=== PATIENT | male | born 1985 | race Caucasian/White ===

== ENCOUNTER 2017-06-27 12:16 | Inpatient (IN) | payer OTHER ==
--- NOTE | 2017-06-27 13:42 | ED ---
General Adult HPI - General Chief complaint: Extremity Problem,Nontraumatic Stated complaint: Fluid retention Time Seen by Provider: 06/27/17 13:28 Source: patient, RN notes reviewed Mode of arrival: wheelchair Limitations: no limitations - History of Present Illness Initial comments: Patient 32-year-old male who presents emergency room today with a chief complaint of bilateral leg edema and abdomen swelling over the last month. Patient does admit that over the last 2 months he has run approximately 50 pounds in weight. He does admit that he recently started medications for diabetes, hypertension, cholesterol. States started these just 2 weeks ago. He states he's on pills for his diabetes. Patient admits that he's had a cough. States worse when he lays down. States that the swelling started in his ankles and now is gone up throughout the whole calf area bilaterally. Does admit that is experienced some pain and left knee no. States he has tried the family doctor about this in the past. Patient denies any recent fever, chills, shortness of breath, chest pain, back pain, abdominal pain, nausea or vomiting, numbness or tingling, dysuria or hematuria, constipation or diarrhea, headaches or visual changes, or any other complaints. - Related Data Home Medications Medication Instructions Recorded Confirmed Atorvastatin [Lipitor] 20 mg PO HS 06/27/17 06/27/17 Lisinopril [Prinivil] 20 mg PO DAILY 06/27/17 06/27/17 amLODIPine BESYLATE [Norvasc] 5 mg PO DAILY 06/27/17 06/27/17 glipiZIDE [Glucotrol] 5 mg PO AC-BID 06/27/17 06/27/17 metFORMIN HCL [Glucophage] 500 mg PO BID 06/27/17 06/27/17 Allergies Allergy/AdvReac Type Severity Reaction Status Date / Time No Known Allergies Allergy Verified 06/27/17 14:27 Review of Systems ROS Statement: Those systems with pertinent positive or pertinent negative responses have been documented in the HPI. ROS Other: All systems not noted in ROS Statement are negative. Past Medical History Past Medical History: Diabetes Mellitus, Hyperlipidemia, Hypertension History of Any Multi-Drug Resistant Organisms: None Reported Past Surgical History: Ear Surgery, Tonsillectomy Past Psychological History: No Psychological Hx Reported, Depression Smoking Status: Never smoker Past Alcohol Use History: None Reported Past Drug Use History: None Reported General Exam - General Exam Comments Initial Comments: General: The patient is awake and alert, in no distress, and does not appear acutely ill. Eye: Pupils are equal, round and reactive to light, extra-ocular movements are intact. No nystagmus. There is normal conjunctiva bilaterally. No signs of icterus. Ears, nose, mouth and throat: There are moist mucous membranes and no oral lesions. Neck: The neck is supple, there is no tenderness or JVD. Cardiovascular: There is a regular rate and rhythm. No murmur, rub or gallop is appreciated. Respiratory: Lungs are clear to auscultation, respirations are non-labored, breath sounds are equal. No wheezes, stridor, rales, or rhonchi. Gastrointestinal: Soft, non-distended, non-tender abdomen without masses or organomegaly noted. There is no rebound or guarding present. No CVA tenderness. Bowel sounds are unremarkable. Musculoskeletal: Normal ROM, no tenderness. Strength 5/5. Sensation intact. Pulses equal bilaterally 2+. 1-2+ pitting edema. Neurological: A&O x 3. CN II-XII intact, There are no obvious motor or sensory deficits. Coordination appears grossly intact. Speech is normal. Skin: Skin is warm and dry and no rashes or lesions are noted. Psychiatric: Cooperative, appropriate mood & affect, normal judgment. Limitations: no limitations Course Vital Signs 06/27/17 12:19 Temperature 97.8 F Pulse Rate 107 H Respiratory 18 Rate Blood Pressure 156/99 O2 Sat by Pulse 99 Oximetry Medical Decision Making - Medical Decision Making Patient's labs reviewed. Does show elevated BNP greater than 6000. Patient's chest x-ray shows bilateral pleural effusion. Patient started on Lasix here in emergency room and will be admitted. - Lab Data Result diagrams: 06/27/17 14:12 06/27/17 14:12 Lab Results 06/27/17 06/27/17 06/27/17 Range/Units 14:12 14:12 14:12 WBC 6.4 (3.8-10.6) k/uL RBC 5.46 (4.30-5.90) m/uL Hgb 14.5 (13.0-17.5) gm/dL Hct 45.6 (39.0-53.0) % MCV 83.6 (80.0-100.0) fL MCH 26.7 (25.0-35.0) pg MCHC 31.9 (31.0-37.0) g/dL RDW 13.5 (11.5-15.5) % Plt Count 314 (150-450) k/uL Neutrophils % 69 % Lymphocytes % 21 % Monocytes % 6 % Eosinophils % 2 % Basophils % 1 % Neutrophils # 4.4 (1.3-7.7) k/uL Lymphocytes # 1.4 (1.0-4.8) k/uL Monocytes # 0.4 (0-1.0) k/uL Eosinophils # 0.1 (0-0.7) k/uL Basophils # 0.1 (0-0.2) k/uL Hypochromasia Slight Sodium 140 (137-145) mmol/L Potassium 4.3 (3.5-5.1) mmol/L Chloride 110 H (98-107) mmol/L Carbon Dioxide 23 (22-30) mmol/L Anion Gap 7 mmol/L BUN 13 (9-20) mg/dL Creatinine 1.25 (0.66-1.25) mg/dL Est GFR (MDRD) Af Amer >60 (>60 ml/min/1.73 sqM) Est GFR (MDRD) Non-Af >60 (>60 ml/min/1.73 sqM) Glucose 86 (74-99) mg/dL Calcium 8.8 (8.4-10.2) mg/dL Total Bilirubin 1.3 (0.2-1.3) mg/dL AST 19 (17-59) U/L ALT 20 L (21-72) U/L Alkaline Phosphatase 60 (38-126) U/L NT-Pro-B Natriuret Pep 6400 pg/mL Total Protein 5.6 L (6.3-8.2) g/dL Albumin 2.8 L (3.5-5.0) g/dL Disposition Clinical Impression: Bilateral pleural effusion, Anasarca, Bilateral leg edema Disposition: ADMITTED IP TO THIS [facility] Condition: Stable Referrals: Melvina Layne MD [Primary Care Provider] - 1-2 days Time of Disposition: 15:38
[2017-06-27 14:35] LABS: Basophils # (A) 0.1 k/uL (0-0.2); Basophils % (A) 1 %; CH 26.2; CHCM 31.4; Eosinophils # (A) 0.1 k/uL (0-0.7); Eosinophils % (A) 2 %; HCT 45.6 % (39.0-53.0); HDW 2.86; HGB 14.5 gm/dL (13.0-17.5); Hypochromasia Slight; Luc # (Auto) 0.09; Luc % (Auto) 1; Lymphocytes # (A) 1.4 k/uL (1.0-4.8); Lymphocytes % (A) 21 %; MCH 26.7 pg (25.0-35.0); MCHC 31.9 g/dL (31.0-37.0); MCV 83.6 fL (80.0-100.0); Mean Platelet Volume 6.8; Monocytes # (A) 0.4 k/uL (0-1.0); Monocytes % (A) 6 %; Neutrophils # (A) 4.4 k/uL (1.3-7.7); Neutrophils % (A) 69 %; RBC 5.46 m/uL (4.30-5.90); RDW 13.5 % (11.5-15.5); WBC 6.4 k/uL (3.8-10.6); WBC (Perox) 6.48
--- NOTE | 2017-06-27 14:35 | XR ---
EXAMINATION TYPE: XR chest 2V DATE OF EXAM: 06/27/2017 COMPARISON: NONE HISTORY: Cough, bilateral leg edema TECHNIQUE: Frontal and lateral views of the chest are obtained. FINDINGS: There are overlying cardiac leads. Bibasilar effusions are present with associated atelect asis. Heart is enlarged. No evident pneumothorax. IMPRESSION: Bibasilar effusions and associated atelectasis, correlate to exclude pneumonia. Borderli ne increased cardiac size, consider myocarditis. Follow-up recommended.
[2017-06-27 14:49] LABS: ALT 20 U/L (21-72); AST 19 U/L (17-59); Alkaline Phosphatase 60 U/L (38-126); Anion Gap 7 mmol/L; Blood Urea Nitrogen 13 mg/dL (9-20); Calcium 8.8 mg/dL (8.4-10.2); Carbon Dioxide 23 mmol/L (22-30); Chloride 110 mmol/L (98-107); Glucose 86 mg/dL (74-99); Non-African American GFR(MDRD) >60 (>60 ml/min/1.73 sqM); Potassium 4.3 mmol/L (3.5-5.1); Sodium 140 mmol/L (137-145); Total Bilirubin 1.3 mg/dL (0.2-1.3); Total Protein 5.6 g/dL (6.3-8.2)
[2017-06-27] MEDS ORDERED: FUROSEMIDE 10 MG/ML 4 ML VIAL IV STA (15:38)
[2017-06-27] MEDS ORDERED: NALOXONE 0.4 MG/ML 1 ML VIAL IV PRN (15:49)
[2017-06-27] MEDS ORDERED: ONDANSETRON 4 MG/2 ML VIAL IVP PRN (15:49)
[2017-06-27 17:34] LABS: Glucose,Whole Blood 87 mg/dL (75-99)
[2017-06-27] MEDS: glipiZIDE 5 MG TAB PO SCH (18:25)
[2017-06-27 20:25] LABS: Hemoglobin A1C 8.4 % (4.2-6.1)
[2017-06-27] MEDS: ATORVASTATIN 20 MG TAB PO SCH (20:39)
[2017-06-27 21:05] LABS: Glucose,Whole Blood 146 mg/dL (75-99)
[2017-06-27] MEDS: INSULIN LISPRO (humaLOG) 300 UNIT/3 ML VIAL SQ SCH (21:19)
[2017-06-27] MEDS ORDERED: FUROSEMIDE 10 MG/ML 2 ML VIAL IV ONE (22:11)
[2017-06-27] MEDS ORDERED: cloNIDine HCL 0.1 MG TAB PO STA (22:11)
[2017-06-27] MEDS: HYDROcodone/APAP 5-325MG 1 EACH TAB PO PRN (23:18)
[2017-06-28] MEDS ORDERED: FUROSEMIDE 10 MG/ML 4 ML VIAL IV SCH (06:00)
[2017-06-28 06:03] LABS: Glucose,Whole Blood 92 mg/dL (75-99)
[2017-06-28] MEDS: INSULIN LISPRO (humaLOG) 300 UNIT/3 ML VIAL SQ SCH ×4 (06:29→20:44)
[2017-06-28] MEDS: glipiZIDE 5 MG TAB PO SCH ×2 (06:30→17:33)
[2017-06-28 06:52] LABS: Basophils # (A) 0.1 k/uL (0-0.2); Basophils % (A) 1 %; CH 26.7; CHCM 31.7; Eosinophils # (A) 0.1 k/uL (0-0.7); Eosinophils % (A) 2 %; HCT 43.5 % (39.0-53.0); HDW 2.75; HGB 13.4 gm/dL (13.0-17.5); Hypochromasia Slight; Luc % (Auto) 1; Lymphocytes # (A) 1.3 k/uL (1.0-4.8); Lymphocytes % (A) 18 %; MCH 26.1 pg (25.0-35.0); MCHC 30.9 g/dL (31.0-37.0); MCV 84.5 fL (80.0-100.0); Monocytes # (A) 0.6 k/uL (0-1.0); Monocytes % (A) 8 %; Neutrophils # (A) 5.2 k/uL (1.3-7.7); Neutrophils % (A) 71 %; RBC 5.15 m/uL (4.30-5.90); RDW 14.4 % (11.5-15.5); WBC 7.3 k/uL (3.8-10.6); WBC (Perox) 7.56
[2017-06-28 07:03] LABS: ALT 19 U/L (21-72); AST 15 U/L (17-59); Alkaline Phosphatase 57 U/L (38-126); Anion Gap 8 mmol/L; Blood Urea Nitrogen 13 mg/dL (9-20); Calcium 8.7 mg/dL (8.4-10.2); Carbon Dioxide 23 mmol/L (22-30); Chloride 108 mmol/L (98-107); Glucose 92 mg/dL (74-99); Non-African American GFR(MDRD) >60 (>60 ml/min/1.73 sqM); Potassium 4.3 mmol/L (3.5-5.1); Sodium 139 mmol/L (137-145); Total Bilirubin 1.9 mg/dL (0.2-1.3); Total Protein 5.3 g/dL (6.3-8.2)
[2017-06-28] MEDS: amLODIPine 5 MG TAB PO SCH (08:44)
[2017-06-28] MEDS: LISINOPRIL 20 MG TAB PO SCH (08:44)
[2017-06-28] MEDS: ACETAMINOPHEN TAB 325 MG TAB PO PRN (09:04)
[2017-06-28] MEDS ORDERED: Potassium Replacement Protocol 1 EACH MISC MISCELLANE PRN (11:02)
[2017-06-28] MEDS ORDERED: Magnesium Replacement Protocol 1 EACH MISC MISCELLANE PRN (11:02)
--- NOTE | 2017-06-28 11:10 | P.HPIM ---
History of Present Illness H&P Date: 06/28/17 Chief Complaint: Lower extremity swelling This is a 32-year-old male with past medical history significant for uncontrolled type 2 diabetes and essential hypertension left untreated for several years who presented to my office couple of weeks ago for establishment of care. Patient is aware of his diagnosis but did not have follow-up with any doctors for a couple of years and did not take any medications. He said that he was feeling well and did not have any problems. He was recently started on blood pressure medication and diabetes medication as well. Patient said that for the past week or 2 he's been having worsening swelling that started initially in his lower extremity and is being getting progressively worse. Now the swelling is going all the way up to the abdomen. He reports shortness of breath while laying flat. He denies any chest pain. He did not have similar problems in the past. Review of Systems Review of system: 14 points review of systems were obtained and were negative except to what were mentioned in the HPI. Past Medical History Past Medical History: Diabetes Mellitus, Hyperlipidemia, Hypertension Additional Past Medical History / Comment(s): PT STATED IN PAST HE HAS A PNE VACCINE BUT NOT SURE OF DATE. History of Any Multi-Drug Resistant Organisms: None Reported Past Surgical History: Ear Surgery, Tonsillectomy Additional Past Surgical History / Comment(s): "FLUID TAKEN OFF LT KNEE", TUBES IN EARS CHILD Past Anesthesia/Blood Transfusion Reactions: No Reported Reaction Smoking Status: Never smoker - Past Family History Father Family Medical History: Unable to Obtain Additional Family Medical History / Comment(s): PT WAS ADOPTED Mother Family Medical History: Unable to Obtain Additional Family Medical History / Comment(s): PT WAS ADOPTED Medications and Allergies Home Medications Medication Instructions Recorded Confirmed Type Atorvastatin [Lipitor] 20 mg PO HS 06/27/17 06/27/17 History Lisinopril [Prinivil] 20 mg PO DAILY 06/27/17 06/27/17 History amLODIPine BESYLATE [Norvasc] 5 mg PO DAILY 06/27/17 06/27/17 History glipiZIDE [Glucotrol] 5 mg PO AC-BID 06/27/17 06/27/17 History metFORMIN HCL [Glucophage] 500 mg PO BID 06/27/17 06/27/17 History Allergies Allergy/AdvReac Type Severity Reaction Status Date / Time No Known Allergies Allergy Verified 06/27/17 14:27 Physical Exam Vitals: Vital Signs Temp Pulse Pulse Resp BP BP BP 06/28/17 08:00 97.5 F L 91 16 136/75 06/28/17 03:50 96.8 F L 99 16 152/97 06/28/17 00:04 144/91 06/27/17 23:51 98.5 F 104 H 18 151/95 06/27/17 20:00 98.8 F 102 H 18 148/102 149/101 06/27/17 17:36 97 F L 111 H 20 150/106 06/27/17 17:13 98.2 F 99 15 167/101 06/27/17 12:19 97.8 F 107 H 18 156/99 Pulse Ox 06/28/17 08:00 91 L 06/28/17 03:50 97 06/28/17 00:04 06/27/17 23:51 98 06/27/17 20:00 97 06/27/17 17:36 99 06/27/17 17:13 99 06/27/17 12:19 99 Intake and Output 06/27/17 06/28/17 06/28/17 22:59 06:59 14:59 Intake Total 240 250 120 Output Total 1150 Balance 240 -900 120 Intake: Oral 240 250 120 Output: Urine 500 Stool 650 Other: Weight 109.5 kg General: The patient is awake and alert, in no distress Eye: there is normal conjunctiva bilaterally. Neck: The neck is supple, there is no JVD. Cardiovascular: Normal S1-S2, no S3-S4, no murmurs. Respiratory: Lungs clear to auscultation bilaterally Gastrointestinal: Abdomen is nontender. There is evidence of anasarca up to the mid abdomen Musculoskeletal: There is pitting edema and evidence of anasarca all the way up to the hip Neurological:. Speech is normal. Skin: Skin is warm and dry Results CBC & Chem 7: 06/28/17 05:51 06/28/17 05:51 Labs: Abnormal Lab Results - Last 24 Hours (Table) 06/27/17 06/27/17 06/27/17 Range/Units 14:12 14:12 21:03 MCHC (31.0-37.0) g/dL Chloride 110 H (98-107) mmol/L POC Glucose (mg/dL) 146 H (75-99) mg/dL Hemoglobin A1c 8.4 H (4.2-6.1) % Total Bilirubin (0.2-1.3) mg/dL AST (17-59) U/L ALT 20 L (21-72) U/L Total Protein 5.6 L (6.3-8.2) g/dL Albumin 2.8 L (3.5-5.0) g/dL 06/28/17 06/28/17 Range/Units 05:51 05:51 MCHC 30.9 L (31.0-37.0) g/dL Chloride 108 H (98-107) mmol/L POC Glucose (mg/dL) (75-99) mg/dL Hemoglobin A1c (4.2-6.1) % Total Bilirubin 1.9 H (0.2-1.3) mg/dL AST 15 L (17-59) U/L ALT 19 L (21-72) U/L Total Protein 5.3 L (6.3-8.2) g/dL Albumin 2.6 L (3.5-5.0) g/dL
[2017-06-28 11:23] LABS: Glucose,Whole Blood 84 mg/dL (75-99)
--- NOTE | 2017-06-28 12:41 | ECHOF ---
Referral Reason:CHF? MEASUREMENTS -------- HEIGHT: 170.2 cm WEIGHT: 109.3 kg BP: 120/60 IVSd: 1.4 cm (0.6 - 1.1) LVIDd: 5.8 cm (3.9 - 5.3) LVPWd: 1.3 cm (0.6 - 1.1) IVSs: 1.5 cm LVIDs: 5.4 cm LVPWs: 1.4 cm LA Diam: 3.4 cm (2.7 - 3.8) LAESV Index (A-L): 42.11 ml/m Ao Diam: 3.6 cm (2.0 - 3.7) AV Cusp: 3.1 cm (1.5 - 2.6) LA Diam: 4.0 cm (2.7 - 3.8) MV EXCURSION: 22.560 mm (> 18.000) MV EF SLOPE: 192 mm/s (70 - 150) EPSS: 1.5 cm MV E Nehemiah: 1.07 m/s MV DecT: 200 ms MV A Nehemiah: 1.08 m/s MV E/A Ratio: 0.99 RAP: 5.00 mmHg RVSP: 32.20 mmHg FINDINGS -------- Sinus rhythm. This was a technically good study. There is mild concentric left ventricular hypertrophy. Overall left ventricular systolic function is severely impaired with, an EF between 25 - 30 %. The right ventricle is normal in size. LA is severely dilated >40 ml/m2 The right atrial size is normal. There is [id number] aortic regurgitation. Functionally bicuspid aortic valve. Mild mitral annular calcification present. Mild mitral regurgitation is present. Mild tricuspid regurgitation present. There is no evidence of pulmonary hypertension. The right ventricular systolic pressure, as measured by Doppler, is 32.20mmHg. There is no pulmonic regurgitation present. The aortic root size is normal. There is a trivial pericardial effusion present. CONCLUSIONS -------- 1. There is mild concentric left ventricular hypertrophy. 2. The aortic root size is normal. 3. There is a trivial pericardial effusion present. 4. Overall left ventricular systolic function is severely impaired with, an EF between 25 - 30 %. 5. LA is severely dilated >40 ml/m2 6. Functionally bicuspid aortic valve. 7. Mild mitral annular calcification present. 8. Mild mitral regurgitation is present. 9. Mild tricuspid regurgitation present. 10. There is no evidence of pulmonary hypertension. 11. The right ventricular systolic pressure, as measured by Doppler, is 32.20mmHg. [employer] ATTENDANT: Gretchen Cohen RDCS
--- NOTE | 2017-06-28 13:58 | US ---
EXAMINATION TYPE: US venous doppler duplex LE DATE OF EXAM: 06/28/2017 1:47 PM COMPARISON: NONE CLINICAL HISTORY: r/o DVT. SIDE PERFORMED: Bilateral TECHNIQUE: The lower extremity deep venous system is examined utilizing real time linear array sonog mami with graded compression, doppler sonography and color-flow sonography. VESSELS IMAGED: External Iliac Vein (EIV) Common Femoral Vein Deep Femoral Vein Greater Saphenous Vein * Femoral Vein Popliteal Vein Small Saphenous Vein * Proximal Calf Veins (* superficial vessels) Patient has extensive subcutaneous, pitting edema. Right Leg: Unable to view femoral vein mid and distal for compression views due to extreme edema. Ap pears negative for DVT. Left Leg: Unable to view femoral vein mid and distal for compression views due to extreme edema. Dinah ears negative for DVT. IMPRESSION: Grayscale, color doppler, spectral doppler imaging performed of the deep veins of the lo wer extremities. There is normal flow, compressibility, vascular waveforms bilaterally. Exam somewh at limited. No evident deep venous thrombosis as described. Bilateral lower extremity edema changes a re present.
[2017-06-28 16:17] LABS: Glucose,Whole Blood 137 mg/dL (75-99)
[2017-06-28] MEDS: FUROSEMIDE 10 MG/ML 4 ML VIAL IV SCH (17:33)
[2017-06-28 20:42] LABS: Glucose,Whole Blood 141 mg/dL (75-99)
[2017-06-28] MEDS: HEPARIN SODIUM,PORCINE 5,000 UNIT/ML 1 ML VIAL SQ SCH (20:43)
[2017-06-28] MEDS: HYDROcodone/APAP 5-325MG 1 EACH TAB PO PRN (20:43)
[2017-06-28] MEDS: ATORVASTATIN 20 MG TAB PO SCH (20:43)
[2017-06-29] MEDS: FUROSEMIDE 10 MG/ML 4 ML VIAL IV SCH ×4 (00:06→23:22)
[2017-06-29 06:06] LABS: Glucose,Whole Blood 111 mg/dL (75-99)
[2017-06-29] MEDS: INSULIN LISPRO (humaLOG) 300 UNIT/3 ML VIAL SQ SCH ×4 (06:11→21:08)
[2017-06-29] MEDS: glipiZIDE 5 MG TAB PO SCH ×2 (06:34→16:30)
[2017-06-29 06:49] LABS: Anion Gap 9 mmol/L; Blood Urea Nitrogen 19 mg/dL (9-20); Calcium 8.7 mg/dL (8.4-10.2); Carbon Dioxide 22 mmol/L (22-30); Chloride 106 mmol/L (98-107); Glucose 109 mg/dL (74-99); Magnesium 1.5 mg/dL (1.6-2.3); Non-African American GFR(MDRD) >60 (>60 ml/min/1.73 sqM); Phosphorous 4.6 mg/dL (2.5-4.5); Potassium 4.2 mmol/L (3.5-5.1); Sodium 137 mmol/L (137-145)
[2017-06-29] MEDS ORDERED: Magnesium Replacement Protocol 1 EACH MISC MISCELLANE PRN (08:05)
--- NOTE | 2017-06-29 08:27 | XR ---
EXAMINATION TYPE: XR chest 2V DATE OF EXAM: 06/29/2017 COMPARISON: Prior chest x-ray 06/27/2017 HISTORY: Pleural effusions, abnormal chest x-ray TECHNIQUE: Frontal and lateral views of the chest are obtained. FINDINGS: Similar appearance to prior exam. Bibasilar effusions and associated atelectasis. The hear t is enlarged. No evident pneumothorax. IMPRESSION: Cardiomegaly, bibasilar effusions, atelectasis, correlate for possible myocarditis, mitra estive heart failure. Pneumonia not excluded.
[2017-06-29] MEDS: HEPARIN SODIUM,PORCINE 5,000 UNIT/ML 1 ML VIAL SQ SCH ×2 (09:03→20:10)
[2017-06-29] MEDS: amLODIPine 5 MG TAB PO SCH (09:03)
[2017-06-29] MEDS: MAGNESIUM SULFATE-D5W PMX 1 GM in DEXTROSE/WATER 1 100ML.BAG IVPB SCH ×2 (09:03→11:04)
[2017-06-29] MEDS: LISINOPRIL 20 MG TAB PO SCH (09:04)
[2017-06-29] MEDS ORDERED: METOPROLOL TARTRATE 25 MG TAB PO SCH (10:00)
--- NOTE | 2017-06-29 11:28 | P.PN ---
Subjective Patient is doing slightly better today. He is responding adequately to the diuresis. He lost approximately 5 kg since admission. Objective - Vital Signs Vital signs: Vital Signs Temp 97.7 F 06/29/17 08:00 Pulse 97 06/29/17 08:00 Resp 18 06/29/17 08:00 BP 137/80 06/29/17 08:00 Pulse Ox 97 06/29/17 08:00 Intake & Output 06/28/17 06/29/17 06/29/17 18:59 06:59 18:59 Intake Total 1200 180 Output Total 1100 2600 Balance 100 -2600 180 Weight 107.1 kg Intake: Oral 1200 180 Output: Urine 1100 2600 Other: # Voids 2 - Exam General: The patient is awake and alert, in no distress Eye: there is normal conjunctiva bilaterally. Neck: The neck is supple, there is no JVD. Cardiovascular: Normal S1-S2, no S3-S4, no murmurs. Respiratory: Lungs clear to auscultation bilaterally Gastrointestinal: Abdomen is soft, nontender Musculoskeletal: There is evidence of anasarca up to the mid abdomen improving gradually on a daily basis Neurological:. Speech is normal. Skin: Skin is warm and dry - Labs CBC & Chem 7: 06/28/17 05:51 06/29/17 06:05 Labs: Abnormal Lab Results - Last 24 Hours (Table) 06/28/17 06/28/17 06/29/17 Range/Units 16:13 20:40 06:05 Glucose 109 H (74-99) mg/dL POC Glucose (mg/dL) 137 H 141 H (75-99) mg/dL Phosphorus 4.6 H (2.5-4.5) mg/dL Magnesium 1.5 L (1.6-2.3) mg/dL 06/29/17 Range/Units 06:05 Glucose (74-99) mg/dL POC Glucose (mg/dL) 111 H (75-99) mg/dL Phosphorus (2.5-4.5) mg/dL Magnesium (1.6-2.3) mg/dL Assessment and Plan Plan: 1. Acute systolic heart failure exacerbation 2. Underlying cardiomyopathy most likely hypertensive cardiomyopathy secondary to long-standing untreated hypertension with possible underlying myocarditis 3. Uncontrolled type 2 diabetes mellitus 4. Essential hypertension: Blood pressure better controlled 5. Obesity This is a 32-year-old gentleman with past medical history significant for type 2 diabetes mellitus and essential hypertension who presented to my office couple of weeks ago for establishment of care. Patient has not been seen by a physician for several years. He was aware of his diagnosis of diabetes and hypertension but said that he was feeling well so he did not see a doctor and did not take any of his medication for a couple of years. He was found to be significantly hypertensive and was started on lisinopril and the dose was titrated up over 1 week and then added Norvasc to his regimen. Patient subsequently was having problems with worsening swelling and decided to come to the emergency room couple of days ago. Today, we discussed his echocardiogram report. I explained to him the significance of his underlying cardiomyopathy and the necessity of medication compliance. I answered all of his questions to his satisfaction. I would continue with lisinopril 20 mg daily. Discontinue Norvasc and start hydralazine 25 mg twice a day effective tomorrow for afterload reduction. I would also start him on beta kendal with metoprolol 25 mg twice a day. Continue IV diuresis with IV Lasix 40 mg every 8 hours. Monitor electrolytes and kidney function closely. Replace magnesium by protocol. Consult cardiology for further evaluation.
[2017-06-29 11:45] LABS: Glucose,Whole Blood 92 mg/dL (75-99)
--- NOTE | 2017-06-29 15:24 | P.CRDCN ---
History of Present Illness Consult date: 06/29/17 History of present illness: This is a 32-year-old gentleman with history of possible intermittent hypertensive episodes, but hasn't been seen by any physician on a regular basis. He hasn't taken medication also on a regular basis. He was seen by primary care physician about couple weeks ago and patient was noted to have evidence of high blood pressure. He was started on amlodipine. On follow-up visit patient was noted to have increasing swelling and shortness of breath. He is admitted to the hospital for further evaluation. A chest x-ray showed cardiac megaly and congestive heart failure. His echocardiogram showed evidence of by cuspid aortic valve with moderate to severe aortic regurgitation. This seemed to be global hypokinesia. However in certain views segmental wall motion defects cannot be excluded, especially in the anteroapical and lateral segments. At this point we'll continue with current medical therapy with beta blockers, SWETA inhibitor R's diuretics and all lactone. I'm also add small dose of digoxin. He is also complaining of some pain in the left knee which seemed to be inflamed and may have small arthritis. That may be further investigated with x-rays of the knee. However plan to be a OLMAN and right and left heart catheterization early next week. Review of Systems REVIEW OF SYSTEMS: CONSTITUTIONAL: . Patient doesn't appear to be in acute distress. EYES: Denies diplopia, blurring of vision EARS, NOSE, MOUTH, THROAT: Denies headaches, denies sore throat. CARDIOVASCULAR: As per HPI RESPIRATORY: Denies shortness of breath, denies cough. GASTROINTESTINAL: Denies change in appetite, denies abdominal pain, denies diarrhea GENITOURINARY: Denies hematuria, denies infections. MUSKULOSKELETAL: Complains of pain in the left knee INTEGUMENTARY: Denies rash, denies eczema. NEUROLOGICAL: Denies focal weakness, or visual disturbance. Denies any dizziness or syncope PSYCHIATRIC: Denies anxiety, denies depression. HEMATOLOGIC/LYMPHATIC: Denies any bleeding, denies enlarged lymph nodes. Past Medical History Past Medical History: Diabetes Mellitus, Hyperlipidemia, Hypertension Additional Past Medical History / Comment(s): PT STATED IN PAST HE HAS A PNE VACCINE BUT NOT SURE OF DATE. History of Any Multi-Drug Resistant Organisms: None Reported Past Surgical History: Ear Surgery, Tonsillectomy Additional Past Surgical History / Comment(s): "FLUID TAKEN OFF LT KNEE", TUBES IN EARS CHILD Past Anesthesia/Blood Transfusion Reactions: No Reported Reaction Smoking Status: Never smoker - Past Family History Father Family Medical History: Unable to Obtain Additional Family Medical History / Comment(s): PT WAS ADOPTED Mother Family Medical History: Unable to Obtain Additional Family Medical History / Comment(s): PT WAS ADOPTED Medications and Allergies Home Medications Medication Instructions Recorded Confirmed Type Atorvastatin [Lipitor] 20 mg PO HS 06/27/17 06/27/17 History Lisinopril [Prinivil] 20 mg PO DAILY 06/27/17 06/27/17 History amLODIPine BESYLATE [Norvasc] 5 mg PO DAILY 06/27/17 06/27/17 History glipiZIDE [Glucotrol] 5 mg PO AC-BID 06/27/17 06/27/17 History metFORMIN HCL [Glucophage] 500 mg PO BID 06/27/17 06/27/17 History Allergies Allergy/AdvReac Type Severity Reaction Status Date / Time No Known Allergies Allergy Verified 06/27/17 14:27 Physical Exam Vitals: Vital Signs Temp Pulse Resp BP Pulse Ox 06/29/17 12:00 97.4 F L 94 18 130/82 96 06/29/17 08:00 97.7 F 97 18 137/80 97 06/29/17 04:24 97.7 F 93 16 131/93 98 06/29/17 00:00 91 16 134/87 96 06/28/17 20:00 97.6 F 98 16 138/90 100 06/28/17 16:00 97 16 130/83 96 Intake and Output 06/29/17 06/29/17 06/29/17 06:59 14:59 22:59 Intake Total 360 Output Total 1700 600 Balance -1700 -240 Intake: Oral 360 Output: Urine 1700 600 Other: Weight 107.1 kg GENERAL EXAM: Patient is alert and oriented and doesn't appear to be in any acute distress HEENT: Normocephalic. Normal reaction of pupils, equal size, normal range of extraocular motion. No erythema or exudates in the throat. NECK: No masses, no nuchal rigidity. CHEST: No chest wall deformity. LUNGS: Diminished breath sounds at bases HEART: S1 and S2 normal . Systolic click heard ABDOMEN: No hepatosplenomegaly, normal bowel sounds, no guarding or rigidity. SKIN: No rashes CENTRAL NERVOUS SYSTEM: No focal deficits. EXTREMITIES: Significant edema. There is warmth of the left knee compared to the right knee size to possible arthritis Results 06/28/17 05:51 06/29/17 06:05 Comprehensive Metabolic Panel 06/29/17 Range/Units 06:05 Sodium 137 (137-145) mmol/L Potassium 4.2 (3.5-5.1) mmol/L Chloride 106 (98-107) mmol/L Carbon Dioxide 22 (22-30) mmol/L BUN 19 (9-20) mg/dL Creatinine 1.21 (0.66-1.25) mg/dL Glucose 109 H (74-99) mg/dL Calcium 8.7 (8.4-10.2) mg/dL Current Medications Generic Name Dose Route Start Last Admin Trade Name Freq PRN Reason Stop Dose Admin Acetaminophen 650 mg 06/27/17 15:49 06/28/17 09:04 Tylenol Tab PO 650 mg Q6HR PRN Administration Mild Pain or Fever > 100.5 Hydrocodone Bitart/Acetaminophen 1 each 06/27/17 15:49 06/28/17 20:43 [place] 5-325 PO 1 each Q4HR PRN Administration Moderate Pain Atorvastatin Calcium 20 mg 06/27/17 21:00 06/28/17 20:43 Lipitor PO 20 mg HS [place] Administration Furosemide 40 mg 06/28/17 16:00 06/29/17 08:13 Lasix IV 40 mg Q8HR [place] Administration Glipizide 5 mg 06/27/17 18:15 06/29/17 06:34 Glucotrol PO 5 mg AC-BID [place] Administration Heparin Sodium (Porcine) 5,000 unit 06/28/17 21:00 06/29/17 09:03 Heparin SQ 5,000 unit Q12HR [place] Administration Hydralazine HCl 25 mg 06/30/17 09:00 Apresoline PO BID [place] Insulin Human Lispro 0 unit 06/27/17 21:00 06/29/17 06:11 Humalog SQ Not Given ACHS [facility] Protocol Lisinopril 20 mg 06/28/17 09:00 06/29/17 09:04 Zestril PO 20 mg DAILY [place] Administration Metoprolol Tartrate 25 mg 06/29/17 10:00 06/29/17 12:00 Lopressor PO 25 mg BID [place] Administration Miscellaneous Information 1 each 06/28/17 11:02 Magnesium Per Protocol MISCELLANE DAILY PRN Per Protocol Protocol Miscellaneous Information 1 each 06/28/17 11:02 Potassium Per Protocol MISCELLANE DAILY PRN Per Protocol Protocol Miscellaneous Information 1 each 06/29/17 08:05 Magnesium Per Protocol MISCELLANE DAILY PRN Per Protocol Protocol Naloxone HCl 0.2 mg 06/27/17 15:49 Narcan IV Q2M PRN Opioid Reversal Ondansetron HCl 4 mg 06/27/17 15:49 Zofran IVP Q8HR PRN Nausea And Vomiting Spironolactone 25 mg 06/29/17 15:15 Aldactone PO DAILY [place] Intake and Output 06/29/17 06/29/17 06/29/17 06:59 14:59 22:59 Intake Total 360 Output Total 1700 600 Balance -1700 -240 Intake: Oral 360 Output: Urine 1700 600 Other: Weight 107.1 kg 06/28/17 05:51 06/29/17 06:05 Assessment and Plan (1) Acute systolic (congestive) heart failure Status: Acute (2) Cardiomyopathy Status: Acute (3) Bicuspid aortic valve Status: Acute (4) Aortic regurgitation Status: Acute (5) Arthritis of left knee Status: Acute Plan: Continue with current medical therapy. I will add Aldactone. Once patient's symptoms are more stable, we'll may proceed with a OLMAN and also cardiac catheterization. Further examination depend upon the clinical course.
[2017-06-29] MEDS: HYDROcodone/APAP 5-325MG 1 EACH TAB PO PRN ×2 (15:30→23:22)
[2017-06-29] MEDS: SPIRONOLACTONE 25 MG TAB PO SCH (15:45)
[2017-06-29 16:59] LABS: Glucose,Whole Blood 151 mg/dL (75-99)
[2017-06-29] MEDS ORDERED: METOPROLOL TARTRATE 25 MG TAB PO ONE (17:45)
[2017-06-29] MEDS ORDERED: METOPROLOL TARTRATE 25 MG TAB PO STA (17:58)
[2017-06-29] MEDS: METOPROLOL TARTRATE 50 MG TAB PO SCH (20:10)
[2017-06-29] MEDS: ATORVASTATIN 20 MG TAB PO SCH (20:10)
[2017-06-29 20:53] LABS: Glucose,Whole Blood 80 mg/dL (75-99)
[2017-06-30] MEDS: HYDROcodone/APAP 5-325MG 1 EACH TAB PO PRN ×3 (05:16→23:36)
[2017-06-30 05:46] LABS: Glucose,Whole Blood 136 mg/dL (75-99)
[2017-06-30] MEDS: glipiZIDE 5 MG TAB PO SCH ×2 (06:34→17:30)
[2017-06-30] MEDS: INSULIN LISPRO (humaLOG) 300 UNIT/3 ML VIAL SQ SCH ×4 (06:34→20:53)
[2017-06-30 07:01] LABS: Anion Gap 6 mmol/L; Blood Urea Nitrogen 23 mg/dL (9-20); Calcium 8.6 mg/dL (8.4-10.2); Carbon Dioxide 28 mmol/L (22-30); Chloride 102 mmol/L (98-107); Glucose 116 mg/dL (74-99); Magnesium 1.8 mg/dL (1.6-2.3); Non-African American GFR(MDRD) 55 (>60 ml/min/1.73 sqM); Phosphorous 4.3 mg/dL (2.5-4.5); Potassium 4.3 mmol/L (3.5-5.1); Sodium 136 mmol/L (137-145)
[2017-06-30] MEDS: HEPARIN SODIUM,PORCINE 5,000 UNIT/ML 1 ML VIAL SQ SCH ×2 (09:32→20:48)
[2017-06-30] MEDS: FUROSEMIDE 10 MG/ML 4 ML VIAL IV SCH (09:33)
[2017-06-30] MEDS: hydrALAZINE HCL 25 MG TAB PO SCH ×2 (09:34→20:48)
[2017-06-30] MEDS: METOPROLOL TARTRATE 50 MG TAB PO SCH ×2 (09:34→20:48)
[2017-06-30] MEDS: LISINOPRIL 20 MG TAB PO SCH (09:34)
[2017-06-30] MEDS: SPIRONOLACTONE 25 MG TAB PO SCH (09:34)
[2017-06-30 11:55] LABS: Glucose,Whole Blood 87 mg/dL (75-99)
--- NOTE | 2017-06-30 12:46 | P.PN ---
Subjective Patient is doing slightly better today. He is responding adequately to the diuresis. He lost approximately 5 kg since admission. Noted to have elevated creatinine with acute kidney injury Objective - Vital Signs Vital signs: Vital Signs Temp 97.1 F L 06/29/17 20:00 Pulse 87 06/30/17 04:00 Resp 18 06/30/17 04:00 BP 133/79 06/30/17 04:00 Pulse Ox 92 L 06/30/17 04:00 Intake & Output 06/29/17 06/30/17 06/30/17 18:59 06:59 18:59 Intake Total 640 360 Output Total 1200 1100 Balance -560 -1100 360 Weight 105.6 kg Intake: Intake, IV Titration 100 Amount Magnesium Sulfate-D5w Pmx 100 1 gm In Dextrose/Water 1 100ml.bag @ 100 mls/hr IVPB Q1H [facility] Rx#: [id number] Oral 540 360 Output: Urine 1200 1100 - Exam General: The patient is awake and alert, in no distress Eye: there is normal conjunctiva bilaterally. Neck: The neck is supple, there is no JVD. Cardiovascular: Normal S1-S2, no S3-S4, no murmurs. Respiratory: Lungs clear to auscultation bilaterally Gastrointestinal: Abdomen is soft, nontender Musculoskeletal: There is evidence of anasarca up to the mid abdomen improving gradually on a daily basis Neurological:. Speech is normal. Skin: Skin is warm and dry - Labs CBC & Chem 7: 06/28/17 05:51 06/30/17 06:34 Labs: Abnormal Lab Results - Last 24 Hours (Table) 06/29/17 06/30/17 06/30/17 Range/Units 16:50 05:45 06:34 Sodium 136 L (137-145) mmol/L BUN 23 H (9-20) mg/dL Creatinine 1.48 H (0.66-1.25) mg/dL Glucose 116 H (74-99) mg/dL POC Glucose (mg/dL) 151 H 136 H (75-99) mg/dL Assessment and Plan Plan: 1. Acute systolic heart failure exacerbation 2. Underlying cardiomyopathy most likely hypertensive cardiomyopathy secondary to long-standing untreated hypertension. but unable to rule out ischemic cardiomyopathy . Cardiology consulted. Considering left heart cath early next week. EF of 25 -30%.3. Uncontrolled type 2 diabetes mellitus 4. Essential hypertension: Blood pressure better controlled 5. Obesity 6. Acute kidney injury secondary to diuretic use would hold off nephrotoxics today including Lasix and spironolactone and repeat kidney function in the morning
[2017-06-30 17:11] LABS: Glucose,Whole Blood 111 mg/dL (75-99)
--- NOTE | 2017-06-30 18:36 | P.PN ---
Subjective Principal diagnosis: Cardiomyopathy, congestive heart failure, bicuspid aortic valve and aortic regurgitation This patient is admitted to the hospital with increasing shortness of breath and also peripheral edema. Echocardiogram showed severe cardiomyopathy and evidence of bicuspid aortic valve with moderate to severe aortic regurgitation. Patient diuresed well and lost several pounds. He is feeling better. He still has significant edema of the legs. His venous duplex study is negative for pulmonary emboli. I discussed with patient and family regarding further evaluation with OLMAN and also possible right and left heart catheterization. His creatinine has gone up to 1.4. He denies any chest pain Objective - Vital Signs Vital signs: Vital Signs Temp 97.1 F L 06/30/17 16:55 Pulse 83 06/30/17 16:55 Resp 18 06/30/17 16:55 BP 115/70 06/30/17 16:55 Pulse Ox 99 06/30/17 16:55 Intake & Output 06/29/17 06/30/17 06/30/17 18:59 06:59 18:59 Intake Total 640 360 Output Total 1200 1100 500 Balance -560 -1100 -140 Weight 105.6 kg Intake: Intake, IV Titration 100 Amount Magnesium Sulfate-D5w Pmx 100 1 gm In Dextrose/Water 1 100ml.bag @ 100 mls/hr IVPB Q1H [facility] Rx#: [id number] Oral 540 360 Output: Urine 1200 1100 500 - Exam GENERAL EXAM: Patient is alert and oriented and doesn't appear to be in any acute distress HEENT: Normocephalic. Normal reaction of pupils, equal size, normal range of extraocular motion. No erythema or exudates in the throat. NECK: No masses, no nuchal rigidity. CHEST: No chest wall deformity. LUNGS: Diminished breath sounds at bases HEART: S1 and S2 normal with no audible mumurs or gallops. Regular rhythm, femorals equal on both sides.. ABDOMEN: Soft SKIN: No rashes CENTRAL NERVOUS SYSTEM: No focal deficits. EXTREMITIES: Diffuse edema of the legs - Labs CBC & Chem 7: 06/28/17 05:51 06/30/17 06:34 Labs: Abnormal Lab Results - Last 24 Hours (Table) 06/30/17 06/30/17 06/30/17 Range/Units 05:45 06:34 17:08 Sodium 136 L (137-145) mmol/L BUN 23 H (9-20) mg/dL Creatinine 1.48 H (0.66-1.25) mg/dL Glucose 116 H (74-99) mg/dL POC Glucose (mg/dL) 136 H 111 H (75-99) mg/dL Assessment and Plan (1) Acute systolic (congestive) heart failure Status: Acute (2) Cardiomyopathy Status: Acute (3) Bicuspid aortic valve Status: Acute (4) Aortic regurgitation Status: Acute (5) Arthritis of left knee Status: Acute Plan: Continue current management. Plan for OLMAN and cardiac catheterization next week.
[2017-06-30] MEDS: ATORVASTATIN 20 MG TAB PO SCH (20:48)
[2017-06-30 20:54] LABS: Glucose,Whole Blood 119 mg/dL (75-99)
[2017-07-01 05:53] LABS: Glucose,Whole Blood 118 mg/dL (75-99)
[2017-07-01] MEDS: INSULIN LISPRO (humaLOG) 300 UNIT/3 ML VIAL SQ SCH ×4 (06:02→20:38)
[2017-07-01 06:03] LABS: Anion Gap 8 mmol/L; Blood Urea Nitrogen 26 mg/dL (9-20); Calcium 8.6 mg/dL (8.4-10.2); Carbon Dioxide 26 mmol/L (22-30); Chloride 101 mmol/L (98-107); Glucose 108 mg/dL (74-99); Magnesium 1.9 mg/dL (1.6-2.3); Non-African American GFR(MDRD) 59 (>60 ml/min/1.73 sqM); Phosphorous 4.5 mg/dL (2.5-4.5); Potassium 4.2 mmol/L (3.5-5.1); Sodium 135 mmol/L (137-145)
[2017-07-01] MEDS: glipiZIDE 5 MG TAB PO SCH ×2 (06:29→17:28)
--- NOTE | 2017-07-01 08:30 | P.PN ---
Subjective Principal diagnosis: CHF This is a 32-year-old gentleman with history of possible intermittent hypertensive episodes, but hasn't been seen by any physician on a regular basis. He hasn't taken medication also on a regular basis. He was seen by primary care physician about couple weeks ago and patient was noted to have evidence of high blood pressure. He was started on amlodipine. On follow-up visit patient was noted to have increasing swelling and shortness of breath. He is admitted to the hospital for further evaluation. A chest x-ray showed cardiomegaly and congestive heart failure. His echocardiogram showed evidence of bicuspid aortic valve with moderate to severe aortic regurgitation. This seemed to be global hypokinesia. However in certain views segmental wall motion defects cannot be excluded, especially in the anteroapical and lateral segments. BNP level on admission 6900. At this point we'll continue with current medical therapy with beta blockers, SWETA inhibitor's ,diuretics and Aldactone. I'm also add small dose of digoxin. He is also complaining of some pain in the left knee which seemed to be inflamed and may have small arthritis. That may be further investigated with x-rays of the knee. However plan to be a OLMAN and right and left heart catheterization early next week. 07/01/2016 Patient was seen and examined this morning, he does state that his breathing is improved from admission here, he continues to have significant bilateral peripheral edema. His Lasix and Aldactone were discontinued yesterday because of a jump in his creatinine. Creatinine yesterday 1.4, 1.4 again today. Initial chest x-ray performed on June 28 did reveal congestive cardiac failure with bilateral effusions, BNP on admission was 6900. Objective - Vital Signs Vital signs: Vital Signs Temp 96.3 F L 07/01/17 07:45 Pulse 92 07/01/17 07:45 Resp 18 07/01/17 07:45 BP 137/87 07/01/17 07:45 Pulse Ox 100 07/01/17 07:45 Intake & Output 06/30/17 07/01/17 07/01/17 18:59 06:59 18:59 Intake Total 720 480 118 Output Total 500 750 Balance 220 -270 118 Weight 105.7 kg Intake: Oral 720 480 118 Output: Urine 500 750 Other: # Voids 2 1 - Exam PHYSICAL EXAMINATION: HEENT: Head is atraumatic, normocephalic. Pupils equal, round. Neck is supple. There is elevated jugular venous pressure. HEART EXAMINATION: Heart S1 and S2 systolic click is heard CHEST EXAMINATION: Lungs reveal diminished air entry to bilateral bases ABDOMEN: Soft, nontender. Bowel sounds are heard. No organomegaly noted. EXTREMITIES: 2+ peripheral pulses with 1-2+ evidence of peripheral edema and no calf tenderness noted. NEUROLOGIC patient is awake, alert and oriented -3. . - Labs CBC & Chem 7: 06/28/17 05:51 07/01/17 05:13 Labs: Abnormal Lab Results - Last 24 Hours (Table) 06/30/17 06/30/17 07/01/17 Range/Units 17:08 20:53 05:13 Sodium 135 L (137-145) mmol/L BUN 26 H (9-20) mg/dL Creatinine 1.40 H (0.66-1.25) mg/dL Glucose 108 H (74-99) mg/dL POC Glucose (mg/dL) 111 H 119 H (75-99) mg/dL 07/01/17 Range/Units 05:52 Sodium (137-145) mmol/L BUN (9-20) mg/dL Creatinine (0.66-1.25) mg/dL Glucose (74-99) mg/dL POC Glucose (mg/dL) 118 H (75-99) mg/dL Assessment and Plan (1) Systolic CHF, acute Status: Acute (2) HTN (hypertension) Status: Acute (3) Bicuspid aortic valve Status: Acute (4) Bilateral leg edema Status: Acute (5) Bilateral pleural effusion Status: Acute (6) Cardiomyopathy Status: Acute Plan: From cardiology's perspective, we will repeat a chest x-ray as well as a BNP level today. Monitor creatinine closely. Patient may need further diuresis. Plan for OLMAN as well as heart catheterization this week. Further recommendations to follow. DNP note has been reviewed, I agree with a documented findings and plan of care. Patient was seen and examined.
--- NOTE | 2017-07-01 09:30 | XR ---
EXAMINATION TYPE: XR chest 2V DATE OF EXAM: 07/01/2017 HISTORY: f/u chf. REFERENCE: Previous study dated 06/29/2017. FINDINGS: The heart is enlarged. There are bilateral effusions, greater on the right and the left. Th ere is bibasilar atelectasis. I do not see evidence of pulmonary edema. IMPRESSION: 1. CARDIOMEGALY. 2. BILATERAL EFFUSIONS, GREATER ON THE RIGHT THAN THE LEFT. 3. BIBASILAR AIRSPACE DISEASE.
[2017-07-01] MEDS: LISINOPRIL 20 MG TAB PO SCH (10:05)
[2017-07-01] MEDS: hydrALAZINE HCL 25 MG TAB PO SCH ×2 (10:05→20:24)
[2017-07-01] MEDS: HEPARIN SODIUM,PORCINE 5,000 UNIT/ML 1 ML VIAL SQ SCH ×2 (10:05→20:24)
[2017-07-01] MEDS: METOPROLOL TARTRATE 50 MG TAB PO SCH ×2 (10:06→20:25)
[2017-07-01 12:00] LABS: Glucose,Whole Blood 103 mg/dL (75-99)
--- NOTE | 2017-07-01 12:07 | P.PN ---
Subjective Patient is doing well today. No events overnight. In the function is not improving as of yet. Objective - Vital Signs Vital signs: Vital Signs Temp 96.3 F L 07/01/17 07:45 Pulse 92 07/01/17 07:45 Resp 18 07/01/17 07:45 BP 137/87 07/01/17 07:45 Pulse Ox 100 07/01/17 07:45 Intake & Output 06/30/17 07/01/17 07/01/17 18:59 06:59 18:59 Intake Total 720 480 118 Output Total 500 750 200 Balance 220 -270 -82 Weight 105.7 kg Intake: Oral 720 480 118 Output: Urine 500 750 200 Other: # Voids 2 1 - Exam General: The patient is awake and alert, in no distress Eye: there is normal conjunctiva bilaterally. Neck: The neck is supple, there is no JVD. Cardiovascular: Normal S1-S2, no S3-S4, no murmurs. Respiratory: Lungs clear to auscultation bilaterally Gastrointestinal: Abdomen is soft, nontender Musculoskeletal: There is evidence of anasarca up to the mid abdomen improving gradually on a daily basis Neurological:. Speech is normal. Skin: Skin is warm and dry - Labs CBC & Chem 7: 06/28/17 05:51 07/01/17 05:13 Labs: Abnormal Lab Results - Last 24 Hours (Table) 06/30/17 06/30/17 07/01/17 Range/Units 17:08 20:53 05:13 Sodium 135 L (137-145) mmol/L BUN 26 H (9-20) mg/dL Creatinine 1.40 H (0.66-1.25) mg/dL Glucose 108 H (74-99) mg/dL POC Glucose (mg/dL) 111 H 119 H (75-99) mg/dL 07/01/17 07/01/17 Range/Units 05:52 11:58 Sodium (137-145) mmol/L BUN (9-20) mg/dL Creatinine (0.66-1.25) mg/dL Glucose (74-99) mg/dL POC Glucose (mg/dL) 118 H 103 H (75-99) mg/dL Assessment and Plan Plan: 1. Acute systolic heart failure exacerbation 2. Underlying cardiomyopathy most likely hypertensive cardiomyopathy secondary to long-standing untreated hypertension. but unable to rule out ischemic cardiomyopathy . Cardiology consulted. Considering left heart cath early next week. EF of 25 -30%.3. Uncontrolled type 2 diabetes mellitus 4. Essential hypertension: Blood pressure better controlled 5. Obesity 6. Acute kidney injury secondary to diuretic use would continue to hold off nephrotoxics today including Lasix and spironolactone and repeat kidney function in the morning.. Awaiting further recommendation from cardiology regarding plan on Monday whether to proceed with OLMAN or left heart catheterization.
[2017-07-01] MEDS: HYDROcodone/APAP 5-325MG 1 EACH TAB PO PRN ×2 (15:40→23:36)
[2017-07-01 17:16] LABS: Glucose,Whole Blood 132 mg/dL (75-99)
[2017-07-01] MEDS: ATORVASTATIN 20 MG TAB PO SCH (20:24)
[2017-07-01 20:59] LABS: Glucose,Whole Blood 127 mg/dL (75-99)
[2017-07-02] MEDS: glipiZIDE 5 MG TAB PO SCH ×2 (06:23→17:02)
[2017-07-02] MEDS: INSULIN LISPRO (humaLOG) 300 UNIT/3 ML VIAL SQ SCH ×5 (06:25→21:13)
[2017-07-02 06:41] LABS: Glucose,Whole Blood 84 mg/dL (75-99)
[2017-07-02 07:25] LABS: Anion Gap 8 mmol/L; Blood Urea Nitrogen 28 mg/dL (9-20); Calcium 8.7 mg/dL (8.4-10.2); Carbon Dioxide 26 mmol/L (22-30); Chloride 104 mmol/L (98-107); Glucose 94 mg/dL (74-99); Non-African American GFR(MDRD) >60 (>60 ml/min/1.73 sqM); Phosphorous 4.5 mg/dL (2.5-4.5); Potassium 4.6 mmol/L (3.5-5.1); Sodium 138 mmol/L (137-145)
[2017-07-02] MEDS: LISINOPRIL 20 MG TAB PO SCH (09:06)
[2017-07-02] MEDS: HEPARIN SODIUM,PORCINE 5,000 UNIT/ML 1 ML VIAL SQ SCH ×2 (09:06→20:31)
[2017-07-02] MEDS: hydrALAZINE HCL 25 MG TAB PO SCH ×2 (09:06→20:31)
[2017-07-02] MEDS: METOPROLOL TARTRATE 50 MG TAB PO SCH ×2 (09:07→20:31)
[2017-07-02 11:58] LABS: Glucose,Whole Blood 103 mg/dL (75-99)
--- NOTE | 2017-07-02 14:26 | P.PN ---
Subjective Principal diagnosis: Congestive heart failure This is a pleasant 32-year-old gentleman with diabetes, hypertension, and dyslipidemia was admitted to the hospital with progressive dyspnea and bilateral lower extremities edema and was diagnosed was congestive heart failure. An echocardiogram was performed and showed moderate to severe aortic insufficiency associated with bicuspid aortic valve as well as severe cardiomyopathy with an ejection fraction of 25-30%. The patient is a scheduled to undergo transesophageal echocardiogram as well as heart catheterization by Dr. Dr. Metcalf in the next few days. Yesterday his creatinine was trending up and we held his Aldactone as well as his Lasix. On follow-up with him today, his kidney function is a slightly better but distal abnormal. The creatinine is trending down. Clinically he is feeling overall better but he still have diminished breathing sounds bilaterally as well as mild bilateral lower extremities edema. I am going to continue the current medical treatment and add Lasix by mouth and continue holding the Aldactone at this point. Objective - Vital Signs Vital signs: Vital Signs Temp 97.8 F 07/02/17 09:00 Pulse 80 07/02/17 13:20 Resp 18 07/02/17 13:20 BP 119/86 07/02/17 13:20 Pulse Ox 99 07/02/17 13:20 Intake & Output 07/01/17 07/02/17 07/02/17 18:59 06:59 18:59 Intake Total 358 480 118 Output Total 200 500 Balance 158 -20 118 Weight 106 kg Intake: Oral 358 480 118 Output: Urine 200 500 Other: # Voids 1 2 - Constitutional General appearance: Present: no acute distress - Respiratory Respiratory: bilateral: diminished - Cardiovascular Rhythm: regular Heart sounds: normal: S1, S2 - Labs CBC & Chem 7: 06/28/17 05:51 07/02/17 06:32 Labs: Abnormal Lab Results - Last 24 Hours (Table) 07/01/17 07/01/17 07/02/17 Range/Units 16:45 20:37 06:32 BUN 28 H (9-20) mg/dL Creatinine 1.33 H (0.66-1.25) mg/dL POC Glucose (mg/dL) 132 H 127 H (75-99) mg/dL 07/02/17 Range/Units 11:55 BUN (9-20) mg/dL Creatinine (0.66-1.25) mg/dL POC Glucose (mg/dL) 103 H (75-99) mg/dL Assessment and Plan Plan: This is a pleasant 32-year-old gentleman who was admitted to the hospital with congestive heart failure exacerbation secondary to systolic dysfunction. The echo showed severe cardiomyopathy was bicuspid aortic valve and evidence of moderate to severe aortic insufficiency. I am going to restart the patient on Lasix by mouth. Continue the current medical treatment. OLMAN and heart catheterization to be performed in the next few days.
[2017-07-02 17:22] LABS: Glucose,Whole Blood 138 mg/dL (75-99)
--- NOTE | 2017-07-02 17:22 | P.PN ---
Subjective Patient is doing well today. No events overnight. Cr is improving but not back to normal yet Objective - Vital Signs Vital signs: Vital Signs Temp 97.8 F 07/02/17 09:00 Pulse 80 07/02/17 13:20 Resp 18 07/02/17 13:20 BP 119/86 07/02/17 13:20 Pulse Ox 99 07/02/17 13:20 Intake & Output 07/01/17 07/02/17 07/02/17 18:59 06:59 18:59 Intake Total 358 480 118 Output Total 200 500 Balance 158 -20 118 Weight 106 kg Intake: Oral 358 480 118 Output: Urine 200 500 Other: # Voids 1 2 - Exam General: The patient is awake and alert, in no distress Eye: there is normal conjunctiva bilaterally. Neck: The neck is supple, there is no JVD. Cardiovascular: Normal S1-S2, no S3-S4, no murmurs. Respiratory: Lungs clear to auscultation bilaterally Gastrointestinal: Abdomen is soft, nontender Musculoskeletal: There is evidence of anasarca up to the mid abdomen improving gradually on a daily basis Neurological:. Speech is normal. Skin: Skin is warm and dry - Labs CBC & Chem 7: 06/28/17 05:51 07/02/17 06:32 Labs: Abnormal Lab Results - Last 24 Hours (Table) 07/01/17 07/02/17 07/02/17 Range/Units 20:37 06:32 11:55 BUN 28 H (9-20) mg/dL Creatinine 1.33 H (0.66-1.25) mg/dL POC Glucose (mg/dL) 127 H 103 H (75-99) mg/dL Assessment and Plan Plan: 1. Acute systolic heart failure exacerbation 2. Underlying cardiomyopathy most likely hypertensive cardiomyopathy secondary to long-standing untreated hypertension. but unable to rule out ischemic cardiomyopathy. Cardiology consulted. Considering left heart cath early next week. EF of 25-30%. 3. Uncontrolled type 2 diabetes mellitus 4. Essential hypertension: Blood pressure better controlled 5. Obesity 6. Acute kidney injury secondary to diuretic use Agree with resuming Lasix and continue to hold spironolactone for now. Awaiting further recommendation from cardiology regarding plan on Monday whether to proceed with OLMAN or left heart catheterization.
[2017-07-02] MEDS: ATORVASTATIN 20 MG TAB PO SCH (20:31)
[2017-07-02 20:53] LABS: Glucose,Whole Blood 154 mg/dL (75-99)
[2017-07-03 06:02] LABS: Glucose,Whole Blood 143 mg/dL (75-99)
[2017-07-03 07:03] LABS: Anion Gap 11 mmol/L; Blood Urea Nitrogen 26 mg/dL (9-20); Carbon Dioxide 19 mmol/L (22-30); Chloride 108 mmol/L (98-107); Glucose 121 mg/dL (74-99); Non-African American GFR(MDRD) >60 (>60 ml/min/1.73 sqM); Phosphorous 4.2 mg/dL (2.5-4.5); Potassium 5.3 mmol/L (3.5-5.1); Sodium 138 mmol/L (137-145)
[2017-07-03] MEDS: INSULIN LISPRO (humaLOG) 300 UNIT/3 ML VIAL SQ SCH ×4 (07:41→21:01)
[2017-07-03] MEDS: glipiZIDE 5 MG TAB PO SCH ×2 (07:41→16:57)
[2017-07-03] MEDS: HEPARIN SODIUM,PORCINE 5,000 UNIT/ML 1 ML VIAL SQ SCH ×2 (08:18→21:00)
[2017-07-03] MEDS: LISINOPRIL 20 MG TAB PO SCH (08:19)
[2017-07-03] MEDS: hydrALAZINE HCL 25 MG TAB PO SCH ×2 (08:19→21:01)
[2017-07-03] MEDS: METOPROLOL TARTRATE 50 MG TAB PO SCH ×2 (08:19→21:01)
[2017-07-03] MEDS ORDERED: FUROSEMIDE 40 MG TAB PO SCH (09:00)
[2017-07-03] MEDS ORDERED: SODIUM POLYSTYRENE SULFONATE 15 GM/60 ML BOTTLE PO STA (09:54)
--- NOTE | 2017-07-03 10:00 | P.PN ---
Subjective Patient is still having swelling in his lower extremities. He reports some improvement since admission. Creatinine is down to 1.30. He is switched to oral Lasix today. Patient denies any chest pain or shortness of breath. Denies any nausea or vomiting. Has been having bowel movements. Denies any burning with urination. Objective - Vital Signs Vital signs: Vital Signs Temp 98.0 F 07/03/17 08:00 Pulse 92 07/03/17 08:00 Resp 18 07/03/17 08:00 BP 152/95 07/03/17 08:00 Pulse Ox 98 07/03/17 08:00 Intake & Output 07/02/17 07/03/17 07/03/17 18:59 06:59 18:59 Intake Total 118 790 360 Output Total 200 Balance 118 590 360 Weight 105.1 kg Intake: Oral 118 790 360 Output: Urine 200 Other: Voiding Method Toilet Toilet # Voids 2 - Exam Head normocephalic Neck supple Lungs clear to auscultation bilaterally no wheezing or crackles Heart regular rate and rhythm S1-S2, no rub or gallop Abdomen is soft nontender nondistended positive bowel sounds no hepatosplenomegaly Extremities lower extremity edema bilaterally LUISANA hose in place Neuro alert and orientated to 3 - Labs CBC & Chem 7: 06/28/17 05:51 07/03/17 06:07 Labs: Abnormal Lab Results - Last 24 Hours (Table) 07/02/17 07/02/17 07/02/17 Range/Units 11:55 17:17 20:51 Potassium (3.5-5.1) mmol/L Chloride (98-107) mmol/L Carbon Dioxide (22-30) mmol/L BUN (9-20) mg/dL Creatinine (0.66-1.25) mg/dL Glucose (74-99) mg/dL POC Glucose (mg/dL) 103 H 138 H 154 H (75-99) mg/dL 07/03/17 07/03/17 Range/Units 06:00 06:07 Potassium 5.3 H (3.5-5.1) mmol/L Chloride 108 H (98-107) mmol/L Carbon Dioxide 19 L (22-30) mmol/L BUN 26 H (9-20) mg/dL Creatinine 1.30 H (0.66-1.25) mg/dL Glucose 121 H (74-99) mg/dL POC Glucose (mg/dL) 143 H (75-99) mg/dL Assessment and Plan Plan: 1. Acute systolic heart failure exacerbation: Cardiology switched patient to oral Lasix 40 mg by mouth daily area and keep legs elevated. Aldactone remains on hold 2. Underlying cardiomyopathy most likely hypertensive cardiomyopathy secondary to long-standing untreated hypertension. but unable to rule out ischemic cardiomyopathy. Cardiology consulted. Considering left heart cath and OLMAN early next week. EF of 25-30%. 3. Uncontrolled type 2 diabetes mellitus 4. Essential hypertension: Blood pressure better controlled 5. Obesity 6. Acute kidney injury secondary to diuretic use. Kidney function is showing improvement. Creatinine Trending down to 1.30 7. Hyperkalemia potassium 5.3. We'll give 1 dose of Kayexalate 15 g by mouth 1. Repeat labs in a.m. 8. Severe protein calorie malnutrition. Add Glucerna shakes 3 times a day with meals DVT prophylaxis subcu heparin I performed an examination of the patient and discussed their management with the physician Human Resources Trainer. I have reviewed the Physician Human Resources Trainer's notes and agree with the documented findings and plan of care
[2017-07-03 11:43] LABS: Glucose,Whole Blood 104 mg/dL (75-99)
[2017-07-03] MEDS ORDERED: ATORVASTATIN 80 MG TAB PO STA (12:21)
[2017-07-03] MEDS ORDERED: ALPRAZolam 0.5 MG TAB PO PRN (12:21)
[2017-07-03] MEDS ORDERED: ASPIRIN 325 MG TAB PO STA (12:21)
[2017-07-03] MEDS ORDERED: ALPRAZolam 0.25 MG TAB PO PRN (12:21)
[2017-07-03] MEDS ORDERED: SODIUM CHLORIDE 0.9% 1,000 ML in EMPTY BAG 1 BAG IV ONE (12:21)
[2017-07-03] MEDS ORDERED: NITROGLYCERIN SL TABS 0.4 MG TAB SUBLINGUAL PRN (12:21)
--- NOTE | 2017-07-03 12:22 | P.PN ---
Subjective Principal diagnosis: Congestive heart failure This is a pleasant 32-year-old gentleman with diabetes, hypertension, and dyslipidemia was admitted to the hospital with progressive dyspnea and bilateral lower extremities edema and was diagnosed was congestive heart failure. An echocardiogram was performed and showed moderate to severe aortic insufficiency associated with bicuspid aortic valve as well as severe cardiomyopathy with an ejection fraction of 25-30%. Overall, the patient is feeling slightly better. He still have bilateral lower extremities edema but he has a clear breathing sounds bilaterally. He continues to be on Lasix IV at small dose and the creatinine has been trending down. The plan is to proceed with a OLMAN and heart catheterization on him tomorrow Objective - Vital Signs Vital signs: Vital Signs Temp 98.0 F 07/03/17 08:00 Pulse 92 07/03/17 08:00 Resp 18 07/03/17 08:00 BP 152/95 07/03/17 08:00 Pulse Ox 98 07/03/17 08:00 Intake & Output 07/02/17 07/03/17 07/03/17 18:59 06:59 18:59 Intake Total 118 790 360 Output Total 200 Balance 118 590 360 Weight 105.1 kg Intake: Oral 118 790 360 Output: Urine 200 Other: Voiding Method Toilet Toilet # Voids 2 2 - Constitutional General appearance: Present: no acute distress - Respiratory Respiratory: bilateral: CTA - Cardiovascular Rhythm: regular Heart sounds: normal: S1, S2 Abnormal Heart Sounds: Present: systolic murmur - Labs CBC & Chem 7: 06/28/17 05:51 07/03/17 06:07 Labs: Abnormal Lab Results - Last 24 Hours (Table) 07/02/17 07/02/17 07/03/17 Range/Units :17 20:51 06:00 Potassium (3.5-5.1) mmol/L Chloride (98-107) mmol/L Carbon Dioxide (22-30) mmol/L BUN (9-20) mg/dL Creatinine (0.66-1.25) mg/dL Glucose (74-99) mg/dL POC Glucose (mg/dL) 138 H 154 H 143 H (75-99) mg/dL 07/03/17 07/03/17 Range/Units 06:07 11:30 Potassium 5.3 H (3.5-5.1) mmol/L Chloride 108 H (98-107) mmol/L Carbon Dioxide 19 L (22-30) mmol/L BUN 26 H (9-20) mg/dL Creatinine 1.30 H (0.66-1.25) mg/dL Glucose 121 H (74-99) mg/dL POC Glucose (mg/dL) 104 H (75-99) mg/dL Assessment and Plan Plan: This is a pleasant 32-year-old gentleman who was admitted to the hospital with congestive heart failure exacerbation secondary to systolic dysfunction. The echo showed severe cardiomyopathy was bicuspid aortic valve and evidence of moderate to severe aortic insufficiency. The patient was restarted on Lasix IV earlier today. The plan is to proceed with OLMAN and heart catheterization tomorrow.
[2017-07-03 16:30] LABS: Glucose,Whole Blood 151 mg/dL (75-99)
[2017-07-03 20:54] LABS: Glucose,Whole Blood 97 mg/dL (75-99)
[2017-07-03] MEDS: ATORVASTATIN 20 MG TAB PO SCH (20:54)
[2017-07-03] MEDS: FUROSEMIDE 10 MG/ML 2 ML VIAL IV SCH (20:59)
[2017-07-04 05:53] LABS: Anion Gap 9 mmol/L; Blood Urea Nitrogen 23 mg/dL (9-20); Calcium 8.7 mg/dL (8.4-10.2); Carbon Dioxide 23 mmol/L (22-30); Chloride 106 mmol/L (98-107); Glucose 112 mg/dL (74-99); Non-African American GFR(MDRD) >60 (>60 ml/min/1.73 sqM); Potassium 4.7 mmol/L (3.5-5.1); Sodium 138 mmol/L (137-145)
[2017-07-04] MEDS ORDERED: SODIUM CHLORIDE 0.9% 1,000 ML in EMPTY BAG 1 BAG IV ONE (06:00)
[2017-07-04] MEDS ORDERED: ATORVASTATIN 80 MG TAB PO ONE (06:00)
[2017-07-04] MEDS ORDERED: ASPIRIN 325 MG TAB PO ONE (06:00)
[2017-07-04 06:26] LABS: Glucose,Whole Blood 119 mg/dL (75-99)
[2017-07-04] MEDS: METOPROLOL TARTRATE 50 MG TAB PO SCH ×2 (06:33→20:47)
[2017-07-04] MEDS: hydrALAZINE HCL 25 MG TAB PO SCH ×2 (06:33→20:47)
[2017-07-04] MEDS: LISINOPRIL 20 MG TAB PO SCH (06:33)
[2017-07-04] MEDS: HEPARIN SODIUM,PORCINE 5,000 UNIT/ML 1 ML VIAL SQ SCH ×2 (06:34→20:48)
[2017-07-04] MEDS: INSULIN LISPRO (humaLOG) 300 UNIT/3 ML VIAL SQ SCH ×4 (06:35→21:29)
[2017-07-04] MEDS: glipiZIDE 5 MG TAB PO SCH ×2 (06:42→16:40)
[2017-07-04 11:24] LABS: Glucose,Whole Blood 102 mg/dL (75-99)
[2017-07-04] MEDS ORDERED: BENZOCAINE SPRAY 100 APPLIC/CAN MUCOUS MEM ONE (11:53)
[2017-07-04] MEDS ORDERED: fentaNYL (PF) 50 MCG/ML 2 ML AMP IV ONE ×3 (11:54→14:42)
[2017-07-04] MEDS ORDERED: MIDAZOLAM 2 MG/2 ML VIAL IV ONE ×3 (11:54→13:35)
[2017-07-04] MEDS: BENZOCAINE SPRAY 100 APPLIC/CAN MUCOUS MEM ONE ×2 (12:01→12:27)
[2017-07-04] MEDS ORDERED: SODIUM CHLORIDE 0.9% 1,000 ML IV ONE (12:01)
--- NOTE | 2017-07-04 12:11 | P.PN ---
Subjective Patient is scheduled for left heart catheterization and OLMAN today. Objective - Vital Signs Vital signs: Vital Signs Temp 96.9 F L 07/04/17 08:00 Pulse 75 07/04/17 08:00 Resp 18 07/04/17 08:00 BP 113/74 07/04/17 08:00 Pulse Ox 98 07/04/17 08:00 Intake & Output 07/03/17 07/04/17 07/04/17 18:59 06:59 18:59 Intake Total 960 Output Total 1150 Balance 960 -1150 Weight 103.1 kg Intake: Oral 960 Output: Urine 500 Stool 650 Other: Voiding Method Toilet Toilet # Voids 2 1 - Exam General: The patient is awake and alert, in no distress Eye: there is normal conjunctiva bilaterally. Neck: The neck is supple, there is no JVD. Cardiovascular: Normal S1-S2, no S3-S4, no murmurs. Respiratory: Lungs clear to auscultation bilaterally Gastrointestinal: Abdomen is soft, nontender Musculoskeletal: There is evidence of anasarca up to the mid abdomen improving gradually on a daily basis Neurological:. Speech is normal. Skin: Skin is warm and dry - Labs CBC & Chem 7: 06/28/17 05:51 07/04/17 05:29 Labs: Abnormal Lab Results - Last 24 Hours (Table) 07/03/17 07/04/17 07/04/17 Range/Units 16:15 05:29 06:25 BUN 23 H (9-20) mg/dL Glucose 112 H (74-99) mg/dL POC Glucose (mg/dL) 151 H 119 H (75-99) mg/dL 07/04/17 Range/Units 11:22 BUN (9-20) mg/dL Glucose (74-99) mg/dL POC Glucose (mg/dL) 102 H (75-99) mg/dL Assessment and Plan Plan: 1. Acute systolic heart failure exacerbation 2. Underlying cardiomyopathy most likely hypertensive cardiomyopathy secondary to long-standing untreated hypertension. but unable to rule out ischemic cardiomyopathy. Cardiology consulted. EF of 25-30%. 3. Uncontrolled type 2 diabetes mellitus 4. Essential hypertension: Blood pressure better controlled 5. Obesity 6. Acute kidney injury secondary to diuretic use Plan for left heart catheterization and OLMAN today. Continue gentle diuresis with IV Lasix 20 mg twice a day. Family at bedside updated about his current clinical condition.
[2017-07-04] MEDS ORDERED: LIDOCAINE 2% INJ 20 MG/ML SQ ONE (13:23)
[2017-07-04] MEDS ORDERED: RX INFO: IV CONTRAST WAS GIVEN 1 EACH MISC MISCELLANE PRN (14:38)
[2017-07-04] MEDS ORDERED: IV FLUID CONTINUATION 1,000 ML IV ONE (14:43)
[2017-07-04] MEDS ORDERED: IOHEXOL 350 MG/ML 125ML BOTTLE INJ ONE (14:43)
[2017-07-04] MEDS ORDERED: SODIUM CHLORIDE 0.9% 1,000 ML IV SCH (14:45)
[2017-07-04 16:35] LABS: Glucose,Whole Blood 123 mg/dL (75-99)
--- NOTE | 2017-07-04 16:36 | ECHOT ---
DATE OF SERVICE: 07/04/2017 INDICATION OF STUDY: This is a pleasant 32-year-old gentleman who was admitted to the hospital with congestive heart failure and was found to have severe cardiomyopathy with bicuspid aortic valve. COMPLICATIONS: None. LEVEL OF SEDATION: Moderate with a sedation length of 15 minutes. PROCEDURE DESCRIPTION: After obtaining informed consent, explaining the procedure, benefits, risks, complications and alternatives, the patient was brought to the transesophageal echocardiogram suite. Pulse oximetry and heart rate monitors were attached to the patient prior to the procedure. The patient' s throat was sprayed using lidocaine locally. Following that, the patient was turned into left lateral position. A bite guard was placed and the patient was then sedated with the above doses of Versed and fentanyl in divided doses. Following that, the transesophageal echocardiogram probe was advanced through the bite guard into the mid esophagus, where 2-D echocardiogram images as well as color Doppler images of various cardiac structures were obtained. We evaluated the interatrial septum using 2-D echocardiogram, color Doppler and contrast study. The procedure was completed. There were no complications. FINDINGS: The left ventricle is severely dilated. The left ventricular systolic function is impaired, with an ejection fraction around 30% to 35% with global hypokinesia. The aortic valve is a bicuspid valve with fusion of the non- coronary and left coronary cusps. Wide open aortic insufficiency was seen. The mitral valve seems to be mildly thickened with mild MR only. The tricuspid valve appears to have mild tricuspid insufficiency. The interatrial septum appears to be intact. The left atrial appendage appears to be free from any thrombus or masses. The aortic root ( ) to be dilated. CONCLUSION: 1. Bicuspid aortic valve with fusion of the left and non-coronary cusps and evidence of fire observer aortic insufficiency with very eccentric ( ). 2. Severe cardiomyopathy with an ejection fraction around 30% with global hypokinesia and dilated left ventricle. 3. Normal mitral valve leaflets with mild mitral regurgitation. 4. Normal tricuspid valve leaflets with mild tricuspid regurgitation. 5. Normal pulmonic valve as well. 6. Normal left atrial appendage. 7. Intact interatrial septum without any evidence of shunt. 8. Trace pericardial effusion. MTDD
[2017-07-04] MEDS: FUROSEMIDE 10 MG/ML 2 ML VIAL IV SCH ×2 (16:40→20:47)
[2017-07-04 17:49] LABS: Basophils # (A) 0.1 k/uL (0-0.2); Basophils % (A) 1 %; CH 26.4; CHCM 31.3; Eosinophils # (A) 0.2 k/uL (0-0.7); Eosinophils % (A) 3 %; HDW 2.65; HGB 13.9 gm/dL (13.0-17.5); Hypochromasia Slight; Luc # (Auto) 0.07; Luc % (Auto) 1; Lymphocytes # (A) 1.5 k/uL (1.0-4.8); Lymphocytes % (A) 28 %; MCH 25.5 pg (25.0-35.0); MCHC 30.1 g/dL (31.0-37.0); MCV 84.7 fL (80.0-100.0); Mean Platelet Volume 7.2; Monocytes # (A) 0.4 k/uL (0-1.0); Monocytes % (A) 7 %; Neutrophils # (A) 3.2 k/uL (1.3-7.7); Neutrophils % (A) 59 %; RBC 5.43 m/uL (4.30-5.90); RDW 14.2 % (11.5-15.5); WBC 5.5 k/uL (3.8-10.6); WBC (Perox) 5.42
[2017-07-04 18:03] LABS: INR 1.2 (<1.2); Partial Thromboplastin Time 27.8 sec (22.0-30.0)
[2017-07-04 18:12] LABS: ALT 26 U/L (21-72); AST 17 U/L (17-59); Alkaline Phosphatase 80 U/L (38-126); Anion Gap 10 mmol/L; Blood Urea Nitrogen 22 mg/dL (9-20); Carbon Dioxide 23 mmol/L (22-30); Chloride 107 mmol/L (98-107); Cholesterol 122 mg/dL (<200); Glucose 140 mg/dL (74-99); HDL Cholesterol 40 mg/dL (40-60); Magnesium 1.9 mg/dL (1.6-2.3); Non-African American GFR(MDRD) >60 (>60 ml/min/1.73 sqM); Potassium 4.7 mmol/L (3.5-5.1); Sodium 140 mmol/L (137-145); Total Bilirubin 1.3 mg/dL (0.2-1.3); Total Protein 5.8 g/dL (6.3-8.2)
[2017-07-04 19:27] LABS: Hepatitis B Surface Ag Index 0.05
[2017-07-04 19:33] LABS: Hepatitis B Core IgM Index 0.02
[2017-07-04 19:34] LABS: Hemoglobin A1C 9.1 % (4.2-6.1)
[2017-07-04 19:45] LABS: Hepatitis C Virus IgG Ab Reactive (Negative); Hepatitis C Virus IgG Index 2.67
[2017-07-04] MEDS: ATORVASTATIN 20 MG TAB PO SCH (20:47)
[2017-07-04 21:02] LABS: Glucose,Whole Blood 142 mg/dL (75-99)
[2017-07-04 21:48] LABS: Appearance,Urine Clear (Clear); Bilirubin,Urine Negative (Negative); Glucose,Urine (UA) Negative (Negative); Ketones,Urine Negative (Negative); Leukocyte Esterase,Urine Negative (Negative); Nitrite,Urine Negative (Negative); PH, Urine 7.5 (5.0-8.0); Particle Count 672; Protein,Urine 1+ (Negative); RBC,Urine 27 /hpf (0-5); Specific Gravity,Urine 1.012 (1.001-1.035); UA Billing (MACRO vs. MICRO) MICRO; Urobilinogen,Urine <2.0 mg/dL (<2.0); WBC,Urine 1 /hpf (0-5)
[2017-07-04] MEDS: HYDROcodone/APAP 5-325MG 1 EACH TAB PO PRN (21:52)
--- NOTE | 2017-07-04 22:00 | CT ---
EXAMINATION TYPE: CT chest wo con DATE OF EXAM: 07/04/2017 COMPARISON: 07/01/2017 chest radiograph HISTORY: cough and shortness of breath CT DLP: 516.9 mGycm. Automated Exposure Control for Dose Reduction was Utilized. TECHNIQUE: CT scan of the thorax is performed without IV contrast. FINDINGS: Bilateral pleural effusions are present, moderate in degree and right greater than left with associat ed bibasilar subsegmental compressive atelectasis. There is four-chamber cardiac enlargement with a small pericardial effusion noted. Lack of intravenou s contrast limits evaluation of the vascular structures, hilar adenopathy, and the visualized solid v iscera. However there is no gross evidence of hilar, mediastinal or axillary adenopathy. Thyroid glan d is unremarkable. Tracheobronchial tree is patent. Reticular nodular opacities at both lung bases an d within the lingula favor superimposed infectious etiology or inflammatory etiology. A small amount of abdominal ascites is seen in the hepatorenal fossa, perihepatic space, and along th e left lateral conal fascia. Central mesenteric haziness relates to mesenteric congestion. Remainder of the unenhanced upper abdomen is grossly unremarkable. IMPRESSION: 1. Bibasilar reticular nodular opacities favoring infectious or inflammatory etiology such as atypica l pneumonia/pneumonitis. 2. Moderate bilateral pleural effusions, right greater than left with associated compressive subsegme ntal atelectasis. 3. Cardiomegaly and small pericardial effusion. 4. Partial visualization of small volume abdominal ascites, insufficient for paracentesis.
[2017-07-05] MEDS: HYDROcodone/APAP 5-325MG 1 EACH TAB PO PRN ×2 (06:14→11:54)
[2017-07-05] MEDS: glipiZIDE 5 MG TAB PO SCH ×2 (06:15→17:16)
[2017-07-05] MEDS: INSULIN LISPRO (humaLOG) 300 UNIT/3 ML VIAL SQ SCH ×4 (06:20→21:02)
[2017-07-05 06:21] LABS: Glucose,Whole Blood 108 mg/dL (75-99)
[2017-07-05 06:58] LABS: Anion Gap 9 mmol/L; Blood Urea Nitrogen 22 mg/dL (9-20); Carbon Dioxide 25 mmol/L (22-30); Chloride 105 mmol/L (98-107); Glucose 117 mg/dL (74-99); Non-African American GFR(MDRD) >60 (>60 ml/min/1.73 sqM); Potassium 5.2 mmol/L (3.5-5.1); Sodium 139 mmol/L (137-145)
[2017-07-05] MEDS: LISINOPRIL 20 MG TAB PO SCH (07:44)
[2017-07-05] MEDS: METOPROLOL TARTRATE 50 MG TAB PO SCH ×2 (07:44→21:02)
[2017-07-05] MEDS: HEPARIN SODIUM,PORCINE 5,000 UNIT/ML 1 ML VIAL SQ SCH ×2 (07:44→21:01)
[2017-07-05] MEDS: hydrALAZINE HCL 25 MG TAB PO SCH ×2 (07:44→21:01)
[2017-07-05] MEDS: FUROSEMIDE 10 MG/ML 2 ML VIAL IV SCH (07:45)
[2017-07-05] MEDS ORDERED: DOBUTamine DRIP 500 MG in DEXTROSE/WATER 1 250ML.BAG IV SCH (08:09)
[2017-07-05] MEDS: ACETAMINOPHEN TAB 325 MG TAB PO PRN (09:00)
[2017-07-05 11:42] LABS: Glucose,Whole Blood 110 mg/dL (75-99)
--- NOTE | 2017-07-05 12:04 | P.PN ---
Subjective Patient is doing well today. I had a prolonged discussion with him this morning and updated them on his current clinical condition and test results. Objective - Vital Signs Vital signs: Vital Signs Temp 98.3 F 07/05/17 08:00 Pulse 89 07/05/17 08:00 Resp 18 07/05/17 08:00 BP 144/93 07/05/17 08:00 Pulse Ox 99 07/05/17 08:00 Intake & Output 07/04/17 07/05/17 07/05/17 18:59 06:59 18:59 Intake Total 610 255 Output Total 600 1650 Balance 10 -1650 255 Weight 103.1 kg 101.3 kg Intake: IV 150 Intake, IV Titration 100 15 Amount DOBUTamine DRIP 500 mg In 15 Dextrose/Water 1 250ml. bag @ 2.5 MCG/KG/MIN 7.59 mls/hr IV .Q24H [facility] Rx#: [id number] Sodium Chloride 0.9% 1, 100 000 ml In Empty Bag 1 bag @ 1 ML/KG/HR 105.1 mls/ hr IV .Q9H31M [facility] Rx#: [id number] Oral 360 240 Output: Urine 600 1650 Other: Voiding Method Toilet - Exam General: The patient is awake and alert, in no distress Eye: there is normal conjunctiva bilaterally. Neck: The neck is supple, there is no JVD. Cardiovascular: Normal S1-S2, no S3-S4, no murmurs. Respiratory: Lungs clear to auscultation bilaterally Gastrointestinal: Abdomen is soft, nontender Musculoskeletal: There is evidence of anasarca up to the mid abdomen improving gradually on a daily basis Neurological:. Speech is normal. Skin: Skin is warm and dry - Labs CBC & Chem 7: 07/04/17 17:30 07/05/17 05:24 Labs: Abnormal Lab Results - Last 24 Hours (Table) 07/04/17 07/04/17 07/04/17 Range/Units 16:30 17:30 17:30 MCHC 30.1 L (31.0-37.0) g/dL INR 1.2 H (<1.2) Potassium (3.5-5.1) mmol/L BUN (9-20) mg/dL Creatinine (0.66-1.25) mg/dL Glucose (74-99) mg/dL POC Glucose (mg/dL) 123 H (75-99) mg/dL Hemoglobin A1c (4.2-6.1) % Total Protein (6.3-8.2) g/dL Albumin (3.5-5.0) g/dL Urine Protein (Negative) Urine Blood (Negative) Urine RBC (0-5) /hpf 07/04/17 07/04/17 07/04/17 Range/Units 17:30 17:30 20:59 MCHC (31.0-37.0) g/dL INR (<1.2) Potassium (3.5-5.1) mmol/L BUN 22 H (9-20) mg/dL Creatinine (0.66-1.25) mg/dL Glucose 140 H (74-99) mg/dL POC Glucose (mg/dL) 142 H (75-99) mg/dL Hemoglobin A1c 9.1 H (4.2-6.1) % Total Protein 5.8 L (6.3-8.2) g/dL Albumin 2.7 L (3.5-5.0) g/dL Urine Protein (Negative) Urine Blood (Negative) Urine RBC (0-5) /[facility] 07/04/17 07/05/17 07/05/17 Range/Units 21:30 05:24 06:19 MCHC (31.0-37.0) g/dL INR (<1.2) Potassium 5.2 H (3.5-5.1) mmol/L BUN 22 H (9-20) mg/dL Creatinine 1.32 H (0.66-1.25) mg/dL Glucose 117 H (74-99) mg/dL POC Glucose (mg/dL) 108 H (75-99) mg/dL Hemoglobin A1c (4.2-6.1) % Total Protein (6.3-8.2) g/dL Albumin (3.5-5.0) g/dL Urine Protein 1+ H (Negative) Urine Blood Small H (Negative) Urine RBC 27 H (0-5) /hpf 07/05/17 Range/Units 11:22 MCHC (31.0-37.0) g/dL INR (<1.2) Potassium (3.5-5.1) mmol/L BUN (9-20) mg/dL Creatinine (0.66-1.25) mg/dL Glucose (74-99) mg/dL POC Glucose (mg/dL) 110 H (75-99) mg/dL Hemoglobin A1c (4.2-6.1) % Total Protein (6.3-8.2) g/dL Albumin (3.5-5.0) g/dL Urine Protein (Negative) Urine Blood (Negative) Urine RBC (0-5) /hpf Microbiology - Last 24 Hours (Table) 07/04/17 21:30 Urine Culture - Preliminary Urine,Clean Catch 07/04/17 18:45 Nasal Screen MRSA/MSSA ([facility]EN) - Preliminary Nasal Swab Assessment and Plan Plan: 1. Acute systolic heart failure exacerbation: improved clinically with diuresis since admission, patient lost approximately 20 pounds 2. Underlying cardiomyopathy awaiting left heart catheterization to rule out ischemic cardiomyopathy. Cardiology consulted. EF of 25-30%. 3. Severe aortic insufficiency: Now evaluated by cardiac surgery for possible aortic valve replacement 4. Uncontrolled type 2 diabetes mellitus: recently started on oral agents, A1c improving 4. Essential hypertension: Blood pressure better controlled 5. Obesity 6. Acute kidney injury secondary to diuretic use, we will continue to monitor kidney function closely 7. Chronic hepatitis C: discovered incidentally during preoperative evaluation for aortic valve replacement. Need to have follow-up with hepatology upon discharge. patient is having extensive workup/preoperative evaluation for possible aortic valve replacement. He was updated about his current clinical condition. Continue same medications for now. Repeat lab work in the morning. Appreciate internet marketing consultant's recommendations.
--- NOTE | 2017-07-05 12:05 | US ---
EXAMINATION TYPE: US carotid duplex BILAT DATE OF EXAM: 07/05/2017 COMPARISON: NONE CLINICAL HISTORY: Ankle Brachial Index (SHAY) . pre op valve replacement EXAM MEASUREMENTS: RIGHT: Peak Systolic Velocity (PSV) cm/sec ----- Right CCA: 80.7 ----- Right ICA: 57.3 ----- Right ECA: 37.7 ICA/CCA ratio: 0.7 RIGHT: End Diastole cm/sec ----- Right CCA: 7.7 ----- Right ICA: 19.4 ----- Right ECA: 0 LEFT: Peak Systolic Velocity (PSV) cm/sec ----- Left CCA: 90.0 ----- Left ICA: 74.6 ----- Left ECA: 109.7 ICA/CCA ratio: 0.8 LEFT: End Diastole cm/sec ----- Left CCA: 0 ----- Left ICA: 19.7 ----- Left ECA: 0 VERTEBRALS (direction of flow): Right Vertebral: Antegrade Left Vertebral: Antegrade Normal (no stenosis)=ICA PSV < 125 cm/s: ratio < 2.0: ICA EDV<40 cm/s. No atherosclerotic changes noted. IMPRESSION: 1. No significant hemodynamic stenosis bilaterally. 2. Intimal thickening. Flow.
--- NOTE | 2017-07-05 12:39 | P.PN ---
Subjective Principal diagnosis: CHF This is a 32-year-old gentleman with history of possible intermittent hypertensive episodes, but hasn't been seen by any physician on a regular basis. He hasn't taken medication also on a regular basis. He was seen by primary care physician about couple weeks ago and patient was noted to have evidence of high blood pressure. He was started on amlodipine. On follow-up visit patient was noted to have increasing swelling and shortness of breath. He is admitted to the hospital for further evaluation. A chest x-ray showed cardiomegaly and congestive heart failure. His echocardiogram showed evidence of bicuspid aortic valve with moderate to severe aortic regurgitation. This seemed to be global hypokinesia. However in certain views segmental wall motion defects cannot be excluded, especially in the anteroapical and lateral segments. BNP level on admission 6900. At this point we'll continue with current medical therapy with beta blockers, SWETA inhibitor's ,diuretics and Aldactone. I'm also add small dose of digoxin. He is also complaining of some pain in the left knee which seemed to be inflamed and may have small arthritis. That may be further investigated with x-rays of the knee. However plan to be a OLMAN and right and left heart catheterization early next week. 07/01/2016 Patient was seen and examined this morning, he does state that his breathing is improved from admission here, he continues to have significant bilateral peripheral edema. His Lasix and Aldactone were discontinued yesterday because of a jump in his creatinine. Creatinine yesterday 1.4, 1.4 again today. Initial chest x-ray performed on June 28 did reveal congestive cardiac failure with bilateral effusions, BNP on admission was 6900. 07/05/2017 Patient seen and examined this morning, states overall he is feeling better. His weight is down 2 kg today. Patient underwent a transesophageal echocardiographic study which revealed bicuspid aortic valve with fusion of the left and noncoronary cusps and evidence of severe aortic insufficiency. Severe cardiomyopathy with an ejection fraction of 30% with global hypokinesia and dilated left ventricle. Normal mitral valve leaflets with mild mitral regurg, normal tricuspid valve leaflets with mild tricuspid regurg normal pulmonic valve normal left atrial appendage, intact intra-atrial septum without any evidence of shunt, trace pericardial effusion. Patient also underwent a cardiac catheterization which revealed 50% stenosis in the RCA, 50% proximal LAD , and 70% mid LAD. He has been seen in consultation by cardiothoracic surgery. Patient diuresed well on IV Lasix through the night, his weight is down 2 kg today. Continues to have significant bilateral peripheral edema as well as bilateral pleural effusion. Dr. Cyr's recommendation is to continue the patient IV Lasix, increasing the dose to 40 mg IV twice a day. Creatinine today is 1.3. We will monitor this closely. Objective - Vital Signs Vital signs: Vital Signs Temp 98.3 F 07/05/17 08:00 Pulse 89 07/05/17 08:00 Resp 18 07/05/17 08:00 BP 144/93 07/05/17 08:00 Pulse Ox 99 07/05/17 08:00 Intake & Output 07/04/17 07/05/17 07/05/17 18:59 06:59 18:59 Intake Total 610 255 Output Total 600 1650 Balance 10 -1650 255 Weight 103.1 kg 101.3 kg Intake: IV 150 Intake, IV Titration 100 15 Amount DOBUTamine DRIP 500 mg In 15 Dextrose/Water 1 250ml. bag @ 2.5 MCG/KG/MIN 7.59 mls/hr IV .Q24H [facility] Rx#: [id number] Sodium Chloride 0.9% 1, 100 000 ml In Empty Bag 1 bag @ 1 ML/KG/HR 105.1 mls/ hr IV .Q9H31M [facility] Rx#: [id number] Oral 360 240 Output: Urine 600 1650 Other: Voiding Method Toilet - Exam PHYSICAL EXAMINATION: HEENT: Head is atraumatic, normocephalic. Pupils equal, round. Neck is supple. There is elevated jugular venous pressure. HEART EXAMINATION: Heart S1 and S2 systolic click is heard CHEST EXAMINATION: Lungs reveal diminished air entry to bilateral bases ABDOMEN: Soft, nontender. Bowel sounds are heard. No organomegaly noted. EXTREMITIES: 2+ peripheral pulses with 1-2+ evidence of peripheral edema and no calf tenderness noted. NEUROLOGIC patient is awake, alert and oriented -3. . - Labs CBC & Chem 7: 07/04/17 17:30 07/05/17 05:24 Labs: Abnormal Lab Results - Last 24 Hours (Table) 07/04/17 07/04/17 07/04/17 Range/Units 16:30 17:30 17:30 MCHC 30.1 L (31.0-37.0) g/dL INR 1.2 H (<1.2) Potassium (3.5-5.1) mmol/L BUN (9-20) mg/dL Creatinine (0.66-1.25) mg/dL Glucose (74-99) mg/dL POC Glucose (mg/dL) 123 H (75-99) mg/dL Hemoglobin A1c (4.2-6.1) % Total Protein (6.3-8.2) g/dL Albumin (3.5-5.0) g/dL Urine Protein (Negative) Urine Blood (Negative) Urine RBC (0-5) /hpf 07/04/17 07/04/17 07/04/17 Range/Units 17:30 17:30 20:59 MCHC (31.0-37.0) g/dL INR (<1.2) Potassium (3.5-5.1) mmol/L BUN 22 H (9-20) mg/dL Creatinine (0.66-1.25) mg/dL Glucose 140 H (74-99) mg/dL POC Glucose (mg/dL) 142 H (75-99) mg/dL Hemoglobin A1c 9.1 H (4.2-6.1) % Total Protein 5.8 L (6.3-8.2) g/dL Albumin 2.7 L (3.5-5.0) g/dL Urine Protein (Negative) Urine Blood (Negative) Urine RBC (0-5) /hpf 07/04/17 07/05/17 07/05/17 Range/Units 21:30 05:24 06:19 MCHC (31.0-37.0) g/dL INR (<1.2) Potassium 5.2 H (3.5-5.1) mmol/L BUN 22 H (9-20) mg/dL Creatinine 1.32 H (0.66-1.25) mg/dL Glucose 117 H (74-99) mg/dL POC Glucose (mg/dL) 108 H (75-99) mg/dL Hemoglobin A1c (4.2-6.1) % Total Protein (6.3-8.2) g/dL Albumin (3.5-5.0) g/dL Urine Protein 1+ H (Negative) Urine Blood Small H (Negative) Urine RBC 27 H (0-5) /hpf 07/05/17 Range/Units 11:22 MCHC (31.0-37.0) g/dL INR (<1.2) Potassium (3.5-5.1) mmol/L BUN (9-20) mg/dL Creatinine (0.66-1.25) mg/dL Glucose (74-99) mg/dL POC Glucose (mg/dL) 110 H (75-99) mg/dL Hemoglobin A1c (4.2-6.1) % Total Protein (6.3-8.2) g/dL Albumin (3.5-5.0) g/dL Urine Protein (Negative) Urine Blood (Negative) Urine RBC (0-5) /hpf Microbiology - Last 24 Hours (Table) 07/04/17 21:30 Urine Culture - Preliminary Urine,Clean Catch 07/04/17 18:45 Nasal Screen MRSA/MSSA ([facility]) - Preliminary Nasal Swab Assessment and Plan (1) Systolic CHF, acute Status: Acute (2) HTN (hypertension) Status: Acute (3) Bicuspid aortic valve Status: Acute (4) Bilateral leg edema Status: Acute (5) Bilateral pleural effusion Status: Acute (6) Cardiomyopathy Status: Acute Plan: From cardiology's perspective, Dr. Cyr's recommendation is to put the patient on 40 mg of IV Lasix twice a day. We will monitor the creatinine closely. We' ll also repeat a chest x-ray today. Monitor intake and output closely. Patient has been seen in consultation by cardiothoracic surgery and will be scheduled for surgery as an outpatient. DNP note has been reviewed, I agree with a documented findings and plan of care. Patient was seen and examined.
--- NOTE | 2017-07-05 13:20 | P.GSCN ---
History of Present Illness Consult date: 07/04/17 Reason for Consult: Severe mitral valve stenosis with coronary artery disease, surgical recommendations. Requesting physician: Isaiah Andrews History of present illness: This 32-year-old gentleman presented to the emergency department on 06/27/2017 with increasing bilateral lower extremity edema extending all the way up into his abdomen which has progressively gotten worse over the last month. He does admit to periodic cough, but denies any chest pain, abdominal pain, syncope, fever, chills, shortness of breath, nausea or vomiting. Apparently he was aware of his medical history of hypertension and diabetes but just started to receive treatment 2 weeks ago. In the emergency department he had a chest x- ray demonstrating bibasilar effusions and associated atelectasis. He also had lower extremity Dopplers which did not show evidence of DVT. He was admitted for further workup with a consult for cardiology. An echocardiogram was done demonstrating severely impaired left ventricular systolic function with an ejection fraction 25-30%, mild concentric left ventricular hypertrophy, a severely dilated left atrium, a bicuspid aortic valve, mild mitral regurgitation , and mild tricuspid regurgitation. He was recommended to undergo heart catheterization and transesophageal echocardiogram which took place on 2016. The transesophageal echocardiogram confirmed a bicuspid aortic valve with severe aortic insufficiency and severe cardiomyopathy with an ejection fraction of 30% with global hypokinesia and a dilated left ventricle. His cardiac catheterization demonstrated disease in the left anterior descending artery 50% proximally and 70% mid LAD with 50% stenosis in the RCA. Dr. Holt from cardiothoracic surgery was consulted for surgical recommendations. Review of Systems 14 point review systems was completed and was negative except as noted. - Cardiovascular Reports as per HPI, Reports edema - Respiratory Reports cough Past Medical History Past Medical History: Diabetes Mellitus, Hyperlipidemia, Hypertension Additional Past Medical History / Comment(s): PT STATED IN PAST HE HAS A PNE VACCINE BUT NOT SURE OF DATE. History of Any Multi-Drug Resistant Organisms: None Reported Past Surgical History: Ear Surgery, Tonsillectomy Additional Past Surgical History / Comment(s): "FLUID TAKEN OFF LT KNEE", TUBES IN EARS CHILD Past Anesthesia/Blood Transfusion Reactions: No Reported Reaction Smoking Status: Never smoker - Past Family History Father Family Medical History: Unable to Obtain Additional Family Medical History / Comment(s): PT WAS ADOPTED Mother Family Medical History: Unable to Obtain Additional Family Medical History / Comment(s): PT WAS ADOPTED Medications and Allergies Home Medications Medication Instructions Recorded Confirmed Type Atorvastatin [Lipitor] 20 mg PO HS 06/27/17 06/27/17 History Lisinopril [Prinivil] 20 mg PO DAILY 06/27/17 06/27/17 History amLODIPine BESYLATE [Norvasc] 5 mg PO DAILY 06/27/17 06/27/17 History glipiZIDE [Glucotrol] 5 mg PO AC-BID 06/27/17 06/27/17 History metFORMIN HCL [Glucophage] 500 mg PO BID 06/27/17 06/27/17 History Allergies Allergy/AdvReac Type Severity Reaction Status Date / Time No Known Allergies Allergy Verified 06/27/17 14:27 Surgical - Exam Vital Signs Temp Pulse Resp BP Pulse Ox 97.8 F 107 H 18 156/99 99 06/27/17 12:19 06/27/17 12:19 06/27/17 12:19 06/27/17 12:19 06/27/17 12:19 - General well developed, well nourished, no distress, no pain, obese - Eyes PERRL, normal ocular movement - ENT no hearing loss - Neck no masses, no bruits, trachea midline - Respiratory Respirations even, nonlabored. Currently on room air with oxygen saturation 97% . normal expansion, normal respiratory effort, clear to auscultation - Cardiovascular Sinus rhythm on telemetry. 3+ pitting edema present to bilateral lower extremities extending from his toes to his abdomen. No variscocities seen. Palpable pulses bilaterally. Rhythm: regular Heart Sounds: normal: S1, S2 - Abdomen Abdomen: soft, non tender, bowel sounds - Genitourinary Deferred - Rectum Deferred - Integumentary no rash, no growths - Neurologic normal coordination, normal sensation - Musculoskeletal normal gait - Psychiatric oriented to time, oriented to person, oriented to place, speech is normal, memory intact Results - Labs 07/04/17 17:30 07/05/17 05:24 Abnormal Lab Results - Last 24 Hours (Table) 07/04/17 07/04/17 07/04/17 Range/Units 16:30 17:30 17:30 MCHC 30.1 L (31.0-37.0) g/dL INR 1.2 H (<1.2) Potassium (3.5-5.1) mmol/L BUN (9-20) mg/dL Creatinine (0.66-1.25) mg/dL Glucose (74-99) mg/dL POC Glucose (mg/dL) 123 H (75-99) mg/dL Hemoglobin A1c (4.2-6.1) % Total Protein (6.3-8.2) g/dL Albumin (3.5-5.0) g/dL Urine Protein (Negative) Urine Blood (Negative) Urine RBC (0-5) /hpf 07/04/17 07/04/17 07/04/17 Range/Units 17:30 17:30 20:59 MCHC (31.0-37.0) g/dL INR (<1.2) Potassium (3.5-5.1) mmol/L BUN 22 H (9-20) mg/dL Creatinine (0.66-1.25) mg/dL Glucose 140 H (74-99) mg/dL POC Glucose (mg/dL) 142 H (75-99) mg/dL Hemoglobin A1c 9.1 H (4.2-6.1) % Total Protein 5.8 L (6.3-8.2) g/dL Albumin 2.7 L (3.5-5.0) g/dL Urine Protein (Negative) Urine Blood (Negative) Urine RBC (0-5) /hpf 07/04/17 07/05/17 07/05/17 Range/Units 21:30 05:24 06:19 MCHC (31.0-37.0) g/dL INR (<1.2) Potassium 5.2 H (3.5-5.1) mmol/L BUN 22 H (9-20) mg/dL Creatinine 1.32 H (0.66-1.25) mg/dL Glucose 117 H (74-99) mg/dL POC Glucose (mg/dL) 108 H (75-99) mg/dL Hemoglobin A1c (4.2-6.1) % Total Protein (6.3-8.2) g/dL Albumin (3.5-5.0) g/dL Urine Protein 1+ H (Negative) Urine Blood Small H (Negative) Urine RBC 27 H (0-5) /hpf 07/05/17 Range/Units 11:22 MCHC (31.0-37.0) g/dL INR (<1.2) Potassium (3.5-5.1) mmol/L BUN (9-20) mg/dL Creatinine (0.66-1.25) mg/dL Glucose (74-99) mg/dL POC Glucose (mg/dL) 110 H (75-99) mg/dL Hemoglobin A1c (4.2-6.1) % Total Protein (6.3-8.2) g/dL Albumin (3.5-5.0) g/dL Urine Protein (Negative) Urine Blood (Negative) Urine RBC (0-5) /hpf Microbiology - Last 24 Hours (Table) 07/04/17 21:30 Urine Culture - Preliminary Urine,Clean Catch 07/04/17 18:45 Nasal Screen MRSA/MSSA ([facility]) - Preliminary Nasal Swab Diabetes panel 07/04/17 07/04/17 07/05/17 Range/Units 17:30 17:30 05:24 Sodium 140 139 (137-145) mmol/L Potassium 4.7 5.2 H (3.5-5.1) mmol/L Chloride 107 105 (98-107) mmol/L Carbon Dioxide 23 25 (22-30) mmol/L BUN 22 H 22 H (9-20) mg/dL Creatinine 1.20 1.32 H (0.66-1.25) mg/dL Glucose 140 H 117 H (74-99) mg/dL Hemoglobin A1c 9.1 H (4.2-6.1) % Calcium 9.0 9.0 (8.4-10.2) mg/dL AST 17 (17-59) U/L ALT 26 (21-72) U/L Alkaline Phosphatase 80 (38-126) U/L Total Protein 5.8 L (6.3-8.2) g/dL Albumin 2.7 L (3.5-5.0) g/dL Triglycerides 127 (<150) mg/dL HDL Cholesterol 40 (40-60) mg/dL Thyroid panel 07/04/17 Range/Units 17:30 TSH 2.580 (0.465-4.680) mIU/L Calcium panel 07/04/17 07/05/17 Range/Units 17:30 05:24 Calcium 9.0 9.0 (8.4-10.2) mg/dL Albumin 2.7 L (3.5-5.0) g/dL Pituitary panel 07/04/17 07/05/17 Range/Units 17:30 05:24 Sodium 140 139 (137-145) mmol/L Potassium 4.7 5.2 H (3.5-5.1) mmol/L Chloride 107 105 (98-107) mmol/L Carbon Dioxide 23 25 (22-30) mmol/L BUN 22 H 22 H (9-20) mg/dL Creatinine 1.20 1.32 H (0.66-1.25) mg/dL Glucose 140 H 117 H (74-99) mg/dL Calcium 9.0 9.0 (8.4-10.2) mg/dL TSH 2.580 (0.465-4.680) mIU/L Adrenal panel 07/04/17 07/05/17 Range/Units 17:30 05:24 Sodium 140 139 (137-145) mmol/L Potassium 4.7 5.2 H (3.5-5.1) mmol/L Chloride 107 105 (98-107) mmol/L Carbon Dioxide 23 25 (22-30) mmol/L BUN 22 H 22 H (9-20) mg/dL Creatinine 1.20 1.32 H (0.66-1.25) mg/dL Glucose 140 H 117 H (74-99) mg/dL Calcium 9.0 9.0 (8.4-10.2) mg/dL Total Bilirubin 1.3 (0.2-1.3) mg/dL AST 17 (17-59) U/L ALT 26 (21-72) U/L Alkaline Phosphatase 80 (38-126) U/L Total Protein 5.8 L (6.3-8.2) g/dL Albumin 2.7 L (3.5-5.0) g/dL - Imaging Chest x-ray: report reviewed, image reviewed CT scan - chest: image reviewed EKG: image reviewed Assessment and Plan (1) Uncontrolled type 2 diabetes mellitus Status: Acute (2) Obesity, Class II, BMI 35-39.9 Status: Acute (3) Hyperlipidemia Status: Acute (4) Hepatitis C Status: Acute (5) Acute systolic (congestive) heart failure Status: Acute (6) Aortic regurgitation Status: Acute (7) Bicuspid aortic valve Status: Acute (8) Bilateral leg edema Status: Acute (9) Cardiomyopathy Status: Acute (10) HTN (hypertension) Status: Acute Plan: The patient was seen and examined at the bedside with Dr. Holt. Chart/ diagnostics were reviewed. Heart catheterization, OLMAN films reviewed. Preoperative testing ordered, results pending. Recommend aggressive heart failure management. Patient will need dental clearance and a visit to an learning development specialist. Preoperative teaching initiated with patient and mother. All questions answered. Continue current medication regimen per cardiology recommendations. Will have patient follow up in Dr. Holt's office to finalize decision regarding surgical date. Patient, family are in agreement. Thank you for this consult. We look forward to working with you in the care of your patient. Time with Patient: Greater than 30
[2017-07-05] MEDS: FUROSEMIDE 10 MG/ML 4 ML VIAL IV SCH ×2 (13:32→21:03)
--- NOTE | 2017-07-05 15:59 | CC ---
DATE OF SERVICE: 06/27/2017 PERFORMING PHYSICIAN: Isaiah Andrews M.D., home care scheduler PROCEDURES PERFORMED: 1. Right heart catheterization. 2. Left heart catheterization. 3. Selective right and left coronary angiogram. 4. Aortic root angiogram. INDICATION: This is a pleasant 32-year-old gentleman who was admitted to the hospital with severe cardiomyopathy and was found to have moderate to severe aortic insufficiency with severe cardiomyopathy as well. APPROACH: Right common femoral vein and right common femoral artery. COMPLICATIONS: None. LEVEL OF SEDATION: Moderate, with a sedation length of 79 minutes. PROCEDURE DESCRIPTION: After obtaining informed consent, the patient was brought to the cardiac irrigation laborer. The right common femoral vein was cannulated using micropuncture technique. The micropuncture wire passed easily. Then I placed an 8 Icelandic sheath in the right common femoral vein. After that I cannulated the right common femoral artery using micropuncture technique. The micropuncture wire passed easily. Then I placed a 6 Icelandic sheath in the right common femoral artery. After that I did right heart catheterization using 6 Icelandic Flaxton catheter. Subsequently I did left heart catheterization using 6 Icelandic pigtail catheter. After that, I did selective right and left coronary angiogram. After than I did aortic root angiogram. HEMODYNAMICS: 1. The left ventricular end-diastolic pressure was 36 mmHg. 2. PA pressures were as follow: systolic 52, diastolic 30 and mean of 39 mmHg. 3. RV pressures were as follow: systolic 46 and end-diastolic of 21 mmHg. 4. RA pressures were 18 mmHg. SELECTIVE CORONARY ANGIOGRAM: 1. The right coronary artery has a posterior takeoff. It has mild to moderate diffuse disease only. 2. The left main is angiographically normal. It bifurcates into the left circumflex, ramus intermedius and left anterior descending artery. 3. The left circumflex is a large-caliber vessel. It is a non-dominant vessel. It has mild disease only. 4. The ramus intermedius is a large-caliber vessel with mild disease only. The ramus intermedius is a large-caliber vessel with 2 sub branches. The lower sub branch appeared to have mild disease only and the upper sub branch appeared to have a tight lesion in the distal portion. 5. The left anterior descending artery. The proximal LAD appeared to have a tubular lesion in the range of 50%. The mid LAD appeared to have mild disease only. The mid distal LAD has another lesion that seems to be in the range of 70% . 6. Aortic root angiogram. The aortic root angiogram was performed in the RWANDAN projection and using a power injection. The aortic root appeared to be mildly dilated with evidence of 4+ aortic insufficiency. CONCLUSION: 1. Elevated left ventricular end-diastolic pressure. 2. Moderate pulmonary hypertension. 3. 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 4. Severe disease involving the ramus intermedius coronary artery. 5. Severe disease involving the mid to distal LAD. 6. Aortic insufficiency of 4+. POST-PROCEDURE MANAGEMENT: Consult Surgery for evaluation of aortic valve replacement with single-vessel coronary artery disease. KYAD
[2017-07-05 17:04] LABS: Glucose,Whole Blood 97 mg/dL (75-99)
--- NOTE | 2017-07-05 18:46 | XR ---
EXAMINATION TYPE: XR chest 2V DATE OF EXAM: 07/05/2017 COMPARISON: CT chest from yesterday. Chest x-ray from 4 days ago. HISTORY: CHF progress study. TECHNIQUE: Frontal and lateral views of the chest are obtained. FINDINGS: There is persisting cardiomegaly with small to moderate-sized bilateral pleural effusions and associated bibasilar atelectasis and/or infiltrate all redemonstrated. Upper lungs remain clear w ithout pneumothorax. The osseous structures are intact. IMPRESSION: Findings consistent with CHF exacerbation redemonstrated as there is cardiomegaly with sm all to moderate-sized bilateral pleural effusions and associated bibasilar atelectasis and/or infiltr ate seen.
[2017-07-05 20:39] LABS: Glucose,Whole Blood 94 mg/dL (75-99)
[2017-07-05] MEDS: ATORVASTATIN 20 MG TAB PO SCH (21:01)
[2017-07-06] MEDS: HYDROcodone/APAP 5-325MG 1 EACH TAB PO PRN (05:28)
[2017-07-06 05:44] LABS: Glucose,Whole Blood 102 mg/dL (75-99)
[2017-07-06 05:49] LABS: Basophils # (A) 0.1 k/uL (0-0.2); Basophils % (A) 1 %; CH 26.4; CHCM 31.7; Eosinophils # (A) 0.3 k/uL (0-0.7); Eosinophils % (A) 4 %; HCT 42.3 % (39.0-53.0); HDW 2.76; Hypochromasia Slight; Luc # (Auto) 0.09; Luc % (Auto) 2; Lymphocytes # (A) 1.4 k/uL (1.0-4.8); Lymphocytes % (A) 23 %; MCH 25.6 pg (25.0-35.0); MCHC 30.7 g/dL (31.0-37.0); MCV 83.4 fL (80.0-100.0); Mean Platelet Volume 7.3; Monocytes # (A) 0.4 k/uL (0-1.0); Monocytes % (A) 7 %; Neutrophils # (A) 3.7 k/uL (1.3-7.7); Neutrophils % (A) 63 %; RBC 5.07 m/uL (4.30-5.90); WBC 5.9 k/uL (3.8-10.6); WBC (Perox) 5.88
[2017-07-06] MEDS: INSULIN LISPRO (humaLOG) 300 UNIT/3 ML VIAL SQ SCH ×4 (05:51→21:20)
[2017-07-06 06:05] LABS: Anion Gap 8 mmol/L; Blood Urea Nitrogen 26 mg/dL (9-20); Calcium 8.9 mg/dL (8.4-10.2); Carbon Dioxide 27 mmol/L (22-30); Chloride 105 mmol/L (98-107); Glucose 104 mg/dL (74-99); Magnesium 1.9 mg/dL (1.6-2.3); Non-African American GFR(MDRD) 54 (>60 ml/min/1.73 sqM); Potassium 4.7 mmol/L (3.5-5.1); Sodium 140 mmol/L (137-145)
[2017-07-06] MEDS: glipiZIDE 5 MG TAB PO SCH ×2 (06:45→17:50)
[2017-07-06] MEDS ORDERED: FUROSEMIDE 40 MG TAB PO SCH (09:00)
[2017-07-06] MEDS: FUROSEMIDE 10 MG/ML 4 ML VIAL IV SCH (10:01)
[2017-07-06] MEDS: HEPARIN SODIUM,PORCINE 5,000 UNIT/ML 1 ML VIAL SQ SCH ×2 (10:01→21:20)
[2017-07-06] MEDS: hydrALAZINE HCL 25 MG TAB PO SCH ×2 (10:02→21:20)
[2017-07-06] MEDS: METOPROLOL TARTRATE 50 MG TAB PO SCH ×2 (10:02→21:21)
[2017-07-06] MEDS: LISINOPRIL 20 MG TAB PO SCH (10:02)
[2017-07-06 11:53] LABS: Glucose,Whole Blood 91 mg/dL (75-99)
--- NOTE | 2017-07-06 12:01 | P.PN ---
Subjective No events overnight. Patient is doing fairly well. Noted acute kidney injury with worsening creatinine to 1.5 this morning. Objective - Vital Signs Vital signs: Vital Signs Temp 96.2 F L 07/05/17 20:00 Pulse 86 07/06/17 04:00 Resp 18 07/06/17 04:00 BP 136/90 07/06/17 04:00 Pulse Ox 96 07/06/17 04:00 Intake & Output 07/05/17 07/06/17 07/06/17 18:59 06:59 18:59 Intake Total 495 180 Output Total 700 950 Balance -205 -950 180 Weight 98.8 kg Intake: Intake, IV Titration 15 Amount DOBUTamine DRIP 500 mg In 15 Dextrose/Water 1 250ml. bag @ 2.5 MCG/KG/MIN 7.59 mls/hr IV .Q24H [place] Rx#: [id number] Oral 480 180 Output: Urine 700 950 Other: Voiding Method Toilet # Voids 0 2 - Exam General: The patient is awake and alert, in no distress Eye: there is normal conjunctiva bilaterally. Neck: The neck is supple, there is no JVD. Cardiovascular: Normal S1-S2, no S3-S4, no murmurs. Respiratory: Lungs clear to auscultation bilaterally Gastrointestinal: Abdomen is soft, nontender Musculoskeletal: There is evidence of anasarca up to the mid abdomen improving gradually on a daily basis Neurological:. Speech is normal. Skin: Skin is warm and dry - Labs CBC & Chem 7: 07/06/17 05:36 07/06/17 05:36 Labs: Abnormal Lab Results - Last 24 Hours (Table) 07/06/17 07/06/17 07/06/17 Range/Units 05:36 05:36 05:43 MCHC 30.7 L (31.0-37.0) g/dL BUN 26 H (9-20) mg/dL Creatinine 1.50 H (0.66-1.25) mg/dL Glucose 104 H (74-99) mg/dL POC Glucose (mg/dL) 102 H (75-99) mg/dL Microbiology - Last 24 Hours (Table) 07/04/17 18:45 Nasal Screen MRSA/MSSA ([facility]) - Final Nasal Swab Staphylococcus aureus,Not MRSA 07/04/17 21:30 Urine Culture - Preliminary Urine,Clean Catch Assessment and Plan Plan: 1. Acute systolic heart failure exacerbation: improved clinically with diuresis since admission, patient lost approximately 20 pounds 2. Underlying cardiomyopathy awaiting left heart catheterization to rule out ischemic cardiomyopathy. Cardiology consulted. EF of 25-30%. 3. Severe aortic insufficiency: Now evaluated by cardiac surgery for possible aortic valve replacement 4. Uncontrolled type 2 diabetes mellitus: recently started on oral agents, A1c improving 4. Essential hypertension: Blood pressure better controlled 5. Obesity 6. Acute kidney injury secondary to diuretic use, we will continue to monitor kidney function closely. Hold Lasix for now 7. Chronic hepatitis C: discovered incidentally during preoperative evaluation for aortic valve replacement. Need to have follow-up with hepatology upon discharge. patient is having extensive workup/preoperative evaluation for possible aortic valve replacement. He was updated about his current clinical condition. Plan to follow-up with endocrinology outpatient prior to scheduling his surgery. Continue same medications for now. Repeat lab work in the morning. Appreciate assessment consultant's recommendations.
--- NOTE | 2017-07-06 14:05 | P.PN ---
Subjective Principal diagnosis: CHF This is a 32-year-old gentleman with history of possible intermittent hypertensive episodes, but hasn't been seen by any physician on a regular basis. He hasn't taken medication also on a regular basis. He was seen by primary care physician about couple weeks ago and patient was noted to have evidence of high blood pressure. He was started on amlodipine. On follow-up visit patient was noted to have increasing swelling and shortness of breath. He is admitted to the hospital for further evaluation. A chest x-ray showed cardiomegaly and congestive heart failure. His echocardiogram showed evidence of bicuspid aortic valve with moderate to severe aortic regurgitation. This seemed to be global hypokinesia. However in certain views segmental wall motion defects cannot be excluded, especially in the anteroapical and lateral segments. BNP level on admission 6900. At this point we'll continue with current medical therapy with beta blockers, SWETA inhibitor's ,diuretics and Aldactone. I'm also add small dose of digoxin. He is also complaining of some pain in the left knee which seemed to be inflamed and may have small arthritis. That may be further investigated with x-rays of the knee. However plan to be a OLMAN and right and left heart catheterization early next week. 07/01/2016 Patient was seen and examined this morning, he does state that his breathing is improved from admission here, he continues to have significant bilateral peripheral edema. His Lasix and Aldactone were discontinued yesterday because of a jump in his creatinine. Creatinine yesterday 1.4, 1.4 again today. Initial chest x-ray performed on June 28 did reveal congestive cardiac failure with bilateral effusions, BNP on admission was 6900. 07/05/2017 Patient seen and examined this morning, states overall he is feeling better. His weight is down 2 kg today. Patient underwent a transesophageal echocardiographic study which revealed bicuspid aortic valve with fusion of the left and noncoronary cusps and evidence of severe aortic insufficiency. Severe cardiomyopathy with an ejection fraction of 30% with global hypokinesia and dilated left ventricle. Normal mitral valve leaflets with mild mitral regurg, normal tricuspid valve leaflets with mild tricuspid regurg normal pulmonic valve normal left atrial appendage, intact intra-atrial septum without any evidence of shunt, trace pericardial effusion. Patient also underwent a cardiac catheterization which revealed 50% stenosis in the RCA, 50% proximal LAD , and 70% mid LAD. He has been seen in consultation by cardiothoracic surgery. Patient diuresed well on IV Lasix through the night, his weight is down 2 kg today. Continues to have significant bilateral peripheral edema as well as bilateral pleural effusion. Dr. Cyr's recommendation is to continue the patient IV Lasix, increasing the dose to 40 mg IV twice a day. Creatinine today is 1.3. We will monitor this closely. 07/06/2017 Patient seen and examined this morning, states he did not sleep well last night because of significant noise, however is feeling better overall. His weight today is down 3 kg, BUN 26, creatinine 1.5. Objective - Vital Signs Vital signs: Vital Signs Temp 96.2 F L 07/05/17 20:00 Pulse 86 07/06/17 04:00 Resp 18 07/06/17 04:00 BP 136/90 07/06/17 04:00 Pulse Ox 96 07/06/17 04:00 Intake & Output 07/05/17 07/06/17 07/06/17 18:59 06:59 18:59 Intake Total 495 180 Output Total 700 950 Balance -205 -950 180 Weight 98.8 kg Intake: Intake, IV Titration 15 Amount DOBUTamine DRIP 500 mg In 15 Dextrose/Water 1 250ml. bag @ 2.5 MCG/KG/MIN 7.59 mls/hr IV .Q24H [place] Rx#: [id number] Oral 480 180 Output: Urine 700 950 Other: Voiding Method Toilet # Voids 0 2 - Exam PHYSICAL EXAMINATION: HEENT: Head is atraumatic, normocephalic. Pupils equal, round. Neck is supple. There is elevated jugular venous pressure. HEART EXAMINATION: Heart S1 and S2 systolic click is heard CHEST EXAMINATION: Lungs reveal diminished air entry to bilateral bases ABDOMEN: Soft, nontender. Bowel sounds are heard. No organomegaly noted. EXTREMITIES: 2+ peripheral pulses with 1-2+ evidence of peripheral edema and no calf tenderness noted. NEUROLOGIC patient is awake, alert and oriented -3. . - Labs CBC & Chem 7: 07/06/17 05:36 07/06/17 05:36 Labs: Abnormal Lab Results - Last 24 Hours (Table) 07/06/17 07/06/17 07/06/17 Range/Units 05:36 05:36 05:43 MCHC 30.7 L (31.0-37.0) g/dL BUN 26 H (9-20) mg/dL Creatinine 1.50 H (0.66-1.25) mg/dL Glucose 104 H (74-99) mg/dL POC Glucose (mg/dL) 102 H (75-99) mg/dL Microbiology - Last 24 Hours (Table) 07/04/17 21:30 Urine Culture - Final Urine,Clean Catch 07/04/17 18:45 Nasal Screen MRSA/MSSA ([facility]) - Final Nasal Swab Staphylococcus aureus,Not MRSA Assessment and Plan (1) Systolic CHF, acute Status: Acute (2) HTN (hypertension) Status: Acute (3) Bicuspid aortic valve Status: Acute (4) Bilateral leg edema Status: Acute (5) Bilateral pleural effusion Status: Acute (6) Cardiomyopathy Status: Acute Plan: From cardiology's perspective, we will recommend to continue IV Lasix. Continue to monitor intake and output along with daily weights and daily lytes BUN and creatinine. DNP note has been reviewed, I agree with a documented findings and plan of care. Patient was seen and examined.
[2017-07-06 15:05] VITALS: BMI 34.1
[2017-07-06 17:03] LABS: Glucose,Whole Blood 131 mg/dL (75-99)
[2017-07-06 21:00] LABS: Glucose,Whole Blood 145 mg/dL (75-99)
[2017-07-06] MEDS: ATORVASTATIN 20 MG TAB PO SCH (21:20)
[2017-07-07] MEDS: HYDROcodone/APAP 5-325MG 1 EACH TAB PO PRN (04:10)
[2017-07-07 05:50] LABS: Glucose,Whole Blood 80 mg/dL (75-99)
[2017-07-07 06:01] LABS: Basophils # (A) 0.1 k/uL (0-0.2); Basophils % (A) 1 %; CH 26.3; CHCM 31.3; Eosinophils # (A) 0.3 k/uL (0-0.7); Eosinophils % (A) 4 %; HCT 41.4 % (39.0-53.0); HDW 2.73; HGB 12.4 gm/dL (13.0-17.5); Hypochromasia Slight; Luc % (Auto) 2; Lymphocytes # (A) 1.3 k/uL (1.0-4.8); Lymphocytes % (A) 22 %; MCH 25.1 pg (25.0-35.0); MCHC 29.9 g/dL (31.0-37.0); MCV 84.2 fL (80.0-100.0); Monocytes # (A) 0.5 k/uL (0-1.0); Monocytes % (A) 9 %; Neutrophils # (A) 3.6 k/uL (1.3-7.7); Neutrophils % (A) 62 %; RBC 4.92 m/uL (4.30-5.90); RDW 14.2 % (11.5-15.5); WBC 5.8 k/uL (3.8-10.6); WBC (Perox) 6.19
[2017-07-07] MEDS: INSULIN LISPRO (humaLOG) 300 UNIT/3 ML VIAL SQ SCH ×4 (06:08→20:57)
[2017-07-07 06:17] LABS: Anion Gap 8 mmol/L; Blood Urea Nitrogen 25 mg/dL (9-20); Carbon Dioxide 24 mmol/L (22-30); Chloride 107 mmol/L (98-107); Glucose 84 mg/dL (74-99); Non-African American GFR(MDRD) 59 (>60 ml/min/1.73 sqM); Potassium 4.8 mmol/L (3.5-5.1); Sodium 139 mmol/L (137-145)
[2017-07-07] MEDS: glipiZIDE 5 MG TAB PO SCH ×2 (07:18→17:44)
[2017-07-07] MEDS: FUROSEMIDE 10 MG/ML 4 ML VIAL IV SCH (09:07)
[2017-07-07] MEDS: HEPARIN SODIUM,PORCINE 5,000 UNIT/ML 1 ML VIAL SQ SCH ×2 (09:07→20:58)
[2017-07-07] MEDS: hydrALAZINE HCL 25 MG TAB PO SCH ×2 (09:07→20:58)
[2017-07-07] MEDS: LISINOPRIL 20 MG TAB PO SCH (09:08)
[2017-07-07] MEDS: METOPROLOL TARTRATE 50 MG TAB PO SCH ×2 (09:08→20:58)
[2017-07-07 12:10] LABS: Glucose,Whole Blood 107 mg/dL (75-99)
--- NOTE | 2017-07-07 14:21 | P.PN ---
Subjective Principal diagnosis: CHF This is a 32-year-old gentleman with history of possible intermittent hypertensive episodes, but hasn't been seen by any physician on a regular basis. He hasn't taken medication also on a regular basis. He was seen by primary care physician about couple weeks ago and patient was noted to have evidence of high blood pressure. He was started on amlodipine. On follow-up visit patient was noted to have increasing swelling and shortness of breath. He is admitted to the hospital for further evaluation. A chest x-ray showed cardiomegaly and congestive heart failure. His echocardiogram showed evidence of bicuspid aortic valve with moderate to severe aortic regurgitation. This seemed to be global hypokinesia. However in certain views segmental wall motion defects cannot be excluded, especially in the anteroapical and lateral segments. BNP level on admission 6900. At this point we'll continue with current medical therapy with beta blockers, SWETA inhibitor's ,diuretics and Aldactone. I'm also add small dose of digoxin. He is also complaining of some pain in the left knee which seemed to be inflamed and may have small arthritis. That may be further investigated with x-rays of the knee. However plan to be a OLMAN and right and left heart catheterization early next week. 07/01/2016 Patient was seen and examined this morning, he does state that his breathing is improved from admission here, he continues to have significant bilateral peripheral edema. His Lasix and Aldactone were discontinued yesterday because of a jump in his creatinine. Creatinine yesterday 1.4, 1.4 again today. Initial chest x-ray performed on June 28 did reveal congestive cardiac failure with bilateral effusions, BNP on admission was 6900. 07/05/2017 Patient seen and examined this morning, states overall he is feeling better. His weight is down 2 kg today. Patient underwent a transesophageal echocardiographic study which revealed bicuspid aortic valve with fusion of the left and noncoronary cusps and evidence of severe aortic insufficiency. Severe cardiomyopathy with an ejection fraction of 30% with global hypokinesia and dilated left ventricle. Normal mitral valve leaflets with mild mitral regurg, normal tricuspid valve leaflets with mild tricuspid regurg normal pulmonic valve normal left atrial appendage, intact intra-atrial septum without any evidence of shunt, trace pericardial effusion. Patient also underwent a cardiac catheterization which revealed 50% stenosis in the RCA, 50% proximal LAD , and 70% mid LAD. He has been seen in consultation by cardiothoracic surgery. Patient diuresed well on IV Lasix through the night, his weight is down 2 kg today. Continues to have significant bilateral peripheral edema as well as bilateral pleural effusion. Dr. Cyr's recommendation is to continue the patient IV Lasix, increasing the dose to 40 mg IV twice a day. Creatinine today is 1.3. We will monitor this closely. 07/06/2017 Patient seen and examined this morning, states he did not sleep well last night because of significant noise, however is feeling better overall. His weight today is down 3 kg, BUN 26, creatinine 1.5. 07/07 Patient seen and examined this morning, continues to feel better every day. Breathing overall stable. Weight is down another 2 kg today. Creatinine 1.4, down from 1.5 yesterday Objective - Vital Signs Vital signs: Vital Signs Temp 96.9 F L 07/07/17 08:00 Pulse 85 07/07/17 08:00 Resp 18 07/07/17 08:00 BP 136/89 07/07/17 08:00 Pulse Ox 97 07/07/17 08:00 Intake & Output 07/06/17 07/07/17 07/07/17 18:59 06:59 18:59 Intake Total 360 620 300 Output Total 400 Balance 360 620 -100 Weight 98.8 kg 96.8 kg Intake: IV 20 0.9 20 Oral 360 600 300 Output: Urine 400 Other: Voiding Method Toilet Toilet Toilet # Voids 2 - Exam PHYSICAL EXAMINATION: HEENT: Head is atraumatic, normocephalic. Pupils equal, round. Neck is supple. There is elevated jugular venous pressure. HEART EXAMINATION: Heart S1 and S2 systolic click is heard CHEST EXAMINATION: Lungs reveal diminished air entry to bilateral bases ABDOMEN: Soft, nontender. Bowel sounds are heard. No organomegaly noted. EXTREMITIES: 2+ peripheral pulses with 1-2+ evidence of peripheral edema and no calf tenderness noted. NEUROLOGIC patient is awake, alert and oriented -3. . - Labs CBC & Chem 7: 07/07/17 05:33 07/07/17 05:33 Labs: Abnormal Lab Results - Last 24 Hours (Table) 07/06/17 07/06/17 07/07/17 Range/Units 16:40 20:58 05:33 Hgb 12.4 L (13.0-17.5) gm/dL MCHC 29.9 L (31.0-37.0) g/dL BUN (9-20) mg/dL Creatinine (0.66-1.25) mg/dL POC Glucose (mg/dL) 131 H 145 H (75-99) mg/dL 07/07/17 07/07/17 Range/Units 05:33 11:50 Hgb (13.0-17.5) gm/dL MCHC (31.0-37.0) g/dL BUN 25 H (9-20) mg/dL Creatinine 1.40 H (0.66-1.25) mg/dL POC Glucose (mg/dL) 107 H (75-99) mg/dL Microbiology - Last 24 Hours (Table) 07/04/17 21:30 Urine Culture - Final Urine,Clean Catch 07/04/17 18:45 Nasal Screen MRSA/MSSA ([facility]) - Final Nasal Swab Staphylococcus aureus,Not MRSA Assessment and Plan (1) Systolic CHF, acute Status: Acute (2) HTN (hypertension) Status: Acute (3) Bicuspid aortic valve Status: Acute (4) Bilateral leg edema Status: Acute (5) Bilateral pleural effusion Status: Acute (6) Cardiomyopathy Status: Acute Plan: From cardiology's perspective, we will recommend to continue IV Lasix. Continue to monitor intake and output along with daily weights and daily lytes BUN and creatinine. DNP note has been reviewed, I agree with a documented findings and plan of care. Patient was seen and examined.
--- NOTE | 2017-07-07 14:46 | P.PN ---
Subjective Patient is having improvement in his lower extremity edema. Cardiology wants him to continue on IV Lasix area they have decreased the dose to daily. Patient has no new complaints Objective - Vital Signs Vital signs: Vital Signs Temp 96.9 F L 07/07/17 08:00 Pulse 85 07/07/17 08:00 Resp 18 07/07/17 08:00 BP 136/89 07/07/17 08:00 Pulse Ox 97 07/07/17 08:00 Intake & Output 07/06/17 07/07/17 07/07/17 18:59 06:59 18:59 Intake Total 360 620 300 Output Total 400 Balance 360 620 -100 Weight 98.8 kg 96.8 kg Intake: IV 20 0.9 20 Oral 360 600 300 Output: Urine 400 Other: Voiding Method Toilet Toilet Toilet # Voids 2 - Exam Head normocephalic Neck supple Lungs clear to auscultation bilaterally no wheezing or crackles Heart regular rate and rhythm S1-S2, no rub or gallop Abdomen is soft nontender nondistended positive bowel sounds no hepatosplenomegaly Extremities lower extremity edema bilaterally LUISANA hose in place Neuro alert and orientated to 3 - Labs CBC & Chem 7: 07/07/17 05:33 07/07/17 05:33 Labs: Abnormal Lab Results - Last 24 Hours (Table) 07/06/17 07/06/17 07/07/17 Range/Units 16:40 20:58 05:33 Hgb 12.4 L (13.0-17.5) gm/dL MCHC 29.9 L (31.0-37.0) g/dL BUN (9-20) mg/dL Creatinine (0.66-1.25) mg/dL POC Glucose (mg/dL) 131 H 145 H (75-99) mg/dL 07/07/17 07/07/17 Range/Units 05:33 11:50 Hgb (13.0-17.5) gm/dL MCHC (31.0-37.0) g/dL BUN 25 H (9-20) mg/dL Creatinine 1.40 H (0.66-1.25) mg/dL POC Glucose (mg/dL) 107 H (75-99) mg/dL Microbiology - Last 24 Hours (Table) 07/04/17 21:30 Urine Culture - Final Urine,Clean Catch 07/04/17 18:45 Nasal Screen MRSA/MSSA ([facility]) - Final Nasal Swab Staphylococcus aureus,Not MRSA Assessment and Plan Plan: 1. Acute systolic heart failure exacerbation: Patient is approximately lost 20 pounds. Cardiology is dosing the Lasix may decrease the dose to IV 40 mg daily. And they're monitoring closely. 2. Underlying cardiomyopathy with EF of 25-30%. Cardiology monitoring closely. She underwent heart catheterization showing aortic insufficiency 4+ and severe disease involving the mid to distal LAD. 3. Uncontrolled type 2 diabetes mellitus 4. Essential hypertension: Blood pressure better controlled 5. Obesity 6. Acute kidney injury secondary to diuretic use. Kidney function is showing improvement. Creatinine Trending down to 1.30 7. Hyperkalemia potassium 5.3. We'll give 1 dose of Kayexalate 15 g by mouth 1. Repeat labs in a.m. 8. Severe protein calorie malnutrition. Add Glucerna shakes 3 times a day with meals 9. Severe aortic insufficiency patient will be following up with Dr. Holt in the outpatient setting to finalize decision regarding surgical date for aortic valve replacement. Patient will need clearance by his clinical laboratory scientist and dentist prior to surgery DVT prophylaxis subcu heparin I performed an examination of the patient and discussed their management with the physician Soup Person. I have reviewed the Physician Soup Person's notes and agree with the documented findings and plan of care
[2017-07-07 17:07] LABS: Glucose,Whole Blood 111 mg/dL (75-99)
[2017-07-07 20:56] LABS: Glucose,Whole Blood 107 mg/dL (75-99)
[2017-07-07] MEDS: ATORVASTATIN 20 MG TAB PO SCH (20:58)
[2017-07-08 05:29] LABS: Glucose,Whole Blood 123 mg/dL (75-99)
[2017-07-08] MEDS: INSULIN LISPRO (humaLOG) 300 UNIT/3 ML VIAL SQ SCH ×4 (05:45→21:26)
[2017-07-08 06:13] LABS: CHCM 31.5; Eosinophils % (A) 5 %; HGB 12.5 gm/dL (13.0-17.5); Hypochromasia Slight
[2017-07-08 06:20] LABS: Basophils # (A) 0.1 k/uL (0-0.2); Basophils % (A) 1 %; CH 26.5; Eosinophils # (A) 0.3 k/uL (0-0.7); HCT 41.2 % (39.0-53.0); HDW 2.75; Luc # (Auto) 0.09; Luc % (Auto) 2; Lymphocytes # (A) 1.5 k/uL (1.0-4.8); Lymphocytes % (A) 25 %; MCH 25.6 pg (25.0-35.0); MCHC 30.5 g/dL (31.0-37.0); Mean Platelet Volume 7.1; Monocytes # (A) 0.3 k/uL (0-1.0); Monocytes % (A) 6 %; Neutrophils # (A) 3.6 k/uL (1.3-7.7); Neutrophils % (A) 62 %; RDW 14.1 % (11.5-15.5); WBC 5.9 k/uL (3.8-10.6); WBC (Perox) 5.87
[2017-07-08 06:23] LABS: Anion Gap 7 mmol/L; Blood Urea Nitrogen 22 mg/dL (9-20); Calcium 8.7 mg/dL (8.4-10.2); Carbon Dioxide 24 mmol/L (22-30); Chloride 108 mmol/L (98-107); Glucose 110 mg/dL (74-99); Magnesium 1.8 mg/dL (1.6-2.3); Non-African American GFR(MDRD) >60 (>60 ml/min/1.73 sqM); Potassium 4.7 mmol/L (3.5-5.1); Sodium 139 mmol/L (137-145)
[2017-07-08] MEDS: glipiZIDE 5 MG TAB PO SCH ×2 (06:38→17:31)
[2017-07-08] MEDS: HEPARIN SODIUM,PORCINE 5,000 UNIT/ML 1 ML VIAL SQ SCH ×2 (08:54→21:32)
[2017-07-08] MEDS: METOPROLOL TARTRATE 50 MG TAB PO SCH ×2 (08:54→21:32)
[2017-07-08] MEDS: FUROSEMIDE 10 MG/ML 4 ML VIAL IV SCH (08:54)
[2017-07-08] MEDS: hydrALAZINE HCL 25 MG TAB PO SCH ×2 (08:54→21:32)
[2017-07-08] MEDS: LISINOPRIL 20 MG TAB PO SCH (08:54)
[2017-07-08 11:42] LABS: Glucose,Whole Blood 98 mg/dL (75-99)
--- NOTE | 2017-07-08 12:40 | P.PN ---
Subjective Principal diagnosis: Congestive heart failure This is a pleasant 32-year-old gentleman with diabetes, hypertension, and dyslipidemia was admitted to the hospital with progressive dyspnea and bilateral lower extremities edema and was diagnosed was congestive heart failure. An echocardiogram was performed and showed moderate to severe aortic insufficiency associated with bicuspid aortic valve as well as severe cardiomyopathy with an ejection fraction of 25-30%. Overall, the patient is feeling slightly better. The shortness of breath is better. The bilateral lower extremities edema better. The kidney function continues to be stable. Objective - Vital Signs Vital signs: Vital Signs Temp 97.4 F L 07/08/17 08:00 Pulse 89 07/08/17 08:00 Resp 16 07/08/17 08:00 BP 146/78 07/08/17 08:00 Pulse Ox 97 07/08/17 08:00 Intake & Output 07/07/17 07/08/17 07/08/17 18:59 06:59 18:59 Intake Total 950 Output Total 400 Balance 550 Weight 94.7 kg 94.7 kg Intake: Oral 950 Output: Urine 400 Other: Voiding Method Toilet Toilet # Voids 2 2 - Constitutional General appearance: Present: no acute distress - Respiratory Respiratory: bilateral: CTA - Cardiovascular Rhythm: regular Heart sounds: normal: S1, S2 - Labs CBC & Chem 7: 07/08/17 05:55 07/08/17 05:55 Labs: Abnormal Lab Results - Last 24 Hours (Table) 07/07/17 07/07/17 07/08/17 Range/Units 16:47 20:54 05:26 Hgb (13.0-17.5) gm/dL MCHC (31.0-37.0) g/dL Chloride (98-107) mmol/L BUN (9-20) mg/dL Creatinine (0.66-1.25) mg/dL Glucose (74-99) mg/dL POC Glucose (mg/dL) 111 H 107 H 123 H (75-99) mg/dL 07/08/17 07/08/17 Range/Units 05:55 05:55 Hgb 12.5 L (13.0-17.5) gm/dL MCHC 30.5 L (31.0-37.0) g/dL Chloride 108 H (98-107) mmol/L BUN 22 H (9-20) mg/dL Creatinine 1.29 H (0.66-1.25) mg/dL Glucose 110 H (74-99) mg/dL POC Glucose (mg/dL) (75-99) mg/dL Assessment and Plan Plan: This is a pleasant 32-year-old gentleman who was admitted to the hospital with congestive heart failure exacerbation secondary to systolic dysfunction. The echo showed severe cardiomyopathy was bicuspid aortic valve and evidence of moderate to severe aortic insufficiency. I recommended continue the patient on Lasix IV for additional 24 hours and we will switch him to by mouth tomorrow.
--- NOTE | 2017-07-08 16:28 | P.PN ---
Subjective Patient is having improvement in his lower extremity edema. Cardiology wants him to continue on IV Lasix area they have decreased the dose to daily. Patient has no new complaints Objective - Vital Signs Vital signs: Vital Signs Temp 97.4 F L 07/08/17 08:00 Pulse 80 07/08/17 12:00 Resp 18 07/08/17 12:00 BP 124/77 07/08/17 12:00 Pulse Ox 100 07/08/17 12:00 Intake & Output 07/07/17 07/08/17 07/08/17 18:59 06:59 18:59 Intake Total 950 Output Total 400 Balance 550 Weight 94.7 kg 94.7 kg Intake: Oral 950 Output: Urine 400 Other: Voiding Method Toilet Toilet # Voids 2 2 2 - Exam In general patient is alert and oriented 3 in no apparent distress HEENT head normocephalic and nontraumatic Neck is supple no JVD no goiter no lymphadenopathy Chest exam reveals a clear respiratory sounds no wheezing Cardiac exam reveals regular heart sounds no gallops no murmurs Abdomen is soft nontender no organomegaly Extremity exam reveals 2+ edema no cyanosis or clubbing - Labs CBC & Chem 7: 07/08/17 05:55 07/08/17 05:55 Labs: Abnormal Lab Results - Last 24 Hours (Table) 07/07/17 07/07/17 07/08/17 Range/Units 16:47 20:54 05:26 Hgb (13.0-17.5) gm/dL MCHC (31.0-37.0) g/dL Chloride (98-107) mmol/L BUN (9-20) mg/dL Creatinine (0.66-1.25) mg/dL Glucose (74-99) mg/dL POC Glucose (mg/dL) 111 H 107 H 123 H (75-99) mg/dL 07/08/17 07/08/17 Range/Units 05:55 05:55 Hgb 12.5 L (13.0-17.5) gm/dL MCHC 30.5 L (31.0-37.0) g/dL Chloride 108 H (98-107) mmol/L BUN 22 H (9-20) mg/dL Creatinine 1.29 H (0.66-1.25) mg/dL Glucose 110 H (74-99) mg/dL POC Glucose (mg/dL) (75-99) mg/dL Assessment and Plan Plan: 1. Acute systolic heart failure exacerbation: Patient is approximately lost 20 pounds. Cardiology is dosing the Lasix may decrease the dose to IV 40 mg daily. And they're monitoring closely. 2. Underlying cardiomyopathy with EF of 25-30%. Cardiology monitoring closely. She underwent heart catheterization showing aortic insufficiency 4+ and severe disease involving the mid to distal LAD. 3. Uncontrolled type 2 diabetes mellitus 4. Essential hypertension: Blood pressure better controlled 5. Obesity 6. Acute kidney injury secondary to diuretic use. Kidney function is showing improvement. Creatinine Trending down to 1.30 7. Hyperkalemia 8. Severe protein calorie malnutrition. Add Glucerna shakes 3 times a day with meals 9. Severe aortic insufficiency patient will be following up with Dr. Holt in the outpatient setting to finalize decision regarding surgical date for aortic valve replacement. Patient will need clearance by his locomotive engineer electric and dentist prior to surgery 10. Positive hepatitis C testing, patient denies any risk factors he has no tattoos he denies ever using needles for drugs he denies having any blood transfusion in the past, will check quantitative hepatitis C testing
--- NOTE | 2017-07-08 16:51 | P.CONS ---
History of Present Illness - Reason for Consult Consult date: 07/08/17 - History of Present Illness The patient is a 52-year-old male who was admitted to the hospital with acute congestive heart failure. He had progressive swelling in his lower extremities that started around 2 months ago with progressive increase to around his mid abdomen. The patient's evaluation is pointing to a bicuspid aortic valve as well as mitral valve issues. He would be undergoing surgical intervention in the future and is now responding to diuretic regimen. We are asked to see him because of positive hepatitis C serology. His liver enzymes are normal and he has no risk factors. Review of Systems 12 point review of systems is essentially negative except as for the present illness. Past Medical History Past Medical History: Diabetes Mellitus, Hyperlipidemia, Hypertension Additional Past Medical History / Comment(s): PT STATED IN PAST HE HAS A PNE VACCINE BUT NOT SURE OF DATE. History of Any Multi-Drug Resistant Organisms: None Reported Past Surgical History: Ear Surgery, Tonsillectomy Additional Past Surgical History / Comment(s): "FLUID TAKEN OFF LT KNEE", TUBES IN EARS CHILD Past Anesthesia/Blood Transfusion Reactions: No Reported Reaction Smoking Status: Never smoker - Past Family History Father Family Medical History: Unable to Obtain Additional Family Medical History / Comment(s): PT WAS ADOPTED Mother Family Medical History: Unable to Obtain Additional Family Medical History / Comment(s): PT WAS ADOPTED Medications and Allergies Home Medications Medication Instructions Recorded Confirmed Type Atorvastatin [Lipitor] 20 mg PO HS 06/27/17 06/27/17 History Lisinopril [Prinivil] 20 mg PO DAILY 06/27/17 06/27/17 History amLODIPine BESYLATE [Norvasc] 5 mg PO DAILY 06/27/17 06/27/17 History glipiZIDE [Glucotrol] 5 mg PO AC-BID 06/27/17 06/27/17 History metFORMIN HCL [Glucophage] 500 mg PO BID 06/27/17 06/27/17 History Allergies Allergy/AdvReac Type Severity Reaction Status Date / Time No Known Allergies Allergy Verified 06/27/17 14:27 Physical Exam Vitals: Vital Signs Temp Pulse Resp BP BP Pulse Ox 07/08/17 12:00 80 18 124/77 100 07/08/17 08:00 97.4 F L 89 16 146/78 97 07/08/17 04:00 84 16 136/84 97 07/08/17 00:00 98.4 F 83 18 121/72 99 07/07/17 20:00 98.2 F 90 16 145/98 98 Intake and Output 07/08/17 07/08/17 07/08/17 06:59 14:59 22:59 Other: Voiding Method Toilet # Voids 2 2 Weight 94.7 kg 94.7 kg Patient Weight 07/09/17 06:59 Weight 94.7 kg General: Patient is alert and oriented 3 in no apparent distress HEENT: Normocephalic and nontraumatic, conjunctivae pink, sclerae not icteric. Mucous membranes moist and pink Neck: Supple no JVD no goiter no lymphadenopathy Chest: Clear respiratory sounds no wheezing Cardiac: Regular heart sounds no gallops no murmurs Abdomen: Soft, nontender no organomegaly Extremity: 2+ edema enrique LE no cyanosis or clubbing Neurologic: Cranial nerves intact, no gross sensory or motor abnormalities Results CBC & Chem 7: 07/09/17 06:18 07/09/17 06:18 Labs: Abnormal Lab Results - Last 24 Hours (Table) 07/07/17 07/07/17 07/08/17 Range/Units 16:47 20:54 05:26 Hgb (13.0-17.5) gm/dL MCHC (31.0-37.0) g/dL Chloride (98-107) mmol/L BUN (9-20) mg/dL Creatinine (0.66-1.25) mg/dL Glucose (74-99) mg/dL POC Glucose (mg/dL) 111 H 107 H 123 H (75-99) mg/dL 07/08/17 07/08/17 Range/Units 05:55 05:55 Hgb 12.5 L (13.0-17.5) gm/dL MCHC 30.5 L (31.0-37.0) g/dL Chloride 108 H (98-107) mmol/L BUN 22 H (9-20) mg/dL Creatinine 1.29 H (0.66-1.25) mg/dL Glucose 110 H (74-99) mg/dL POC Glucose (mg/dL) (75-99) mg/dL Assessment and Plan Plan: Positive HCV serology could represent chronic HCV infection. No symptoms of chronic liver disease and normal liver enzymes. We will order HCV RNA quantitative and genotype and make further recommendations.
[2017-07-08 17:03] LABS: Glucose,Whole Blood 107 mg/dL (75-99)
[2017-07-08 21:07] LABS: Glucose,Whole Blood 132 mg/dL (75-99)
[2017-07-08] MEDS: ATORVASTATIN 20 MG TAB PO SCH (21:32)
[2017-07-08] MEDS: HYDROcodone/APAP 5-325MG 1 EACH TAB PO PRN (22:53)
[2017-07-09 06:15] LABS: Glucose,Whole Blood 107 mg/dL (75-99)
[2017-07-09] MEDS: INSULIN LISPRO (humaLOG) 300 UNIT/3 ML VIAL SQ SCH ×4 (06:22→21:48)
[2017-07-09] MEDS: glipiZIDE 5 MG TAB PO SCH ×2 (06:34→17:22)
[2017-07-09 06:37] LABS: Basophils # (A) 0.1 k/uL (0-0.2); Basophils % (A) 1 %; CH 26.3; CHCM 31.4; Eosinophils # (A) 0.3 k/uL (0-0.7); Eosinophils % (A) 6 %; HCT 43.9 % (39.0-53.0); HGB 13.1 gm/dL (13.0-17.5); Hypochromasia Slight; Luc # (Auto) 0.07; Luc % (Auto) 1; Lymphocytes # (A) 1.6 k/uL (1.0-4.8); Lymphocytes % (A) 28 %; MCH 25.1 pg (25.0-35.0); MCHC 29.9 g/dL (31.0-37.0); MCV 83.9 fL (80.0-100.0); Monocytes # (A) 0.4 k/uL (0-1.0); Monocytes % (A) 7 %; Neutrophils # (A) 3.2 k/uL (1.3-7.7); Neutrophils % (A) 57 %; RBC 5.23 m/uL (4.30-5.90); RDW 14.1 % (11.5-15.5); WBC 5.5 k/uL (3.8-10.6); WBC (Perox) 5.46
[2017-07-09 06:58] LABS: Anion Gap 7 mmol/L; Blood Urea Nitrogen 21 mg/dL (9-20); Calcium 8.9 mg/dL (8.4-10.2); Carbon Dioxide 24 mmol/L (22-30); Chloride 109 mmol/L (98-107); Glucose 100 mg/dL (74-99); Non-African American GFR(MDRD) >60 (>60 ml/min/1.73 sqM); Potassium 4.7 mmol/L (3.5-5.1); Sodium 140 mmol/L (137-145)
[2017-07-09] MEDS: FUROSEMIDE 10 MG/ML 4 ML VIAL IV SCH (08:19)
[2017-07-09] MEDS: hydrALAZINE HCL 25 MG TAB PO SCH ×2 (08:19→20:05)
[2017-07-09] MEDS: METOPROLOL TARTRATE 50 MG TAB PO SCH ×2 (08:19→20:05)
[2017-07-09] MEDS: HEPARIN SODIUM,PORCINE 5,000 UNIT/ML 1 ML VIAL SQ SCH ×2 (08:19→20:05)
[2017-07-09] MEDS: LISINOPRIL 20 MG TAB PO SCH (08:20)
--- NOTE | 2017-07-09 09:16 | P.PN ---
Subjective Patient is having improvement in his lower extremity edema. Cardiology wants him to continue on IV Lasix area they have decreased the dose to daily. Patient has no new complaints Objective - Vital Signs Vital signs: Vital Signs Temp 97.2 F L 07/09/17 08:00 Pulse 81 07/09/17 08:00 Resp 16 07/09/17 08:00 BP 131/79 07/09/17 08:00 Pulse Ox 99 07/09/17 08:00 Intake & Output 07/08/17 07/09/17 07/09/17 18:59 06:59 18:59 Weight 94.7 kg 92.2 kg 92.2 kg Other: Voiding Method Toilet Toilet # Voids 1 2 - Exam In general patient is alert and oriented 3 in no apparent distress HEENT head normocephalic and nontraumatic Neck is supple no JVD no goiter no lymphadenopathy Chest exam reveals a clear respiratory sounds no wheezing Cardiac exam reveals regular heart sounds no gallops no murmurs Abdomen is soft nontender no organomegaly Extremity exam reveals 2+ edema no cyanosis or clubbing - Labs CBC & Chem 7: 07/09/17 06:18 07/09/17 06:18 Labs: Abnormal Lab Results - Last 24 Hours (Table) 07/08/17 07/08/17 07/09/17 Range/Units 16:53 21:06 06:14 MCHC (31.0-37.0) g/dL Chloride (98-107) mmol/L BUN (9-20) mg/dL Creatinine (0.66-1.25) mg/dL Glucose (74-99) mg/dL POC Glucose (mg/dL) 107 H 132 H 107 H (75-99) mg/dL 07/09/17 07/09/17 Range/Units 06:18 06:18 MCHC 29.9 L (31.0-37.0) g/dL Chloride 109 H (98-107) mmol/L BUN 21 H (9-20) mg/dL Creatinine 1.26 H (0.66-1.25) mg/dL Glucose 100 H (74-99) mg/dL POC Glucose (mg/dL) (75-99) mg/dL Assessment and Plan Plan: 1. Acute systolic heart failure exacerbation: Patient is approximately lost 20 pounds. Cardiology is dosing the Lasix may decrease the dose to IV 40 mg daily. And they're monitoring closely. 2. Underlying cardiomyopathy with EF of 25-30%. Cardiology monitoring closely. She underwent heart catheterization showing aortic insufficiency 4+ and severe disease involving the mid to distal LAD. 3. Uncontrolled type 2 diabetes mellitus 4. Essential hypertension: Blood pressure better controlled 5. Obesity 6. Acute kidney injury secondary to diuretic use. Kidney function is showing improvement. Creatinine Trending down to 1.26 7. Hyperkalemia 8. Severe protein calorie malnutrition. Add Glucerna shakes 3 times a day with meals 9. Severe aortic insufficiency patient will be following up with Dr. Holt in the outpatient setting to finalize decision regarding surgical date for aortic valve replacement. Patient will need clearance by his continuous improvement lead and dentist prior to surgery 10. Positive hepatitis C testing, patient denies any risk factors he has no tattoos he denies ever using needles for drugs he denies having any blood transfusion in the past, will check quantitative hepatitis C testing
--- NOTE | 2017-07-09 12:00 | P.PN ---
Subjective Principal diagnosis: Congestive heart failure This is a pleasant 32-year-old gentleman with diabetes, hypertension, and dyslipidemia was admitted to the hospital with progressive dyspnea and bilateral lower extremities edema and was diagnosed was congestive heart failure. An echocardiogram was performed and showed moderate to severe aortic insufficiency associated with bicuspid aortic valve as well as severe cardiomyopathy with an ejection fraction of 25-30%. Overall, the patient is feeling better. The shortness of breath is better. The bilateral lower extremities edema better. The kidney function continues to be stable. Objective - Vital Signs Vital signs: Vital Signs Temp 97.2 F L 07/09/17 08:00 Pulse 81 07/09/17 08:00 Resp 16 07/09/17 08:00 BP 131/79 07/09/17 08:00 Pulse Ox 99 07/09/17 08:00 Intake & Output 07/08/17 07/09/17 07/09/17 18:59 06:59 18:59 Weight 94.7 kg 92.2 kg 92.2 kg Other: Voiding Method Toilet Toilet # Voids 1 2 1 - Constitutional General appearance: Present: no acute distress - Respiratory Respiratory: bilateral: CTA - Cardiovascular Rhythm: regular Heart sounds: normal: S1, S2 - Labs CBC & Chem 7: 07/09/17 06:18 07/09/17 06:18 Labs: Abnormal Lab Results - Last 24 Hours (Table) 07/08/17 07/08/17 07/09/17 Range/Units 16:53 21:06 06:14 MCHC (31.0-37.0) g/dL Chloride (98-107) mmol/L BUN (9-20) mg/dL Creatinine (0.66-1.25) mg/dL Glucose (74-99) mg/dL POC Glucose (mg/dL) 107 H 132 H 107 H (75-99) mg/dL 07/09/17 07/09/17 Range/Units 06:18 06:18 MCHC 29.9 L (31.0-37.0) g/dL Chloride 109 H (98-107) mmol/L BUN 21 H (9-20) mg/dL Creatinine 1.26 H (0.66-1.25) mg/dL Glucose 100 H (74-99) mg/dL POC Glucose (mg/dL) (75-99) mg/dL Assessment and Plan Plan: This is a pleasant 32-year-old gentleman who was admitted to the hospital with congestive heart failure exacerbation secondary to systolic dysfunction. The echo showed severe cardiomyopathy was bicuspid aortic valve and evidence of moderate to severe aortic insufficiency. I recommended continue the patient on Lasix IV for additional 24 hours and possible discharge home tomorrow.
[2017-07-09 12:16] LABS: Glucose,Whole Blood 94 mg/dL (75-99)
[2017-07-09 17:04] LABS: Glucose,Whole Blood 111 mg/dL (75-99)
[2017-07-09] MEDS: ATORVASTATIN 20 MG TAB PO SCH (20:05)
[2017-07-09 21:10] LABS: Glucose,Whole Blood 141 mg/dL (75-99)
[2017-07-09] MEDS: HYDROcodone/APAP 5-325MG 1 EACH TAB PO PRN (23:00)
[2017-07-10 06:10] VITALS: RESP 16
[2017-07-10 06:15] LABS: Glucose,Whole Blood 97 mg/dL (75-99)
[2017-07-10 06:31] LABS: Basophils # (A) 0.1 k/uL (0-0.2); Basophils % (A) 1 %; CH 26.4; CHCM 31.1; Eosinophils # (A) 0.3 k/uL (0-0.7); Eosinophils % (A) 5 %; HCT 42.4 % (39.0-53.0); HDW 2.81; Hypochromasia Slight; Luc # (Auto) 0.12; Luc % (Auto) 2; Lymphocytes % (A) 32 %; MCHC 30.6 g/dL (31.0-37.0); Mean Platelet Volume 7.2; Monocytes # (A) 0.4 k/uL (0-1.0); Monocytes % (A) 7 %; Neutrophils # (A) 3.3 k/uL (1.3-7.7); Neutrophils % (A) 52 %; RBC 4.99 m/uL (4.30-5.90); RDW 14.3 % (11.5-15.5); WBC 6.3 k/uL (3.8-10.6); WBC (Perox) 6.15
[2017-07-10] MEDS: INSULIN LISPRO (humaLOG) 300 UNIT/3 ML VIAL SQ SCH ×3 (06:40→17:12)
[2017-07-10] MEDS: glipiZIDE 5 MG TAB PO SCH ×2 (06:45→17:13)
[2017-07-10 06:48] LABS: Anion Gap 6 mmol/L; Blood Urea Nitrogen 24 mg/dL (9-20); Carbon Dioxide 26 mmol/L (22-30); Chloride 108 mmol/L (98-107); Glucose 79 mg/dL (74-99); Non-African American GFR(MDRD) >60 (>60 ml/min/1.73 sqM); Potassium 5.6 mmol/L (3.5-5.1); Sodium 140 mmol/L (137-145)
[2017-07-10] MEDS: FUROSEMIDE 10 MG/ML 4 ML VIAL IV SCH (08:49)
[2017-07-10] MEDS: LISINOPRIL 20 MG TAB PO SCH (08:50)
[2017-07-10] MEDS: METOPROLOL TARTRATE 50 MG TAB PO SCH (08:50)
[2017-07-10] MEDS: HEPARIN SODIUM,PORCINE 5,000 UNIT/ML 1 ML VIAL SQ SCH (08:50)
[2017-07-10] MEDS: hydrALAZINE HCL 25 MG TAB PO SCH (08:50)
[2017-07-10 08:53] VITALS: TEMP 97.5
--- NOTE | 2017-07-10 11:26 | P.DS ---
Providers Date of admission: 06/27/17 16:19 Expected date of discharge: 07/10/17 Attending physician: Melvina Layne Consults: 06/29/17 10:57 Consult Physician Routine Consulting Provider: Reji Aguilar Consult Reason/Comments: EF 30% Do you want consulting provider notified?: Yes 07/05/17 13:30 Consult Physician Urgent Consulting Provider: Ira Holt Consult Reason/Comments: AI Do you want consulting provider notified?: Already Contacted 07/08/17 14:17 Consult Physician Routine Consulting Provider: Blanche Cui Consult Reason/Comments: hep C Do you want consulting provider notified?: Yes [facility] Course: 1. Acute systolic heart failure exacerbation: improved clinically with diuresis since admission, patient lost approximately 20 pounds 2. Underlying ischemic cardiomyopathy with left heart catheterization showing severe disease involving the mid to distal LAD and severe disease involving the ramus intermedius. EF of 25-30%. 3. Severe aortic insufficiency: Plan to follow up with cardiac surgery next week in the office. Preoperative workup started here in the hospital. 4. Uncontrolled type 2 diabetes mellitus: recently started on oral agents, A1c improving 4. Essential hypertension: Blood pressure better controlled 5. Obesity 6. Acute kidney injury secondary to diuretic use, we will continue to monitor kidney function closely. Hold Lasix for now 7. Chronic hepatitis C: discovered incidentally during preoperative evaluation. Need to have follow-up with hepatology upon discharge. Patient Condition at Discharge: Stable Plan - Discharge Summary New Discharge Prescriptions: New hydrALAZINE HCL [Apresoline] 25 mg PO BID #60 tab Metoprolol Tartrate [Lopressor] 50 mg PO BID #60 tab Furosemide [Lasix] 40 mg PO DAILY #30 tablet Continue glipiZIDE [Glucotrol] 5 mg PO AC-BID Lisinopril [Prinivil] 20 mg PO DAILY Atorvastatin [Lipitor] 20 mg PO HS Discontinued metFORMIN HCL [Glucophage] 500 mg PO BID amLODIPine BESYLATE [Norvasc] 5 mg PO DAILY Discharge Medication List Atorvastatin [Lipitor] 20 mg PO HS 06/27/17 [History] Lisinopril [Prinivil] 20 mg PO DAILY 06/27/17 [History] glipiZIDE [Glucotrol] 5 mg PO AC-BID 06/27/17 [History] Furosemide [Lasix] 40 mg PO DAILY #30 tablet 07/10/17 [Rx] Metoprolol Tartrate [Lopressor] 50 mg PO BID #60 tab 07/10/17 [Rx] hydrALAZINE HCL [Apresoline] 25 mg PO BID #60 tab 07/10/17 [Rx] Follow up Appointment(s)/Referral(s): Ira Holt MD [STAFF PHYSICIAN] - 08/04/17 11:45 am [facility], [NON-STAFF] - Roly Cosby MD [STAFF PHYSICIAN] - 1 Week Melvina Layne MD [Primary Care Provider] - 3 Days Discharge Disposition: HOME WITH HOME HEALTH SERVICES
[2017-07-10 12:24] LABS: Glucose,Whole Blood 86 mg/dL (75-99)
--- NOTE | 2017-07-10 12:49 | P.PN ---
Subjective Principal diagnosis: CHF This is a 32-year-old gentleman with history of possible intermittent hypertensive episodes, but hasn't been seen by any physician on a regular basis. He hasn't taken medication also on a regular basis. He was seen by primary care physician about couple weeks ago and patient was noted to have evidence of high blood pressure. He was started on amlodipine. On follow-up visit patient was noted to have increasing swelling and shortness of breath. He is admitted to the hospital for further evaluation. A chest x-ray showed cardiomegaly and congestive heart failure. His echocardiogram showed evidence of bicuspid aortic valve with moderate to severe aortic regurgitation. This seemed to be global hypokinesia. However in certain views segmental wall motion defects cannot be excluded, especially in the anteroapical and lateral segments. BNP level on admission 6900. At this point we'll continue with current medical therapy with beta blockers, SWETA inhibitor's ,diuretics and Aldactone. I'm also add small dose of digoxin. He is also complaining of some pain in the left knee which seemed to be inflamed and may have small arthritis. That may be further investigated with x-rays of the knee. However plan to be a OLMAN and right and left heart catheterization early next week. 07/01/2016 Patient was seen and examined this morning, he does state that his breathing is improved from admission here, he continues to have significant bilateral peripheral edema. His Lasix and Aldactone were discontinued yesterday because of a jump in his creatinine. Creatinine yesterday 1.4, 1.4 again today. Initial chest x-ray performed on June 28 did reveal congestive cardiac failure with bilateral effusions, BNP on admission was 6900. 07/05/2017 Patient seen and examined this morning, states overall he is feeling better. His weight is down 2 kg today. Patient underwent a transesophageal echocardiographic study which revealed bicuspid aortic valve with fusion of the left and noncoronary cusps and evidence of severe aortic insufficiency. Severe cardiomyopathy with an ejection fraction of 30% with global hypokinesia and dilated left ventricle. Normal mitral valve leaflets with mild mitral regurg, normal tricuspid valve leaflets with mild tricuspid regurg normal pulmonic valve normal left atrial appendage, intact intra-atrial septum without any evidence of shunt, trace pericardial effusion. Patient also underwent a cardiac catheterization which revealed 50% stenosis in the RCA, 50% proximal LAD , and 70% mid LAD. He has been seen in consultation by cardiothoracic surgery. Patient diuresed well on IV Lasix through the night, his weight is down 2 kg today. Continues to have significant bilateral peripheral edema as well as bilateral pleural effusion. Dr. Cyr's recommendation is to continue the patient IV Lasix, increasing the dose to 40 mg IV twice a day. Creatinine today is 1.3. We will monitor this closely. 07/06/2017 Patient seen and examined this morning, states he did not sleep well last night because of significant noise, however is feeling better overall. His weight today is down 3 kg, BUN 26, creatinine 1.5. 07/07 Patient seen and examined this morning, continues to feel better every day. Breathing overall stable. Weight is down another 2 kg today. Creatinine 1.4, down from 1.5 yesterday 07/10/2017 Patient seen and examined this morning, his weight is down another 2 kg today. Creatinine 1.2, potassium 5.6. Patient continues to diurese well, still has peripheral edema although much improved from his admission here. We would recommend to continue current dose of IV Lasix. Objective - Vital Signs Vital signs: Vital Signs Temp 97.5 F L 07/10/17 08:00 Pulse 82 07/10/17 08:00 Resp 16 07/10/17 04:00 BP 140/78 07/10/17 08:00 Pulse Ox 98 07/10/17 08:00 Intake & Output 07/09/17 07/10/17 07/10/17 18:59 06:59 18:59 Intake Total 240 960 240 Output Total 650 Balance -410 960 240 Weight 92.2 kg 90.9 kg Intake: Oral 240 960 240 Output: Stool 650 Other: Voiding Method Toilet Toilet # Voids 3 2 1 # Bowel Movements 0 - Exam PHYSICAL EXAMINATION: HEENT: Head is atraumatic, normocephalic. Pupils equal, round. Neck is supple. There is elevated jugular venous pressure. HEART EXAMINATION: Heart S1 and S2 systolic click is heard CHEST EXAMINATION: Lungs reveal diminished air entry to bilateral bases ABDOMEN: Soft, nontender. Bowel sounds are heard. No organomegaly noted. EXTREMITIES: 2+ peripheral pulses with trace to 1+ evidence of peripheral edema and no calf tenderness noted. NEUROLOGIC patient is awake, alert and oriented -3. . - Labs CBC & Chem 7: 07/10/17 05:18 07/10/17 05:18 Labs: Abnormal Lab Results - Last 24 Hours (Table) 07/09/17 07/09/17 07/10/17 Range/Units 16:54 21:09 05:18 MCHC 30.6 L (31.0-37.0) g/dL Potassium (3.5-5.1) mmol/L Chloride (98-107) mmol/L BUN (9-20) mg/dL Creatinine (0.66-1.25) mg/dL POC Glucose (mg/dL) 111 H 141 H (75-99) mg/dL 07/10/17 Range/Units 05:18 MCHC (31.0-37.0) g/dL Potassium 5.6 H (3.5-5.1) mmol/L Chloride 108 H (98-107) mmol/L BUN 24 H (9-20) mg/dL Creatinine 1.26 H (0.66-1.25) mg/dL POC Glucose (mg/dL) (75-99) mg/dL Assessment and Plan (1) Systolic CHF, acute Status: Acute (2) HTN (hypertension) Status: Acute (3) Bicuspid aortic valve Status: Acute (4) Bilateral leg edema Status: Acute (5) Bilateral pleural effusion Status: Acute (6) Cardiomyopathy Status: Acute Plan: From cardiology's perspective, we will recommend to continue IV Lasix. Continue to monitor intake and output along with daily weights and daily lytes BUN and creatinine. DNP note has been reviewed, I agree with a documented findings and plan of care. Patient was seen and examined.
[2017-07-10 14:51] LABS: Hepatits C Virus RNA, Quant <12 IU/mL (<12); LOG HCV IU/mL <1.08 (<1.08)
[2017-07-10] MEDS ORDERED: FUROSEMIDE 10 MG/ML 4 ML VIAL IV STA (15:15)
--- NOTE | 2017-07-10 15:57 | P.PN ---
Progress Note - Text This is an addendum to the cardiology progress note dictated today. Patient has been discharged by his primary care physician. We did have a discussion with him expressing recommendation to keep the patient in the hospital on IV Lasix for another day. He wishes to discharge the patient home on by mouth Lasix. We will give him a one-time dose of IV Lasix this afternoon prior to discharge. Follow-up appointment will be made in the next few days with Dr. Cyr. We will check lytes BUN and creatinine in 3 days. DNP note has been reviewed, I agree with a documented findings and plan of care. Patient was seen and examined.
[2017-07-10 16:54] VITALS: BP 123/71; PULSE 83
[2017-07-10 17:10] LABS: Glucose,Whole Blood 113 mg/dL (75-99)
[2017-07-11 15:29] LABS: HCV Qualitative Result Not detected (Not detected)
--- NOTE | 2017-07-12 09:50 | P.ARTDOP ---
Arterial Doppler LOWER EXTREMITY ARTERIAL DOPPLER: DATE OF SERVICE: 07/05/2017 Reason for study: Pre-CABG. Doppler waveforms: Multiphasic bilaterally throughout. Pulse volume recording: []. Pressure gradients: None. Ankle-brachial indices: Unable to occlude. Toe pressures: [] on the right, [] on the left Impression: Normal flow patterns. The noncompressibility of ankle vessels suggests calcific wall disease which is not of hemodynamic significance at this time..
--- NOTE | 2017-07-12 09:52 | P.VSCSTY ---
Greater Saphenous Vein Mapping This is bilateral lower extremity greater saphenous vein mapping. Date of service 07/05/2017 Vein quality and ultrasound appearance normal. Vein size groin right 6.5 x 7.8 groin left 6.5 x 7.1 High thigh right 5.0 x 7.8 high thigh left 4.3 x 4.8 Mid thigh right 4.2 x 4.7 mid thigh left 4.2 x 4.2 Above-knee right 3.4 x 4.7 above- knee left 3.1 x 3.5 Below knee right 3.5 x 4.4 below-knee left 3.1 x 3.5 Mid calf right 3.8 x 4.3 mid calf left 3.1 x 2.9 Ankle right 3.3 x 3.6 ankle left 3.5 x 3.2 Impression usable bilateral greater saphenous vein. Upper vein appears to be somewhat large on both sides more so on the right than the left.
== END 2017-07-10 19:46 | disposition home health service (06) | DRG 286 ==
LOC: EC 12:16 → 6SEL 16:19
PROVIDERS: ADMIT Internal Medicine; ATTEND Internal Medicine
PROC: B2111ZZ Fluoroscopy of Multiple Coronary Arteries using Low Osmolar Contrast (ICD-10-PCS; principal; 2017-07-05)
PROC: B3101ZZ Fluoroscopy of Thoracic Aorta using Low Osmolar Contrast (ICD-10-PCS; principal; 2017-07-05)
PROC: 4A023N8 Measurement of Cardiac Sampling and Pressure, Bilateral, Percutaneous Approach (ICD-10-PCS; principal; 2017-07-05)
DX: I11.0 Hypertensive heart disease with heart failure (principal); E43 Unspecified severe protein-calorie malnutrition; N17.9 Acute kidney failure, unspecified; J98.11 Atelectasis; Q23.1 Congenital insufficiency of aortic valve; I27.2 Other secondary pulmonary hypertension; E11.65 Type 2 diabetes mellitus with hyperglycemia; I50.23 Acute on chronic systolic (congestive) heart failure; E66.9 Obesity, unspecified; E78.5 Hyperlipidemia, unspecified; I05.0 Rheumatic mitral stenosis; I08.1 Rheumatic disorders of both mitral and tricuspid valves; I25.10 Atherosclerotic heart disease of native coronary artery without angina pectoris; I25.5 Ischemic cardiomyopathy; M17.12 Unilateral primary osteoarthritis, left knee; T50.2X5A Adverse effect of carbonic-anhydrase inhibitors, benzothiadiazides and other diuretics, initial encounter; Z79.899 Other long term (current) drug therapy; E87.5 Hyperkalemia; B18.2 Chronic viral hepatitis C
CPT/HCPCS: 36415; 71020; 71250; 80048; 80053; 80061; 80074; 81001; 83036; 83735; 83880; 84100; 84443; 85025; 85610; 85730; 87070; 87086; 87522; 93306; 93312; 93320; 93325; 93460; 93567; 93880; 93923; 93970; 94150

== ENCOUNTER → 2017-08-10 | Outpatient (CLI) | payer OTHER ==
[2017-08-10 11:00] LABS: CH 25.8; CHCM 31.9; HCT 41.3 % (39.0-53.0); HDW 3.01; HGB 13.3 gm/dL (13.0-17.5); Hypochromasia Slight; MCH 26.1 pg (25.0-35.0); MCHC 32.2 g/dL (31.0-37.0); Mean Platelet Volume 6.7; RBC 5.09 m/uL (4.30-5.90); RDW 14.4 % (11.5-15.5); WBC 6.8 k/uL (3.8-10.6)
[2017-08-10 11:06] LABS: Partial Thromboplastin Time 27.3 sec (22.0-30.0)
[2017-08-10 11:34] LABS: ALT 33 U/L (21-72); AST 22 U/L (17-59); Alkaline Phosphatase 52 U/L (38-126); Anion Gap 11 mmol/L; Blood Urea Nitrogen 37 mg/dL (9-20); Calcium 9.5 mg/dL (8.4-10.2); Carbon Dioxide 22 mmol/L (22-30); Chloride 109 mmol/L (98-107); Glucose 99 mg/dL (74-99); Magnesium 1.8 mg/dL (1.6-2.3); Non-African American GFR(MDRD) 59 (>60 ml/min/1.73 sqM); Potassium 4.9 mmol/L (3.5-5.1); Sodium 142 mmol/L (137-145); Total Bilirubin 0.6 mg/dL (0.2-1.3); Total Protein 6.8 g/dL (6.3-8.2)
== END | disposition home or self-care (01) ==
LOC: LABPAT 09:52
PROVIDERS: ATTEND Thoracic Surgery (Cardiothoracic Vascular Surgery)
DX: I25.10 Atherosclerotic heart disease of native coronary artery without angina pectoris (principal); I35.1 Nonrheumatic aortic (valve) insufficiency
CPT/HCPCS: 36415; 80053; 83735; 85027; 85610; 85730

== ENCOUNTER 2017-08-18 05:45 | Inpatient (IN) | payer OTHER ==
[~2017-08-18 05:45] MED LIST: ALBUMIN HUMAN 25% 50 ML IV ONE; ALBUMIN HUMAN 5% 500 ML IVPB ONE; ASPIRIN 325 MG TAB PO ONE; ATORVASTATIN 10 MG TAB PO ONE; CALCIUM CHLORIDE 100 MG/ML 10 ML SYRINGE IV ONE; CARDIOPLEGIC SOLN (K+ 16 MEQ/L 1,000 ML with SODIUM BICARB (1 MEQ/ML) 20 ML, LIDOCAINE ... PERFUSION ONE; CHLORHEXIDINE GLUCONATE 15 ML CUP MUCOUS MEM ONE; CLEVIDIPINE BUTYRATE 25 MG in EMPTY BAG 1 BAG IV ONE; HEPARIN SODIUM 1,000 UN/ML (10ML VL) IV ONE; HEPARIN SODIUM,PORCINE 5,000 UNIT in SODIUM CHLORIDE 0.9% 500 ML IV ONE; INSULIN REGULAR 100 UNIT in SODIUM CHLORIDE 0.9% 100 ML IV ONE; LACTATED RINGERS 1,000 ML IV ONE; MAGNESIUM SULFATE MG 500 MG/ML VIAL IV ONE; MANNITOL 25% 12.5 GM/50 ML VIAL IV ONE; METOPROLOL TARTRATE 12.5 MG TAB PO ONE; MUPIROCIN 2% OINT 22 GM TUBE NASAL ONE; NITROGLYCERIN SL TABS 0.4 MG TAB SUBLINGUAL ONE; NITROGLYCERIN-D5W PMX 25 MG/250 ML BTL IV ONE; NITROGLYCERIN-D5W PMX 50 MG in DEXTROSE/WATER 1 250ML.BAG IV ONE; NOREPINEPHRIN 4 MG-0.9% NS PMX 4 MG/250 ML ML IV ONE; PHENYLEPHRINE 40 MG in SODIUM CHLORIDE 0.9% 250 ML IV ONE; PHENYLEPHRINE-0.9% NACL SYG 1 MG/10 ML SYRINGE IV ONE; PROPOFOL 1,000 MG/100 ML VIAL IV ONE; PROTAMINE SULFATE 10 MG/ML 25 ML VIAL IV ONE; PROTAMINE SULFATE 250 MG in EMPTY BAG 1 BAG IV ONE; SODIUM BICARB 8.4% 50 ML SYR (1 MEQ/ML) IV ONE; SODIUM CHLORIDE 0.9% 1,000 ML IV ONE; TRANEXAMIC ACID 2,000 MG in SODIUM CHLORIDE 0.9% 180 ML IV ONE; ceFAZolin 1,000 MG in SODIUM CHLORIDE 0.9% IRRIGATIO 1,000 ML IRRIGATION ONE; ceFAZolin 2,000 MG in SODIUM CHLORIDE 0.9% 30 ML IVPB ONE
[2017-08-18 06:39] LABS: Glucose,Whole Blood 108 mg/dL (75-99)
[2017-08-18] MEDS ORDERED: SODIUM CHLORIDE 0.9% 100 ML BAG ONE (07:55)
[2017-08-18] MEDS ORDERED: HEPARIN SODIUM,PORCINE 10,000 UNIT/ML 1 ML VIAL ONE (07:55)
[2017-08-18] MEDS ORDERED: VECURONIUM 10 MG VIAL IV ONE (07:55)
[2017-08-18] MEDS ORDERED: SODIUM CHLORIDE 0.9% IRRIG 1,000 ML BTL IRRIGATION ONE (07:55)
[2017-08-18] MEDS ORDERED: fentaNYL (PF) 50 MCG/ML 2 ML AMP ONE (07:55)
[2017-08-18] MEDS ORDERED: LIDOCAINE 2% SYG (PF) 100 MG/5 ML ONE (07:55)
[2017-08-18] MEDS ORDERED: TRANEXAMIC ACID 1,000 MG/10 ML VIAL ONE (07:55)
[2017-08-18] MEDS ORDERED: HEPARIN SODIUM,PORCINE 5,000 UNIT/ML 1 ML VIAL ONE (07:55)
[2017-08-18] MEDS ORDERED: PROTAMINE SULFATE 10 MG/ML 25 ML VIAL IV ONE (07:55)
[2017-08-18] MEDS ORDERED: ELECTROLYTE-R (PH 7.4) 1,000 ML IV.SOLN IV ONE (07:55)
[2017-08-18] MEDS ORDERED: PROPOFOL 10 MG/ML 20 ML VIAL IV ONE (07:55)
[2017-08-18] MEDS ORDERED: MAGNESIUM SULFATE 4 MEQ/ML 2 ML VIAL ONE (07:55)
[2017-08-18] MEDS ORDERED: fentaNYL (PF) 50 MCG/ML 50 ML VIAL ONE (07:55)
[2017-08-18] MEDS ORDERED: CALCIUM CHLORIDE 100 MG/ML 10 ML SYRINGE ONE (07:55)
[2017-08-18] MEDS ORDERED: PROTAMINE SULFATE 10 MG/ML 5 ML VIAL IV ONE (07:55)
[2017-08-18] MEDS ORDERED: MIDAZOLAM 2 MG/2 ML VIAL ONE (07:55)
[2017-08-18 09:07] LABS: Glucose,Whole Blood 100 mg/dL (75-99)
[2017-08-18 10:15] LABS: Glucose,Whole Blood 106 mg/dL (75-99)
[2017-08-18 11:16] LABS: Glucose,Whole Blood 116 mg/dL (75-99)
[2017-08-18 11:46] LABS: Glucose,Whole Blood 141 mg/dL (75-99)
[2017-08-18 11:50] LABS: Glucose,Whole Blood 131 mg/dL (75-99)
[2017-08-18 12:19] LABS: Glucose,Whole Blood 131 mg/dL (75-99)
[2017-08-18 12:54] LABS: Glucose,Whole Blood 129 mg/dL (75-99)
[2017-08-18] MEDS ORDERED: Phosphorus Replacement Protoco 1 EACH MISC MISCELLANE PRN (13:34)
[2017-08-18] MEDS ORDERED: Magnesium Replacement Protocol 1 EACH MISC MISCELLANE PRN (13:34)
[2017-08-18] MEDS ORDERED: METOCLOPRAMIDE 5 MG/ML 2 ML VIAL IVP PRN (13:34)
[2017-08-18] MEDS ORDERED: PROPOFOL 1,000 MG/100 ML VIAL IV SCH (13:34)
[2017-08-18] MEDS ORDERED: CALCIUM GLUCONATE 2,000 MG in SODIUM CHLORIDE 0.9% 100 ML IVPB PRN (13:34)
[2017-08-18] MEDS ORDERED: ALBUMIN HUMAN 5% 250 ML in EMPTY BAG 1 BAG IVPB PRN (13:34)
[2017-08-18] MEDS ORDERED: Potassium Replacement Protocol 1 EACH MISC MISCELLANE PRN (13:34)
[2017-08-18] MEDS ORDERED: INSULIN REGULAR 100 UNIT in SODIUM CHLORIDE 0.9% 100 ML IV SCH (13:34)
[2017-08-18 14:27] LABS: Glucose,Whole Blood 139 mg/dL (75-99)
[2017-08-18] MEDS: LACTATED RINGERS 1,000 ML IV SCH (14:30)
[2017-08-18 14:33] LABS: Basophils % (A) 0 %; CH 25.9; CHCM 31.1; Eosinophils # (A) 0.1 k/uL (0-0.7); Eosinophils % (A) 2 %; HDW 2.96; Hypochromasia Moderate; Luc # (Auto) 0.07; Luc % (Auto) 1; Lymphocytes # (A) 1.5 k/uL (1.0-4.8); Lymphocytes % (A) 19 %; MCH 26.7 pg (25.0-35.0); MCV 83.4 fL (80.0-100.0); Mean Platelet Volume 7.2; Monocytes # (A) 0.4 k/uL (0-1.0); Monocytes % (A) 4 %; Neutrophils % (A) 74 %; RBC 3.48 m/uL (4.30-5.90); RDW 14.5 % (11.5-15.5); WBC 8.1 k/uL (3.8-10.6); WBC (Perox) 8.03
[2017-08-18 14:35] LABS: HGB 9.3 gm/dL (13.0-17.5)
[2017-08-18 14:40] LABS: INR 1.1 (<1.2); Partial Thromboplastin Time 36.6 sec (22.0-30.0); Prothrombin Time 11.3 sec (9.0-12.0)
[2017-08-18 14:48] LABS: Ionized Calcium 4.8 mg/dL (4.5-5.3)
[2017-08-18] MEDS ORDERED: EPINEPHrine 2 MG in DEXTROSE 5% IN WATER 250 ML IV SCH ×2 (14:52)
[2017-08-18 14:56] LABS: ALT 22 U/L (21-72); AST 23 U/L (17-59); Alkaline Phosphatase 29 U/L (38-126); Anion Gap 6 mmol/L; Blood Urea Nitrogen 34 mg/dL (9-20); Calcium 8.3 mg/dL (8.4-10.2); Carbon Dioxide 23 mmol/L (22-30); Chloride 111 mmol/L (98-107); Glucose 132 mg/dL (74-99); Non-African American GFR(MDRD) >60 (>60 ml/min/1.73 sqM); Potassium 3.8 mmol/L (3.5-5.1); Sodium 140 mmol/L (137-145); Total Bilirubin 0.4 mg/dL (0.2-1.3); Total Protein 4.7 g/dL (6.3-8.2)
--- NOTE | 2017-08-18 15:21 | XR ---
EXAMINATION TYPE: XR chest 1V portable DATE OF EXAM: 08/18/2017 COMPARISON: Prior chest x-ray 07/05/2017 HISTORY: Postop cardiac surgery TECHNIQUE: Single frontal view of the chest is obtained. FINDINGS: Interval median sternotomy change. Endotracheal tube is overlying appropriate position sup erimposed over the tracheal air column. Median sternal drain, NG tube, bilateral chest tubes, right j ugular central venous sheath and coaxial central venous catheter are present, atrial appendage clippi ng has been placed and the patient is post aortic valve replacement. Heart is enlarged but stable. In terval improved aeration at the lung bases. No sizable pneumothorax is evident. Epicardial pacing preston ds are present. IMPRESSION: Satisfactory postoperative chest x-ray.
[2017-08-18 15:22] LABS: Glucose,Whole Blood 139 mg/dL (75-99)
[2017-08-18] MEDS ORDERED: ALBUMIN HUMAN 5% 250 ML in EMPTY BAG 1 BAG IVPB ONE (15:24)
--- NOTE | 2017-08-18 15:31 | P.OP ---
Date of Procedure: 08/18/17 Preoperative Diagnosis: Aortic valvular insufficiency, coronary artery disease, congestive heart failure. Postoperative Diagnosis: Same Procedure(s) Performed: Aortic valve replacement with 25 mm On-X valve, coronary artery bypass surgery with LAY to LAD and saphenous vein graft to PDA, endovascular vein harvest, epi -aortic ultrasonography, OLMAN by anesthesia. Implants: 25 mm On-X valve, 35 mm AtriCure clip Anesthesia: ELEN Surgeon: Vitaly Olivares Pulley Worker #1: Gal Huffman Estimated Blood Loss (ml): 100 IV fluids (ml): 2,000 Urine output (ml): 600 Pathology: other (Aortic valve) Condition: stable Disposition: ICU Indications for Procedure: 32-year-old male with juvenile onset diabetes and two-vessel coronary artery disease and severe aortic valvular insufficiency with diminished left ventricular function and chronic systolic heart failure. The patient had an initially presented in acute heart failure. The above diagnoses and been made. The patient was also in diabetic ketoacidosis at that time. He was discharged home. He underwent dental clearance. His diabetes was brought into control. There is readmitted at this time for elective surgery. Preoperative discussion had been held with the patient and decision and been reached to perform a mechanical valve. Operative Findings: Epi-aortic ultrasonography demonstrated diffuse intimal thickening without evidence of gross atheroma of the ascending aorta. Transesophageal echocardiography demonstrated severe aortic valvular insufficiency with a bicuspid aortic valve and diminished left ventricular function with overall ejection fraction of about 40% and mild mitral insufficiency. Examination of the heart revealed diffuse calcific coronary artery disease throughout. Completion echocardiography demonstrated a good functioning mechanical valve with obvious motion of both leaflets and no evidence of aortic valvular insufficiency. Left ventricular ejection fraction remained about 40%. There was still mild central mitral regurgitation. Description of Procedure: The patient was brought to the operating room, placed supine on the operating table, anesthetized and intubated. The anterior torso and lower extremities were sterilely prepped and draped. OLMAN probe was placed with findings as noted above. Endovascular vein harvest was performed in the left lower extremity. The greater saphenous vein was harvested from just below the knee to the groin and was of good quality. Simultaneous sternotomy was performed. Left hemisternum was retracted upwards and the left internal mammary artery harvested on a vascularized pedicle left intact on its origin from the subclavian and divided distally. Left pleural space was drained with a 32- Hungarian chest tube. Standard sternal retractor was placed. The right pleural space was opened. Pericardium was opened in the midline and the heart exposed with pericardial sutures. Epi-aortic ultrasonography was performed with findings as noted above. Patient was heparinized and cannulated for cardiopulmonary bypass with a 7 mm soft flow cannula in the distal ascending aorta and a two-stage venous cannula through the right atrial appendage into the inferior vena cava. Antegrade and retrograde cardioplegia lines were placed in standard fashion. Patient was placed on cardiopulmonary bypass and stabilized. A 35 mm AtriCure clip was applied to the left atrial appendage as the patient was felt to be at high-risk for developing postoperative atrial fibrillation due to his decreased ejection fraction and combined valvular and coronary heart disease. Aorta was then crossclamped and the heart was arrested with cold crystalloid antegrade cardioplegia. After arrest cardioplegia was switched to retrograde cardioplegia. Right coronary artery was heavily calcified and not graftable. The PDA was a small vessel but did have a soft spot that was amenable to coronary bypass. Was opened here and it accepted a 1 mm probe proximally and distally. Saphenous vein was anastomosed to the PDA in end-to-side fashion with running 7-0 Prolene. On completion of the anastomosis , suture was tied and the graft was flushed with cold blood cardioplegia. Flowed well without leak. The vein was cut to appropriate length to reach the ascending aorta. Next the LAY to the LAD was performed. Again the LAD was a diffusely diseased vessel but a soft spot was noted in the mid LAD and it was opened here. 2 mm probe passed distally and proximally for some distance. LAY to the LAD anastomosis was performed in end-to-side fashion with running 8- 0 Prolene. On completion of the anastomosis suture was tied with good result and hemostasis. The SUKI pedicle was tacked surrounding epicardium with 6-0 silk. A dose of retrograde cardioplegia was given. The aorta was opened transversely and the valve exposed. The valve was bicuspid with the raphae between the left and right coronary cusp. The left coronary was very low just above the annulus and the right coronary was very high. Care was taken throughout not to embolize anything down the coronary ostia not to obstruct him on implantation of the valve were closure of the aorta. The valve was excised. Circumferential valve sutures of 20 pledgeted Tycron were placed with the pledgets on the ventricular side to allow a supra-annular implantation. The annulus was sized and a 25 mm On-X valve was run up on the field. Aortic root was copiously irrigated and then the valve sutures were placed through the sewing ring of the valve. The valve was seated without difficulty. Sutures were tied and cut and the valve was noted to seat well. Coronary ostia were unobstructed. We again irrigated and then closed the aorta with a 2 layer running closure of 4-0 Prolene again being careful of the high right coronary ostia. On completion of the aortotomy closure it was reinforced with CoSeal. Final dose of retrograde cardioplegia was given and a 4 mm punch holes created in the ascending aorta. Proximal anastomosis was performed with running 6-0 Prolene suture. Completion of the proximal anastomosis, the patient was placed in steep Trendelenburg and the cross-clamp was removed. Retrograde cardioplegia line was removed and atrial and ventricular pacing wires were placed. The patient gradually return to a sinus rhythm. He did not require defibrillation. De-airing was performed under OLMAN guidance. Patient was rewarmed to systemic temperature from a brandon of 33.6. The patient was then weaned from cardiopulmonary bypass without the use of inotropic support. Heparin was reversed with protamine and he was decannulated in standard fashion. OLMAN demonstrated no evidence of aortic valvular insufficiency with good motion of both leaflets. Mitral regurgitation and ventricular function were unchanged. Patient's heart was a little sluggish and it was decided to start a little low dose epi and also to place the heart. Once good hemostasis at been obtained and the patient was decannulated in the pump returned to the patient, chest was irrigated with warm antibiotic solution. The right pleural space was drained with 32-Hungarian chest tube. Mediastinum was drained with 236- Hungarian chest tubes. The sternum was closed with 8 sternal wires. Fascia was closed with 0 Ethibond subcutaneous and subcuticular layers with layers of Vicryl suture. Dry sterile dressings were applied and the patient was transferred to ICU in stable condition.
[2017-08-18] MEDS ORDERED: POTASSIUM CHLORIDE ORAL LIQUID 40 MEQ/30 ML CUP PO ONE (15:46)
[2017-08-18] MEDS: CLEVIDIPINE BUTYRATE 25 MG in EMPTY BAG 1 BAG IV SCH (15:51)
[2017-08-18] MEDS ORDERED: IPRATROPIUM-ALBUTEROL 3 ML NEB INHALATION SCH (16:00)
[2017-08-18 16:25] LABS: Glucose,Whole Blood 145 mg/dL (75-99)
--- NOTE | 2017-08-18 16:38 | P.CNPUL ---
<Althea Hogan M - Last Filed: 08/18/17 14:59> History of Present Illness Consult date: 08/18/17 Requesting physician: Vitaly Olivares Reason for consult: dyspnea, cough, other Chief complaint: Respiratory failure History of present illness: This is a 32-year-old male status post elective aortic valve replacement with a mechanical valve, exclusion of left atrial appendage and myocardial revascularization with LAY to LAD and SVG to PDA. On 06/27/2017 patient presented to the emergency department with bilateral lower leg and abdominal edema, 50 pound weight gain over 2 months, cough and orthopnea. Patient's history includes hypertension, hyperlipidemia and diabetes mellitus for which treatments was recently started. Cardiac evaluation showed significant systolic heart failure with left ventricular dysfunction and an ejection fraction between 25- 30%. Transesophageal echocardiogram on 07/04/2017 showed a bicuspid aortic valve with fusion of the non-coronary and left coronary cusps. The mitral valve was mildly thickened with only mild mitral regurgitation and tricuspid valve with mild insufficiency. Cardiac catheterization on 07/19/2017 showed severe disease involving the ramus intermedius coronary artery, severe disease involving the mid to distal LAD and aortic insufficiency are 4+. Patient's heart failure was treated with IV Lasix , beta blockers and these inhibitors. During that hospitalization an incidental finding of chronic hepatitis C was made. Patient was seen by Dr. Cosby. Patient had no symptoms of chronic liver disease and had normal liver enzymes. Once his condition optimized, he was recommended to undergo an aortic valve replacement and myocardial revascularization. Pulmonary function tests FEV1 of 87%, patient's is a lifetime nonsmoker with no history of chronic pulmonary problems. Chest CT from 07/04/2017 showed cardiomegaly with small pericardial effusion, and bibasilar reticular nodular opacities possibly of infectious or inflammatory etiology. Patient is sedated on a mechanical ventilator with settings of assist control mode rate of 12, tidal volume 450, FiO2 of 100% and PEEP of 5. 2 mediastinal and right and left pleural chest tubes with 100 mL of sanguinous drainage. Patient did receive 1 unit of PRBC and 320 mL of Cell Saver intraoperatively. He is currently on the small amount of epinephrine at 1mcg/min, nitroglycerin at 5 mcg/min. and propofol at 25 mcg/ kg/min. estimated blood loss was 900 mL. Patient's intrinsic rhythm is sinus with a rate of 67 bpm. PA pressures 34/19, cardiac output 6.6/cardiac index of 3.4. Blood gas will be obtained and further adjustments to the ventilator settings will be made based upon the results. Review of Systems All systems: negative Constitutional: Reports as per HPI, Reports weight gain Eyes: denies blurred vision Ears: deny: decreased hearing Ears, nose, mouth and throat: Denies headache, Denies sore throat Cardiovascular: Reports decreased exercise tolerance, Reports dyspnea on exertion, Reports edema, Reports high blood pressure, Reports leg edema, Reports orthopnea, Reports shortness of breath Respiratory: Reports dyspnea Musculoskeletal: Denies myalgias Neurological: Denies numbness, Denies weakness Psychiatric: Denies anxiety, Denies depression Endocrine: Reports weight change Past Medical History Past Medical History: Coronary Artery Disease (CAD), Heart Failure, Diabetes Mellitus, Hyperlipidemia, Hypertension, Liver Disease Additional Past Medical History / Comment(s): Systolic heart failure with ejection fraction of 2530 percent. Coronary artery disease. Severe aortic insufficiency. Uncontrolled type 2 diabetes, recently started on oral agents. Obesity History of Any Multi-Drug Resistant Organisms: None Reported Past Surgical History: Ear Surgery, Heart Catheterization, Tonsillectomy Additional Past Surgical History / Comment(s): Myringotomy tubes as a child Past Anesthesia/Blood Transfusion Reactions: No Reported Reaction Past Psychological History: Depression Smoking Status: Never smoker Past Alcohol Use History: None Reported Past Drug Use History: None Reported - Past Family History Father Family Medical History: Unable to Obtain Additional Family Medical History / Comment(s): PT WAS ADOPTED Mother Family Medical History: Unable to Obtain Additional Family Medical History / Comment(s): PT WAS ADOPTED Medications and Allergies Home Medications Medication Instructions Recorded Confirmed Type Atorvastatin [Lipitor] 20 mg PO HS 06/27/17 08/18/17 History Lisinopril [Prinivil] 20 mg PO DAILY 06/27/17 08/18/17 History Furosemide [Lasix] 40 mg PO DAILY #30 tablet 07/10/17 08/18/17 Rx Metoprolol Tartrate [Lopressor] 50 mg PO BID #60 tab 07/10/17 08/18/17 Rx glipiZIDE [Glucotrol] 10 mg PO AC-BID #60 tablet 07/10/17 08/18/17 Rx hydrALAZINE HCL [Apresoline] 25 mg PO BID #60 tab 07/10/17 08/18/17 Rx Aspirin [Adult Low Dose Aspirin EC] 324 mg PO ONCE 08/18/17 08/18/17 History Allergies Allergy/AdvReac Type Severity Reaction Status Date / Time No Known Allergies Allergy Verified 08/18/17 13:22 Physical Exam Vitals: Vital Signs Temp Pulse Resp BP BP Pulse Ox 08/18/17 13:34 95.7 F L 12 100 08/18/17 06:22 128/77 08/18/17 06:03 98.1 F 76 18 134/74 99 Intake and Output 08/17/17 08/18/17 08/18/17 22:59 06:59 14:59 Intake Total 111 Output Total 1950 Balance -1839 Intake: IV 111 LR 50 Output: Chest Tube Drainage 120 Chest Tube Bilateral 60 Lateral Chest Chest Tube Mediastinal 60 Urine 330 Estimated Blood Loss 1500 - Constitutional General appearance: no acute distress, obese - EENT Eyes: PERRLA, normal appearance ENT: NA/AT Ears: bilateral: normal - Neck Neck supple. No neck masses no JVD Neck: no lymphadenopathy Carotids: bilateral: upstroke normal Thyroid: bilateral: normal size, negative: nodule - Respiratory No crackles, rhonchi or wheezes. Respiratory: bilateral: CTA, negative: rales, rhonchi, wheezing - Cardiovascular Regular rate and rhythm, midsystolic click, no extrasystoles Heart rate: 67 Rhythm: regular Heart sounds: normal: S1, S2 Abnormal Heart Sounds: rub, click dorsalis pedis Peripheral Pulses: bilateral: Normal radial pulse Peripheral Pulses: bilateral: Normal, absent: Other (the attending) - Gastrointestinal General gastrointestinal: decreased bowel sounds ( is no fourdrinier operator of malignant ), soft (lung is documenting the pneumonia ) - Integumentary Mid sternal incision clean dry and intact, leg incisions are covered with abdiel wrap's Integumentary: normal, normal turgor - Neurologic Patient is sedated, no focal neurological deficits noted - Musculoskeletal No clubbing, no cyanosis. - Psychiatric Psychiatric: appropriate affect Results - Laboratory Findings CBC and BMP: 08/18/17 13:34 Abnormal lab findings: Abnormal Labs 08/10/17 08/18/17 08/18/17 10:00 06:19 08:28 RBC Hgb Hct POC Glucose (mg/dL) 108 H 100 H Crossmatch See Detail 08/18/17 08/18/17 08/18/17 10:01 10:49 11:20 RBC Hgb Hct POC Glucose (mg/dL) 106 H 116 H 141 H Crossmatch 08/18/17 08/18/17 08/18/17 11:47 12:16 12:50 RBC Hgb Hct POC Glucose (mg/dL) 131 H 131 H 129 H Crossmatch 08/18/17 08/18/17 13:34 14:17 RBC 3.48 L Hgb 9.3 L D Hct 29.0 L POC Glucose (mg/dL) 139 H Crossmatch Assessment and Plan Plan: Assessment: #1. Severe aortic insufficiency, bicuspid aortic valve. Status post mechanical aortic valve replacement, and exclusion of the left atrial appendage with AtriCure clip. #2. Moderate coronary artery disease. Elective myocardial revascularization with LAY to LAD and SVG to the PDA. #3. Respiratory failure. On mechanical ventilator, we'll continue with the weaning process for protocol. #4. Ischemic cardiomyopathy with ejection fraction of 25-30%. #5. Type 2 diabetes mellitus, on insulin infusion per postop protocol. #6. Essential hypertension. Blood pressure is controlled. #7. Obesity. Class II, BMI 35-39.9 #8. Chronic hepatitis C, incidental finding during preop eval. Liver enzymes stable. #9. Hyperlipidemia. Plan: The patient was seen and examined at the bedside with Dr. Tomlin. Chest x-ray , blood gases, the preop preop heart catheterization, OLMAN, echocardiogram, CT chest and PFTs were reviewed. Patient is hemodynamically stable, chest tube output is minimal. Continue weaning FiO2, CPAP trials will be given once the patient is awake and following commands. Continue DuoNeb nebulizer treatments, repeat chest x-ray in the morning. Pulmonary toileting once extubated. We'll continue to closely follow. I performed a history & physical examination of the patient and discussed their management with my nurse practitioner, Althea Hogan. I reviewed the nurse practitioner's note and agree with the documented findings and plan of care. Time with Patient: Greater than 30 <Glynn Tomlin - Last Filed: 08/18/17 17:05> Physical Exam Vitals: Vital Signs Temp Pulse Pulse Resp BP BP Pulse Ox 08/18/17 17:00 97.9 F 08/18/17 16:00 97.2 F L 88 19 100 08/18/17 15:45 87 08/18/17 15:30 86 100 08/18/17 15:15 83 100 08/18/17 15:13 83 08/18/17 15:00 96 F L 82 100 08/18/17 14:45 95.7 F L 77 12 100 08/18/17 14:34 95.7 F L 08/18/17 14:30 95.7 F L 66 12 100 08/18/17 14:15 95.7 F L 71 28 H 100 08/18/17 13:34 95.7 F L 12 100 08/18/17 13:00 112 H 08/18/17 12:45 0 L 08/18/17 12:30 81 08/18/17 12:29 59 L 08/18/17 06:22 128/77 08/18/17 06:03 98.1 F 76 18 134/74 99 Intake and Output 08/18/17 08/18/17 08/18/17 06:59 14:59 22:59 Intake Total 115.981 783.200 Output Total 1950 465 Balance -1834.019 318.200 Intake: IV 111 237 Bolus CO/CI 110 LR 50 100 Pressure Bag NS 27 Intake, IV Titration 4.981 511.200 Amount Albumin Human 5% 250 ml 500 In Empty Bag 1 bag @ 250 mls/hr IVPB ONCE ONE Rx#: [id number] EPINEPHrine 2 mg In 9.954 Dextrose 5% in Water 250 ml @ 1 MCG/MIN 7.56 mls/ hr IV .Q24H [place] Rx#: [id number] Insulin Regular 100 unit 1.246 In Sodium Chloride 0.9% 100 ml @ Per Protocol IV .Q0M [place] Rx#:[id number] Propofol 1,000 mg In 100 4.981 ml @ Titrate IV .Q0M [place] Rx#:[id number] Tube Feeding 15 Other 20 Output: Chest Tube Drainage 120 190 Chest Tube Bilateral 60 100 Lateral Chest Chest Tube Mediastinal 60 90 Drainage 0 Left Calf 0 Urine 330 275 Estimated Blood Loss 1500 Other: Voiding Method Indwelling Catheter ABP, PAP, CO, CI - Last 8 Hours Arterial Blood Pressure 117/67 Arterial Blood Pressure 126/73 Arterial Blood Pressure 123/70 Arterial Blood Pressure 123/68 Arterial Blood Pressure 114/61 Arterial Blood Pressure 85/41 Arterial Blood Pressure 142/94 Pulmonary Artery Pressure 39/24 Pulmonary Artery Pressure 39/23 Pulmonary Artery Pressure 38/23 Pulmonary Artery Pressure 39/22 Pulmonary Artery Pressure 38/22 Pulmonary Artery Pressure 32/17 Pulmonary Artery Pressure 43/18 Pulmonary Artery Pressure 27/14 Cardiac Output 7.6 Cardiac Output 5.6 Cardiac Output 8.5 Cardiac Index 3.9 Cardiac Index 2.8 Cardiac Index 4.3 Results - Laboratory Findings CBC and BMP: 08/18/17 13:34 08/18/17 13:34 Abnormal lab findings: Abnormal Labs 08/10/17 08/18/17 08/18/17 10:00 06:19 08:28 RBC Hgb Hct Chloride BUN Glucose POC Glucose (mg/dL) 108 H 100 H Calcium Magnesium Alkaline Phosphatase Total Protein Albumin Crossmatch See Detail 08/18/17 08/18/17 08/18/17 10:01 10:49 11:20 RBC Hgb Hct Chloride BUN Glucose POC Glucose (mg/dL) 106 H 116 H 141 H Calcium Magnesium Alkaline Phosphatase Total Protein Albumin Crossmatch 08/18/17 08/18/17 08/18/17 11:47 12:16 12:50 RBC Hgb Hct Chloride BUN Glucose POC Glucose (mg/dL) 131 H 131 H 129 H Calcium Magnesium Alkaline Phosphatase Total Protein Albumin Crossmatch 08/18/17 08/18/17 08/18/17 13:34 13:34 14:17 RBC 3.48 L Hgb 9.3 L D Hct 29.0 L Chloride 111 H BUN 34 H Glucose 132 H POC Glucose (mg/dL) 139 H Calcium 8.3 L Magnesium 4.0 H Alkaline Phosphatase 29 L Total Protein 4.7 L Albumin 2.7 L Crossmatch 08/18/17 08/18/17 15:20 16:22 RBC Hgb Hct Chloride BUN Glucose POC Glucose (mg/dL) 139 H 145 H Calcium Magnesium Alkaline Phosphatase Total Protein Albumin Crossmatch Assessment and Plan Plan: This is a joint evaluation that she myself and the nurse practitioner. I was present for the time of the evaluation. I fully attest on the information mentioned above. No other changes from my standpoint. I anticipate the patient to wean off the mechanical ventilator over the next 6-12 hours. We'll start weaning down the FiO2. The chest x-ray and a blood gases was reviewed. Case was discussed with the cardiothoracic surgeon.
[2017-08-18] MEDS: MORPHINE SULFATE 2 MG/ML SYRINGE IVP PRN ×3 (16:50→23:36)
[2017-08-18 17:12] LABS: Glucose,Whole Blood 148 mg/dL (75-99)
[2017-08-18] MEDS ORDERED: NITROGLYCERIN-D5W PMX 50 MG in DEXTROSE/WATER 1 250ML.BAG IV SCH (17:30)
[2017-08-18] MEDS: ceFAZolin 2 GM in SODIUM CHLORIDE 0.9% 100 ML IVPB SCH ×2 (17:36→23:36)
[2017-08-18 17:39] LABS: Basophils % (A) 0 %; CH 26.7; CHCM 32.4; Eosinophils % (A) 1 %; HCT 28.7 % (39.0-53.0); HDW 2.97; HGB 9.2 gm/dL (13.0-17.5); Luc # (Auto) 0.04; Luc % (Auto) 1; Lymphocytes # (A) 0.9 k/uL (1.0-4.8); Lymphocytes % (A) 10 %; MCH 26.4 pg (25.0-35.0); MCHC 32.1 g/dL (31.0-37.0); MCV 82.3 fL (80.0-100.0); Mean Platelet Volume 8.9; Monocytes # (A) 0.5 k/uL (0-1.0); Monocytes % (A) 5 %; Neutrophils # (A) 7.6 k/uL (1.3-7.7); Neutrophils % (A) 84 %; RBC 3.49 m/uL (4.30-5.90); RDW 15.2 % (11.5-15.5); WBC 9.1 k/uL (3.8-10.6); WBC (Perox) 9.23
[2017-08-18] MEDS: ACETAMINOPHEN IV (For NPO) 1,000 MG in EMPTY BAG 1 BAG IVPB SCH ×2 (17:45→23:33)
[2017-08-18 18:13] LABS: ABG Base Excess -5.4 mmol/L; ABG HCO3 19 mmol/L (21-25); ABG PCO2 36 mmHg (35-45); ABG PH 7.35 (7.35-7.45); ABG PO2 173 mmHg (83-108); ABG TCO2 20 mmol/L (19-24)
[2017-08-18 18:13] LABS: Glucose,Whole Blood 152 mg/dL (75-99)
[2017-08-18 18:20] LABS: ABG Base Excess -5.3 mmol/L; ABG HCO3 20 mmol/L (21-25); ABG PCO2 39 mmHg (35-45); ABG PH 7.32 (7.35-7.45); ABG PO2 384 mmHg (83-108); ABG TCO2 21 mmol/L (19-24)
[2017-08-18] MEDS: ONDANSETRON 4 MG/2 ML VIAL IVP PRN (19:10)
[2017-08-18 19:12] LABS: Glucose,Whole Blood 179 mg/dL (75-99)
[2017-08-18 20:53] LABS: Glucose,Whole Blood 144 mg/dL (75-99)
[2017-08-18 21:25] LABS: Basophils % (A) 0 %; CH 25.9; Eosinophils % (A) 1 %; HDW 2.95; HGB 9.2 gm/dL (13.0-17.5); Hypochromasia Moderate; Luc # (Auto) 0.04; Luc % (Auto) 1; Lymphocytes # (A) 0.4 k/uL (1.0-4.8); Lymphocytes % (A) 5 %; MCH 26.6 pg (25.0-35.0); MCHC 31.9 g/dL (31.0-37.0); MCV 83.4 fL (80.0-100.0); Mean Platelet Volume 7.2; Monocytes # (A) 0.3 k/uL (0-1.0); Monocytes % (A) 4 %; Neutrophils # (A) 7.8 k/uL (1.3-7.7); Neutrophils % (A) 90 %; RBC 3.47 m/uL (4.30-5.90); RDW 14.8 % (11.5-15.5); WBC 8.6 k/uL (3.8-10.6)
[2017-08-18 21:33] LABS: INR 1.1 (<1.2); Partial Thromboplastin Time 26.9 sec (22.0-30.0); Prothrombin Time 10.7 sec (9.0-12.0)
[2017-08-18 21:35] LABS: Ionized Calcium 5.1 mg/dL (4.5-5.3)
[2017-08-18 21:46] LABS: Anion Gap 9 mmol/L; Blood Urea Nitrogen 35 mg/dL (9-20); Calcium 8.6 mg/dL (8.4-10.2); Carbon Dioxide 21 mmol/L (22-30); Chloride 111 mmol/L (98-107); Glucose 136 mg/dL (74-99); Magnesium 3.6 mg/dL (1.6-2.3); Non-African American GFR(MDRD) >60 (>60 ml/min/1.73 sqM); Potassium 5.4 mmol/L (3.5-5.1); Sodium 141 mmol/L (137-145)
[2017-08-18] MEDS: MUPIROCIN 2% OINT 22 GM TUBE NASAL SCH (22:09)
[2017-08-18 22:12] LABS: Glucose,Whole Blood 131 mg/dL (75-99)
[2017-08-18 23:44] LABS: Glucose,Whole Blood 131 mg/dL (75-99)
[2017-08-19] MEDS: HEPARIN SODIUM,PORCINE 5,000 UNIT/ML 1 ML VIAL SQ SCH ×3 (00:50→18:49)
[2017-08-19 02:07] LABS: Glucose,Whole Blood 106 mg/dL (75-99)
[2017-08-19] MEDS: MORPHINE SULFATE 2 MG/ML SYRINGE IVP PRN ×3 (02:20→15:44)
[2017-08-19 04:23] LABS: Glucose,Whole Blood 116 mg/dL (75-99)
[2017-08-19] MEDS: CLEVIDIPINE BUTYRATE 25 MG in EMPTY BAG 1 BAG IV SCH (04:30)
[2017-08-19 06:14] LABS: Glucose,Whole Blood 144 mg/dL (75-99)
[2017-08-19 06:27] LABS: Basophils % (A) 0 %; CH 26.5; Eosinophils % (A) 0 %; HCT 30.1 % (39.0-53.0); HDW 2.88; HGB 9.5 gm/dL (13.0-17.5); Hypochromasia Slight; Luc # (Auto) 0.08; Luc % (Auto) 1; Lymphocytes # (A) 0.9 k/uL (1.0-4.8); Lymphocytes % (A) 10 %; MCH 26.3 pg (25.0-35.0); MCHC 31.6 g/dL (31.0-37.0); Mean Platelet Volume 8.7; Monocytes # (A) 0.5 k/uL (0-1.0); Monocytes % (A) 6 %; Neutrophils # (A) 7.9 k/uL (1.3-7.7); Neutrophils % (A) 83 %; RBC 3.63 m/uL (4.30-5.90); RDW 15.6 % (11.5-15.5); WBC 9.5 k/uL (3.8-10.6); WBC (Perox) 10.06
[2017-08-19 06:32] LABS: INR 1.1 (<1.2); Prothrombin Time 11.2 sec (9.0-12.0)
[2017-08-19 06:34] LABS: Ionized Calcium 5.2 mg/dL (4.5-5.3)
[2017-08-19] MEDS: ACETAMINOPHEN IV (For NPO) 1,000 MG in EMPTY BAG 1 BAG IVPB SCH ×3 (06:45→18:49)
[2017-08-19 06:47] LABS: ALT 21 U/L (21-72); AST 34 U/L (17-59); Alkaline Phosphatase 34 U/L (38-126); Anion Gap 9 mmol/L; Blood Urea Nitrogen 32 mg/dL (9-20); Calcium 8.7 mg/dL (8.4-10.2); Carbon Dioxide 19 mmol/L (22-30); Chloride 114 mmol/L (98-107); Glucose 136 mg/dL (74-99); Magnesium 3.1 mg/dL (1.6-2.3); Non-African American GFR(MDRD) >60 (>60 ml/min/1.73 sqM); Potassium 4.9 mmol/L (3.5-5.1); Sodium 142 mmol/L (137-145); Total Bilirubin 0.7 mg/dL (0.2-1.3); Total Protein 5.5 g/dL (6.3-8.2)
[2017-08-19 07:12] LABS: Glucose,Whole Blood 157 mg/dL (75-99)
--- NOTE | 2017-08-19 08:01 | XR ---
EXAMINATION TYPE: XR chest 1V portable DATE OF EXAM: 08/19/2017 HISTORY: Post Operative Cardiac Surgery. REFERENCE: Previous study dated 08/18/2017. FINDINGS: The patient has been extubated. The patient is NG tube is been removed. A [place] cathete r remains in place with its tip in the main pulmonary outflow tract. There has been a midline sternot magda. There are bilateral pleural drains in place. There is worsening left basilar airspace disease. The heart is mildly enlarged. There is a left-sided effusion. IMPRESSION: WORSENING LEFT BASILAR AIRSPACE DISEASE.
[2017-08-19 08:13] LABS: Glucose,Whole Blood 149 mg/dL (75-99)
[2017-08-19] MEDS: METOPROLOL TARTRATE 12.5 MG TAB PO SCH ×2 (08:20→21:35)
[2017-08-19] MEDS: ASPIRIN 325 MG TAB PO SCH (08:21)
[2017-08-19] MEDS: MUPIROCIN 2% OINT 22 GM TUBE NASAL SCH ×2 (08:22→22:06)
[2017-08-19] MEDS ORDERED: PANTOPRAZOLE 40 MG/10 ML VIAL IVP SCH (09:00)
[2017-08-19] MEDS: ceFAZolin 2 GM in SODIUM CHLORIDE 0.9% 100 ML IVPB SCH (09:34)
[2017-08-19 10:07] LABS: Glucose,Whole Blood 130 mg/dL (75-99)
[2017-08-19] MEDS: ONDANSETRON 4 MG/2 ML VIAL IVP PRN (10:10)
--- NOTE | 2017-08-19 10:26 | P.PN ---
Subjective Principal diagnosis: Aortic valvular insufficiency with bicuspid aortic valve, coronary artery disease, chronic systolic congestive heart failure. History of hypertension, upper cholesterolemia, uncontrolled diabetes mellitus with hemoglobin A1c 9.1%. Obesity. History of hepatitis C. POD #1 elective aortic valve replacement with 25 mm On-X valve, coronary artery bypass surgery with left internal mammary artery to the left anterior descending artery and greater saphenous vein graft to the posterior descending artery, left atrial appendage ligation with 35 mm Atriclip, endovascular vein harvest of the left greater saphenous vein, epi-aortic ultrasonography, intraoperative transesophageal echocardiogram by anesthesia. Patient is currently sitting up in a recliner in no acute distress. He was extubated last night without incident. Does complain of sternal pain when asked. Objective - Vital Signs Vital signs: Vital Signs Temp 98.8 F 08/18/17 19:00 Pulse 87 08/19/17 09:00 Resp 17 08/19/17 09:00 BP 128/77 08/18/17 06:22 Pulse Ox 99 08/19/17 09:00 Intake & Output 08/18/17 08/19/17 08/19/17 18:59 06:59 18:59 Intake Total 1603.327 0098.018 54.5 Output Total 2945 2012 287 Balance -1648.544 -929.982 -232.5 Weight 92.7 kg 92.7 kg Intake: IV 666 1048.5 54.5 ACETAMINOPHEN IV (For NPO 200 ) 1,000 mg In Empty Bag 1 bag @ 400 mls/hr IVPB Q6HR [place] Rx#:[id number] Ancef 100 Bolus CO/CI 110 90 LR 250 50 Lactated Ringers 1,000 ml 550 50 @ 50 mls/hr IV .Q20H [place] Rx#:[id number] Nitroglycerin-D5w Pmx 50 16.5 1.5 mg In Dextrose/Water 1 250ml.bag @ 5 MCG/MIN 1.5 mls/hr IV .Q24H [place] Rx#: [id number] Pressure Bag NS 45 42 3 Tylenol 100 ceFAZolin 2,000 mg In 100 Sodium Chloride 0.9% 30 ml @ Per Protocol IVPB ONCE ONE Rx#:[id number] Intake, IV Titration 565.456 33.518 Amount Albumin Human 5% 250 ml 500 In Empty Bag 1 bag @ 250 mls/hr IVPB ONCE ONE Rx#: [id number] Clevidipine Butyrate 25 2.900 mg In Empty Bag 1 bag @ 1 MG/HR 2 mls/hr IV .Q24H [facility] Rx#:[id number] EPINEPHrine 2 mg In 17.010 8.064 Dextrose 5% in Water 250 ml @ 1 MCG/MIN 7.56 mls/ hr IV .Q24H [place] Rx#: [id number] Insulin Regular 100 unit 4.820 22.554 In Sodium Chloride 0.9% 100 ml @ Per Protocol IV .Q0M [place] Rx#:[id number] Propofol 1,000 mg In 100 43.626 ml @ Titrate IV .Q0M [place] Rx#:[id number] Tube Feeding 45 Other 20 Output: Chest Tube Drainage 700 920 130 Chest Tube Bilateral 420 610 130 Lateral Chest Chest Tube Mediastinal 280 310 0 Drainage 0 20 Left Calf 0 20 Urine 745 1072 157 Estimated Blood Loss 1500 Other: Voiding Method Indwelling Catheter Indwelling Catheter Indwelling Catheter ABP, PAP, CO, CI - Last Documented Arterial Blood Pressure 122/73 Pulmonary Artery Pressure 18/9 Cardiac Output 6.1 Cardiac Index 3.1 - Constitutional General appearance: Present: cooperative, no acute distress, obese - Respiratory Details: Lungs sounds diminished bilaterally. Respirations even, nonlabored. Currently on 2 L nasal cannula with oxygen saturation 100%. Only able to achieve 500 mL on his incentive spirometry. Weak cough. Left and right pleural chest tubes connected to -20 cm wall suction, 540 mL serous and was drainage overnight, 1110 mL since surgery. Mediastinal chest tubes to -20 cm wall suction, 170 mL serosanguineous drainage overnight, 600 mL since surgery. No air leaks present. - Cardiovascular Details: S1, S2 present. Positive click. Regular rate and rhythm, sinus rhythm on telemetry. Sternum stable. A/V epicardial pacemaker wires present, connected to generator, VVI mode with backup rate 30 bpm. Palpable pulses bilaterally. Trace bilateral lower extremity edema present. Right brachial arterial line, right internal jugular Cord[place] present. Teds/SCDs present. - Gastrointestinal Gastrointestinal Comment(s): Abdomen soft, nontender, nondistended. Hypoactive bowel sounds present 4 quadrants. Negative flatus, tolerating clear liquids. - Genitourinary Genitourinary Comment(s): [place] present draining clear, yellow urine. Output 50-190 mL/h overnight. - Integumentary Integumentary Comment(s): Anterior chest incision well approximated covered with dry intact dressing. Left lower extremity EVH site well approximated, JHON drain present with minimal serosanguineous drainage overnight. - Neurologic Neurologic: Present: CNII-XII intact - Musculoskeletal Musculoskeletal: Present: strength equal bilaterally - Psychiatric Psychiatric: Present: A&O x's 3, appropriate affect, intact judgment & insight - Allied health notes Allied health notes reviewed: nursing - Labs CBC & Chem 7: 08/19/17 06:00 08/19/17 06:00 Labs: Abnormal Lab Results - Last 24 Hours (Table) 08/10/17 08/18/17 08/18/17 Range/Units 10:00 10:01 10:49 RBC (4.30-5.90) m/uL Hgb (13.0-17.5) gm/dL Hct (39.0-53.0) % RDW (11.5-15.5) % Neutrophils # (1.3-7.7) k/uL Lymphocytes # (1.0-4.8) k/uL APTT (22.0-30.0) sec ABG pH (7.35-7.45) ABG pO2 (83-108) mmHg ABG HCO3 (21-25) mmol/L ABG O2 Saturation (94-97) % Potassium (3.5-5.1) mmol/L Chloride (98-107) mmol/L Carbon Dioxide (22-30) mmol/L BUN (9-20) mg/dL Creatinine (0.66-1.25) mg/dL Glucose (74-99) mg/dL POC Glucose (mg/dL) 106 H 116 H (75-99) mg/dL Calcium (8.4-10.2) mg/dL Phosphorus (2.5-4.5) mg/dL Magnesium (1.6-2.3) mg/dL Alkaline Phosphatase (38-126) U/L Total Protein (6.3-8.2) g/dL Albumin (3.5-5.0) g/dL Crossmatch See Detail 08/18/17 08/18/17 08/18/17 Range/Units 11:20 11:47 12:16 RBC (4.30-5.90) m/uL Hgb (13.0-17.5) gm/dL Hct (39.0-53.0) % RDW (11.5-15.5) % Neutrophils # (1.3-7.7) k/uL Lymphocytes # (1.0-4.8) k/uL APTT (22.0-30.0) sec ABG pH (7.35-7.45) ABG pO2 (83-108) mmHg ABG HCO3 (21-25) mmol/L ABG O2 Saturation (94-97) % Potassium (3.5-5.1) mmol/L Chloride (98-107) mmol/L Carbon Dioxide (22-30) mmol/L BUN (9-20) mg/dL Creatinine (0.66-1.25) mg/dL Glucose (74-99) mg/dL POC Glucose (mg/dL) 141 H 131 H 131 H (75-99) mg/dL Calcium (8.4-10.2) mg/dL Phosphorus (2.5-4.5) mg/dL Magnesium (1.6-2.3) mg/dL Alkaline Phosphatase (38-126) U/L Total Protein (6.3-8.2) g/dL Albumin (3.5-5.0) g/dL Crossmatch 08/18/17 08/18/17 08/18/17 Range/Units 12:50 13:34 13:34 RBC 3.48 L (4.30-5.90) m/uL Hgb 9.3 L D (13.0-17.5) gm/dL Hct 29.0 L (39.0-53.0) % RDW (11.5-15.5) % Neutrophils # (1.3-7.7) k/uL Lymphocytes # (1.0-4.8) k/uL APTT (22.0-30.0) sec ABG pH (7.35-7.45) ABG pO2 (83-108) mmHg ABG HCO3 (21-25) mmol/L ABG O2 Saturation (94-97) % Potassium (3.5-5.1) mmol/L Chloride 111 H (98-107) mmol/L Carbon Dioxide (22-30) mmol/L BUN 34 H (9-20) mg/dL Creatinine (0.66-1.25) mg/dL Glucose 132 H (74-99) mg/dL POC Glucose (mg/dL) 129 H (75-99) mg/dL Calcium 8.3 L (8.4-10.2) mg/dL Phosphorus (2.5-4.5) mg/dL Magnesium 4.0 H (1.6-2.3) mg/dL Alkaline Phosphatase 29 L (38-126) U/L Total Protein 4.7 L (6.3-8.2) g/dL Albumin 2.7 L (3.5-5.0) g/dL Crossmatch 08/18/17 08/18/17 08/18/17 Range/Units 13:34 14:17 14:42 RBC (4.30-5.90) m/uL Hgb (13.0-17.5) gm/dL Hct (39.0-53.0) % RDW (11.5-15.5) % Neutrophils # (1.3-7.7) k/uL Lymphocytes # (1.0-4.8) k/uL APTT 36.6 H (22.0-30.0) sec ABG pH 7.32 L (7.35-7.45) ABG pO2 384 H (83-108) mmHg ABG HCO3 20 L (21-25) mmol/L ABG O2 Saturation 100.0 H (94-97) % Potassium (3.5-5.1) mmol/L Chloride (98-107) mmol/L Carbon Dioxide (22-30) mmol/L BUN (9-20) mg/dL Creatinine (0.66-1.25) mg/dL Glucose (74-99) mg/dL POC Glucose (mg/dL) 139 H (75-99) mg/dL Calcium (8.4-10.2) mg/dL Phosphorus (2.5-4.5) mg/dL Magnesium (1.6-2.3) mg/dL Alkaline Phosphatase (38-126) U/L Total Protein (6.3-8.2) g/dL Albumin (3.5-5.0) g/dL Crossmatch 08/18/17 08/18/17 08/18/17 Range/Units 15:20 16:22 17:10 RBC (4.30-5.90) m/uL Hgb (13.0-17.5) gm/dL Hct (39.0-53.0) % RDW (11.5-15.5) % Neutrophils # (1.3-7.7) k/uL Lymphocytes # (1.0-4.8) k/uL APTT (22.0-30.0) sec ABG pH (7.35-7.45) ABG pO2 (83-108) mmHg ABG HCO3 (21-25) mmol/L ABG O2 Saturation (94-97) % Potassium (3.5-5.1) mmol/L Chloride (98-107) mmol/L Carbon Dioxide (22-30) mmol/L BUN (9-20) mg/dL Creatinine (0.66-1.25) mg/dL Glucose (74-99) mg/dL POC Glucose (mg/dL) 139 H 145 H 148 H (75-99) mg/dL Calcium (8.4-10.2) mg/dL Phosphorus (2.5-4.5) mg/dL Magnesium (1.6-2.3) mg/dL Alkaline Phosphatase (38-126) U/L Total Protein (6.3-8.2) g/dL Albumin (3.5-5.0) g/dL Crossmatch 08/18/17 08/18/17 08/18/17 Range/Units 17:33 18:04 18:11 RBC 3.49 L (4.30-5.90) m/uL Hgb 9.2 L (13.0-17.5) gm/dL Hct 28.7 L (39.0-53.0) % RDW (11.5-15.5) % Neutrophils # (1.3-7.7) k/uL Lymphocytes # 0.9 L (1.0-4.8) k/uL APTT (22.0-30.0) sec ABG pH (7.35-7.45) ABG pO2 173 H (83-108) mmHg ABG HCO3 19 L (21-25) mmol/L ABG O2 Saturation 100.0 H (94-97) % Potassium (3.5-5.1) mmol/L Chloride (98-107) mmol/L Carbon Dioxide (22-30) mmol/L BUN (9-20) mg/dL Creatinine (0.66-1.25) mg/dL Glucose (74-99) mg/dL POC Glucose (mg/dL) 152 H (75-99) mg/dL Calcium (8.4-10.2) mg/dL Phosphorus (2.5-4.5) mg/dL Magnesium (1.6-2.3) mg/dL Alkaline Phosphatase (38-126) U/L Total Protein (6.3-8.2) g/dL Albumin (3.5-5.0) g/dL Crossmatch 08/18/17 08/18/17 08/18/17 Range/Units 19:10 20:52 21:00 RBC 3.47 L (4.30-5.90) m/uL Hgb 9.2 L (13.0-17.5) gm/dL Hct 29.0 L (39.0-53.0) % RDW (11.5-15.5) % Neutrophils # 7.8 H (1.3-7.7) k/uL Lymphocytes # 0.4 L (1.0-4.8) k/uL APTT (22.0-30.0) sec ABG pH (7.35-7.45) ABG pO2 (83-108) mmHg ABG HCO3 (21-25) mmol/L ABG O2 Saturation (94-97) % Potassium (3.5-5.1) mmol/L Chloride (98-107) mmol/L Carbon Dioxide (22-30) mmol/L BUN (9-20) mg/dL Creatinine (0.66-1.25) mg/dL Glucose (74-99) mg/dL POC Glucose (mg/dL) 179 H 144 H (75-99) mg/dL Calcium (8.4-10.2) mg/dL Phosphorus (2.5-4.5) mg/dL Magnesium (1.6-2.3) mg/dL Alkaline Phosphatase (38-126) U/L Total Protein (6.3-8.2) g/dL Albumin (3.5-5.0) g/dL Crossmatch 08/18/17 08/18/17 08/18/17 Range/Units 21:00 22:11 23:43 RBC (4.30-5.90) m/uL Hgb (13.0-17.5) gm/dL Hct (39.0-53.0) % RDW (11.5-15.5) % Neutrophils # (1.3-7.7) k/uL Lymphocytes # (1.0-4.8) k/uL APTT (22.0-30.0) sec ABG pH (7.35-7.45) ABG pO2 (83-108) mmHg ABG HCO3 (21-25) mmol/L ABG O2 Saturation (94-97) % Potassium 5.4 H (3.5-5.1) mmol/L Chloride 111 H (98-107) mmol/L Carbon Dioxide 21 L (22-30) mmol/L BUN 35 H (9-20) mg/dL Creatinine 1.36 H (0.66-1.25) mg/dL Glucose 136 H (74-99) mg/dL POC Glucose (mg/dL) 131 H 131 H (75-99) mg/dL Calcium (8.4-10.2) mg/dL Phosphorus 5.0 H (2.5-4.5) mg/dL Magnesium 3.6 H (1.6-2.3) mg/dL Alkaline Phosphatase (38-126) U/L Total Protein (6.3-8.2) g/dL Albumin (3.5-5.0) g/dL Crossmatch 08/19/17 08/19/17 08/19/17 Range/Units 02:06 04:21 06:00 RBC 3.63 L (4.30-5.90) m/uL Hgb 9.5 L (13.0-17.5) gm/dL Hct 30.1 L (39.0-53.0) % RDW 15.6 H (11.5-15.5) % Neutrophils # 7.9 H (1.3-7.7) k/uL Lymphocytes # 0.9 L (1.0-4.8) k/uL APTT (22.0-30.0) sec ABG pH (7.35-7.45) ABG pO2 (83-108) mmHg ABG HCO3 (21-25) mmol/L ABG O2 Saturation (94-97) % Potassium (3.5-5.1) mmol/L Chloride (98-107) mmol/L Carbon Dioxide (22-30) mmol/L BUN (9-20) mg/dL Creatinine (0.66-1.25) mg/dL Glucose (74-99) mg/dL POC Glucose (mg/dL) 106 H 116 H (75-99) mg/dL Calcium (8.4-10.2) mg/dL Phosphorus (2.5-4.5) mg/dL Magnesium (1.6-2.3) mg/dL Alkaline Phosphatase (38-126) U/L Total Protein (6.3-8.2) g/dL Albumin (3.5-5.0) g/dL Crossmatch 08/19/17 08/19/17 08/19/17 Range/Units 06:00 06:12 07:11 RBC (4.30-5.90) m/uL Hgb (13.0-17.5) gm/dL Hct (39.0-53.0) % RDW (11.5-15.5) % Neutrophils # (1.3-7.7) k/uL Lymphocytes # (1.0-4.8) k/uL APTT (22.0-30.0) sec ABG pH (7.35-7.45) ABG pO2 (83-108) mmHg ABG HCO3 (21-25) mmol/L ABG O2 Saturation (94-97) % Potassium (3.5-5.1) mmol/L Chloride 114 H (98-107) mmol/L Carbon Dioxide 19 L (22-30) mmol/L BUN 32 H (9-20) mg/dL Creatinine 1.30 H (0.66-1.25) mg/dL Glucose 136 H (74-99) mg/dL POC Glucose (mg/dL) 144 H 157 H (75-99) mg/dL Calcium (8.4-10.2) mg/dL Phosphorus (2.5-4.5) mg/dL Magnesium 3.1 H (1.6-2.3) mg/dL Alkaline Phosphatase 34 L (38-126) U/L Total Protein 5.5 L (6.3-8.2) g/dL Albumin 3.2 L (3.5-5.0) g/dL Crossmatch 08/19/17 08/19/17 Range/Units 08:12 10:04 RBC (4.30-5.90) m/uL Hgb (13.0-17.5) gm/dL Hct (39.0-53.0) % RDW (11.5-15.5) % Neutrophils # (1.3-7.7) k/uL Lymphocytes # (1.0-4.8) k/uL APTT (22.0-30.0) sec ABG pH (7.35-7.45) ABG pO2 (83-108) mmHg ABG HCO3 (21-25) mmol/L ABG O2 Saturation (94-97) % Potassium (3.5-5.1) mmol/L Chloride (98-107) mmol/L Carbon Dioxide (22-30) mmol/L BUN (9-20) mg/dL Creatinine (0.66-1.25) mg/dL Glucose (74-99) mg/dL POC Glucose (mg/dL) 149 H 130 H (75-99) mg/dL Calcium (8.4-10.2) mg/dL Phosphorus (2.5-4.5) mg/dL Magnesium (1.6-2.3) mg/dL Alkaline Phosphatase (38-126) U/L Total Protein (6.3-8.2) g/dL Albumin (3.5-5.0) g/dL Crossmatch - Imaging and Cardiology Chest x-ray: report reviewed, image reviewed Assessment and Plan (1) Aortic insufficiency due to bicuspid aortic valve Status: Acute (2) Chronic systolic heart failure Status: Acute (3) Coronary artery disease Status: Acute (4) Bicuspid aortic valve Status: Acute (5) HTN (hypertension) Status: Acute (6) Hyperlipidemia Status: Acute (7) Uncontrolled type 2 diabetes mellitus Status: Acute Plan: 1. Continue aspirin, statin, Plavix, heparin subcu, beta kendal. Will maximize beta kendal therapy as tolerated. 2. Discontinue nitro drip. 3. Discontinue [place] catheter. Connected [place] to continue CVP monitoring. 4. Wean O2 as tolerated. Encourage incentive spirometry use. 5. Increase activity, ambulate in room. Physical therapy to follow. 6. GI/DVT prophylaxis. 7. Pain management with ordered pain medication. 8. Will monitor daily labs, chest x-rays. 9. We will start Coumadin soon with daily PT/INR. Goal INR for On-X valve to 2 -2.5 for the first 3 months, then 1.4-1.8 thereafter. 10. More recommendations as patient progresses. Time with Patient: Greater than 30
[2017-08-19 11:11] LABS: Glucose,Whole Blood 117 mg/dL (75-99)
[2017-08-19] MEDS ORDERED: FUROSEMIDE 10 MG/ML 4 ML VIAL IV STA (12:33)
[2017-08-19 12:50] LABS: Glucose,Whole Blood 126 mg/dL (75-99)
[2017-08-19] MEDS ORDERED: HYDROcodone/APAP 5-325MG 1 EACH TAB PO PRN (13:11)
[2017-08-19] MEDS ORDERED: IPRATROPIUM-ALBUTEROL 3 ML NEB INHALATION PRN (13:12)
[2017-08-19] MEDS ORDERED: MAGNESIUM HYDROXIDE 2,400 MG/10 ML CUP PO PRN (13:12)
[2017-08-19] MEDS ORDERED: CLOPIDOGREL 75 MG TAB PO SCH (13:12)
[2017-08-19] MEDS ORDERED: BISACODYL 10 MG SUPP RECTAL PRN (13:12)
--- NOTE | 2017-08-19 13:39 | P.PN ---
Subjective This is a 32-year-old male status post elective aortic valve replacement with a mechanical valve, exclusion of left atrial appendage and myocardial revascularization with LAY to LAD and SVG to PDA. On 06/27/2017 patient presented to the emergency department with bilateral lower leg and abdominal edema, 50 pound weight gain over 2 months, cough and orthopnea. Patient's history includes hypertension, hyperlipidemia and diabetes mellitus for which treatments was recently started. Cardiac evaluation showed significant systolic heart failure with left ventricular dysfunction and an ejection fraction between 25- 30%. Transesophageal echocardiogram on 07/04/2017 showed a bicuspid aortic valve with fusion of the non-coronary and left coronary cusps. The mitral valve was mildly thickened with only mild mitral regurgitation and tricuspid valve with mild insufficiency. Cardiac catheterization on 07/19/2017 showed severe disease involving the ramus intermedius coronary artery, severe disease involving the mid to distal LAD and aortic insufficiency are 4+. Patient's heart failure was treated with IV Lasix , beta blockers and these inhibitors. During that hospitalization an incidental finding of chronic hepatitis C was made. Patient was seen by Dr. Cosby. Patient had no symptoms of chronic liver disease and had normal liver enzymes. Once his condition optimized, he was recommended to undergo an aortic valve replacement and myocardial revascularization. Pulmonary function tests FEV1 of 87%, patient's is a lifetime nonsmoker with no history of chronic pulmonary problems. Chest CT from 07/04/2017 showed cardiomegaly with small pericardial effusion, and bibasilar reticular nodular opacities possibly of infectious or inflammatory etiology. Patient is sedated on a mechanical ventilator with settings of assist control mode rate of 12, tidal volume 450, FiO2 of 100% and PEEP of 5. 2 mediastinal and right and left pleural chest tubes with 100 mL of sanguinous drainage. Patient did receive 1 unit of PRBC and 320 mL of Cell Saver intraoperatively. He is currently on the small amount of epinephrine at 1mcg/min, nitroglycerin at 5 mcg/min. and propofol at 25 mcg/ kg/min. estimated blood loss was 900 mL. Patient's intrinsic rhythm is sinus with a rate of 67 bpm. PA pressures 34/19, cardiac output 6.6/cardiac index of 3.4. Blood gas will be obtained and further adjustments to the ventilator settings will be made based upon the results. On 08/16/2017 the patient is being seen for a follow-up. The patient was weaned off the mechanical ventilated and was extubated blood any major difficulties. This morning it is awake and sitting up on a chair and is calm and comfortable. Thoracic surgical wound site is clean. Chest tubes are all in place. There is no evidence of any pneumothorax on today's chest x-ray in the lungs are well expanded. Surgical wound site is dry clean and intact. The patient briefly was placed on Cleviprex yesterday which was subsequently discontinued knowing that his blood pressure control improved. He is producing adequate amount of urine output. He is awake and alert and following commands and answering questions. He is using incentive spirometer. His pain is controlled for now. The patient is postop day #1 following an elective aortic valve replacement with a mechanical valve and two-vessel bypass surgery with LAY to LAD and saphenous vein graft to PDA. Note that the patient had a bicuspid aortic valve. He is still on a nitroglycerin drip at a low dose for blood pressure control.The patient has had 170 mL of serosanguineous drainage from the chest tubes overnight and 600 since surgery from the mediastinal chest tube and a total of 5 and 40 mL of serous drainage from the left and right pleural chest tubes which are connected. Objective - Vital Signs Vital signs: Vital Signs Temp 98.8 F 08/18/17 19:00 Pulse 87 08/19/17 09:00 Resp 17 08/19/17 09:00 BP 128/77 08/18/17 06:22 Pulse Ox 99 08/19/17 09:00 Intake & Output 08/18/17 08/19/17 08/19/17 18:59 06:59 18:59 Intake Total 3326.838 0323.018 314.5 Output Total 2945 2012 787 Balance -1648.544 -929.982 -472.5 Weight 92.7 kg 92.7 kg Intake: IV 666 1048.5 214.5 ACETAMINOPHEN IV (For NPO 200 ) 1,000 mg In Empty Bag 1 bag @ 400 mls/hr IVPB Q6HR [place] Rx#:[id number] Ancef 100 Bolus CO/CI 110 90 10 LR 250 50 Lactated Ringers 1,000 ml 550 200 @ 20 mls/hr IV .Q24H [place] Rx#:[id number] Nitroglycerin-D5w Pmx 50 16.5 1.5 mg In Dextrose/Water 1 250ml.bag @ 5 MCG/MIN 1.5 mls/hr IV .Q24H [place] Rx#: [id number] Pressure Bag NS 45 42 3 Tylenol 100 ceFAZolin 2,000 mg In 100 Sodium Chloride 0.9% 30 ml @ Per Protocol IVPB ONCE ONE Rx#:[id number] Intake, IV Titration 565.456 33.518 100 Amount Albumin Human 5% 250 ml 500 In Empty Bag 1 bag @ 250 mls/hr IVPB ONCE ONE Rx#: [id number] Clevidipine Butyrate 25 2.900 mg In Empty Bag 1 bag @ 1 MG/HR 2 mls/hr IV .Q24H [place] Rx#:[id number] EPINEPHrine 2 mg In 17.010 8.064 Dextrose 5% in Water 250 ml @ 1 MCG/MIN 7.56 mls/ hr IV .Q24H [place] Rx#: [id number] Insulin Regular 100 unit 4.820 22.554 In Sodium Chloride 0.9% 100 ml @ Per Protocol IV .Q0M [place] Rx#:[id number] Propofol 1,000 mg In 100 43.626 ml @ Titrate IV .Q0M [place] Rx#:[id number] ceFAZolin 2 gm In Sodium 100 Chloride 0.9% 100 ml @ 100 mls/hr IVPB Q8HR [place] Rx#:[id number] Tube Feeding 45 Other 20 Output: Chest Tube Drainage 700 920 340 Chest Tube Bilateral 420 610 240 Lateral Chest Chest Tube Mediastinal 280 310 100 Drainage 0 20 Left Calf 0 20 Urine 745 1072 447 Estimated Blood Loss 1500 Other: Voiding Method Indwelling Catheter Indwelling Catheter Indwelling Catheter ABP, PAP, CO, CI - Last Documented Arterial Blood Pressure 122/73 Pulmonary Artery Pressure 18/9 Cardiac Output 6.1 Cardiac Index 3.1 - Exam General appearance: Present: cooperative, no acute distress, obese - Respiratory Details: Lungs sounds diminished bilaterally. Respirations even, nonlabored. Currently on 2 L nasal cannula with oxygen saturation 100%. Only able to achieve 500 mL on his incentive spirometry. Weak cough. Left and right pleural chest tubes connected to -20 cm wall suction, 540 mL serous and was drainage overnight, 1110 mL since surgery. Mediastinal chest tubes to -20 cm wall suction, 170 mL serosanguineous drainage overnight, 600 mL since surgery. No air leaks present. - Cardiovascular Details: S1, S2 present. Positive click. Regular rate and rhythm, sinus rhythm on telemetry. Sternum stable. A/V epicardial pacemaker wires present, connected to generator, VVI mode with backup rate 30 bpm. Palpable pulses bilaterally. Trace bilateral lower extremity edema present. Right brachial arterial line, right internal jugular Cordis/[place] present. Teds/SCDs present. - Gastrointestinal Gastrointestinal Comment(s): Abdomen soft, nontender, nondistended. Hypoactive bowel sounds present 4 quadrants. Negative flatus, tolerating clear liquids. - Genitourinary Genitourinary Comment(s): Pickard present draining clear, yellow urine. Output 50-190 mL/h overnight. - Integumentary Integumentary Comment(s): Anterior chest incision well approximated covered with dry intact dressing. Left lower extremity EVH site well approximated, JHON drain present with minimal serosanguineous drainage overnight. - Neurologic Neurologic: Present: CNII-XII intact - Musculoskeletal Musculoskeletal: Present: strength equal bilaterally - Psychiatric Psychiatric: Present: A&O x's 3, appropriate affect, intact judgment & insight - Allied health notes - Labs CBC & Chem 7: 08/19/17 06:00 08/19/17 06:00 Labs: Abnormal Lab Results - Last 24 Hours (Table) 08/10/17 08/18/17 08/18/17 Range/Units 10:00 13:34 13:34 RBC 3.48 L (4.30-5.90) m/uL Hgb 9.3 L D (13.0-17.5) gm/dL Hct 29.0 L (39.0-53.0) % RDW (11.5-15.5) % Neutrophils # (1.3-7.7) k/uL Lymphocytes # (1.0-4.8) k/uL APTT (22.0-30.0) sec ABG pH (7.35-7.45) ABG pO2 (83-108) mmHg ABG HCO3 (21-25) mmol/L ABG O2 Saturation (94-97) % Potassium (3.5-5.1) mmol/L Chloride 111 H (98-107) mmol/L Carbon Dioxide (22-30) mmol/L BUN 34 H (9-20) mg/dL Creatinine (0.66-1.25) mg/dL Glucose 132 H (74-99) mg/dL POC Glucose (mg/dL) (75-99) mg/dL Calcium 8.3 L (8.4-10.2) mg/dL Phosphorus (2.5-4.5) mg/dL Magnesium 4.0 H (1.6-2.3) mg/dL Alkaline Phosphatase 29 L (38-126) U/L Total Protein 4.7 L (6.3-8.2) g/dL Albumin 2.7 L (3.5-5.0) g/dL Crossmatch See Detail 08/18/17 08/18/17 08/18/17 Range/Units 13:34 14:17 14:42 RBC (4.30-5.90) m/uL Hgb (13.0-17.5) gm/dL Hct (39.0-53.0) % RDW (11.5-15.5) % Neutrophils # (1.3-7.7) k/uL Lymphocytes # (1.0-4.8) k/uL APTT 36.6 H (22.0-30.0) sec ABG pH 7.32 L (7.35-7.45) ABG pO2 384 H (83-108) mmHg ABG HCO3 20 L (21-25) mmol/L ABG O2 Saturation 100.0 H (94-97) % Potassium (3.5-5.1) mmol/L Chloride (98-107) mmol/L Carbon Dioxide (22-30) mmol/L BUN (9-20) mg/dL Creatinine (0.66-1.25) mg/dL Glucose (74-99) mg/dL POC Glucose (mg/dL) 139 H (75-99) mg/dL Calcium (8.4-10.2) mg/dL Phosphorus (2.5-4.5) mg/dL Magnesium (1.6-2.3) mg/dL Alkaline Phosphatase (38-126) U/L Total Protein (6.3-8.2) g/dL Albumin (3.5-5.0) g/dL Crossmatch 08/18/17 08/18/17 08/18/17 Range/Units 15:20 16:22 17:10 RBC (4.30-5.90) m/uL Hgb (13.0-17.5) gm/dL Hct (39.0-53.0) % RDW (11.5-15.5) % Neutrophils # (1.3-7.7) k/uL Lymphocytes # (1.0-4.8) k/uL APTT (22.0-30.0) sec ABG pH (7.35-7.45) ABG pO2 (83-108) mmHg ABG HCO3 (21-25) mmol/L ABG O2 Saturation (94-97) % Potassium (3.5-5.1) mmol/L Chloride (98-107) mmol/L Carbon Dioxide (22-30) mmol/L BUN (9-20) mg/dL Creatinine (0.66-1.25) mg/dL Glucose (74-99) mg/dL POC Glucose (mg/dL) 139 H 145 H 148 H (75-99) mg/dL Calcium (8.4-10.2) mg/dL Phosphorus (2.5-4.5) mg/dL Magnesium (1.6-2.3) mg/dL Alkaline Phosphatase (38-126) U/L Total Protein (6.3-8.2) g/dL Albumin (3.5-5.0) g/dL Crossmatch 08/18/17 08/18/17 08/18/17 Range/Units 17:33 18:04 18:11 RBC 3.49 L (4.30-5.90) m/uL Hgb 9.2 L (13.0-17.5) gm/dL Hct 28.7 L (39.0-53.0) % RDW (11.5-15.5) % Neutrophils # (1.3-7.7) k/uL Lymphocytes # 0.9 L (1.0-4.8) k/uL APTT (22.0-30.0) sec ABG pH (7.35-7.45) ABG pO2 173 H (83-108) mmHg ABG HCO3 19 L (21-25) mmol/L ABG O2 Saturation 100.0 H (94-97) % Potassium (3.5-5.1) mmol/L Chloride (98-107) mmol/L Carbon Dioxide (22-30) mmol/L BUN (9-20) mg/dL Creatinine (0.66-1.25) mg/dL Glucose (74-99) mg/dL POC Glucose (mg/dL) 152 H (75-99) mg/dL Calcium (8.4-10.2) mg/dL Phosphorus (2.5-4.5) mg/dL Magnesium (1.6-2.3) mg/dL Alkaline Phosphatase (38-126) U/L Total Protein (6.3-8.2) g/dL Albumin (3.5-5.0) g/dL Crossmatch 08/18/17 08/18/17 08/18/17 Range/Units 19:10 20:52 21:00 RBC 3.47 L (4.30-5.90) m/uL Hgb 9.2 L (13.0-17.5) gm/dL Hct 29.0 L (39.0-53.0) % RDW (11.5-15.5) % Neutrophils # 7.8 H (1.3-7.7) k/uL Lymphocytes # 0.4 L (1.0-4.8) k/uL APTT (22.0-30.0) sec ABG pH (7.35-7.45) ABG pO2 (83-108) mmHg ABG HCO3 (21-25) mmol/L ABG O2 Saturation (94-97) % Potassium (3.5-5.1) mmol/L Chloride (98-107) mmol/L Carbon Dioxide (22-30) mmol/L BUN (9-20) mg/dL Creatinine (0.66-1.25) mg/dL Glucose (74-99) mg/dL POC Glucose (mg/dL) 179 H 144 H (75-99) mg/dL Calcium (8.4-10.2) mg/dL Phosphorus (2.5-4.5) mg/dL Magnesium (1.6-2.3) mg/dL Alkaline Phosphatase (38-126) U/L Total Protein (6.3-8.2) g/dL Albumin (3.5-5.0) g/dL Crossmatch 08/18/17 08/18/17 08/18/17 Range/Units 21:00 22:11 23:43 RBC (4.30-5.90) m/uL Hgb (13.0-17.5) gm/dL Hct (39.0-53.0) % RDW (11.5-15.5) % Neutrophils # (1.3-7.7) k/uL Lymphocytes # (1.0-4.8) k/uL APTT (22.0-30.0) sec ABG pH (7.35-7.45) ABG pO2 (83-108) mmHg ABG HCO3 (21-25) mmol/L ABG O2 Saturation (94-97) % Potassium 5.4 H (3.5-5.1) mmol/L Chloride 111 H (98-107) mmol/L Carbon Dioxide 21 L (22-30) mmol/L BUN 35 H (9-20) mg/dL Creatinine 1.36 H (0.66-1.25) mg/dL Glucose 136 H (74-99) mg/dL POC Glucose (mg/dL) 131 H 131 H (75-99) mg/dL Calcium (8.4-10.2) mg/dL Phosphorus 5.0 H (2.5-4.5) mg/dL Magnesium 3.6 H (1.6-2.3) mg/dL Alkaline Phosphatase (38-126) U/L Total Protein (6.3-8.2) g/dL Albumin (3.5-5.0) g/dL Crossmatch 08/19/17 08/19/17 08/19/17 Range/Units 02:06 04:21 06:00 RBC 3.63 L (4.30-5.90) m/uL Hgb 9.5 L (13.0-17.5) gm/dL Hct 30.1 L (39.0-53.0) % RDW 15.6 H (11.5-15.5) % Neutrophils # 7.9 H (1.3-7.7) k/uL Lymphocytes # 0.9 L (1.0-4.8) k/uL APTT (22.0-30.0) sec ABG pH (7.35-7.45) ABG pO2 (83-108) mmHg ABG HCO3 (21-25) mmol/L ABG O2 Saturation (94-97) % Potassium (3.5-5.1) mmol/L Chloride (98-107) mmol/L Carbon Dioxide (22-30) mmol/L BUN (9-20) mg/dL Creatinine (0.66-1.25) mg/dL Glucose (74-99) mg/dL POC Glucose (mg/dL) 106 H 116 H (75-99) mg/dL Calcium (8.4-10.2) mg/dL Phosphorus (2.5-4.5) mg/dL Magnesium (1.6-2.3) mg/dL Alkaline Phosphatase (38-126) U/L Total Protein (6.3-8.2) g/dL Albumin (3.5-5.0) g/dL Crossmatch 08/19/17 08/19/17 08/19/17 Range/Units 06:00 06:12 07:11 RBC (4.30-5.90) m/uL Hgb (13.0-17.5) gm/dL Hct (39.0-53.0) % RDW (11.5-15.5) % Neutrophils # (1.3-7.7) k/uL Lymphocytes # (1.0-4.8) k/uL APTT (22.0-30.0) sec ABG pH (7.35-7.45) ABG pO2 (83-108) mmHg ABG HCO3 (21-25) mmol/L ABG O2 Saturation (94-97) % Potassium (3.5-5.1) mmol/L Chloride 114 H (98-107) mmol/L Carbon Dioxide 19 L (22-30) mmol/L BUN 32 H (9-20) mg/dL Creatinine 1.30 H (0.66-1.25) mg/dL Glucose 136 H (74-99) mg/dL POC Glucose (mg/dL) 144 H 157 H (75-99) mg/dL Calcium (8.4-10.2) mg/dL Phosphorus (2.5-4.5) mg/dL Magnesium 3.1 H (1.6-2.3) mg/dL Alkaline Phosphatase 34 L (38-126) U/L Total Protein 5.5 L (6.3-8.2) g/dL Albumin 3.2 L (3.5-5.0) g/dL Crossmatch 08/19/17 08/19/17 08/19/17 Range/Units 08:12 10:04 11:08 RBC (4.30-5.90) m/uL Hgb (13.0-17.5) gm/dL Hct (39.0-53.0) % RDW (11.5-15.5) % Neutrophils # (1.3-7.7) k/uL Lymphocytes # (1.0-4.8) k/uL APTT (22.0-30.0) sec ABG pH (7.35-7.45) ABG pO2 (83-108) mmHg ABG HCO3 (21-25) mmol/L ABG O2 Saturation (94-97) % Potassium (3.5-5.1) mmol/L Chloride (98-107) mmol/L Carbon Dioxide (22-30) mmol/L BUN (9-20) mg/dL Creatinine (0.66-1.25) mg/dL Glucose (74-99) mg/dL POC Glucose (mg/dL) 149 H 130 H 117 H (75-99) mg/dL Calcium (8.4-10.2) mg/dL Phosphorus (2.5-4.5) mg/dL Magnesium (1.6-2.3) mg/dL Alkaline Phosphatase (38-126) U/L Total Protein (6.3-8.2) g/dL Albumin (3.5-5.0) g/dL Crossmatch 08/19/17 Range/Units 12:46 RBC (4.30-5.90) m/uL Hgb (13.0-17.5) gm/dL Hct (39.0-53.0) % RDW (11.5-15.5) % Neutrophils # (1.3-7.7) k/uL Lymphocytes # (1.0-4.8) k/uL APTT (22.0-30.0) sec ABG pH (7.35-7.45) ABG pO2 (83-108) mmHg ABG HCO3 (21-25) mmol/L ABG O2 Saturation (94-97) % Potassium (3.5-5.1) mmol/L Chloride (98-107) mmol/L Carbon Dioxide (22-30) mmol/L BUN (9-20) mg/dL Creatinine (0.66-1.25) mg/dL Glucose (74-99) mg/dL POC Glucose (mg/dL) 126 H (75-99) mg/dL Calcium (8.4-10.2) mg/dL Phosphorus (2.5-4.5) mg/dL Magnesium (1.6-2.3) mg/dL Alkaline Phosphatase (38-126) U/L Total Protein (6.3-8.2) g/dL Albumin (3.5-5.0) g/dL Crossmatch Assessment and Plan Plan: Assessment 1 aortic valve replacement/mechanical valve and a two-vessel bypass surgery for severe bicuspid aortic valve stenosis and coronary artery disease. Patient is postop day #1 2 post thoracotomy 3 post surgical bilateral chest tubes involving the right and left and the patient also has a mediastinal chest tube. Output is still considerably high and will monitor the output. No evidence of any air leak and the patient has no evidence of pneumothorax on today's chest x-rays. 4 CAD 5 bicuspid aortic valve 6 hypertension currently still negative nitroglycerin drip for blood pressure control 7 hyperlipidemia 8 poorly controlled diabetes mellitus Plan Monitor the output from the chest tubes. Repeat chest x-ray in the morning. Encourage use of incentive spirometer and the patient is pulling only 500. Provide pain control. Monitor hemodynamics and wean off vent of nitroglycerin drip as tolerated. Continue aspirin and Plavix. Continue statins. Subcu heparin for DVT prophylaxis. Monitor hematologic profile. Ambulate. We'll continue to follow and keep the patient ICU for another 24 hours
[2017-08-19] MEDS: ATORVASTATIN 40 MG TAB PO SCH (13:53)
--- NOTE | 2017-08-19 13:57 | P.CRDCN ---
History of Present Illness Consult date: 08/19/17 Chief complaint: Status post open heart History of present illness: This is a pleasant 32-year-old gentleman who just underwent yesterday an elective aortic valve replacement using a bioprosthetic valve along with coronary artery bypass grafting 2 with LAY to LAD and SVG to PDA. He was admitted to the hospital a few weeks ago with congestive heart failure. He underwent an echocardiogram which showed severe cardiomyopathy. Subsequently he underwent a heart catheterization which showed severe to assess coronary artery disease involving the LAD and RCA. The OLMAN showed bicuspid aortic valve with evidence of severe aortic insufficiency. At that point the patient was diuresed very well and he was discharged from the hospital in stable medical condition and came to have the surgery yesterday. This is postoperative day #1. The patient was extubated last night. He continues to be hemodynamically stable. He continues to be in normal sinus mechanism. He has been making good urine. The patient is on aspirin, statin, and beta kendal. He is not on any Plavix at this point and we'll consider adding that in the next 24 hours. Past Medical History Past Medical History: Coronary Artery Disease (CAD), Heart Failure, Diabetes Mellitus, Hyperlipidemia, Hypertension, Liver Disease Additional Past Medical History / Comment(s): Systolic heart failure with ejection fraction of 2530 percent. Coronary artery disease. Severe aortic insufficiency. Uncontrolled type 2 diabetes, recently started on oral agents. Obesity History of Any Multi-Drug Resistant Organisms: None Reported Past Surgical History: Ear Surgery, Heart Catheterization, Tonsillectomy Additional Past Surgical History / Comment(s): Myringotomy tubes as a child Past Anesthesia/Blood Transfusion Reactions: No Reported Reaction Past Psychological History: Depression Smoking Status: Never smoker Past Alcohol Use History: None Reported Past Drug Use History: None Reported - Past Family History Father Family Medical History: Unable to Obtain Additional Family Medical History / Comment(s): PT WAS ADOPTED Mother Family Medical History: Unable to Obtain Additional Family Medical History / Comment(s): PT WAS ADOPTED Medications and Allergies Home Medications Medication Instructions Recorded Confirmed Type Atorvastatin [Lipitor] 20 mg PO HS 06/27/17 08/18/17 History Lisinopril [Prinivil] 20 mg PO DAILY 06/27/17 08/18/17 History Furosemide [Lasix] 40 mg PO DAILY #30 tablet 07/10/17 08/18/17 Rx Metoprolol Tartrate [Lopressor] 50 mg PO BID #60 tab 07/10/17 08/18/17 Rx glipiZIDE [Glucotrol] 10 mg PO AC-BID #60 tablet 07/10/17 08/18/17 Rx hydrALAZINE HCL [Apresoline] 25 mg PO BID #60 tab 07/10/17 08/18/17 Rx Aspirin [Adult Low Dose Aspirin EC] 324 mg PO ONCE 08/18/17 08/18/17 History Allergies Allergy/AdvReac Type Severity Reaction Status Date / Time No Known Allergies Allergy Verified 08/18/17 13:22 Physical Exam Vitals: Vital Signs Temp Pulse Resp Pulse Ox 08/19/17 09:00 87 17 99 08/19/17 08:00 84 14 100 08/19/17 07:00 88 19 97 08/19/17 06:00 93 24 96 08/19/17 05:00 83 21 99 08/19/17 04:00 79 24 100 08/19/17 03:00 80 15 100 08/19/17 02:00 72 13 100 08/19/17 01:00 79 14 100 08/19/17 00:00 78 16 100 08/18/17 23:00 79 18 100 08/18/17 22:00 81 18 100 08/18/17 21:00 80 18 100 08/18/17 20:00 83 22 100 08/18/17 19:00 98.8 F 81 19 100 08/18/17 18:59 98.8 F 08/18/17 18:30 85 99 08/18/17 18:29 98.8 F 83 20 99 08/18/17 18:28 84 100 08/18/17 18:27 84 99 08/18/17 18:26 86 99 08/18/17 18:25 85 99 08/18/17 18:24 83 100 08/18/17 18:23 84 100 08/18/17 18:22 84 100 08/18/17 18:00 98.8 F 84 100 08/18/17 17:00 98.4 F 90 23 100 08/18/17 16:00 97.2 F L 88 19 100 08/18/17 15:45 87 08/18/17 15:30 86 100 08/18/17 15:15 83 100 08/18/17 15:13 83 08/18/17 15:00 96 F L 82 100 08/18/17 14:45 95.7 F L 77 12 08/18/17 14:34 95.7 F L 08/18/17 14:30 95.7 F L 66 12 08/18/17 14:15 95.7 F L 71 28 H 100 Intake and Output 08/18/17 08/19/17 08/19/17 22:59 06:59 14:59 Intake Total 1465.533 796.960 314.5 Output Total 1650 1357 787 Balance -184.467 -560.040 -472.5 Intake: IV 827.5 776.0 214.5 ACETAMINOPHEN IV (For NPO 200 ) 1,000 mg In Empty Bag 1 bag @ 400 mls/hr IVPB Q6HR [place] Rx#:[id number] Ancef 100 Bolus CO/CI 160 40 10 LR 250 Lactated Ringers 1,000 ml 150 400 200 @ 20 mls/hr IV .Q24H [place] Rx#:[id number] Nitroglycerin-D5w Pmx 50 4.5 12.0 1.5 mg In Dextrose/Water 1 250ml.bag @ 5 MCG/MIN 1.5 mls/hr IV .Q24H [place] Rx#: [id number] Pressure Bag NS 63 24 3 Tylenol 100 ceFAZolin 2,000 mg In 100 Sodium Chloride 0.9% 30 ml @ Per Protocol IVPB ONCE ONE Rx#:[id number] Intake, IV Titration 573.033 20.960 100 Amount Albumin Human 5% 250 ml 500 In Empty Bag 1 bag @ 250 mls/hr IVPB ONCE ONE Rx#: [id number] Clevidipine Butyrate 25 2.900 mg In Empty Bag 1 bag @ 1 MG/HR 2 mls/hr IV .Q24H [place] Rx#:[id number] EPINEPHrine 2 mg In 17.010 8.064 Dextrose 5% in Water 250 ml @ 1 MCG/MIN 7.56 mls/ hr IV .Q24H [place] Rx#: [id number] Insulin Regular 100 unit 17.378 9.996 In Sodium Chloride 0.9% 100 ml @ Per Protocol IV .Q0M [place] Rx#:[id number] Propofol 1,000 mg In 100 38.645 ml @ Titrate IV .Q0M [place] Rx#:[id number] ceFAZolin 2 gm In Sodium 100 Chloride 0.9% 100 ml @ 100 mls/hr IVPB Q8HR [place] Rx#:[id number] Tube Feeding 45 Other 20 Output: Chest Tube Drainage 920 580 340 Chest Tube Bilateral 560 410 240 Lateral Chest Chest Tube Mediastinal 360 170 100 Drainage 0 20 Left Calf 0 20 Urine 730 757 447 Other: Voiding Method Indwelling Catheter Indwelling Catheter Indwelling Catheter Weight 92.7 kg 92.7 kg Patient Weight 08/20/17 06:59 Weight 92.7 kg ABP, PAP, CO, CI - Last 8 Hours Arterial Blood Pressure 122/73 Arterial Blood Pressure 121/67 Arterial Blood Pressure 108/60 Arterial Blood Pressure 131/67 Pulmonary Artery Pressure 18/9 Pulmonary Artery Pressure 18/8 Pulmonary Artery Pressure 18/7 Pulmonary Artery Pressure 25/15 Cardiac Output 6.1 Cardiac Output 5.6 Cardiac Index 3.1 - Constitutional General appearance: no acute distress - Respiratory Respiratory: bilateral: diminished - Cardiovascular Rhythm: regular Heart sounds: normal: S1, S2 Results 08/19/17 06:00 08/19/17 06:00 Cardiac Enzymes 08/18/17 08/19/17 Range/Units 13:34 06:00 AST 23 34 (17-59) U/L Coagulation 08/18/17 08/18/17 08/19/17 Range/Units 13:34 21:00 06:00 PT 11.3 10.7 11.2 (9.0-12.0) sec APTT 36.6 H 26.9 (22.0-30.0) sec CBC 08/18/17 08/18/17 08/18/17 Range/Units 13:34 17:33 21:00 WBC 8.1 9.1 8.6 (3.8-10.6) k/uL RBC 3.48 L 3.49 L 3.47 L (4.30-5.90) m/uL Hgb 9.3 L D 9.2 L 9.2 L (13.0-17.5) gm/dL Hct 29.0 L 28.7 L 29.0 L (39.0-53.0) % Plt Count 180 176 187 (150-450) k/uL 08/19/17 Range/Units 06:00 WBC 9.5 (3.8-10.6) k/uL RBC 3.63 L (4.30-5.90) m/uL Hgb 9.5 L (13.0-17.5) gm/dL Hct 30.1 L (39.0-53.0) % Plt Count 194 (150-450) k/uL Comprehensive Metabolic Panel 08/18/17 08/18/17 08/18/17 Range/Units 13:34 18:11 21:00 Sodium 140 141 (137-145) mmol/L Potassium 3.8 4.9 5.4 H (3.5-5.1) mmol/L Chloride 111 H 111 H (98-107) mmol/L Carbon Dioxide 23 21 L (22-30) mmol/L BUN 34 H 35 H (9-20) mg/dL Creatinine 1.25 1.36 H (0.66-1.25) mg/dL Glucose 132 H 136 H (74-99) mg/dL Calcium 8.3 L 8.6 (8.4-10.2) mg/dL AST 23 (17-59) U/L ALT 22 (21-72) U/L Alkaline Phosphatase 29 L (38-126) U/L Total Protein 4.7 L (6.3-8.2) g/dL Albumin 2.7 L (3.5-5.0) g/dL 08/19/17 Range/Units 06:00 Sodium 142 (137-145) mmol/L Potassium 4.9 (3.5-5.1) mmol/L Chloride 114 H (98-107) mmol/L Carbon Dioxide 19 L (22-30) mmol/L BUN 32 H (9-20) mg/dL Creatinine 1.30 H (0.66-1.25) mg/dL Glucose 136 H (74-99) mg/dL Calcium 8.7 (8.4-10.2) mg/dL AST 34 (17-59) U/L ALT 21 (21-72) U/L Alkaline Phosphatase 34 L (38-126) U/L Total Protein 5.5 L (6.3-8.2) g/dL Albumin 3.2 L (3.5-5.0) g/dL Current Medications Generic Name Dose Route Start Last Admin Trade Name Freq PRN Reason Stop Dose Admin Hydrocodone Bitart/Acetaminophen 2 each 08/19/17 13:11 [place] 5-325 PO Q4HR PRN Severe Pain Hydrocodone Bitart/Acetaminophen 1 each 08/19/17 13:11 [place] 5-325 PO Q4HR PRN Moderate Pain Albuterol/Ipratropium 3 ml 08/19/17 13:12 Duoneb 0.5 Mg-3 Mg/3 Ml Soln INHALATION RT-Q2H PRN Shortness Of Breath Or Wheezing Aspirin 325 mg 08/19/17 09:00 08/19/17 08:21 Aspirin PO 325 mg DAILY [place] Administration Atorvastatin Calcium 40 mg 08/19/17 13:11 Lipitor PO DAILY [place] Bisacodyl 10 mg 08/19/17 13:12 Dulcolax RECTAL DAILY PRN Constipation Heparin Sodium (Porcine) 5,000 unit 08/19/17 00:00 08/19/17 08:21 Heparin SQ 5,000 unit Q8HR [place] Administration Acetaminophen 1,000 mg/ IV 100 mls @ 400 mls/hr 08/18/17 18:00 08/19/17 06:45 Solution IVPB 08/19/17 18:01 400 mls/hr Q6HR [place] Administration Albumin Human 250 ml/ IV 250 mls @ 250 mls/hr 08/18/17 13:34 08/18/17 15:31 Solution IVPB 08/20/17 13:35 250 mls/hr Q1HR PRN Administration For Volume Clevidipine 25 mg/ IV Solution 50 mls @ 2 mls/hr 08/18/17 13:34 08/19/17 05: 17 IV 4 mg/hr .Q24H [place] 8 mls/hr Protocol Titration 1 MG/HR Insulin Human Regular 100 unit 101 mls @ 0 mls/hr 08/18/17 13:34 08/19/17 06: 13 / Sodium Chloride IV 2 unit/hr .Q0M [place] 2.02 mls/hr Protocol Titration Per Protocol Lactated Ringer's 1,000 mls @ 20 mls/hr 08/18/17 13:34 08/18/17 14:30 Lactated Ringers IV 50 mls/hr .Q24H [place] Administration Magnesium Hydroxide 2,400 mg 08/19/17 13:12 Milk Of Magnesia PO BID PRN Constipation Metoclopramide HCl 10 mg 08/18/17 13:34 08/18/17 23:32 Reglan IVP 10 mg Q4H PRN Administration Nausea And Vomiting Metoprolol Tartrate 12.5 mg 08/19/17 13:11 08/19/17 08:20 Lopressor PO 12.5 mg BID [place] Administration Miscellaneous Information 1 each 08/18/17 13:34 Magnesium Per Protocol MISCELLANE DAILY PRN Per Protocol Protocol Miscellaneous Information 1 each 08/18/17 13:34 Phosphorus Per Protocol MISCELLANE DAILY PRN Per Protocol Protocol Miscellaneous Information 1 each 08/18/17 13:34 Potassium Per Protocol MISCELLANE DAILY PRN Per Protocol Protocol Morphine Sulfate 2 mg 08/18/17 13:34 08/19/17 10:10 Morphine Sulfate (Inj) IVP 2 mg Q2H PRN Administration Severe Pain Mupirocin 1 applic 08/18/17 21:00 08/19/17 08:22 Bactroban Oint NASAL 08/21/17 21:01 1 applic BID [place] Administration Ondansetron HCl 4 mg 08/18/17 13:34 08/19/17 10:10 Zofran IVP 4 mg Q6HR PRN Administration Nausea And Vomiting Pantoprazole Sodium 40 mg 08/20/17 07:30 Protonix PO AC-BRKFST [place] Senna/Docusate Sodium 2 each 08/19/17 21:00 Senokot-S PO HS [facility] Sodium Chloride 10 ml 08/18/17 21:00 08/19/17 09:34 Saline Flush IV Not Given BID [facility] Intake and Output 08/18/17 08/19/17 08/19/17 22:59 06:59 14:59 Intake Total 1465.533 796.960 314.5 Output Total 1650 1357 787 Balance -184.467 -560.040 -472.5 Intake: IV 827.5 776.0 214.5 ACETAMINOPHEN IV (For NPO 200 ) 1,000 mg In Empty Bag 1 bag @ 400 mls/hr IVPB Q6HR [facility] Rx#:[id number] Ancef 100 Bolus CO/CI 160 40 10 LR 250 Lactated Ringers 1,000 ml 150 400 200 @ 20 mls/hr IV .Q24H [facility] Rx#:[id number] Nitroglycerin-D5w Pmx 50 4.5 12.0 1.5 mg In Dextrose/Water 1 250ml.bag @ 5 MCG/MIN 1.5 mls/hr IV .Q24H [place] Rx#: [id number] Pressure Bag NS 63 24 3 Tylenol 100 ceFAZolin 2,000 mg In 100 Sodium Chloride 0.9% 30 ml @ Per Protocol IVPB ONCE ONE Rx#:[id number] Intake, IV Titration 573.033 20.960 100 Amount Albumin Human 5% 250 ml 500 In Empty Bag 1 bag @ 250 mls/hr IVPB ONCE ONE Rx#: [id number] Clevidipine Butyrate 25 2.900 mg In Empty Bag 1 bag @ 1 MG/HR 2 mls/hr IV .Q24H [place] Rx#:[id number] EPINEPHrine 2 mg In 17.010 8.064 Dextrose 5% in Water 250 ml @ 1 MCG/MIN 7.56 mls/ hr IV .Q24H [place] Rx#: [id number] Insulin Regular 100 unit 17.378 9.996 In Sodium Chloride 0.9% 100 ml @ Per Protocol IV .Q0M [place] Rx#:[id number] Propofol 1,000 mg In 100 38.645 ml @ Titrate IV .Q0M [place] Rx#:[id number] ceFAZolin 2 gm In Sodium 100 Chloride 0.9% 100 ml @ 100 mls/hr IVPB Q8HR [place] Rx#:[id number] Tube Feeding 45 Other 20 Output: Chest Tube Drainage 920 580 340 Chest Tube Bilateral 560 410 240 Lateral Chest Chest Tube Mediastinal 360 170 100 Drainage 0 20 Left Calf 0 20 Urine 730 757 447 Other: Voiding Method Indwelling Catheter Indwelling Catheter Indwelling Catheter Weight 92.7 kg 92.7 kg Patient Weight 08/20/17 06:59 Weight 92.7 kg 08/19/17 06:00 08/19/17 06:00 Assessment and Plan Plan: This is a pleasant 32-year-old gentleman was known severe cardiomyopathy, severe underlying CAD, and severe aortic insufficiency with bicuspid aortic valve was admitted to the hospital yesterday and underwent aVR using bioprosthetic valve along was CABG 2. The patient was extubated yesterday. He is in sinus mechanism. Hemodynamically he continues to be stable. He is on aspirin, statin, beta kendal.
[2017-08-19 14:18] LABS: Glucose,Whole Blood 115 mg/dL (75-99)
[2017-08-19 15:49] LABS: Glucose,Whole Blood 110 mg/dL (75-99)
[2017-08-19 17:56] LABS: Glucose,Whole Blood 100 mg/dL (75-99)
[2017-08-19] MEDS: LACTATED RINGERS 1,000 ML IV SCH (18:45)
[2017-08-19 20:40] LABS: Hemoglobin A1C 6.7 % (4.2-6.1)
[2017-08-19] MEDS: HYDROcodone/APAP 5-325MG 1 EACH TAB PO PRN (21:35)
[2017-08-19] MEDS: INSULIN LISPRO (humaLOG) 300 UNIT/3 ML VIAL SQ SCH (22:06)
[2017-08-19] MEDS: SENNOSIDES-DOCUSATE SODIUM 1 EACH TAB PO SCH (22:06)
[2017-08-19 22:07] LABS: Glucose,Whole Blood 122 mg/dL (75-99)
[2017-08-20] MEDS: HEPARIN SODIUM,PORCINE 5,000 UNIT/ML 1 ML VIAL SQ SCH ×4 (00:38→22:59)
[2017-08-20] MEDS: HYDROcodone/APAP 5-325MG 1 EACH TAB PO PRN ×2 (04:20→21:15)
[2017-08-20 04:47] LABS: Basophils % (A) 0 %; CH 25.9; CHCM 30.3; Eosinophils # (A) 0.1 k/uL (0-0.7); Eosinophils % (A) 1 %; HCT 28.6 % (39.0-53.0); HDW 2.72; HGB 8.9 gm/dL (13.0-17.5); Hypochromasia Moderate; Luc # (Auto) 0.09; Luc % (Auto) 1; Lymphocytes # (A) 0.9 k/uL (1.0-4.8); Lymphocytes % (A) 8 %; MCH 26.8 pg (25.0-35.0); MCHC 31.3 g/dL (31.0-37.0); MCV 85.6 fL (80.0-100.0); Mean Platelet Volume 7.7; Monocytes # (A) 0.6 k/uL (0-1.0); Monocytes % (A) 5 %; Neutrophils # (A) 9.1 k/uL (1.3-7.7); Neutrophils % (A) 85 %; RBC 3.33 m/uL (4.30-5.90); RDW 15.1 % (11.5-15.5); WBC 10.7 k/uL (3.8-10.6); WBC (Perox) 11.12
[2017-08-20 04:59] LABS: INR 1.1 (<1.2); Prothrombin Time 11.1 sec (9.0-12.0)
[2017-08-20 05:17] LABS: Ionized Calcium 5.2 mg/dL (4.5-5.3)
[2017-08-20 05:29] LABS: ALT 27 U/L (21-72); AST 30 U/L (17-59); Alkaline Phosphatase 50 U/L (38-126); Anion Gap 8 mmol/L; Blood Urea Nitrogen 33 mg/dL (9-20); Carbon Dioxide 22 mmol/L (22-30); Chloride 108 mmol/L (98-107); Glucose 131 mg/dL (74-99); Magnesium 2.5 mg/dL (1.6-2.3); Non-African American GFR(MDRD) >60 (>60 ml/min/1.73 sqM); Potassium 5.3 mmol/L (3.5-5.1); Sodium 138 mmol/L (137-145); Total Bilirubin 0.9 mg/dL (0.2-1.3); Total Protein 5.4 g/dL (6.3-8.2)
--- NOTE | 2017-08-20 07:00 | XR ---
EXAMINATION TYPE: XR chest 1V portable DATE OF EXAM: 08/20/2017 HISTORY: Post Operative Cardiac Surgery. REFERENCE: Previous study dated 08/19/2017. FINDINGS: There has been a midline sternotomy. The patient [place] catheter is been removed. Both p leural drains remain in place. The heart is enlarged. There is left basilar airspace disease. There is a small left effusion. No def inite pneumothorax is seen. IMPRESSION: CONTINUING POSTOPERATIVE CHANGE.
[2017-08-20 07:15] LABS: Glucose,Whole Blood 181 mg/dL (75-99)
[2017-08-20] MEDS: INSULIN LISPRO (humaLOG) 300 UNIT/3 ML VIAL SQ SCH ×4 (08:22→21:06)
[2017-08-20] MEDS: METOPROLOL TARTRATE 25 MG TAB PO SCH ×2 (08:22→21:06)
[2017-08-20] MEDS: ATORVASTATIN 40 MG TAB PO SCH (08:22)
[2017-08-20] MEDS: ASPIRIN 325 MG TAB PO SCH (08:22)
[2017-08-20] MEDS: PANTOPRAZOLE 40 MG TABLET PO SCH (08:23)
[2017-08-20] MEDS: MUPIROCIN 2% OINT 22 GM TUBE NASAL SCH ×2 (08:23→21:06)
--- NOTE | 2017-08-20 08:38 | P.PN ---
Subjective Principal diagnosis: Severe aortic valvular insufficiency with bicuspid aortic valve, coronary artery disease, chronic systolic congestive heart failure. History of ischemic cardiomyopathy with ejection fraction 25-30%. History of hypertension, hyperlipidemia, uncontrolled diabetes mellitus with hemoglobin A1c 9.1%. Obesity. History of hepatitis C. POD #2 elective aortic valve replacement with 25 mm On-X valve, coronary artery bypass surgery with left internal mammary artery to the left anterior descending artery and greater saphenous vein graft to the posterior descending artery, exclusion of left atrial appendage with 35 mm Atriclip, endovascular vein harvest of the left greater saphenous vein, epi-aortic ultrasonography, intraoperative transesophageal echocardiogram by anesthesia. Patient is currently sitting up in a recliner in no acute distress. States pain is better controlled. Only complaint is that he is tired. States he ambulated in the room yesterday. Objective - Vital Signs Vital signs: Vital Signs Temp 98.4 F 08/20/17 08:00 Pulse 101 H 08/20/17 08:00 Resp 30 H 08/20/17 08:00 BP 102/74 08/20/17 08:00 Pulse Ox 96 08/20/17 08:00 Intake & Output 08/19/17 08/20/17 08/20/17 18:59 06:59 18:59 Intake Total 824.5 623 313 Output Total 1522 1386 95 Balance -697.5 -763 218 Weight 92.7 kg 91.7 kg 91.7 kg Intake: IV 504.5 503 73 ACETAMINOPHEN IV (For NPO 100 ) 1,000 mg In Empty Bag 1 bag @ 400 mls/hr IVPB Q6HR [place] Rx#:[id number] Bolus CO/CI 10 Lactated Ringers 1,000 ml 390 470 70 @ 20 mls/hr IV .Q24H [place] Rx#:[id number] Nitroglycerin-D5w Pmx 50 1.5 mg In Dextrose/Water 1 250ml.bag @ 5 MCG/MIN 1.5 mls/hr IV .Q24H [place] Rx#: [id number] Pressure Bag NS 3 33 3 Intake, IV Titration 200 Amount ACETAMINOPHEN IV (For NPO 100 ) 1,000 mg In Empty Bag 1 bag @ 400 mls/hr IVPB Q6HR [place] Rx#:[id number] ceFAZolin 2 gm In Sodium 100 Chloride 0.9% 100 ml @ 100 mls/hr IVPB Q8HR [facility] Rx#:[id number] Oral 120 120 240 Output: Chest Tube Drainage 540 230 40 Chest Tube Bilateral 400 180 30 Lateral Chest Chest Tube Mediastinal 140 50 10 Drainage 0 5 Left Calf 0 5 Urine 982 1156 50 Other: Voiding Method Indwelling Catheter Indwelling Catheter ABP, PAP, CO, CI - Last Documented Arterial Blood Pressure 101/57 Pulmonary Artery Pressure 23/13 Cardiac Output 6.1 Cardiac Index 3.1 - Constitutional General appearance: Present: cooperative, no acute distress, obese - Respiratory Details: Lungs soundsbilaterally. Respirations even, nonlabored. Currently on room air with oxygen saturation 95%. Able to achieve 750 mL on his incentive spirometry. Weak cough. Right/left pleural chest tubes to -20 cm wall suction , 110 mL serosanguineous drainage overnight, 500 mL last 24 hours. Mediastinal chest tube to -20 cm wall suction, 30 mL serosanguineous drainage overnight, 150 mL last 24 hours. No air leaks present. Chest x-ray demonstrates small left pleural effusion, no pneumothorax, cardiomyopathy. - Cardiovascular Details: S1, S2 present. Positive click. Regular rate and rhythm, normal sinus rhythm on telemetry. Sternum stable. A/V epicardial pacemaker wires present, capped. Palpable pulses bilaterally. No edema present. Right internal jugular Cordis remains present. - Gastrointestinal Gastrointestinal Comment(s): Abdomen soft, nontender, nondistended. Active bowel sounds 4 quadrants. Positive flatus. Tolerating diet minimally. - Genitourinary Genitourinary Comment(s): Pickard present draining pink tinged urine, started after getting patient up to a recliner today. Output 15-45 mL/h overnight. Excellent diuresis yesterday after Lasix given. - Integumentary Integumentary Comment(s): Anterior chest incision well approximated and covered with dry intact dressing. Left lower extremity EVH site well approximated, JHON drain present with no output overnight. - Neurologic Neurologic: Present: CNII-XII intact - Musculoskeletal Musculoskeletal: Present: gait normal, strength equal bilaterally - Psychiatric Psychiatric: Present: A&O x's 3, appropriate affect, intact judgment & insight - Allied health notes Allied health notes reviewed: nursing - Labs CBC & Chem 7: 08/20/17 04:35 08/20/17 04:35 Labs: Abnormal Lab Results - Last 24 Hours (Table) 08/19/17 08/19/17 08/19/17 Range/Units 06:00 10:04 11:08 WBC (3.8-10.6) k/uL RBC (4.30-5.90) m/uL Hgb (13.0-17.5) gm/dL Hct (39.0-53.0) % Neutrophils # (1.3-7.7) k/uL Lymphocytes # (1.0-4.8) k/uL Potassium (3.5-5.1) mmol/L Chloride (98-107) mmol/L BUN (9-20) mg/dL Creatinine (0.66-1.25) mg/dL Glucose (74-99) mg/dL POC Glucose (mg/dL) 130 H 117 H (75-99) mg/dL Hemoglobin A1c 6.7 H (4.2-6.1) % Magnesium (1.6-2.3) mg/dL Total Protein (6.3-8.2) g/dL Albumin (3.5-5.0) g/dL 08/19/17 08/19/17 08/19/17 Range/Units 12:46 14:16 15:47 WBC (3.8-10.6) k/uL RBC (4.30-5.90) m/uL Hgb (13.0-17.5) gm/dL Hct (39.0-53.0) % Neutrophils # (1.3-7.7) k/uL Lymphocytes # (1.0-4.8) k/uL Potassium (3.5-5.1) mmol/L Chloride (98-107) mmol/L BUN (9-20) mg/dL Creatinine (0.66-1.25) mg/dL Glucose (74-99) mg/dL POC Glucose (mg/dL) 126 H 115 H 110 H (75-99) mg/dL Hemoglobin A1c (4.2-6.1) % Magnesium (1.6-2.3) mg/dL Total Protein (6.3-8.2) g/dL Albumin (3.5-5.0) g/dL 08/19/17 08/19/17 08/20/17 Range/Units 17:55 22:04 04:35 WBC (3.8-10.6) k/uL RBC (4.30-5.90) m/uL Hgb (13.0-17.5) gm/dL Hct (39.0-53.0) % Neutrophils # (1.3-7.7) k/uL Lymphocytes # (1.0-4.8) k/uL Potassium 5.3 H (3.5-5.1) mmol/L Chloride 108 H (98-107) mmol/L BUN 33 H (9-20) mg/dL Creatinine 1.30 H (0.66-1.25) mg/dL Glucose 131 H (74-99) mg/dL POC Glucose (mg/dL) 100 H 122 H (75-99) mg/dL Hemoglobin A1c (4.2-6.1) % Magnesium 2.5 H (1.6-2.3) mg/dL Total Protein 5.4 L (6.3-8.2) g/dL Albumin 3.0 L (3.5-5.0) g/dL 08/20/17 08/20/17 Range/Units 04:35 07:12 WBC 10.7 H (3.8-10.6) k/uL RBC 3.33 L (4.30-5.90) m/uL Hgb 8.9 L (13.0-17.5) gm/dL Hct 28.6 L (39.0-53.0) % Neutrophils # 9.1 H (1.3-7.7) k/uL Lymphocytes # 0.9 L (1.0-4.8) k/uL Potassium (3.5-5.1) mmol/L Chloride (98-107) mmol/L BUN (9-20) mg/dL Creatinine (0.66-1.25) mg/dL Glucose (74-99) mg/dL POC Glucose (mg/dL) 181 H (75-99) mg/dL Hemoglobin A1c (4.2-6.1) % Magnesium (1.6-2.3) mg/dL Total Protein (6.3-8.2) g/dL Albumin (3.5-5.0) g/dL - Imaging and Cardiology Chest x-ray: report reviewed, image reviewed Assessment and Plan (1) Aortic insufficiency due to bicuspid aortic valve Status: Acute (2) Chronic systolic heart failure Status: Acute (3) Coronary artery disease Status: Acute (4) Bicuspid aortic valve Status: Acute (5) HTN (hypertension) Status: Acute (6) Hyperlipidemia Status: Acute (7) Uncontrolled type 2 diabetes mellitus Status: Acute (8) Ischemic cardiomyopathy Status: Acute (9) Obesity (BMI 30.0-34.9) Status: Acute (10) Hepatitis C Status: Acute Plan: 1. Continue aspirin, statin, heparin subcu, beta kendal. Will maximize beta kendal therapy as tolerated. 2. Will irrigate Pickard. If clots/hematuria persists will leave Pickard in. Otherwise will discontinue Pickard today. 3. Likely will discontinue mediastinal chest tubes today. 4. Encourage incentive spirometry use. 5. Increase activity, ambulate in hallway. Physical therapy to follow. 6. GI/DVT prophylaxis. 7. Pain management with ordered pain medication. 8. Insulin management per primary care services. 9. Will monitor daily labs, chest x-rays. 10. Will start Coumadin with daily PT/INR. Goal INR for On-X valve to 2-2.5 for the first 3 months, then 1.4-1.8 thereafter. 11. Potentially may transfer to 6 E. selective care today. More recommendations as patient progresses.
[2017-08-20 11:35] LABS: Glucose,Whole Blood 155 mg/dL (75-99)
[2017-08-20] MEDS ORDERED: FUROSEMIDE 10 MG/ML 4 ML VIAL IV STA (12:26)
--- NOTE | 2017-08-20 12:54 | P.PN ---
Subjective This is a 32-year-old male status post elective aortic valve replacement with a mechanical valve, exclusion of left atrial appendage and myocardial revascularization with LAY to LAD and SVG to PDA. On 06/27/2017 patient presented to the emergency department with bilateral lower leg and abdominal edema, 50 pound weight gain over 2 months, cough and orthopnea. Patient's history includes hypertension, hyperlipidemia and diabetes mellitus for which treatments was recently started. Cardiac evaluation showed significant systolic heart failure with left ventricular dysfunction and an ejection fraction between 25- 30%. Transesophageal echocardiogram on 07/04/2017 showed a bicuspid aortic valve with fusion of the non-coronary and left coronary cusps. The mitral valve was mildly thickened with only mild mitral regurgitation and tricuspid valve with mild insufficiency. Cardiac catheterization on 07/19/2017 showed severe disease involving the ramus intermedius coronary artery, severe disease involving the mid to distal LAD and aortic insufficiency are 4+. Patient's heart failure was treated with IV Lasix , beta blockers and these inhibitors. During that hospitalization an incidental finding of chronic hepatitis C was made. Patient was seen by Dr. Cosby. Patient had no symptoms of chronic liver disease and had normal liver enzymes. Once his condition optimized, he was recommended to undergo an aortic valve replacement and myocardial revascularization. Pulmonary function tests FEV1 of 87%, patient's is a lifetime nonsmoker with no history of chronic pulmonary problems. Chest CT from 07/04/2017 showed cardiomegaly with small pericardial effusion, and bibasilar reticular nodular opacities possibly of infectious or inflammatory etiology. Patient is sedated on a mechanical ventilator with settings of assist control mode rate of 12, tidal volume 450, FiO2 of 100% and PEEP of 5. 2 mediastinal and right and left pleural chest tubes with 100 mL of sanguinous drainage. Patient did receive 1 unit of PRBC and 320 mL of Cell Saver intraoperatively. He is currently on the small amount of epinephrine at 1mcg/min, nitroglycerin at 5 mcg/min. and propofol at 25 mcg/ kg/min. estimated blood loss was 900 mL. Patient's intrinsic rhythm is sinus with a rate of 67 bpm. PA pressures 34/19, cardiac output 6.6/cardiac index of 3.4. Blood gas will be obtained and further adjustments to the ventilator settings will be made based upon the results. On 08/19/2017 the patient is being seen for a follow-up. The patient was weaned off the mechanical ventilated and was extubated blood any major difficulties. This morning it is awake and sitting up on a chair and is calm and comfortable. Thoracic surgical wound site is clean. Chest tubes are all in place. There is no evidence of any pneumothorax on today's chest x-ray in the lungs are well expanded. Surgical wound site is dry clean and intact. The patient briefly was placed on Cleviprex yesterday which was subsequently discontinued knowing that his blood pressure control improved. He is producing adequate amount of urine output. He is awake and alert and following commands and answering questions. He is using incentive spirometer. His pain is controlled for now. The patient is postop day #1 following an elective aortic valve replacement with a mechanical valve and two-vessel bypass surgery with LAY to LAD and saphenous vein graft to PDA. Note that the patient had a bicuspid aortic valve. He is still on a nitroglycerin drip at a low dose for blood pressure control.The patient has had 170 mL of serosanguineous drainage from the chest tubes overnight and 600 since surgery from the mediastinal chest tube and a total of 5 and 40 mL of serous drainage from the left and right pleural chest tubes which are connected. On 08/20/2017 the patient is being seen for a follow-up. The patient is sitting up on a chair. Has no specific complaints. The patient is postop day # 2. He will be started on a long-term articulation with warfarin today. The output from the Pickard catheterizations between 20-45 mL on an hourly basis. The JHON drain shows no output. The patient has put out approximately 500 mL of output from the chest tubes over the past 24 hours and this includes the right and the left pleural chest tubes. The mediastinal chest tube has put out only 150 mL over the past 24 hours in 30 mL's of serosanguineous drainage over the past 12 hours. Chest x-ray showed adequate expansion of both lungs. All of the chest tubes are in place. The patient remains hemodynamic is stable. He is on no antihypertensive drips. Nitroglycerin drip has been discontinued. He has no specific complaints. Awake. Alert. Communicating. Using incentive spirometer. Objective - Vital Signs Vital signs: Vital Signs Temp 98.4 F 08/20/17 08:00 Pulse 83 08/20/17 10:00 Resp 26 H 08/20/17 10:00 BP 105/73 08/20/17 10:00 Pulse Ox 96 08/20/17 10:00 Intake & Output 08/19/17 08/20/17 08/20/17 18:59 06:59 18:59 Intake Total 824.5 623 493 Output Total 1522 1386 365 Balance -697.5 -763 128 Weight 92.7 kg 91.7 kg 91.7 kg Intake: IV 504.5 503 133 ACETAMINOPHEN IV (For NPO 100 ) 1,000 mg In Empty Bag 1 bag @ 400 mls/hr IVPB Q6HR [facility] Rx#:[id number] Bolus CO/CI 10 Lactated Ringers 1,000 ml 390 470 130 @ 20 mls/hr IV .Q24H [facility] Rx#:[id number] Nitroglycerin-D5w Pmx 50 1.5 mg In Dextrose/Water 1 250ml.bag @ 5 MCG/MIN 1.5 mls/hr IV .Q24H [facility] Rx#: [id number] Pressure Bag NS 3 33 3 Intake, IV Titration 200 Amount ACETAMINOPHEN IV (For NPO 100 ) 1,000 mg In Empty Bag 1 bag @ 400 mls/hr IVPB Q6HR [facility] Rx#:[id number] ceFAZolin 2 gm In Sodium 100 Chloride 0.9% 100 ml @ 100 mls/hr IVPB Q8HR [facility] Rx#:[id number] Oral 120 120 360 Output: Chest Tube Drainage 540 230 110 Chest Tube Bilateral 400 180 80 Lateral Chest Chest Tube Mediastinal 140 50 30 Drainage 0 5 Left Calf 0 5 Urine 982 1156 250 Other: Voiding Method Indwelling Catheter Indwelling Catheter Urinal # Voids 0 ABP, PAP, CO, CI - Last Documented Arterial Blood Pressure 101/57 Pulmonary Artery Pressure 23/13 Cardiac Output 6.1 Cardiac Index 3.1 - Exam General appearance: Present: cooperative, no acute distress, obese - Respiratory Details: Lungs soundsbilaterally. Respirations even, nonlabored. Currently on room air with oxygen saturation 95%. Able to achieve 750 mL on his incentive spirometry. Weak cough. Right/left pleural chest tubes to -20 cm wall suction , 110 mL serosanguineous drainage overnight, 500 mL last 24 hours. Mediastinal chest tube to -20 cm wall suction, 30 mL serosanguineous drainage overnight, 150 mL last 24 hours. No air leaks present. Chest x-ray demonstrates small left pleural effusion, no pneumothorax, cardiomyopathy. - Cardiovascular Details: S1, S2 present. Positive click. Regular rate and rhythm, normal sinus rhythm on telemetry. Sternum stable. A/V epicardial pacemaker wires present, capped. Palpable pulses bilaterally. No edema present. Right internal jugular Cordis remains present. - Gastrointestinal Gastrointestinal Comment(s): Abdomen soft, nontender, nondistended. Active bowel sounds 4 quadrants. Positive flatus. Tolerating diet minimally. - Genitourinary Genitourinary Comment(s): Pickard present draining pink tinged urine, started after getting patient up to a recliner today. Output 15-45 mL/h overnight. Excellent diuresis yesterday after Lasix given. - Integumentary Integumentary Comment(s): Anterior chest incision well approximated and covered with dry intact dressing. Left lower extremity EVH site well approximated, JHON drain present with no output overnight. - Neurologic Neurologic: Present: CNII-XII intact - Musculoskeletal Musculoskeletal: Present: gait normal, strength equal bilaterally - Psychiatric Psychiatric: Present: A&O x's 3, appropriate affect, intact judgment & insight - Allied health notes Allied health notes reviewed: nursing - Labs CBC & Chem 7: 08/20/17 04:35 08/20/17 04:35 Labs: Abnormal Lab Results - Last 24 Hours (Table) 08/19/17 08/19/17 08/19/17 Range/Units 06:00 12:46 14:16 WBC (3.8-10.6) k/uL RBC (4.30-5.90) m/uL Hgb (13.0-17.5) gm/dL Hct (39.0-53.0) % Neutrophils # (1.3-7.7) k/uL Lymphocytes # (1.0-4.8) k/uL Potassium (3.5-5.1) mmol/L Chloride (98-107) mmol/L BUN (9-20) mg/dL Creatinine (0.66-1.25) mg/dL Glucose (74-99) mg/dL POC Glucose (mg/dL) 126 H 115 H (75-99) mg/dL Hemoglobin A1c 6.7 H (4.2-6.1) % Magnesium (1.6-2.3) mg/dL Total Protein (6.3-8.2) g/dL Albumin (3.5-5.0) g/dL 08/19/17 08/19/17 08/19/17 Range/Units 15:47 17:55 22:04 WBC (3.8-10.6) k/uL RBC (4.30-5.90) m/uL Hgb (13.0-17.5) gm/dL Hct (39.0-53.0) % Neutrophils # (1.3-7.7) k/uL Lymphocytes # (1.0-4.8) k/uL Potassium (3.5-5.1) mmol/L Chloride (98-107) mmol/L BUN (9-20) mg/dL Creatinine (0.66-1.25) mg/dL Glucose (74-99) mg/dL POC Glucose (mg/dL) 110 H 100 H 122 H (75-99) mg/dL Hemoglobin A1c (4.2-6.1) % Magnesium (1.6-2.3) mg/dL Total Protein (6.3-8.2) g/dL Albumin (3.5-5.0) g/dL 08/20/17 08/20/17 08/20/17 Range/Units 04:35 04:35 07:12 WBC 10.7 H (3.8-10.6) k/uL RBC 3.33 L (4.30-5.90) m/uL Hgb 8.9 L (13.0-17.5) gm/dL Hct 28.6 L (39.0-53.0) % Neutrophils # 9.1 H (1.3-7.7) k/uL Lymphocytes # 0.9 L (1.0-4.8) k/uL Potassium 5.3 H (3.5-5.1) mmol/L Chloride 108 H (98-107) mmol/L BUN 33 H (9-20) mg/dL Creatinine 1.30 H (0.66-1.25) mg/dL Glucose 131 H (74-99) mg/dL POC Glucose (mg/dL) 181 H (75-99) mg/dL Hemoglobin A1c (4.2-6.1) % Magnesium 2.5 H (1.6-2.3) mg/dL Total Protein 5.4 L (6.3-8.2) g/dL Albumin 3.0 L (3.5-5.0) g/dL 08/20/17 Range/Units 11:33 WBC (3.8-10.6) k/uL RBC (4.30-5.90) m/uL Hgb (13.0-17.5) gm/dL Hct (39.0-53.0) % Neutrophils # (1.3-7.7) k/uL Lymphocytes # (1.0-4.8) k/uL Potassium (3.5-5.1) mmol/L Chloride (98-107) mmol/L BUN (9-20) mg/dL Creatinine (0.66-1.25) mg/dL Glucose (74-99) mg/dL POC Glucose (mg/dL) 155 H (75-99) mg/dL Hemoglobin A1c (4.2-6.1) % Magnesium (1.6-2.3) mg/dL Total Protein (6.3-8.2) g/dL Albumin (3.5-5.0) g/dL Assessment and Plan Plan: Assessment 1 aortic valve replacement/mechanical valve and a two-vessel bypass surgery for severe bicuspid aortic valve stenosis and coronary artery disease. Patient is postop day #2 2 post thoracotomy 3 post surgical bilateral chest tubes involving the right and left and the patient also has a mediastinal chest tube. Output is still considerably high and will monitor the output. No evidence of any air leak and the patient has no evidence of pneumothorax on today's chest x-rays. 4 CAD 5 bicuspid aortic valve 6 hypertension currently still negative nitroglycerin drip for blood pressure control 7 hyperlipidemia 8 poorly controlled diabetes mellitus Plan Monitor the output from the chest tubes. The chest x-ray from today was reviewed. We'll remove the mediastinal chest tube if the surgeons are agreeable. Keep the right and the left pleural chest tubes in place and separate them. Monitored output. Initiate anticoagulation with warfarin today. Use incentive spirometer. We'll continue to follow. He'll be kept in ICU for 24 hours , the insulin drip has been discontinued and the patient is currently on a study scale coverage.
--- NOTE | 2017-08-20 14:04 | P.PN ---
Subjective Principal diagnosis: Status post open heart This is a pleasant 32-year-old gentleman who just underwent yesterday an elective aortic valve replacement using a mechanical valve along with coronary artery bypass grafting 2 with LAY to LAD and SVG to PDA. He was admitted to the hospital a few weeks ago with congestive heart failure. He underwent an echocardiogram which showed severe cardiomyopathy. Subsequently he underwent a heart catheterization which showed severe to assess coronary artery disease involving the LAD and RCA. The [facility] showed bicuspid aortic valve with evidence of severe aortic insufficiency. At that point the patient was diuresed very well and he was discharged from the hospital in stable medical condition and came to have the surgery yesterday. This is postoperative day #2. He continues to be hemodynamically stable. He continues to be in normal sinus mechanism. The patient is on aspirin, statin, and beta knedal. Coumadin will be started later on today. Objective - Vital Signs Vital signs: Vital Signs Temp 98.4 F 08/20/17 08:00 Pulse 83 08/20/17 10:00 Resp 26 H 08/20/17 10:00 BP 105/73 08/20/17 10:00 Pulse Ox 96 08/20/17 10:00 Intake & Output 08/19/17 08/20/17 08/20/17 18:59 06:59 18:59 Intake Total 824.5 623 493 Output Total 1522 1386 365 Balance -697.5 -763 128 Weight 92.7 kg 91.7 kg 91.7 kg Intake: IV 504.5 503 133 ACETAMINOPHEN IV (For NPO 100 ) 1,000 mg In Empty Bag 1 bag @ 400 mls/hr IVPB Q6HR [facility] Rx#:[id number] Bolus CO/CI 10 Lactated Ringers 1,000 ml 390 470 130 @ 20 mls/hr IV .Q24H [facility] Rx#:[id number] Nitroglycerin-D5w Pmx 50 1.5 mg In Dextrose/Water 1 250ml.bag @ 5 MCG/MIN 1.5 mls/hr IV .Q24H [facility] Rx#: [id number] Pressure Bag NS 3 33 3 Intake, IV Titration 200 Amount ACETAMINOPHEN IV (For NPO 100 ) 1,000 mg In Empty Bag 1 bag @ 400 mls/hr IVPB Q6HR [place] Rx#:[id number] ceFAZolin 2 gm In Sodium 100 Chloride 0.9% 100 ml @ 100 mls/hr IVPB Q8HR [facility] Rx#:[id number] Oral 120 120 360 Output: Chest Tube Drainage 540 230 110 Chest Tube Bilateral 400 180 80 Lateral Chest Chest Tube Mediastinal 140 50 30 Drainage 0 5 Left Calf 0 5 Urine 982 1156 250 Other: Voiding Method Indwelling Catheter Indwelling Catheter Urinal # Voids 0 ABP, PAP, CO, CI - Last Documented Arterial Blood Pressure 101/57 Pulmonary Artery Pressure 23/13 Cardiac Output 6.1 Cardiac Index 3.1 - Constitutional General appearance: Present: no acute distress - Cardiovascular Rhythm: regular - Labs CBC & Chem 7: 08/20/17 04:35 08/20/17 04:35 Labs: Abnormal Lab Results - Last 24 Hours (Table) 08/19/17 08/19/17 08/19/17 Range/Units 06:00 14:16 15:47 WBC (3.8-10.6) k/uL RBC (4.30-5.90) m/uL Hgb (13.0-17.5) gm/dL Hct (39.0-53.0) % Neutrophils # (1.3-7.7) k/uL Lymphocytes # (1.0-4.8) k/uL Potassium (3.5-5.1) mmol/L Chloride (98-107) mmol/L BUN (9-20) mg/dL Creatinine (0.66-1.25) mg/dL Glucose (74-99) mg/dL POC Glucose (mg/dL) 115 H 110 H (75-99) mg/dL Hemoglobin A1c 6.7 H (4.2-6.1) % Magnesium (1.6-2.3) mg/dL Total Protein (6.3-8.2) g/dL Albumin (3.5-5.0) g/dL 08/19/17 08/19/17 08/20/17 Range/Units 17:55 22:04 04:35 WBC (3.8-10.6) k/uL RBC (4.30-5.90) m/uL Hgb (13.0-17.5) gm/dL Hct (39.0-53.0) % Neutrophils # (1.3-7.7) k/uL Lymphocytes # (1.0-4.8) k/uL Potassium 5.3 H (3.5-5.1) mmol/L Chloride 108 H (98-107) mmol/L BUN 33 H (9-20) mg/dL Creatinine 1.30 H (0.66-1.25) mg/dL Glucose 131 H (74-99) mg/dL POC Glucose (mg/dL) 100 H 122 H (75-99) mg/dL Hemoglobin A1c (4.2-6.1) % Magnesium 2.5 H (1.6-2.3) mg/dL Total Protein 5.4 L (6.3-8.2) g/dL Albumin 3.0 L (3.5-5.0) g/dL 08/20/17 08/20/17 08/20/17 Range/Units 04:35 07:12 11:33 WBC 10.7 H (3.8-10.6) k/uL RBC 3.33 L (4.30-5.90) m/uL Hgb 8.9 L (13.0-17.5) gm/dL Hct 28.6 L (39.0-53.0) % Neutrophils # 9.1 H (1.3-7.7) k/uL Lymphocytes # 0.9 L (1.0-4.8) k/uL Potassium (3.5-5.1) mmol/L Chloride (98-107) mmol/L BUN (9-20) mg/dL Creatinine (0.66-1.25) mg/dL Glucose (74-99) mg/dL POC Glucose (mg/dL) 181 H 155 H (75-99) mg/dL Hemoglobin A1c (4.2-6.1) % Magnesium (1.6-2.3) mg/dL Total Protein (6.3-8.2) g/dL Albumin (3.5-5.0) g/dL Assessment and Plan Plan: This is a pleasant 32-year-old gentleman was known severe cardiomyopathy, severe underlying CAD, and severe aortic insufficiency with bicuspid aortic valve was admitted to the hospital yesterday and underwent aVR using mechanical valve along was CABG 2. The patient was extubated yesterday. He is in sinus mechanism. Hemodynamically he continues to be stable. He is on aspirin, statin, beta kendal. Coumadin will be started later on today.
[2017-08-20] MEDS: CLEVIDIPINE BUTYRATE 25 MG in EMPTY BAG 1 BAG IV SCH (16:51)
[2017-08-20] MEDS: LACTATED RINGERS 1,000 ML IV SCH (16:51)
[2017-08-20 17:52] LABS: Glucose,Whole Blood 164 mg/dL (75-99)
[2017-08-20] MEDS ORDERED: WARFARIN 5 MG TAB PO ONE (18:00)
[2017-08-20 21:05] LABS: Glucose,Whole Blood 234 mg/dL (75-99)
[2017-08-20] MEDS: SENNOSIDES-DOCUSATE SODIUM 1 EACH TAB PO SCH (21:13)
[2017-08-21 02:22] LABS: Glucose,Whole Blood 150 mg/dL (75-99)
[2017-08-21] MEDS: PANTOPRAZOLE 40 MG TABLET PO SCH (05:57)
[2017-08-21] MEDS: HYDROcodone/APAP 5-325MG 1 EACH TAB PO PRN ×3 (05:59→21:32)
[2017-08-21 06:16] LABS: CHCM 30.5; HCT 27.4 % (39.0-53.0); HGB 8.7 gm/dL (13.0-17.5); Hypochromasia Moderate; MCH 27.1 pg (25.0-35.0); MCHC 31.8 g/dL (31.0-37.0); MCV 85.3 fL (80.0-100.0); Mean Platelet Volume 6.8; RBC 3.21 m/uL (4.30-5.90); RDW 15.1 % (11.5-15.5); WBC 10.3 k/uL (3.8-10.6)
[2017-08-21 06:17] LABS: INR 1.3 (<1.2); Prothrombin Time 13.2 sec (9.0-12.0)
[2017-08-21 06:21] LABS: Glucose,Whole Blood 152 mg/dL (75-99)
[2017-08-21] MEDS: INSULIN LISPRO (humaLOG) 300 UNIT/3 ML VIAL SQ SCH ×4 (06:25→21:28)
[2017-08-21 06:29] LABS: Anion Gap 7 mmol/L; Carbon Dioxide 22 mmol/L (22-30); Chloride 107 mmol/L (98-107); Glucose 127 mg/dL (74-99); Non-African American GFR(MDRD) 59 (>60 ml/min/1.73 sqM); Sodium 136 mmol/L (137-145)
[2017-08-21 06:50] LABS: ALT 27 U/L (21-72); AST 28 U/L (17-59); Alkaline Phosphatase 40 U/L (38-126); Blood Urea Nitrogen 44 mg/dL (9-20); Potassium 5.6 mmol/L (3.5-5.1); Total Protein 5.6 g/dL (6.3-8.2)
[2017-08-21 07:40] LABS: ABG PCO2 34 mmHg (35-45)
[2017-08-21 07:41] LABS: ABG Base Excess -3.4 mmol/L; ABG HCO3 20 mmol/L (21-25); ABG Hematocrit 39 % (34.0-46.0); ABG PO2 >420 mmHg (83-108); ABG TCO2 21 mmol/L (19-24)
[2017-08-21 07:45] LABS: ABG Base Excess -3.9 mmol/L; ABG HCO3 20 mmol/L (21-25); ABG Hematocrit 37 % (34.0-46.0); ABG Oxygen Saturation 99.7 % (94-97); ABG PCO2 34 mmHg (35-45); ABG PH 7.39 (7.35-7.45); ABG PO2 196 mmHg (83-108); ABG TCO2 21 mmol/L (19-24)
[2017-08-21 07:46] LABS: ABG Base Excess -3.9 mmol/L; ABG HCO3 22 mmol/L (21-25); ABG Hematocrit 33 % (34.0-46.0); ABG Oxygen Saturation 99.9 % (94-97); ABG PCO2 44 mmHg (35-45); ABG PH 7.31 (7.35-7.45); ABG PO2 276 mmHg (83-108); ABG TCO2 23 mmol/L (19-24)
[2017-08-21 07:47] LABS: ABG HCO3 23 mmol/L (21-25); ABG PCO2 42 mmHg (35-45); ABG PH 7.36 (7.35-7.45); ABG PO2 271 mmHg (83-108)
[2017-08-21 07:48] LABS: ABG Base Excess -1.5 mmol/L; ABG Hematocrit 31 % (34.0-46.0); ABG Oxygen Saturation 99.9 % (94-97); ABG TCO2 25 mmol/L (19-24)
[2017-08-21 07:49] LABS: ABG Base Excess -1.9 mmol/L; ABG HCO3 22 mmol/L (21-25); ABG Hematocrit 30 % (34.0-46.0); ABG Oxygen Saturation 99.9 % (94-97); ABG PCO2 37 mmHg (35-45); ABG PH 7.39 (7.35-7.45); ABG PO2 286 mmHg (83-108); ABG TCO2 23 mmol/L (19-24)
[2017-08-21 07:50] LABS: ABG Base Excess -3.2 mmol/L; ABG HCO3 23 mmol/L (21-25); ABG Hematocrit 32 % (34.0-46.0); ABG Oxygen Saturation 99.9 % (94-97); ABG PCO2 50 mmHg (35-45); ABG PH 7.29 (7.35-7.45); ABG PO2 316 mmHg (83-108); ABG TCO2 25 mmol/L (19-24)
[2017-08-21 07:51] LABS: ABG Base Excess -3.4 mmol/L; ABG HCO3 21 mmol/L (21-25); ABG Hematocrit 30 % (34.0-46.0); ABG Oxygen Saturation 98.8 % (94-97); ABG PCO2 36 mmHg (35-45); ABG PH 7.38 (7.35-7.45); ABG PO2 127 mmHg (83-108); ABG TCO2 22 mmol/L (19-24)
--- NOTE | 2017-08-21 08:11 | P.PN ---
<Zena Cummings - Last Filed: 08/21/17 08:02> Subjective Principal diagnosis: Severe aortic valvular insufficiency with bicuspid aortic valve, coronary artery disease, chronic systolic congestive heart failure. History of ischemic cardiomyopathy with ejection fraction 25-30%. History of hypertension, hyperlipidemia, uncontrolled diabetes mellitus with hemoglobin A1c 9.1%. Obesity. History of hepatitis C. POD #3 elective aortic valve replacement with 25 mm On-X valve, coronary artery bypass surgery with left internal mammary artery to the left anterior descending artery and greater saphenous vein graft to the posterior descending artery, exclusion of left atrial appendage with 35 mm Atriclip, endovascular vein harvest of the left greater saphenous vein, epi-aortic ultrasonography, intraoperative transesophageal echocardiogram by anesthesia. Patient is currently sitting up in bed in no acute distress. States pain is better controlled. Mediastinal chest tubes, epicardial pacemaker wires, JHON drain, Cordis, Pickard discontinued yesterday. Patient transferred out of ICU to [address] [place] [address] yesterday. States he has ambulated in the room and out to the hallway. Objective - Vital Signs Vital signs: Vital Signs Temp 99 F 08/21/17 03:33 Pulse 89 08/21/17 03:33 Resp 16 08/21/17 03:33 BP 122/84 08/21/17 03:33 Pulse Ox 99 08/21/17 03:33 Intake & Output 08/20/17 08/21/17 08/21/17 18:59 06:59 18:59 Intake Total 853 20 Output Total 745 1200 Balance 108 -1180 Weight 87.1 kg 86.6 kg Intake: IV 133 20 0.9% NS FLUSH 20 Lactated Ringers 1,000 ml 130 @ 20 mls/hr IV .Q24H [facility] Rx#:[id number] Pressure Bag NS 3 Oral 720 Output: Chest Tube Drainage 290 100 Chest Tube Bilateral 230 100 Lateral Chest Chest Tube Mediastinal 60 Drainage 5 Left Calf 5 Urine 450 1100 Other: Voiding Method Toilet Toilet Urinal Urinal # Voids 1 1 # Bowel Movements 1 ABP, PAP, CO, CI - Last Documented Arterial Blood Pressure 101/57 Pulmonary Artery Pressure 23/13 Cardiac Output 6.1 Cardiac Index 3.1 - Constitutional General appearance: Present: cooperative, no acute distress - Respiratory Details: Lungs sounds diminished bilaterally. Respirations even, nonlabored. Currently on room air with oxygen saturation 99%. Able to achieve 1000 mL on his incentive spirometry. Weak cough. Right/left pleural chest tubes to -20 cm wall suction, 60 mL serosanguinous drainage overnight, 390 mL last 24 hours. Chest x-ray reviewed, good air exchange. - Cardiovascular Details: S1, S2 present. Positive click. Regular rate and rhythm, normal sinus rhythm on telemetry. Sternum stable. Heart hugger in place with patient demonstrating appropriate use. Palpable pulses bilaterally. No edema present. Teds/SCDs present. - Gastrointestinal Gastrointestinal Comment(s): Abdomen soft, nontender, nondistended. Active bowel sounds 4 quadrants. Tolerating diet. Positive bowel movement. - Genitourinary Genitourinary Comment(s): Continues to void clear, yellow urine after Pickard discontinuation yesterday. - Integumentary Integumentary Comment(s): Anterior chest incision well approximated, with dry intact dressing. Left lower extremity EVH site well approximated. - Neurologic Neurologic: Present: CNII-XII intact - Musculoskeletal Musculoskeletal: Present: gait normal, strength equal bilaterally - Psychiatric Psychiatric: Present: A&O x's 3, appropriate affect, intact judgment & insight - Allied health notes Allied health notes reviewed: nursing - Labs CBC & Chem 7: 08/21/17 05:44 08/21/17 05:44 Labs: Abnormal Lab Results - Last 24 Hours (Table) 08/18/17 08/18/17 08/18/17 Range/Units 08:29 10:02 10:48 RBC (4.30-5.90) m/uL Hgb (13.0-17.5) gm/dL Hct (39.0-53.0) % PT (9.0-12.0) sec INR (<1.2) ABG pH 7.31 L (7.35-7.45) ABG pCO2 34 L 34 L (35-45) mmHg ABG pO2 >420 H 196 H 276 H (83-108) mmHg ABG HCO3 20 L 20 L (21-25) mmol/L ABG Total CO2 (19-24) mmol/L ABG O2 Saturation 100.0 H 99.7 H 99.9 H (94-97) % ABG Hematocrit 33 L (34.0-46.0) % ABG Potassium (3.4-4.5) mmol/L Sodium (137-145) mmol/L Potassium (3.5-5.1) mmol/L BUN (9-20) mg/dL Creatinine (0.66-1.25) mg/dL Glucose (74-99) mg/dL POC Glucose (mg/dL) (75-99) mg/dL Total Protein (6.3-8.2) g/dL Albumin (3.5-5.0) g/dL Arterial Blood Potassium (3.4-4.5) mmol/L 08/18/17 08/18/17 08/18/17 Range/Units 11:19 11:47 12:17 RBC (4.30-5.90) m/uL Hgb (13.0-17.5) gm/dL Hct (39.0-53.0) % PT (9.0-12.0) sec INR (<1.2) ABG pH 7.29 L (7.35-7.45) ABG pCO2 50 H (35-45) mmHg ABG pO2 271 H 286 H 316 H (83-108) mmHg ABG HCO3 (21-25) mmol/L ABG Total CO2 25 H 25 H (19-24) mmol/L ABG O2 Saturation 99.9 H 99.9 H 99.9 H (94-97) % ABG Hematocrit 31 L 30 L 32 L (34.0-46.0) % ABG Potassium 4.8 H 4.7 H 4.8 H (3.4-4.5) mmol/L Sodium (137-145) mmol/L Potassium (3.5-5.1) mmol/L BUN (9-20) mg/dL Creatinine (0.66-1.25) mg/dL Glucose (74-99) mg/dL POC Glucose (mg/dL) (75-99) mg/dL Total Protein (6.3-8.2) g/dL Albumin (3.5-5.0) g/dL Arterial Blood Potassium 4.8 H 4.7 H 4.8 H (3.4-4.5) mmol/L 08/18/17 08/20/17 08/20/17 Range/Units 12:50 11:33 17:49 RBC (4.30-5.90) m/uL Hgb (13.0-17.5) gm/dL Hct (39.0-53.0) % PT (9.0-12.0) sec INR (<1.2) ABG pH (7.35-7.45) ABG pCO2 (35-45) mmHg ABG pO2 127 H (83-108) mmHg ABG HCO3 (21-25) mmol/L ABG Total CO2 (19-24) mmol/L ABG O2 Saturation 98.8 H (94-97) % ABG Hematocrit 30 L (34.0-46.0) % ABG Potassium (3.4-4.5) mmol/L Sodium (137-145) mmol/L Potassium (3.5-5.1) mmol/L BUN (9-20) mg/dL Creatinine (0.66-1.25) mg/dL Glucose (74-99) mg/dL POC Glucose (mg/dL) 155 H 164 H (75-99) mg/dL Total Protein (6.3-8.2) g/dL Albumin (3.5-5.0) g/dL Arterial Blood Potassium (3.4-4.5) mmol/L 08/20/17 08/21/17 08/21/17 Range/Units 21:04 02:20 05:44 RBC (4.30-5.90) m/uL Hgb (13.0-17.5) gm/dL Hct (39.0-53.0) % PT (9.0-12.0) sec INR (<1.2) ABG pH (7.35-7.45) ABG pCO2 (35-45) mmHg ABG pO2 (83-108) mmHg ABG HCO3 (21-25) mmol/L ABG Total CO2 (19-24) mmol/L ABG O2 Saturation (94-97) % ABG Hematocrit (34.0-46.0) % ABG Potassium (3.4-4.5) mmol/L Sodium 136 L (137-145) mmol/L Potassium 5.6 H (3.5-5.1) mmol/L BUN 44 H (9-20) mg/dL Creatinine 1.40 H (0.66-1.25) mg/dL Glucose 127 H (74-99) mg/dL POC Glucose (mg/dL) 234 H 150 H (75-99) mg/dL Total Protein 5.6 L (6.3-8.2) g/dL Albumin 2.9 L (3.5-5.0) g/dL Arterial Blood Potassium (3.4-4.5) mmol/L 08/21/17 08/21/17 08/21/17 Range/Units 05:44 05:44 06:09 RBC 3.21 L (4.30-5.90) m/uL Hgb 8.7 L (13.0-17.5) gm/dL Hct 27.4 L (39.0-53.0) % PT 13.2 H (9.0-12.0) sec INR 1.3 H (<1.2) ABG pH (7.35-7.45) ABG pCO2 (35-45) mmHg ABG pO2 (83-108) mmHg ABG HCO3 (21-25) mmol/L ABG Total CO2 (19-24) mmol/L ABG O2 Saturation (94-97) % ABG Hematocrit (34.0-46.0) % ABG Potassium (3.4-4.5) mmol/L Sodium (137-145) mmol/L Potassium (3.5-5.1) mmol/L BUN (9-20) mg/dL Creatinine (0.66-1.25) mg/dL Glucose (74-99) mg/dL POC Glucose (mg/dL) 152 H (75-99) mg/dL Total Protein (6.3-8.2) g/dL Albumin (3.5-5.0) g/dL Arterial Blood Potassium (3.4-4.5) mmol/L - Imaging and Cardiology Chest x-ray: image reviewed Assessment and Plan (1) Aortic insufficiency due to bicuspid aortic valve Status: Acute (2) Chronic systolic heart failure Status: Acute (3) Coronary artery disease Status: Acute (4) Bicuspid aortic valve Status: Acute (5) HTN (hypertension) Status: Acute (6) Hyperlipidemia Status: Acute (7) Uncontrolled type 2 diabetes mellitus Status: Acute (8) Ischemic cardiomyopathy Status: Acute (9) Obesity (BMI 30.0-34.9) Status: Acute (10) Hepatitis C Status: Acute Plan: 1. Continue aspirin, statin, heparin subcu, beta kendal. Will maximize beta kendal therapy as tolerated. 2. Likely will discontinue pleural chest tubes today. 3. Encourage incentive spirometry use. 4. Increase activity, ambulate in hallway. Physical therapy to follow. 5. GI/DVT prophylaxis. 6. Pain management with ordered pain medication. 7. Insulin management per primary care services. 8. Will monitor daily labs, chest x-rays. 9. Coumadin dosing with daily PT/INR. Goal INR for On-X valve to 2-2.5 for the first 3 months, then 1.4-1.8 thereafter. 10. More recommendations as patient progresses. Discharge planning in progress. Likely to discharge to home in the next 24-48 hours. Time with Patient: Greater than 30 <Jose Car - Last Filed: 08/22/17 15:30> Objective - Vital Signs Vital signs: Vital Signs Temp 97.4 F L 08/22/17 08:00 Pulse 77 08/22/17 12:00 Resp 16 08/22/17 03:12 BP 123/83 08/22/17 12:00 Pulse Ox 99 08/22/17 12:00 Intake & Output 08/21/17 08/22/17 08/22/17 18:59 06:59 18:59 Intake Total 860 20 360 Balance 860 20 360 Weight 87.2 kg 87.2 kg Intake: IV 20 20 10 0.9% NS FLUSH 20 20 10 Oral 840 350 Other: Voiding Method Toilet Toilet Urinal Urinal ABP, PAP, CO, CI - Last Documented Arterial Blood Pressure 101/57 Pulmonary Artery Pressure 23/13 Cardiac Output 6.1 Cardiac Index 3.1 - Labs CBC & Chem 7: 08/22/17 05:48 08/22/17 05:48 Labs: Abnormal Lab Results - Last 24 Hours (Table) 08/21/17 08/21/17 08/22/17 Range/Units 16:52 21:23 05:48 RBC 3.01 L (4.30-5.90) m/uL Hgb 8.0 L (13.0-17.5) gm/dL Hct 25.1 L (39.0-53.0) % PT (9.0-12.0) sec INR (<1.2) Sodium (137-145) mmol/L BUN (9-20) mg/dL Creatinine (0.66-1.25) mg/dL POC Glucose (mg/dL) 149 H 117 H (75-99) mg/dL Total Protein (6.3-8.2) g/dL Albumin (3.5-5.0) g/dL 08/22/17 08/22/17 08/22/17 Range/Units 05:48 05:48 06:39 RBC (4.30-5.90) m/uL Hgb (13.0-17.5) gm/dL Hct (39.0-53.0) % PT 24.9 H (9.0-12.0) sec INR 2.6 H (<1.2) Sodium 136 L (137-145) mmol/L BUN 43 H (9-20) mg/dL Creatinine 1.30 H (0.66-1.25) mg/dL POC Glucose (mg/dL) 116 H (75-99) mg/dL Total Protein 5.5 L (6.3-8.2) g/dL Albumin 2.9 L (3.5-5.0) g/dL 08/22/17 Range/Units 11:36 RBC (4.30-5.90) m/uL Hgb (13.0-17.5) gm/dL Hct (39.0-53.0) % PT (9.0-12.0) sec INR (<1.2) Sodium (137-145) mmol/L BUN (9-20) mg/dL Creatinine (0.66-1.25) mg/dL POC Glucose (mg/dL) 181 H (75-99) mg/dL Total Protein (6.3-8.2) g/dL Albumin (3.5-5.0) g/dL Assessment and Plan Plan: The patient was seen and examined. I agree with the above assessment and plan. Overall the patient looks good. We will remove his final chest tubes today. He will receive another dose of Coumadin. We'll maximize his beta kendal as tolerated. He will likely be discharged home within the next 24-48 hours.
--- NOTE | 2017-08-21 08:20 | XR ---
EXAMINATION TYPE: XR chest 1V portable DATE OF EXAM: 08/21/2017 COMPARISON: 08/20/2017 HISTORY: Post cardiac surgery TECHNIQUE: Single frontal view of the chest is obtained. FINDINGS: There is a tiny right apical pneumothorax measuring less than 5%. Bilateral chest tubes ar e seen. No sizable pneumothorax on the left. Heart size stable postoperative changes noted. No new areas of consolidation. IMPRESSION: 1. Postsurgical change with tiny less than 5% right apical pneumothorax.
[2017-08-21] MEDS: MUPIROCIN 2% OINT 22 GM TUBE NASAL SCH ×2 (08:42→21:29)
[2017-08-21] MEDS: ATORVASTATIN 40 MG TAB PO SCH (08:42)
[2017-08-21] MEDS: HEPARIN SODIUM,PORCINE 5,000 UNIT/ML 1 ML VIAL SQ SCH ×3 (08:42→23:22)
[2017-08-21] MEDS: ASPIRIN 325 MG TAB PO SCH (08:42)
[2017-08-21] MEDS: METOPROLOL TARTRATE 25 MG TAB PO SCH ×2 (08:42→21:29)
--- NOTE | 2017-08-21 12:05 | P.CONS ---
History of Present Illness - Reason for Consult Consult date: 08/21/17 Medical management - Chief Complaint Aortic valve replacement - History of Present Illness This is a 32-year-old gentleman with very complex past medical history who was admitted to the hospital and underwent two-vessel bypass surgery and aortic valve replacement with mechanical valve. Patient is postoperative day #3. He is awake and alert. He was transferred outside the ICU. Chest tube remained in place. Patient does not have any specific concerns or complaints. I'm seeing him for medical management. Renal consultation was placed 2 days ago but it's unclear to me why patient was not seen previously by the covering physician. Patient himself denies any specific concerns or complaints. Blood glucose is running in the 150s range. He is on sliding scale insulin. Review of Systems Review of system: 14 points review of systems were obtained and were negative except to what were mentioned in the HPI. Past Medical History Past Medical History: Coronary Artery Disease (CAD), Heart Failure, Diabetes Mellitus, Hyperlipidemia, Hypertension, Liver Disease Additional Past Medical History / Comment(s): Systolic heart failure with ejection fraction of 2530 percent. Coronary artery disease. Severe aortic insufficiency. Uncontrolled type 2 diabetes, recently started on oral agents. Obesity History of Any Multi-Drug Resistant Organisms: None Reported Past Surgical History: Ear Surgery, Heart Catheterization, Tonsillectomy Additional Past Surgical History / Comment(s): Myringotomy tubes as a child Past Anesthesia/Blood Transfusion Reactions: No Reported Reaction Past Psychological History: Depression Smoking Status: Never smoker Past Alcohol Use History: None Reported Past Drug Use History: None Reported - Past Family History Father Family Medical History: Unable to Obtain Additional Family Medical History / Comment(s): PT WAS ADOPTED Mother Family Medical History: Unable to Obtain Additional Family Medical History / Comment(s): PT WAS ADOPTED Medications and Allergies Home Medications Medication Instructions Recorded Confirmed Type Atorvastatin [Lipitor] 20 mg PO HS 06/27/17 08/18/17 History Lisinopril [Prinivil] 20 mg PO DAILY 06/27/17 08/18/17 History Furosemide [Lasix] 40 mg PO DAILY #30 tablet 07/10/17 08/18/17 Rx Metoprolol Tartrate [Lopressor] 50 mg PO BID #60 tab 07/10/17 08/18/17 Rx glipiZIDE [Glucotrol] 10 mg PO AC-BID #60 tablet 07/10/17 08/18/17 Rx hydrALAZINE HCL [Apresoline] 25 mg PO BID #60 tab 07/10/17 08/18/17 Rx Aspirin [Adult Low Dose Aspirin EC] 324 mg PO ONCE 08/18/17 08/18/17 History Allergies Allergy/AdvReac Type Severity Reaction Status Date / Time No Known Allergies Allergy Verified 08/18/17 13:22 Physical Exam Vitals: Vital Signs Temp Pulse Pulse Pulse Resp BP BP 08/21/17 08:48 99.0 F 81 115/73 08/21/17 03:33 99 F 89 16 122/84 08/21/17 00:00 100.2 F H 91 16 107/69 08/20/17 20:00 100.4 F H 110 H 16 121/83 08/20/17 17:15 99.3 F 100 20 128/92 08/20/17 16:00 98.4 F 87 21 101/78 08/20/17 15:00 84 11 L 111/80 08/20/17 14:00 87 19 110/74 08/20/17 13:00 90 29 H 115/86 Pulse Ox 08/21/17 08:48 98 08/21/17 03:33 99 08/21/17 00:00 97 08/20/17 20:00 97 08/20/17 17:15 98 08/20/17 16:00 97 08/20/17 15:00 99 08/20/17 14:00 98 08/20/17 13:00 98 Intake and Output 08/20/17 08/21/17 08/21/17 22:59 06:59 14:59 Intake Total 20 600 Output Total 150 1130 Balance -150 -1110 600 Intake: IV 20 0.9% NS FLUSH 20 Oral 600 Output: Chest Tube Drainage 150 30 Chest Tube Bilateral 150 30 Lateral Chest Urine 0 1100 Other: Voiding Method Toilet Urinal # Voids 1 1 # Bowel Movements 1 Weight 87.1 kg 86.6 kg General: The patient is awake and alert, in no distress Eye: there is normal conjunctiva bilaterally. Neck: The neck is supple, there is no JVD. Cardiovascular: Normal S1-S2, no S3-S4, no murmurs. Respiratory: Lungs clear to auscultation bilaterally Gastrointestinal: Abdomen is soft, nontender Musculoskeletal: There is no pedal edema. Neurological:. Speech is normal. Skin: Skin is warm and dry Results CBC & Chem 7: 08/21/17 05:44 08/21/17 05:44 Labs: Abnormal Lab Results - Last 24 Hours (Table) 08/18/17 08/18/17 08/18/17 Range/Units 08:29 10:02 10:48 RBC (4.30-5.90) m/uL Hgb (13.0-17.5) gm/dL Hct (39.0-53.0) % PT (9.0-12.0) sec INR (<1.2) ABG pH 7.31 L (7.35-7.45) ABG pCO2 34 L 34 L (35-45) mmHg ABG pO2 >420 H 196 H 276 H (83-108) mmHg ABG HCO3 20 L 20 L (21-25) mmol/L ABG Total CO2 (19-24) mmol/L ABG O2 Saturation 100.0 H 99.7 H 99.9 H (94-97) % ABG Hematocrit 33 L (34.0-46.0) % ABG Potassium (3.4-4.5) mmol/L Sodium (137-145) mmol/L Potassium (3.5-5.1) mmol/L BUN (9-20) mg/dL Creatinine (0.66-1.25) mg/dL Glucose (74-99) mg/dL POC Glucose (mg/dL) (75-99) mg/dL Total Protein (6.3-8.2) g/dL Albumin (3.5-5.0) g/dL Arterial Blood Potassium (3.4-4.5) mmol/L 08/18/17 08/18/17 08/18/17 Range/Units 11:19 11:47 12:17 RBC (4.30-5.90) m/uL Hgb (13.0-17.5) gm/dL Hct (39.0-53.0) % PT (9.0-12.0) sec INR (<1.2) ABG pH 7.29 L (7.35-7.45) ABG pCO2 50 H (35-45) mmHg ABG pO2 271 H 286 H 316 H (83-108) mmHg ABG HCO3 (21-25) mmol/L ABG Total CO2 25 H 25 H (19-24) mmol/L ABG O2 Saturation 99.9 H 99.9 H 99.9 H (94-97) % ABG Hematocrit 31 L 30 L 32 L (34.0-46.0) % ABG Potassium 4.8 H 4.7 H 4.8 H (3.4-4.5) mmol/L Sodium (137-145) mmol/L Potassium (3.5-5.1) mmol/L BUN (9-20) mg/dL Creatinine (0.66-1.25) mg/dL Glucose (74-99) mg/dL POC Glucose (mg/dL) (75-99) mg/dL Total Protein (6.3-8.2) g/dL Albumin (3.5-5.0) g/dL Arterial Blood Potassium 4.8 H 4.7 H 4.8 H (3.4-4.5) mmol/L 08/18/17 08/20/17 08/20/17 Range/Units 12:50 17:49 21:04 RBC (4.30-5.90) m/uL Hgb (13.0-17.5) gm/dL Hct (39.0-53.0) % PT (9.0-12.0) sec INR (<1.2) ABG pH (7.35-7.45) ABG pCO2 (35-45) mmHg ABG pO2 127 H (83-108) mmHg ABG HCO3 (21-25) mmol/L ABG Total CO2 (19-24) mmol/L ABG O2 Saturation 98.8 H (94-97) % ABG Hematocrit 30 L (34.0-46.0) % ABG Potassium (3.4-4.5) mmol/L Sodium (137-145) mmol/L Potassium (3.5-5.1) mmol/L BUN (9-20) mg/dL Creatinine (0.66-1.25) mg/dL Glucose (74-99) mg/dL POC Glucose (mg/dL) 164 H 234 H (75-99) mg/dL Total Protein (6.3-8.2) g/dL Albumin (3.5-5.0) g/dL Arterial Blood Potassium (3.4-4.5) mmol/L 08/21/17 08/21/17 08/21/17 Range/Units 02:20 05:44 05:44 RBC 3.21 L (4.30-5.90) m/uL Hgb 8.7 L (13.0-17.5) gm/dL Hct 27.4 L (39.0-53.0) % PT (9.0-12.0) sec INR (<1.2) ABG pH (7.35-7.45) ABG pCO2 (35-45) mmHg ABG pO2 (83-108) mmHg ABG HCO3 (21-25) mmol/L ABG Total CO2 (19-24) mmol/L ABG O2 Saturation (94-97) % ABG Hematocrit (34.0-46.0) % ABG Potassium (3.4-4.5) mmol/L Sodium 136 L (137-145) mmol/L Potassium 5.6 H (3.5-5.1) mmol/L BUN 44 H (9-20) mg/dL Creatinine 1.40 H (0.66-1.25) mg/dL Glucose 127 H (74-99) mg/dL POC Glucose (mg/dL) 150 H (75-99) mg/dL Total Protein 5.6 L (6.3-8.2) g/dL Albumin 2.9 L (3.5-5.0) g/dL Arterial Blood Potassium (3.4-4.5) mmol/L 08/21/17 08/21/17 Range/Units 05:44 06:09 RBC (4.30-5.90) m/uL Hgb (13.0-17.5) gm/dL Hct (39.0-53.0) % PT 13.2 H (9.0-12.0) sec INR 1.3 H (<1.2) ABG pH (7.35-7.45) ABG pCO2 (35-45) mmHg ABG pO2 (83-108) mmHg ABG HCO3 (21-25) mmol/L ABG Total CO2 (19-24) mmol/L ABG O2 Saturation (94-97) % ABG Hematocrit (34.0-46.0) % ABG Potassium (3.4-4.5) mmol/L Sodium (137-145) mmol/L Potassium (3.5-5.1) mmol/L BUN (9-20) mg/dL Creatinine (0.66-1.25) mg/dL Glucose (74-99) mg/dL POC Glucose (mg/dL) 152 H (75-99) mg/dL Total Protein (6.3-8.2) g/dL Albumin (3.5-5.0) g/dL Arterial Blood Potassium (3.4-4.5) mmol/L Assessment and Plan Plan: 1. Postoperative day #3 status post aortic valve replacement with mechanical aortic valve and two-vessel bypass surgery 2. History of severe bicuspid aortic valve stenosis 3. Type 2 diabetes mellitus: Well controlled. A1c 6.7 4. Coronary artery disease status post 2 vessel bypass surgery 5. Essential hypertension: Blood pressure well controlled 6. Chronic kidney disease stage III Today, I reviewed his medication list and lab work results. I will add Lantus 7 units at bedtime for better blood glucose control. Continue sliding scale insulin. Continue current regimen otherwise. Patient is on anticoagulation with Coumadin. I would continue to follow up on him closely. Cardiac rehab is being set up for outpatient. Thank you very much for the consultation.
[2017-08-21 12:21] LABS: Glucose,Whole Blood 197 mg/dL (75-99)
--- NOTE | 2017-08-21 12:58 | P.PN ---
Subjective Principal diagnosis: Status post aortic valve replacement and CABG. This is a 32-year-old male status post elective aortic valve replacement with a mechanical valve, exclusion of left atrial appendage and myocardial revascularization with LAY to LAD and SVG to PDA. On 06/27/2017 patient presented to the emergency department with bilateral lower leg and abdominal edema, 50 pound weight gain over 2 months, cough and orthopnea. Patient's history includes hypertension, hyperlipidemia and diabetes mellitus for which treatments was recently started. Cardiac evaluation showed significant systolic heart failure with left ventricular dysfunction and an ejection fraction between 25- 30%. Transesophageal echocardiogram on 07/04/2017 showed a bicuspid aortic valve with fusion of the non-coronary and left coronary cusps. The mitral valve was mildly thickened with only mild mitral regurgitation and tricuspid valve with mild insufficiency. Cardiac catheterization on 07/19/2017 showed severe disease involving the ramus intermedius coronary artery, severe disease involving the mid to distal LAD and aortic insufficiency are 4+. Patient's heart failure was treated with IV Lasix , beta blockers and these inhibitors. During that hospitalization an incidental finding of chronic hepatitis C was made. Patient was seen by Dr. Cosby. Patient had no symptoms of chronic liver disease and had normal liver enzymes. Once his condition optimized, he was recommended to undergo an aortic valve replacement and myocardial revascularization. Pulmonary function tests FEV1 of 87%, patient's is a lifetime nonsmoker with no history of chronic pulmonary problems. Chest CT from 07/04/2017 showed cardiomegaly with small pericardial effusion, and bibasilar reticular nodular opacities possibly of infectious or inflammatory etiology. Patient is sedated on a mechanical ventilator with settings of assist control mode rate of 12, tidal volume 450, FiO2 of 100% and PEEP of 5. 2 mediastinal and right and left pleural chest tubes with 100 mL of sanguinous drainage. Patient did receive 1 unit of PRBC and 320 mL of Cell Saver intraoperatively. He is currently on the small amount of epinephrine at 1mcg/min, nitroglycerin at 5 mcg/min. and propofol at 25 mcg/ kg/min. estimated blood loss was 900 mL. Patient's intrinsic rhythm is sinus with a rate of 67 bpm. PA pressures 34/19, cardiac output 6.6/cardiac index of 3.4. Blood gas will be obtained and further adjustments to the ventilator settings will be made based upon the results. On 08/19/2017 the patient is being seen for a follow-up. The patient was weaned off the mechanical ventilated and was extubated blood any major difficulties. This morning it is awake and sitting up on a chair and is calm and comfortable. Thoracic surgical wound site is clean. Chest tubes are all in place. There is no evidence of any pneumothorax on today's chest x-ray in the lungs are well expanded. Surgical wound site is dry clean and intact. The patient briefly was placed on Cleviprex yesterday which was subsequently discontinued knowing that his blood pressure control improved. He is producing adequate amount of urine output. He is awake and alert and following commands and answering questions. He is using incentive spirometer. His pain is controlled for now. The patient is postop day #1 following an elective aortic valve replacement with a mechanical valve and two-vessel bypass surgery with LAY to LAD and saphenous vein graft to PDA. Note that the patient had a bicuspid aortic valve. He is still on a nitroglycerin drip at a low dose for blood pressure control.The patient has had 170 mL of serosanguineous drainage from the chest tubes overnight and 600 since surgery from the mediastinal chest tube and a total of 5 and 40 mL of serous drainage from the left and right pleural chest tubes which are connected. On 08/20/2017 the patient is being seen for a follow-up. The patient is sitting up on a chair. Has no specific complaints. The patient is postop day # 2. He will be started on a long-term articulation with warfarin today. The output from the Pickard catheterizations between 20-45 mL on an hourly basis. The JHON drain shows no output. The patient has put out approximately 500 mL of output from the chest tubes over the past 24 hours and this includes the right and the left pleural chest tubes. The mediastinal chest tube has put out only 150 mL over the past 24 hours in 30 mL's of serosanguineous drainage over the past 12 hours. Chest x-ray showed adequate expansion of both lungs. All of the chest tubes are in place. The patient remains hemodynamic is stable. He is on no antihypertensive drips. Nitroglycerin drip has been discontinued. He has no specific complaints. Awake. Alert. Communicating. Using incentive spirometer. Patient was reevaluated today on 08/21/2017, seems to be doing relatively well, his left sided chest tube was still in place at the time of my evaluation, and the right sided chest tube was removed. However thoracic surgery is planning to remove the left sided chest tube also today. Overall the patient is doing well, asymptomatic, compliant with his incentive spirometry, hemodynamically stable. Using incentive spirometry as directed. Labs were reviewed including his electrolytes, basic metabolic profile, creatinine is 1.40 today, hemoglobin is 8.7. Objective - Vital Signs Vital signs: Vital Signs Temp 99.0 F 08/21/17 08:48 Pulse 81 08/21/17 08:48 Resp 16 08/21/17 03:33 BP 115/73 08/21/17 08:48 Pulse Ox 98 08/21/17 08:48 Intake & Output 08/20/17 08/21/17 08/21/17 18:59 06:59 18:59 Intake Total 853 20 600 Output Total 745 1200 Balance 108 -1180 600 Weight 87.1 kg 86.6 kg Intake: IV 133 20 0.9% NS FLUSH 20 Lactated Ringers 1,000 ml 130 @ 20 mls/hr IV .Q24H [place] Rx#:[id number] Pressure Bag NS 3 Oral 720 600 Output: Chest Tube Drainage 290 100 Chest Tube Bilateral 230 100 Lateral Chest Chest Tube Mediastinal 60 Drainage 5 Left Calf 5 Urine 450 1100 Other: Voiding Method Toilet Toilet Urinal Urinal # Voids 1 1 # Bowel Movements 1 ABP, PAP, CO, CI - Last Documented Arterial Blood Pressure 101/57 Pulmonary Artery Pressure 23/13 Cardiac Output 6.1 Cardiac Index 3.1 - Exam General appearance: Present: cooperative, no acute distress, obese HEENT: No neck masses, no JVD, no thyromegaly, no stridor. Throat is clear. Moist mucous membranes noted. - Respiratory Details: Lungs sounds diminished bilaterally. Respirations even, nonlabored. Currently on 2 L nasal cannula with oxygen saturation 100%. Only able to achieve 500 mL on his incentive spirometry. Weak cough. Left and right pleural chest tubes connected to -20 cm wall suction, 540 mL serous and was drainage overnight, 1110 mL since surgery. Mediastinal chest tubes to -20 cm wall suction, 170 mL serosanguineous drainage overnight, 600 mL since surgery. No air leaks present. - Cardiovascular Details: S1, S2 present. Positive click. Regular rate and rhythm, sinus rhythm on telemetry. Sternum stable. A/V epicardial pacemaker wires present, connected to generator, VVI mode with backup rate 30 bpm. Palpable pulses bilaterally. Trace bilateral lower extremity edema present. Right brachial arterial line, right internal jugular [place] present. Teds/SCDs present. - Gastrointestinal Gastrointestinal Comment(s): Abdomen soft, nontender, nondistended. Hypoactive bowel sounds present 4 quadrants. Negative flatus, tolerating clear liquids. - Genitourinary Genitourinary Comment(s): Pickard present draining clear, yellow urine. Output 50-190 mL/h overnight. - Integumentary Integumentary Comment(s): Anterior chest incision well approximated covered with dry intact dressing. Left lower extremity EVH site well approximated, - Neurologic Neurologic: Present: CNII-XII intact - Musculoskeletal Musculoskeletal: Present: strength equal bilaterally - Psychiatric Psychiatric: Present: A&O x's 3, appropriate affect, intact judgment & insight - Labs CBC & Chem 7: 08/21/17 05:44 08/21/17 05:44 Labs: Abnormal Lab Results - Last 24 Hours (Table) 08/18/17 08/18/17 08/18/17 Range/Units 08:29 10:02 10:48 RBC (4.30-5.90) m/uL Hgb (13.0-17.5) gm/dL Hct (39.0-53.0) % PT (9.0-12.0) sec INR (<1.2) ABG pH 7.31 L (7.35-7.45) ABG pCO2 34 L 34 L (35-45) mmHg ABG pO2 >420 H 196 H 276 H (83-108) mmHg ABG HCO3 20 L 20 L (21-25) mmol/L ABG Total CO2 (19-24) mmol/L ABG O2 Saturation 100.0 H 99.7 H 99.9 H (94-97) % ABG Hematocrit 33 L (34.0-46.0) % ABG Potassium (3.4-4.5) mmol/L Sodium (137-145) mmol/L Potassium (3.5-5.1) mmol/L BUN (9-20) mg/dL Creatinine (0.66-1.25) mg/dL Glucose (74-99) mg/dL POC Glucose (mg/dL) (75-99) mg/dL Total Protein (6.3-8.2) g/dL Albumin (3.5-5.0) g/dL Arterial Blood Potassium (3.4-4.5) mmol/L 08/18/17 08/18/17 08/18/17 Range/Units 11:19 11:47 12:17 RBC (4.30-5.90) m/uL Hgb (13.0-17.5) gm/dL Hct (39.0-53.0) % PT (9.0-12.0) sec INR (<1.2) ABG pH 7.29 L (7.35-7.45) ABG pCO2 50 H (35-45) mmHg ABG pO2 271 H 286 H 316 H (83-108) mmHg ABG HCO3 (21-25) mmol/L ABG Total CO2 25 H 25 H (19-24) mmol/L ABG O2 Saturation 99.9 H 99.9 H 99.9 H (94-97) % ABG Hematocrit 31 L 30 L 32 L (34.0-46.0) % ABG Potassium 4.8 H 4.7 H 4.8 H (3.4-4.5) mmol/L Sodium (137-145) mmol/L Potassium (3.5-5.1) mmol/L BUN (9-20) mg/dL Creatinine (0.66-1.25) mg/dL Glucose (74-99) mg/dL POC Glucose (mg/dL) (75-99) mg/dL Total Protein (6.3-8.2) g/dL Albumin (3.5-5.0) g/dL Arterial Blood Potassium 4.8 H 4.7 H 4.8 H (3.4-4.5) mmol/L 08/18/17 08/20/17 08/20/17 Range/Units 12:50 17:49 21:04 RBC (4.30-5.90) m/uL Hgb (13.0-17.5) gm/dL Hct (39.0-53.0) % PT (9.0-12.0) sec INR (<1.2) ABG pH (7.35-7.45) ABG pCO2 (35-45) mmHg ABG pO2 127 H (83-108) mmHg ABG HCO3 (21-25) mmol/L ABG Total CO2 (19-24) mmol/L ABG O2 Saturation 98.8 H (94-97) % ABG Hematocrit 30 L (34.0-46.0) % ABG Potassium (3.4-4.5) mmol/L Sodium (137-145) mmol/L Potassium (3.5-5.1) mmol/L BUN (9-20) mg/dL Creatinine (0.66-1.25) mg/dL Glucose (74-99) mg/dL POC Glucose (mg/dL) 164 H 234 H (75-99) mg/dL Total Protein (6.3-8.2) g/dL Albumin (3.5-5.0) g/dL Arterial Blood Potassium (3.4-4.5) mmol/L 08/21/17 08/21/17 08/21/17 Range/Units 02:20 05:44 05:44 RBC 3.21 L (4.30-5.90) m/uL Hgb 8.7 L (13.0-17.5) gm/dL Hct 27.4 L (39.0-53.0) % PT (9.0-12.0) sec INR (<1.2) ABG pH (7.35-7.45) ABG pCO2 (35-45) mmHg ABG pO2 (83-108) mmHg ABG HCO3 (21-25) mmol/L ABG Total CO2 (19-24) mmol/L ABG O2 Saturation (94-97) % ABG Hematocrit (34.0-46.0) % ABG Potassium (3.4-4.5) mmol/L Sodium 136 L (137-145) mmol/L Potassium 5.6 H (3.5-5.1) mmol/L BUN 44 H (9-20) mg/dL Creatinine 1.40 H (0.66-1.25) mg/dL Glucose 127 H (74-99) mg/dL POC Glucose (mg/dL) 150 H (75-99) mg/dL Total Protein 5.6 L (6.3-8.2) g/dL Albumin 2.9 L (3.5-5.0) g/dL Arterial Blood Potassium (3.4-4.5) mmol/L 08/21/17 08/21/17 08/21/17 Range/Units 05:44 06:09 12:19 RBC (4.30-5.90) m/uL Hgb (13.0-17.5) gm/dL Hct (39.0-53.0) % PT 13.2 H (9.0-12.0) sec INR 1.3 H (<1.2) ABG pH (7.35-7.45) ABG pCO2 (35-45) mmHg ABG pO2 (83-108) mmHg ABG HCO3 (21-25) mmol/L ABG Total CO2 (19-24) mmol/L ABG O2 Saturation (94-97) % ABG Hematocrit (34.0-46.0) % ABG Potassium (3.4-4.5) mmol/L Sodium (137-145) mmol/L Potassium (3.5-5.1) mmol/L BUN (9-20) mg/dL Creatinine (0.66-1.25) mg/dL Glucose (74-99) mg/dL POC Glucose (mg/dL) 152 H 197 H (75-99) mg/dL Total Protein (6.3-8.2) g/dL Albumin (3.5-5.0) g/dL Arterial Blood Potassium (3.4-4.5) mmol/L Assessment and Plan Plan: 1 aortic valve replacement/mechanical valve and a two-vessel bypass surgery for severe bicuspid aortic valve stenosis and coronary artery disease. Patient is postop day #3 2 post thoracotomy 3 CAD 4 bicuspid aortic valve 5 hypertension currently still negative nitroglycerin drip for blood pressure control 6 hyperlipidemia 7 poorly controlled diabetes mellitus Recommendation: Continue present supportive care measures, continue incentive spirometry, possible discharge planning in the next 24-48 hours. Time with Patient: Less than 30
--- NOTE | 2017-08-21 14:12 | P.PN ---
Subjective Principal diagnosis: Status post open heart This is a pleasant 32-year-old gentleman who just underwent yesterday an elective aortic valve replacement using a mechanical valve along with coronary artery bypass grafting 2 with LAY to LAD and SVG to PDA. He was admitted to the hospital a few weeks ago with congestive heart failure. He underwent an echocardiogram which showed severe cardiomyopathy. Subsequently he underwent a heart catheterization which showed severe to assess coronary artery disease involving the LAD and RCA. The [facility] showed bicuspid aortic valve with evidence of severe aortic insufficiency. At that point the patient was diuresed very well and he was discharged from the hospital in stable medical condition and came to have the surgery yesterday. This is postoperative day #3. He continues to be hemodynamically stable. He continues to be in normal sinus mechanism. The patient is on aspirin, statin, and beta kendal. Coumadin will be started later on today. Objective - Vital Signs Vital signs: Vital Signs Temp 99.0 F 08/21/17 08:48 Pulse 104 H 08/21/17 13:31 Resp 16 08/21/17 03:33 BP 136/87 08/21/17 13:31 Pulse Ox 99 08/21/17 13:31 Intake & Output 08/20/17 08/21/17 08/21/17 18:59 06:59 18:59 Intake Total 853 20 600 Output Total 745 1200 Balance 108 -1180 600 Weight 87.1 kg 86.6 kg Intake: IV 133 20 0.9% NS FLUSH 20 Lactated Ringers 1,000 ml 130 @ 20 mls/hr IV .Q24H [facility] Rx#:[id number] Pressure Bag NS 3 Oral 720 600 Output: Chest Tube Drainage 290 100 Chest Tube Bilateral 230 100 Lateral Chest Chest Tube Mediastinal 60 Drainage 5 Left Calf 5 Urine 450 1100 Other: Voiding Method Toilet Toilet Urinal Urinal # Voids 1 1 # Bowel Movements 1 ABP, PAP, CO, CI - Last Documented Arterial Blood Pressure 101/57 Pulmonary Artery Pressure 23/13 Cardiac Output 6.1 Cardiac Index 3.1 - Constitutional General appearance: Present: no acute distress - Respiratory Respiratory: bilateral: diminished - Cardiovascular Rhythm: regular Heart sounds: normal: S1, S2 - Labs CBC & Chem 7: 08/21/17 05:44 08/21/17 05:44 Labs: Abnormal Lab Results - Last 24 Hours (Table) 08/18/17 08/18/17 08/18/17 Range/Units 08:29 10:02 10:48 RBC (4.30-5.90) m/uL Hgb (13.0-17.5) gm/dL Hct (39.0-53.0) % PT (9.0-12.0) sec INR (<1.2) ABG pH 7.31 L (7.35-7.45) ABG pCO2 34 L 34 L (35-45) mmHg ABG pO2 >420 H 196 H 276 H (83-108) mmHg ABG HCO3 20 L 20 L (21-25) mmol/L ABG Total CO2 (19-24) mmol/L ABG O2 Saturation 100.0 H 99.7 H 99.9 H (94-97) % ABG Hematocrit 33 L (34.0-46.0) % ABG Potassium (3.4-4.5) mmol/L Sodium (137-145) mmol/L Potassium (3.5-5.1) mmol/L BUN (9-20) mg/dL Creatinine (0.66-1.25) mg/dL Glucose (74-99) mg/dL POC Glucose (mg/dL) (75-99) mg/dL Total Protein (6.3-8.2) g/dL Albumin (3.5-5.0) g/dL Arterial Blood Potassium (3.4-4.5) mmol/L 08/18/17 08/18/17 08/18/17 Range/Units 11:19 11:47 12:17 RBC (4.30-5.90) m/uL Hgb (13.0-17.5) gm/dL Hct (39.0-53.0) % PT (9.0-12.0) sec INR (<1.2) ABG pH 7.29 L (7.35-7.45) ABG pCO2 50 H (35-45) mmHg ABG pO2 271 H 286 H 316 H (83-108) mmHg ABG HCO3 (21-25) mmol/L ABG Total CO2 25 H 25 H (19-24) mmol/L ABG O2 Saturation 99.9 H 99.9 H 99.9 H (94-97) % ABG Hematocrit 31 L 30 L 32 L (34.0-46.0) % ABG Potassium 4.8 H 4.7 H 4.8 H (3.4-4.5) mmol/L Sodium (137-145) mmol/L Potassium (3.5-5.1) mmol/L BUN (9-20) mg/dL Creatinine (0.66-1.25) mg/dL Glucose (74-99) mg/dL POC Glucose (mg/dL) (75-99) mg/dL Total Protein (6.3-8.2) g/dL Albumin (3.5-5.0) g/dL Arterial Blood Potassium 4.8 H 4.7 H 4.8 H (3.4-4.5) mmol/L 08/18/17 08/20/17 08/20/17 Range/Units 12:50 17:49 21:04 RBC (4.30-5.90) m/uL Hgb (13.0-17.5) gm/dL Hct (39.0-53.0) % PT (9.0-12.0) sec INR (<1.2) ABG pH (7.35-7.45) ABG pCO2 (35-45) mmHg ABG pO2 127 H (83-108) mmHg ABG HCO3 (21-25) mmol/L ABG Total CO2 (19-24) mmol/L ABG O2 Saturation 98.8 H (94-97) % ABG Hematocrit 30 L (34.0-46.0) % ABG Potassium (3.4-4.5) mmol/L Sodium (137-145) mmol/L Potassium (3.5-5.1) mmol/L BUN (9-20) mg/dL Creatinine (0.66-1.25) mg/dL Glucose (74-99) mg/dL POC Glucose (mg/dL) 164 H 234 H (75-99) mg/dL Total Protein (6.3-8.2) g/dL Albumin (3.5-5.0) g/dL Arterial Blood Potassium (3.4-4.5) mmol/L 08/21/17 08/21/17 08/21/17 Range/Units 02:20 05:44 05:44 RBC 3.21 L (4.30-5.90) m/uL Hgb 8.7 L (13.0-17.5) gm/dL Hct 27.4 L (39.0-53.0) % PT (9.0-12.0) sec INR (<1.2) ABG pH (7.35-7.45) ABG pCO2 (35-45) mmHg ABG pO2 (83-108) mmHg ABG HCO3 (21-25) mmol/L ABG Total CO2 (19-24) mmol/L ABG O2 Saturation (94-97) % ABG Hematocrit (34.0-46.0) % ABG Potassium (3.4-4.5) mmol/L Sodium 136 L (137-145) mmol/L Potassium 5.6 H (3.5-5.1) mmol/L BUN 44 H (9-20) mg/dL Creatinine 1.40 H (0.66-1.25) mg/dL Glucose 127 H (74-99) mg/dL POC Glucose (mg/dL) 150 H (75-99) mg/dL Total Protein 5.6 L (6.3-8.2) g/dL Albumin 2.9 L (3.5-5.0) g/dL Arterial Blood Potassium (3.4-4.5) mmol/L 08/21/17 08/21/17 08/21/17 Range/Units 05:44 06:09 12:19 RBC (4.30-5.90) m/uL Hgb (13.0-17.5) gm/dL Hct (39.0-53.0) % PT 13.2 H (9.0-12.0) sec INR 1.3 H (<1.2) ABG pH (7.35-7.45) ABG pCO2 (35-45) mmHg ABG pO2 (83-108) mmHg ABG HCO3 (21-25) mmol/L ABG Total CO2 (19-24) mmol/L ABG O2 Saturation (94-97) % ABG Hematocrit (34.0-46.0) % ABG Potassium (3.4-4.5) mmol/L Sodium (137-145) mmol/L Potassium (3.5-5.1) mmol/L BUN (9-20) mg/dL Creatinine (0.66-1.25) mg/dL Glucose (74-99) mg/dL POC Glucose (mg/dL) 152 H 197 H (75-99) mg/dL Total Protein (6.3-8.2) g/dL Albumin (3.5-5.0) g/dL Arterial Blood Potassium (3.4-4.5) mmol/L Assessment and Plan Plan: This is a pleasant 32-year-old gentleman was known severe cardiomyopathy, severe underlying CAD, and severe aortic insufficiency with bicuspid aortic valve was admitted to the hospital yesterday and underwent aVR using mechanical valve along was CABG 2. The patient was extubated yesterday. He is in sinus mechanism. Hemodynamically he continues to be stable. He is on aspirin, statin, beta kendal. Coumadin will be started later on today. The potassium today is slightly elevated and we will repeat the blood work tomorrow morning.
[2017-08-21] MEDS: glipiZIDE 10 MG TAB PO SCH (16:56)
[2017-08-21 16:58] LABS: Glucose,Whole Blood 149 mg/dL (75-99)
[2017-08-21] MEDS ORDERED: WARFARIN 5 MG TAB PO ONE (18:00)
[2017-08-21] MEDS ORDERED: INSULIN GLARGINE 100 UNIT/ML 10 ML VIAL SQ SCH (21:00)
[2017-08-21] MEDS: SENNOSIDES-DOCUSATE SODIUM 1 EACH TAB PO SCH (21:32)
[2017-08-21 21:35] LABS: Glucose,Whole Blood 117 mg/dL (75-99)
[2017-08-22 01:57] LABS: Glucose,Whole Blood 90 mg/dL (75-99)
[2017-08-22 06:15] LABS: CH 26.6; HCT 25.1 % (39.0-53.0); HDW 2.84; Hypochromasia Slight; MCH 26.4 pg (25.0-35.0); MCHC 31.7 g/dL (31.0-37.0); MCV 83.4 fL (80.0-100.0); Mean Platelet Volume 7.7; RBC 3.01 m/uL (4.30-5.90); RDW 15.5 % (11.5-15.5); WBC 7.6 k/uL (3.8-10.6)
[2017-08-22 06:25] LABS: INR 2.6 (<1.2); Prothrombin Time 24.9 sec (9.0-12.0)
[2017-08-22 06:30] LABS: ALT 27 U/L (21-72); AST 17 U/L (17-59); Alkaline Phosphatase 56 U/L (38-126); Anion Gap 9 mmol/L; Blood Urea Nitrogen 43 mg/dL (9-20); Calcium 8.8 mg/dL (8.4-10.2); Carbon Dioxide 23 mmol/L (22-30); Chloride 104 mmol/L (98-107); Glucose 96 mg/dL (74-99); Non-African American GFR(MDRD) >60 (>60 ml/min/1.73 sqM); Potassium 4.7 mmol/L (3.5-5.1); Sodium 136 mmol/L (137-145); Total Bilirubin 0.5 mg/dL (0.2-1.3); Total Protein 5.5 g/dL (6.3-8.2)
[2017-08-22 06:41] LABS: Glucose,Whole Blood 116 mg/dL (75-99)
[2017-08-22] MEDS: INSULIN LISPRO (humaLOG) 300 UNIT/3 ML VIAL SQ SCH ×4 (06:42→20:57)
[2017-08-22] MEDS: glipiZIDE 10 MG TAB PO SCH ×2 (06:43→17:33)
[2017-08-22] MEDS: PANTOPRAZOLE 40 MG TABLET PO SCH (06:43)
--- NOTE | 2017-08-22 07:53 | P.PN ---
<Zena Cummings - Last Filed: 08/22/17 07:45> Subjective Principal diagnosis: Severe aortic valvular insufficiency with bicuspid aortic valve, coronary artery disease, chronic systolic congestive heart failure. History of ischemic cardiomyopathy with ejection fraction 25-30%. History of hypertension, hyperlipidemia, uncontrolled diabetes mellitus with hemoglobin A1c 9.1% a month ago, now better controlled with A1c 6.7%. Obesity. History of hepatitis C. POD #4 elective aortic valve replacement with 25 mm On-X valve, coronary artery bypass surgery with left internal mammary artery to the left anterior descending artery and greater saphenous vein graft to the posterior descending artery, exclusion of left atrial appendage with 35 mm Atriclip, endovascular vein harvest of the left greater saphenous vein, epi-aortic ultrasonography, intraoperative transesophageal echocardiogram by anesthesia. Patient is currently sitting up in bed in no acute distress. States pain is better controlled. States he has ambulated in the hallway. Pleural chest tubes discontinued yesterday. Objective - Vital Signs Vital signs: Vital Signs Temp 97.2 F L 08/22/17 03:12 Pulse 73 08/22/17 03:12 Resp 16 08/22/17 03:12 BP 115/76 08/22/17 03:12 Pulse Ox 98 08/22/17 03:12 Intake & Output 08/21/17 08/22/17 08/22/17 18:59 06:59 18:59 Intake Total 860 20 Balance 860 20 Weight 87.2 kg Intake: IV 20 20 0.9% NS FLUSH 20 20 Oral 840 Other: Voiding Method Toilet Toilet Urinal Urinal ABP, PAP, CO, CI - Last Documented Arterial Blood Pressure 101/57 Pulmonary Artery Pressure 23/13 Cardiac Output 6.1 Cardiac Index 3.1 - Constitutional General appearance: Present: cooperative, no acute distress - Respiratory Details: Lungs sounds diminished bilaterally. Respirations even, nonlabored. Currently on room air with oxygen saturation 98%. Able to achieve 1250 mL on his incentive spirometry. Weak cough. Chest x-ray reviewed, good expansion. - Cardiovascular Details: S1/S2 present. Positive click. Regular rate and rhythm, normal sinus rhythm on telemetry. Sternum stable. Heart hugger in place with patient demonstrating appropriate use. Palpable pulses bilaterally. No edema present. Teds/SCDs present. - Gastrointestinal Gastrointestinal Comment(s): Abdomen soft, nontender, nondistended. Active bowel sounds 4 quadrants. Tolerating diet. Positive bowel movement. - Genitourinary Genitourinary Comment(s): Continues to void. - Integumentary Integumentary Comment(s): Anterior chest incision well approximated, dry intact dressing. Left lower extremity EVH site well approximated - Neurologic Neurologic: Present: CNII-XII intact - Musculoskeletal Musculoskeletal: Present: gait normal, strength equal bilaterally - Psychiatric Psychiatric: Present: A&O x's 3, appropriate affect, intact judgment & insight - Allied health notes Allied health notes reviewed: nursing - Labs CBC & Chem 7: 08/22/17 05:48 08/22/17 05:48 Labs: Abnormal Lab Results - Last 24 Hours (Table) 08/18/17 08/18/17 08/18/17 Range/Units 10:02 10:48 11:19 RBC (4.30-5.90) m/uL Hgb (13.0-17.5) gm/dL Hct (39.0-53.0) % PT (9.0-12.0) sec INR (<1.2) ABG pH 7.31 L (7.35-7.45) ABG pCO2 34 L (35-45) mmHg ABG pO2 196 H 276 H 271 H (83-108) mmHg ABG HCO3 20 L (21-25) mmol/L ABG Total CO2 25 H (19-24) mmol/L ABG O2 Saturation 99.7 H 99.9 H 99.9 H (94-97) % ABG Hematocrit 33 L 31 L (34.0-46.0) % ABG Potassium 4.8 H (3.4-4.5) mmol/L Sodium (137-145) mmol/L BUN (9-20) mg/dL Creatinine (0.66-1.25) mg/dL POC Glucose (mg/dL) (75-99) mg/dL Total Protein (6.3-8.2) g/dL Albumin (3.5-5.0) g/dL Arterial Blood Potassium 4.8 H (3.4-4.5) mmol/L 08/18/17 08/18/17 08/18/17 Range/Units 11:47 12:17 12:50 RBC (4.30-5.90) m/uL Hgb (13.0-17.5) gm/dL Hct (39.0-53.0) % PT (9.0-12.0) sec INR (<1.2) ABG pH 7.29 L (7.35-7.45) ABG pCO2 50 H (35-45) mmHg ABG pO2 286 H 316 H 127 H (83-108) mmHg ABG HCO3 (21-25) mmol/L ABG Total CO2 25 H (19-24) mmol/L ABG O2 Saturation 99.9 H 99.9 H 98.8 H (94-97) % ABG Hematocrit 30 L 32 L 30 L (34.0-46.0) % ABG Potassium 4.7 H 4.8 H (3.4-4.5) mmol/L Sodium (137-145) mmol/L BUN (9-20) mg/dL Creatinine (0.66-1.25) mg/dL POC Glucose (mg/dL) (75-99) mg/dL Total Protein (6.3-8.2) g/dL Albumin (3.5-5.0) g/dL Arterial Blood Potassium 4.7 H 4.8 H (3.4-4.5) mmol/L 08/21/17 08/21/17 08/21/17 Range/Units 12:19 16:52 21:23 RBC (4.30-5.90) m/uL Hgb (13.0-17.5) gm/dL Hct (39.0-53.0) % PT (9.0-12.0) sec INR (<1.2) ABG pH (7.35-7.45) ABG pCO2 (35-45) mmHg ABG pO2 (83-108) mmHg ABG HCO3 (21-25) mmol/L ABG Total CO2 (19-24) mmol/L ABG O2 Saturation (94-97) % ABG Hematocrit (34.0-46.0) % ABG Potassium (3.4-4.5) mmol/L Sodium (137-145) mmol/L BUN (9-20) mg/dL Creatinine (0.66-1.25) mg/dL POC Glucose (mg/dL) 197 H 149 H 117 H (75-99) mg/dL Total Protein (6.3-8.2) g/dL Albumin (3.5-5.0) g/dL Arterial Blood Potassium (3.4-4.5) mmol/L 08/22/17 08/22/17 08/22/17 Range/Units 05:48 05:48 05:48 RBC 3.01 L (4.30-5.90) m/uL Hgb 8.0 L (13.0-17.5) gm/dL Hct 25.1 L (39.0-53.0) % PT 24.9 H (9.0-12.0) sec INR 2.6 H (<1.2) ABG pH (7.35-7.45) ABG pCO2 (35-45) mmHg ABG pO2 (83-108) mmHg ABG HCO3 (21-25) mmol/L ABG Total CO2 (19-24) mmol/L ABG O2 Saturation (94-97) % ABG Hematocrit (34.0-46.0) % ABG Potassium (3.4-4.5) mmol/L Sodium 136 L (137-145) mmol/L BUN 43 H (9-20) mg/dL Creatinine 1.30 H (0.66-1.25) mg/dL POC Glucose (mg/dL) (75-99) mg/dL Total Protein 5.5 L (6.3-8.2) g/dL Albumin 2.9 L (3.5-5.0) g/dL Arterial Blood Potassium (3.4-4.5) mmol/L 08/22/17 Range/Units 06:39 RBC (4.30-5.90) m/uL Hgb (13.0-17.5) gm/dL Hct (39.0-53.0) % PT (9.0-12.0) sec INR (<1.2) ABG pH (7.35-7.45) ABG pCO2 (35-45) mmHg ABG pO2 (83-108) mmHg ABG HCO3 (21-25) mmol/L ABG Total CO2 (19-24) mmol/L ABG O2 Saturation (94-97) % ABG Hematocrit (34.0-46.0) % ABG Potassium (3.4-4.5) mmol/L Sodium (137-145) mmol/L BUN (9-20) mg/dL Creatinine (0.66-1.25) mg/dL POC Glucose (mg/dL) 116 H (75-99) mg/dL Total Protein (6.3-8.2) g/dL Albumin (3.5-5.0) g/dL Arterial Blood Potassium (3.4-4.5) mmol/L - Imaging and Cardiology Chest x-ray: image reviewed Assessment and Plan (1) Aortic insufficiency due to bicuspid aortic valve Status: Acute (2) Chronic systolic heart failure Status: Acute (3) Coronary artery disease Status: Acute (4) Bicuspid aortic valve Status: Acute (5) HTN (hypertension) Status: Acute (6) Hyperlipidemia Status: Acute (7) Uncontrolled type 2 diabetes mellitus Status: Acute (8) Ischemic cardiomyopathy Status: Acute (9) Obesity (BMI 30.0-34.9) Status: Acute (10) Hepatitis C Status: Acute Plan: 1. Continue aspirin, statin, heparin subcu, beta kendal. Will maximize beta kendal therapy as tolerated. 2. Encourage incentive spirometry use. 3. Increase activity, ambulate in hallway. Physical therapy to follow. 4. GI/DVT prophylaxis. 5. Pain management with ordered pain medication. 6. Insulin management per primary care services. 7. Will monitor daily labs, chest x-rays. 8. Coumadin dosing with daily PT/INR. Goal INR for On-X valve to 2-2.5 for the first 3 months, then 1.4-1.8 thereafter. 9. More recommendations as patient progresses. Discharge planning in progress. Likely to discharge to home in the next 24-48 hours. <Jose Car - Last Filed: 08/22/17 15:13> Objective - Vital Signs Vital signs: Vital Signs Temp 97.4 F L 08/22/17 08:00 Pulse 77 08/22/17 12:00 Resp 16 08/22/17 03:12 BP 123/83 08/22/17 12:00 Pulse Ox 99 08/22/17 12:00 Intake & Output 08/21/17 08/22/17 08/22/17 18:59 06:59 18:59 Intake Total 860 20 360 Balance 860 20 360 Weight 87.2 kg 87.2 kg Intake: IV 20 20 10 0.9% NS FLUSH 20 20 10 Oral 840 350 Other: Voiding Method Toilet Toilet Urinal Urinal ABP, PAP, CO, CI - Last Documented Arterial Blood Pressure 101/57 Pulmonary Artery Pressure 23/13 Cardiac Output 6.1 Cardiac Index 3.1 - Labs CBC & Chem 7: 08/22/17 05:48 08/22/17 05:48 Labs: Abnormal Lab Results - Last 24 Hours (Table) 08/21/17 08/21/17 08/22/17 Range/Units 16:52 21:23 05:48 RBC 3.01 L (4.30-5.90) m/uL Hgb 8.0 L (13.0-17.5) gm/dL Hct 25.1 L (39.0-53.0) % PT (9.0-12.0) sec INR (<1.2) Sodium (137-145) mmol/L BUN (9-20) mg/dL Creatinine (0.66-1.25) mg/dL POC Glucose (mg/dL) 149 H 117 H (75-99) mg/dL Total Protein (6.3-8.2) g/dL Albumin (3.5-5.0) g/dL 08/22/17 08/22/17 08/22/17 Range/Units 05:48 05:48 06:39 RBC (4.30-5.90) m/uL Hgb (13.0-17.5) gm/dL Hct (39.0-53.0) % PT 24.9 H (9.0-12.0) sec INR 2.6 H (<1.2) Sodium 136 L (137-145) mmol/L BUN 43 H (9-20) mg/dL Creatinine 1.30 H (0.66-1.25) mg/dL POC Glucose (mg/dL) 116 H (75-99) mg/dL Total Protein 5.5 L (6.3-8.2) g/dL Albumin 2.9 L (3.5-5.0) g/dL 08/22/17 Range/Units 11:36 RBC (4.30-5.90) m/uL Hgb (13.0-17.5) gm/dL Hct (39.0-53.0) % PT (9.0-12.0) sec INR (<1.2) Sodium (137-145) mmol/L BUN (9-20) mg/dL Creatinine (0.66-1.25) mg/dL POC Glucose (mg/dL) 181 H (75-99) mg/dL Total Protein (6.3-8.2) g/dL Albumin (3.5-5.0) g/dL Assessment and Plan Plan: The patient was seen and examined. I agree with the above assessment and plan. Overall, the patient looks good. He is currently on room air. He still lacks a bit of motivation and we need to encourage him to ambulate. He has been tolerating a diet and has had a bowel movement. His INR is 2.6 today. We will hold his Coumadin tonight and recheck it in the morning. He will likely be discharged home tomorrow.
--- NOTE | 2017-08-22 08:40 | XR ---
EXAMINATION TYPE: XR chest 2V DATE OF EXAM: 08/22/2017 COMPARISON: 08/21/2017 TECHNIQUE: PA and lateral views submitted. HISTORY: Postop open heart FINDINGS: Chest tubes have been removed. There is a less than 5% left apical pneumothorax. No sizable pneumotho rax on the right. Cardiomegaly, postsurgical change, left lower lobe infiltrate and small effusion no analia. IMPRESSION: 1. Tiny less than 5% left apical pneumothorax 2. Left basilar consolidation and small effusion
--- NOTE | 2017-08-22 09:06 | P.PN ---
Progress Note - Text 5 m walk test done on 08/10/17: #1 3.38 sec, #2 2.90 sec, #3 3.11 sec
[2017-08-22] MEDS: ATORVASTATIN 40 MG TAB PO SCH (09:15)
[2017-08-22] MEDS: ASPIRIN 325 MG TAB PO SCH (09:15)
[2017-08-22] MEDS: HEPARIN SODIUM,PORCINE 5,000 UNIT/ML 1 ML VIAL SQ SCH ×3 (09:15→22:46)
[2017-08-22] MEDS: MUPIROCIN 2% OINT 22 GM TUBE NASAL SCH ×2 (09:16→19:39)
[2017-08-22] MEDS: METOPROLOL TARTRATE 25 MG TAB PO SCH ×2 (09:16→19:38)
--- NOTE | 2017-08-22 11:16 | P.PN ---
Subjective Principal diagnosis: Status post open heart This is a pleasant 32-year-old gentleman who just underwent yesterday an elective aortic valve replacement using a mechanical valve along with coronary artery bypass grafting 2 with LAY to LAD and SVG to PDA. He was admitted to the hospital a few weeks ago with congestive heart failure. He underwent an echocardiogram which showed severe cardiomyopathy. Subsequently he underwent a heart catheterization which showed severe to assess coronary artery disease involving the LAD and RCA. The OLMAN showed bicuspid aortic valve with evidence of severe aortic insufficiency. At that point the patient was diuresed very well and he was discharged from the hospital in stable medical condition and came to have the surgery yesterday. This is postoperative day #4. He continues to be hemodynamically stable. He continues to be in normal sinus mechanism. The patient is on aspirin, statin, and beta kendal. He is on Coumadin but the INR is subtherapeutic today. Objective - Vital Signs Vital signs: Vital Signs Temp 97.2 F L 08/22/17 03:12 Pulse 73 08/22/17 03:12 Resp 16 08/22/17 03:12 BP 115/76 08/22/17 03:12 Pulse Ox 99 08/22/17 08:11 Intake & Output 08/21/17 08/22/17 08/22/17 18:59 06:59 18:59 Intake Total 860 20 350 Balance 860 20 350 Weight 87.2 kg Intake: IV 20 20 0.9% NS FLUSH 20 20 Oral 840 350 Other: Voiding Method Toilet Toilet Urinal Urinal ABP, PAP, CO, CI - Last Documented Arterial Blood Pressure 101/57 Pulmonary Artery Pressure 23/13 Cardiac Output 6.1 Cardiac Index 3.1 - Constitutional General appearance: Present: no acute distress - Respiratory Respiratory: bilateral: CTA - Cardiovascular Rhythm: regular - Labs CBC & Chem 7: 08/22/17 05:48 08/22/17 05:48 Labs: Abnormal Lab Results - Last 24 Hours (Table) 08/21/17 08/21/17 08/21/17 Range/Units 12:19 16:52 21:23 RBC (4.30-5.90) m/uL Hgb (13.0-17.5) gm/dL Hct (39.0-53.0) % PT (9.0-12.0) sec INR (<1.2) Sodium (137-145) mmol/L BUN (9-20) mg/dL Creatinine (0.66-1.25) mg/dL POC Glucose (mg/dL) 197 H 149 H 117 H (75-99) mg/dL Total Protein (6.3-8.2) g/dL Albumin (3.5-5.0) g/dL 08/22/17 08/22/17 08/22/17 Range/Units 05:48 05:48 05:48 RBC 3.01 L (4.30-5.90) m/uL Hgb 8.0 L (13.0-17.5) gm/dL Hct 25.1 L (39.0-53.0) % PT 24.9 H (9.0-12.0) sec INR 2.6 H (<1.2) Sodium 136 L (137-145) mmol/L BUN 43 H (9-20) mg/dL Creatinine 1.30 H (0.66-1.25) mg/dL POC Glucose (mg/dL) (75-99) mg/dL Total Protein 5.5 L (6.3-8.2) g/dL Albumin 2.9 L (3.5-5.0) g/dL 08/22/17 Range/Units 06:39 RBC (4.30-5.90) m/uL Hgb (13.0-17.5) gm/dL Hct (39.0-53.0) % PT (9.0-12.0) sec INR (<1.2) Sodium (137-145) mmol/L BUN (9-20) mg/dL Creatinine (0.66-1.25) mg/dL POC Glucose (mg/dL) 116 H (75-99) mg/dL Total Protein (6.3-8.2) g/dL Albumin (3.5-5.0) g/dL Assessment and Plan Plan: This is a pleasant 32-year-old gentleman was known severe cardiomyopathy, severe underlying CAD, and severe aortic insufficiency with bicuspid aortic valve was admitted to the hospital yesterday and underwent aVR using mechanical valve along was CABG 2. The patient was extubated yesterday. He is in sinus mechanism. Hemodynamically he continues to be stable. He is on aspirin, statin, beta kendal. Coumadin was restarted but the INR is subtherapeutic today. The patient is staying for additional 24 hours for possible discharge home tomorrow morning.
[2017-08-22 11:34] VITALS: BMI 29.2
[2017-08-22 11:39] LABS: Glucose,Whole Blood 181 mg/dL (75-99)
--- NOTE | 2017-08-22 11:57 | P.PN ---
Subjective Principal diagnosis: Status post aortic valve replacement and CABG. This is a 32-year-old male status post elective aortic valve replacement with a mechanical valve, exclusion of left atrial appendage and myocardial revascularization with LAY to LAD and SVG to PDA. On 06/27/2017 patient presented to the emergency department with bilateral lower leg and abdominal edema, 50 pound weight gain over 2 months, cough and orthopnea. Patient's history includes hypertension, hyperlipidemia and diabetes mellitus for which treatments was recently started. Cardiac evaluation showed significant systolic heart failure with left ventricular dysfunction and an ejection fraction between 25- 30%. Transesophageal echocardiogram on 07/04/2017 showed a bicuspid aortic valve with fusion of the non-coronary and left coronary cusps. The mitral valve was mildly thickened with only mild mitral regurgitation and tricuspid valve with mild insufficiency. Cardiac catheterization on 07/19/2017 showed severe disease involving the ramus intermedius coronary artery, severe disease involving the mid to distal LAD and aortic insufficiency are 4+. Patient's heart failure was treated with IV Lasix , beta blockers and these inhibitors. During that hospitalization an incidental finding of chronic hepatitis C was made. Patient was seen by Dr. Cosby. Patient had no symptoms of chronic liver disease and had normal liver enzymes. Once his condition optimized, he was recommended to undergo an aortic valve replacement and myocardial revascularization. Pulmonary function tests FEV1 of 87%, patient's is a lifetime nonsmoker with no history of chronic pulmonary problems. Chest CT from 07/04/2017 showed cardiomegaly with small pericardial effusion, and bibasilar reticular nodular opacities possibly of infectious or inflammatory etiology. Patient is sedated on a mechanical ventilator with settings of assist control mode rate of 12, tidal volume 450, FiO2 of 100% and PEEP of 5. 2 mediastinal and right and left pleural chest tubes with 100 mL of sanguinous drainage. Patient did receive 1 unit of PRBC and 320 mL of Cell Saver intraoperatively. He is currently on the small amount of epinephrine at 1mcg/min, nitroglycerin at 5 mcg/min. and propofol at 25 mcg/ kg/min. estimated blood loss was 900 mL. Patient's intrinsic rhythm is sinus with a rate of 67 bpm. PA pressures 34/19, cardiac output 6.6/cardiac index of 3.4. Blood gas will be obtained and further adjustments to the ventilator settings will be made based upon the results. On 08/19/2017 the patient is being seen for a follow-up. The patient was weaned off the mechanical ventilated and was extubated blood any major difficulties. This morning it is awake and sitting up on a chair and is calm and comfortable. Thoracic surgical wound site is clean. Chest tubes are all in place. There is no evidence of any pneumothorax on today's chest x-ray in the lungs are well expanded. Surgical wound site is dry clean and intact. The patient briefly was placed on Cleviprex yesterday which was subsequently discontinued knowing that his blood pressure control improved. He is producing adequate amount of urine output. He is awake and alert and following commands and answering questions. He is using incentive spirometer. His pain is controlled for now. The patient is postop day #1 following an elective aortic valve replacement with a mechanical valve and two-vessel bypass surgery with LAY to LAD and saphenous vein graft to PDA. Note that the patient had a bicuspid aortic valve. He is still on a nitroglycerin drip at a low dose for blood pressure control.The patient has had 170 mL of serosanguineous drainage from the chest tubes overnight and 600 since surgery from the mediastinal chest tube and a total of 5 and 40 mL of serous drainage from the left and right pleural chest tubes which are connected. On 08/20/2017 the patient is being seen for a follow-up. The patient is sitting up on a chair. Has no specific complaints. The patient is postop day # 2. He will be started on a long-term articulation with warfarin today. The output from the Pickard catheterizations between 20-45 mL on an hourly basis. The JHON drain shows no output. The patient has put out approximately 500 mL of output from the chest tubes over the past 24 hours and this includes the right and the left pleural chest tubes. The mediastinal chest tube has put out only 150 mL over the past 24 hours in 30 mL's of serosanguineous drainage over the past 12 hours. Chest x-ray showed adequate expansion of both lungs. All of the chest tubes are in place. The patient remains hemodynamic is stable. He is on no antihypertensive drips. Nitroglycerin drip has been discontinued. He has no specific complaints. Awake. Alert. Communicating. Using incentive spirometer. Patient was reevaluated today on 08/21/2017, seems to be doing relatively well, his left sided chest tube was still in place at the time of my evaluation, and the right sided chest tube was removed. However thoracic surgery is planning to remove the left sided chest tube also today. Overall the patient is doing well, asymptomatic, compliant with his incentive spirometry, hemodynamically stable. Using incentive spirometry as directed. Labs were reviewed including his electrolytes, basic metabolic profile, creatinine is 1.40 today, hemoglobin is 8.7. Reevaluated today on 08/22/2017, patient is doing well, asymptomatic, no cough no wheezing no shortness of breath, ambulating down the hallway without any difficulty. Patient is now postoperative day #4. Labs were reviewed hemoglobin is 8 INR is 2.6 and therapeutic renal profile was also noted BUN of 43 creatinine 1.30 Objective - Vital Signs Vital signs: Vital Signs Temp 97.2 F L 08/22/17 03:12 Pulse 73 08/22/17 03:12 Resp 16 08/22/17 03:12 BP 115/76 08/22/17 03:12 Pulse Ox 99 08/22/17 08:11 Intake & Output 08/21/17 08/22/17 08/22/17 18:59 06:59 18:59 Intake Total 860 20 350 Balance 860 20 350 Weight 87.2 kg 87.2 kg Intake: IV 20 20 0.9% NS FLUSH 20 20 Oral 840 350 Other: Voiding Method Toilet Toilet Urinal Urinal ABP, PAP, CO, CI - Last Documented Arterial Blood Pressure 101/57 Pulmonary Artery Pressure 23/13 Cardiac Output 6.1 Cardiac Index 3.1 - Exam General appearance: Present: cooperative, no acute distress, obese HEENT: No neck masses, no JVD, no thyromegaly, no stridor. Throat is clear. Moist mucous membranes noted. - Respiratory Details: Lungs sounds diminished bilaterally. Respirations even, nonlabored. Currently on 2 L nasal cannula with oxygen saturation 100%. Only able to achieve 500 mL on his incentive spirometry. Weak cough. Left and right pleural chest tubes connected to -20 cm wall suction, 540 mL serous and was drainage overnight, 1110 mL since surgery. Mediastinal chest tubes to -20 cm wall suction, 170 mL serosanguineous drainage overnight, 600 mL since surgery. No air leaks present. - Cardiovascular Details: S1, S2 present. Positive click. Regular rate and rhythm, sinus rhythm on telemetry. Sternum stable. A/V epicardial pacemaker wires present, connected to generator, VVI mode with backup rate 30 bpm. Palpable pulses bilaterally. Trace bilateral lower extremity edema present. Right brachial arterial line, right internal jugular Cordis/[place] present. Teds/SCDs present. - Gastrointestinal Gastrointestinal Comment(s): Abdomen soft, nontender, nondistended. Hypoactive bowel sounds present 4 quadrants. Negative flatus, tolerating clear liquids. - Genitourinary Genitourinary Comment(s): Pickard present draining clear, yellow urine. Output 50-190 mL/h overnight. - Integumentary Integumentary Comment(s): Anterior chest incision well approximated covered with dry intact dressing. Left lower extremity EVH site well approximated, - Neurologic Neurologic: Present: CNII-XII intact - Musculoskeletal Musculoskeletal: Present: strength equal bilaterally - Psychiatric Psychiatric: Present: A&O x's 3, appropriate affect, intact judgment & insight - Labs CBC & Chem 7: 08/22/17 05:48 08/22/17 05:48 Labs: Abnormal Lab Results - Last 24 Hours (Table) 08/21/17 08/21/17 08/21/17 Range/Units 12:19 16:52 21:23 RBC (4.30-5.90) m/uL Hgb (13.0-17.5) gm/dL Hct (39.0-53.0) % PT (9.0-12.0) sec INR (<1.2) Sodium (137-145) mmol/L BUN (9-20) mg/dL Creatinine (0.66-1.25) mg/dL POC Glucose (mg/dL) 197 H 149 H 117 H (75-99) mg/dL Total Protein (6.3-8.2) g/dL Albumin (3.5-5.0) g/dL 08/22/17 08/22/17 08/22/17 Range/Units 05:48 05:48 05:48 RBC 3.01 L (4.30-5.90) m/uL Hgb 8.0 L (13.0-17.5) gm/dL Hct 25.1 L (39.0-53.0) % PT 24.9 H (9.0-12.0) sec INR 2.6 H (<1.2) Sodium 136 L (137-145) mmol/L BUN 43 H (9-20) mg/dL Creatinine 1.30 H (0.66-1.25) mg/dL POC Glucose (mg/dL) (75-99) mg/dL Total Protein 5.5 L (6.3-8.2) g/dL Albumin 2.9 L (3.5-5.0) g/dL 08/22/17 08/22/17 Range/Units 06:39 11:36 RBC (4.30-5.90) m/uL Hgb (13.0-17.5) gm/dL Hct (39.0-53.0) % PT (9.0-12.0) sec INR (<1.2) Sodium (137-145) mmol/L BUN (9-20) mg/dL Creatinine (0.66-1.25) mg/dL POC Glucose (mg/dL) 116 H 181 H (75-99) mg/dL Total Protein (6.3-8.2) g/dL Albumin (3.5-5.0) g/dL Assessment and Plan Plan: 1 aortic valve replacement/mechanical valve and a two-vessel bypass surgery for severe bicuspid aortic valve stenosis and coronary artery disease. Patient is postop day #4 2 post thoracotomy 3 CAD 4 bicuspid aortic valve 5 hypertension currently still negative nitroglycerin drip for blood pressure control 6 hyperlipidemia 7 poorly controlled diabetes mellitus Recommendation: Continue present supportive care measures, continue incentive spirometry, possible discharge planning in a.m. Time with Patient: Less than 30
--- NOTE | 2017-08-22 12:07 | P.PN ---
Subjective Patient is doing well today. No events overnight. Objective - Vital Signs Vital signs: Vital Signs Temp 97.2 F L 08/22/17 03:12 Pulse 73 08/22/17 03:12 Resp 16 08/22/17 03:12 BP 115/76 08/22/17 03:12 Pulse Ox 99 08/22/17 08:11 Intake & Output 08/21/17 08/22/17 08/22/17 18:59 06:59 18:59 Intake Total 860 20 350 Balance 860 20 350 Weight 87.2 kg 87.2 kg Intake: IV 20 20 0.9% NS FLUSH 20 20 Oral 840 350 Other: Voiding Method Toilet Toilet Urinal Urinal ABP, PAP, CO, CI - Last Documented Arterial Blood Pressure 101/57 Pulmonary Artery Pressure 23/13 Cardiac Output 6.1 Cardiac Index 3.1 - Exam General: The patient is awake and alert, in no distress Eye: there is normal conjunctiva bilaterally. Neck: The neck is supple, there is no JVD. Cardiovascular: Normal S1-S2, no S3-S4, no murmurs. Respiratory: Lungs clear to auscultation bilaterally Gastrointestinal: Abdomen is soft, nontender Musculoskeletal: There is no pedal edema. Neurological:. Speech is normal. Skin: Skin is warm and dry - Labs CBC & Chem 7: 08/22/17 05:48 08/22/17 05:48 Labs: Abnormal Lab Results - Last 24 Hours (Table) 08/21/17 08/21/17 08/21/17 Range/Units 12:19 16:52 21:23 RBC (4.30-5.90) m/uL Hgb (13.0-17.5) gm/dL Hct (39.0-53.0) % PT (9.0-12.0) sec INR (<1.2) Sodium (137-145) mmol/L BUN (9-20) mg/dL Creatinine (0.66-1.25) mg/dL POC Glucose (mg/dL) 197 H 149 H 117 H (75-99) mg/dL Total Protein (6.3-8.2) g/dL Albumin (3.5-5.0) g/dL 08/22/17 08/22/17 08/22/17 Range/Units 05:48 05:48 05:48 RBC 3.01 L (4.30-5.90) m/uL Hgb 8.0 L (13.0-17.5) gm/dL Hct 25.1 L (39.0-53.0) % PT 24.9 H (9.0-12.0) sec INR 2.6 H (<1.2) Sodium 136 L (137-145) mmol/L BUN 43 H (9-20) mg/dL Creatinine 1.30 H (0.66-1.25) mg/dL POC Glucose (mg/dL) (75-99) mg/dL Total Protein 5.5 L (6.3-8.2) g/dL Albumin 2.9 L (3.5-5.0) g/dL 08/22/17 08/22/17 Range/Units 06:39 11:36 RBC (4.30-5.90) m/uL Hgb (13.0-17.5) gm/dL Hct (39.0-53.0) % PT (9.0-12.0) sec INR (<1.2) Sodium (137-145) mmol/L BUN (9-20) mg/dL Creatinine (0.66-1.25) mg/dL POC Glucose (mg/dL) 116 H 181 H (75-99) mg/dL Total Protein (6.3-8.2) g/dL Albumin (3.5-5.0) g/dL Assessment and Plan Plan: 1. Postoperative day #4 status post aortic valve replacement with mechanical aortic valve and two-vessel bypass surgery 2. History of severe bicuspid aortic valve stenosis 3. Type 2 diabetes mellitus: Well controlled. A1c 6.7 4. Coronary artery disease status post 2 vessel bypass surgery 5. Essential hypertension: Blood pressure well controlled 6. Chronic kidney disease stage III Today, I reviewed his medication list and lab work results. Continue sliding scale insulin. Patient is on anticoagulation with Coumadin dosed by admitting provider. I'll be happy to follow-up on his Coumadin as an outpatient if asked to do so. I would continue to follow up on him closely. Cardiac rehab is being set up for outpatient. Thank you very much for the consultation. Discharge planning per admitting team
[2017-08-22 16:46] LABS: Glucose,Whole Blood 121 mg/dL (75-99)
[2017-08-22] MEDS: HYDROcodone/APAP 5-325MG 1 EACH TAB PO PRN (17:32)
[2017-08-22] MEDS: SENNOSIDES-DOCUSATE SODIUM 1 EACH TAB PO SCH (19:39)
[2017-08-22 20:56] LABS: Glucose,Whole Blood 172 mg/dL (75-99)
[2017-08-22 23:31] VITALS: RESP 16
[2017-08-23 03:05] LABS: Glucose,Whole Blood 87 mg/dL (75-99)
[2017-08-23] MEDS: HYDROcodone/APAP 5-325MG 1 EACH TAB PO PRN (03:55)
[2017-08-23 06:04] LABS: Glucose,Whole Blood 100 mg/dL (75-99)
[2017-08-23] MEDS: INSULIN LISPRO (humaLOG) 300 UNIT/3 ML VIAL SQ SCH ×2 (06:17→12:53)
[2017-08-23] MEDS: PANTOPRAZOLE 40 MG TABLET PO SCH (06:54)
[2017-08-23] MEDS: glipiZIDE 10 MG TAB PO SCH (06:54)
[2017-08-23 07:17] LABS: CHCM 30.6; HCT 26.2 % (39.0-53.0); HDW 2.91; HGB 7.9 gm/dL (13.0-17.5); Hypochromasia Moderate; MCH 25.5 pg (25.0-35.0); Mean Platelet Volume 6.7; RBC 3.08 m/uL (4.30-5.90); WBC 7.1 k/uL (3.8-10.6)
[2017-08-23 07:28] LABS: ALT 19 U/L (21-72); AST 14 U/L (17-59); Alkaline Phosphatase 50 U/L (38-126); Anion Gap 9 mmol/L; Blood Urea Nitrogen 32 mg/dL (9-20); Calcium 8.7 mg/dL (8.4-10.2); Carbon Dioxide 23 mmol/L (22-30); Chloride 106 mmol/L (98-107); Glucose 86 mg/dL (74-99); INR 2.6 (<1.2); Non-African American GFR(MDRD) >60 (>60 ml/min/1.73 sqM); Potassium 4.9 mmol/L (3.5-5.1); Prothrombin Time 25.3 sec (9.0-12.0); Sodium 138 mmol/L (137-145); Total Bilirubin 0.4 mg/dL (0.2-1.3); Total Protein 5.6 g/dL (6.3-8.2)
--- NOTE | 2017-08-23 08:13 | P.PN ---
<Zena Cummings - Last Filed: 08/23/17 08:12> Subjective Principal diagnosis: Severe aortic valvular insufficiency with bicuspid aortic valve, coronary artery disease, chronic systolic congestive heart failure. History of ischemic cardiomyopathy with ejection fraction 25-30%, postoperative ejection fraction approximately 40% by OLMAN in the OR. History of hypertension, hyperlipidemia, uncontrolled diabetes mellitus with hemoglobin A1c 9.1% a month ago, now better controlled with A1c 6.7%. Obesity. History of hepatitis C. POD #5 elective aortic valve replacement with 25 mm On-X valve, coronary artery bypass surgery with left internal mammary artery to the left anterior descending artery and greater saphenous vein graft to the posterior descending artery, exclusion of left atrial appendage with 35 mm Atriclip, endovascular vein harvest of the left greater saphenous vein, epi-aortic ultrasonography, intraoperative transesophageal echocardiogram by anesthesia. Patient is currently sitting up in bed in no acute distress. States he has ambulated in the hallway. No new complaints Objective - Vital Signs Vital signs: Vital Signs Temp 96.8 F L 08/23/17 04:00 Pulse 83 08/23/17 04:00 Resp 16 08/23/17 04:00 BP 120/80 08/23/17 04:00 Pulse Ox 98 08/23/17 04:00 Intake & Output 08/22/17 08/23/17 08/23/17 18:59 06:59 18:59 Intake Total 658 20 Balance 658 20 Weight 87.2 kg 88 kg Intake: IV 10 20 0.9% NS FLUSH 10 20 Oral 648 ABP, PAP, CO, CI - Last Documented Arterial Blood Pressure 101/57 Pulmonary Artery Pressure 23/13 Cardiac Output 6.1 Cardiac Index 3.1 - Constitutional General appearance: Present: cooperative, no acute distress - Respiratory Details: Lungs sounds diminished bilaterally. Respirations even, nonlabored. Currently remains oxygen saturation 98%. Able to achieve 1500 mL on his incentive spirometry. Effective cough. Chest x-ray reviewed, cardiomyopathy present. - Cardiovascular Details: S1, S2 present. Positive click. Regular rate and rhythm, normal sinus rhythm on telemetry. Sternum stable. Heart hugger in place with patient demonstrating appropriate use. Palpable pulses bilaterally. No edema present. Teds/SCDs present. - Gastrointestinal Gastrointestinal Comment(s): Abdomen soft, nontender, nondistended. Active bowel sounds 4 quadrants. Tolerating diet. - Genitourinary Genitourinary Comment(s): Continues to void clear, yellow urine. - Integumentary Integumentary Comment(s): Anterior chest incision well approximated, covered with clean, dry, intact dressing. Left lower extremity EVH site well approximated. - Neurologic Neurologic: Present: CNII-XII intact - Musculoskeletal Musculoskeletal: Present: gait normal, strength equal bilaterally - Psychiatric Psychiatric: Present: A&O x's 3, appropriate affect, intact judgment & insight - Allied health notes Allied health notes reviewed: nursing - Labs CBC & Chem 7: 08/23/17 06:03 08/23/17 06:03 Labs: Abnormal Lab Results - Last 24 Hours (Table) 08/22/17 08/22/17 08/22/17 Range/Units 11:36 16:43 20:46 RBC (4.30-5.90) m/uL Hgb (13.0-17.5) gm/dL Hct (39.0-53.0) % MCHC (31.0-37.0) g/dL PT (9.0-12.0) sec INR (<1.2) BUN (9-20) mg/dL POC Glucose (mg/dL) 181 H 121 H 172 H (75-99) mg/dL AST (17-59) U/L ALT (21-72) U/L Total Protein (6.3-8.2) g/dL Albumin (3.5-5.0) g/dL 08/23/17 08/23/17 08/23/17 Range/Units 06:00 06:03 06:03 RBC 3.08 L (4.30-5.90) m/uL Hgb 7.9 L (13.0-17.5) gm/dL Hct 26.2 L (39.0-53.0) % MCHC 30.0 L (31.0-37.0) g/dL PT 25.3 H (9.0-12.0) sec INR 2.6 H (<1.2) BUN (9-20) mg/dL POC Glucose (mg/dL) 100 H (75-99) mg/dL AST (17-59) U/L ALT (21-72) U/L Total Protein (6.3-8.2) g/dL Albumin (3.5-5.0) g/dL 08/23/17 Range/Units 06:03 RBC (4.30-5.90) m/uL Hgb (13.0-17.5) gm/dL Hct (39.0-53.0) % MCHC (31.0-37.0) g/dL PT (9.0-12.0) sec INR (<1.2) BUN 32 H (9-20) mg/dL POC Glucose (mg/dL) (75-99) mg/dL AST 14 L (17-59) U/L ALT 19 L (21-72) U/L Total Protein 5.6 L (6.3-8.2) g/dL Albumin 2.8 L (3.5-5.0) g/dL - Imaging and Cardiology Chest x-ray: image reviewed Assessment and Plan (1) Aortic insufficiency due to bicuspid aortic valve Status: Acute (2) Chronic systolic heart failure Status: Acute (3) Coronary artery disease Status: Acute (4) Bicuspid aortic valve Status: Acute (5) HTN (hypertension) Status: Acute (6) Hyperlipidemia Status: Acute (7) Uncontrolled type 2 diabetes mellitus Status: Acute (8) Ischemic cardiomyopathy Status: Acute (9) Obesity (BMI 30.0-34.9) Status: Acute (10) Hepatitis C Status: Acute Plan: 1. Continue aspirin, statin, heparin subcu, beta kendal. Will maximize beta kendal therapy as tolerated. Will re-add SWETA inhibitor. 2. Encourage incentive spirometry use. 3. Increase activity, ambulate in hallway. Physical therapy to follow. 4. GI/DVT prophylaxis. 5. Pain management with ordered pain medication. 6. Insulin management per primary care services. 7. Will monitor daily labs, chest x-rays. 8. Coumadin dosing with daily PT/INR. Goal INR for On-X valve to 2-2.5 for the first 3 months, then 1.4-1.8 thereafter. 9. More recommendations as patient progresses. Discharge planning in progress. We'll discharge home this afternoon. Home care to follow. PT/INR to be drawn tomorrow morning by home care nurse with results faxed to cardiology for Coumadin dosing. Time with Patient: Greater than 30 <Habib,Jose - Last Filed: 08/23/17 16:35> Objective - Vital Signs Vital signs: Vital Signs Temp 98.6 F 08/23/17 08:00 Pulse 82 08/23/17 12:00 Resp 16 08/23/17 04:00 BP 117/74 08/23/17 08:00 Pulse Ox 98 08/23/17 08:00 Intake & Output 08/22/17 08/23/17 08/23/17 18:59 06:59 18:59 Intake Total 658 20 247 Balance 658 20 247 Weight 87.2 kg 88 kg Intake: IV 10 20 10 0.9% NS FLUSH 10 20 10 Oral 648 237 ABP, PAP, CO, CI - Last Documented Arterial Blood Pressure 101/57 Pulmonary Artery Pressure 23/13 Cardiac Output 6.1 Cardiac Index 3.1 - Labs CBC & Chem 7: 08/23/17 06:03 08/23/17 06:03 Labs: Abnormal Lab Results - Last 24 Hours (Table) 08/22/17 08/22/17 08/23/17 Range/Units 16:43 20:46 06:00 RBC (4.30-5.90) m/uL Hgb (13.0-17.5) gm/dL Hct (39.0-53.0) % MCHC (31.0-37.0) g/dL PT (9.0-12.0) sec INR (<1.2) BUN (9-20) mg/dL POC Glucose (mg/dL) 121 H 172 H 100 H (75-99) mg/dL AST (17-59) U/L ALT (21-72) U/L Total Protein (6.3-8.2) g/dL Albumin (3.5-5.0) g/dL 08/23/17 08/23/17 08/23/17 Range/Units 06:03 06:03 06:03 RBC 3.08 L (4.30-5.90) m/uL Hgb 7.9 L (13.0-17.5) gm/dL Hct 26.2 L (39.0-53.0) % MCHC 30.0 L (31.0-37.0) g/dL PT 25.3 H (9.0-12.0) sec INR 2.6 H (<1.2) BUN 32 H (9-20) mg/dL POC Glucose (mg/dL) (75-99) mg/dL AST 14 L (17-59) U/L ALT 19 L (21-72) U/L Total Protein 5.6 L (6.3-8.2) g/dL Albumin 2.8 L (3.5-5.0) g/dL 08/23/17 Range/Units 12:35 RBC (4.30-5.90) m/uL Hgb (13.0-17.5) gm/dL Hct (39.0-53.0) % MCHC (31.0-37.0) g/dL PT (9.0-12.0) sec INR (<1.2) BUN (9-20) mg/dL POC Glucose (mg/dL) 157 H (75-99) mg/dL AST (17-59) U/L ALT (21-72) U/L Total Protein (6.3-8.2) g/dL Albumin (3.5-5.0) g/dL Assessment and Plan Plan: The patient was seen and examined. Agree with the above assessment and plan. Overall he looks good. He is on room air. He has been ambulating. His INR today is 2.6. We will ask that he take 2 mg of Coumadin tonight and get his INR checked tomorrow by the visiting nurse. His INR will be followed by cardiology. We will add an SWETA inhibitor today. He is ready for discharge home.
[2017-08-23] MEDS: HEPARIN SODIUM,PORCINE 5,000 UNIT/ML 1 ML VIAL SQ SCH (08:31)
[2017-08-23] MEDS: ATORVASTATIN 40 MG TAB PO SCH (08:32)
[2017-08-23] MEDS: METOPROLOL TARTRATE 25 MG TAB PO SCH (08:32)
[2017-08-23] MEDS: MUPIROCIN 2% OINT 22 GM TUBE NASAL SCH (08:32)
[2017-08-23] MEDS: ASPIRIN 325 MG TAB PO SCH (08:32)
[2017-08-23 08:36] VITALS: BP 117/74; TEMP 98.6
--- NOTE | 2017-08-23 08:50 | XR ---
EXAMINATION TYPE: XR chest 2V DATE OF EXAM: 08/23/2017 COMPARISON: 08/22/2017 TECHNIQUE: PA and lateral views submitted. HISTORY: Post cardiac surgery FINDINGS: The heart is enlarged there is postoperative change with left lower lobe infiltrate and small effusio n stable. No pneumothorax or interstitial edema. IMPRESSION: 1. Stable left lower lobe infiltrate and small effusion.
[2017-08-23] MEDS ORDERED: FUROSEMIDE 40 MG TAB PO SCH (09:00)
[2017-08-23] MEDS ORDERED: LISINOPRIL 2.5 MG TAB PO SCH (09:00)
--- NOTE | 2017-08-23 10:50 | P.PN ---
Subjective Principal diagnosis: Status post open heart This is a pleasant 32-year-old gentleman who just underwent yesterday an elective aortic valve replacement using a mechanical valve along with coronary artery bypass grafting 2 with LAY to LAD and SVG to PDA. He was admitted to the hospital a few weeks ago with congestive heart failure. He underwent an echocardiogram which showed severe cardiomyopathy. Subsequently he underwent a heart catheterization which showed severe to assess coronary artery disease involving the LAD and RCA. The OLMAN showed bicuspid aortic valve with evidence of severe aortic insufficiency. At that point the patient was diuresed very well and he was discharged from the hospital in stable medical condition and came to have the surgery yesterday. This is postoperative day #4. He continues to be hemodynamically stable. He continues to be in normal sinus mechanism. The patient is on aspirin, statin, and beta kendal. He is on Coumadin but the INR is therapeutic today. The patient is going to be discharged home today. Objective - Vital Signs Vital signs: Vital Signs Temp 98.6 F 08/23/17 08:00 Pulse 91 08/23/17 08:00 Resp 16 08/23/17 04:00 BP 117/74 08/23/17 08:00 Pulse Ox 98 08/23/17 08:00 Intake & Output 08/22/17 08/23/17 08/23/17 18:59 06:59 18:59 Intake Total 658 20 237 Balance 658 20 237 Weight 87.2 kg 88 kg Intake: IV 10 20 0.9% NS FLUSH 10 20 Oral 648 237 ABP, PAP, CO, CI - Last Documented Arterial Blood Pressure 101/57 Pulmonary Artery Pressure 23/13 Cardiac Output 6.1 Cardiac Index 3.1 - Constitutional General appearance: Present: no acute distress - Respiratory Respiratory: bilateral: CTA - Cardiovascular Rhythm: regular - Labs CBC & Chem 7: 08/23/17 06:03 08/23/17 06:03 Labs: Abnormal Lab Results - Last 24 Hours (Table) 08/22/17 08/22/17 08/22/17 Range/Units 11:36 16:43 20:46 RBC (4.30-5.90) m/uL Hgb (13.0-17.5) gm/dL Hct (39.0-53.0) % MCHC (31.0-37.0) g/dL PT (9.0-12.0) sec INR (<1.2) BUN (9-20) mg/dL POC Glucose (mg/dL) 181 H 121 H 172 H (75-99) mg/dL AST (17-59) U/L ALT (21-72) U/L Total Protein (6.3-8.2) g/dL Albumin (3.5-5.0) g/dL 08/23/17 08/23/17 08/23/17 Range/Units 06:00 06:03 06:03 RBC 3.08 L (4.30-5.90) m/uL Hgb 7.9 L (13.0-17.5) gm/dL Hct 26.2 L (39.0-53.0) % MCHC 30.0 L (31.0-37.0) g/dL PT 25.3 H (9.0-12.0) sec INR 2.6 H (<1.2) BUN (9-20) mg/dL POC Glucose (mg/dL) 100 H (75-99) mg/dL AST (17-59) U/L ALT (21-72) U/L Total Protein (6.3-8.2) g/dL Albumin (3.5-5.0) g/dL 08/23/17 Range/Units 06:03 RBC (4.30-5.90) m/uL Hgb (13.0-17.5) gm/dL Hct (39.0-53.0) % MCHC (31.0-37.0) g/dL PT (9.0-12.0) sec INR (<1.2) BUN 32 H (9-20) mg/dL POC Glucose (mg/dL) (75-99) mg/dL AST 14 L (17-59) U/L ALT 19 L (21-72) U/L Total Protein 5.6 L (6.3-8.2) g/dL Albumin 2.8 L (3.5-5.0) g/dL Assessment and Plan Plan: This is a pleasant 32-year-old gentleman was known severe cardiomyopathy, severe underlying CAD, and severe aortic insufficiency with bicuspid aortic valve was admitted to the hospital yesterday and underwent aVR using mechanical valve along was CABG 2. The patient was extubated yesterday. He is in sinus mechanism. Hemodynamically he continues to be stable. He is on aspirin, statin, beta kendal. Coumadin was restarted but the INR is subtherapeutic today. The patient is going to be discharged today.
[2017-08-23] MEDS: SENNOSIDES-DOCUSATE SODIUM 1 EACH TAB PO SCH (11:30)
[2017-08-23 12:37] LABS: Glucose,Whole Blood 157 mg/dL (75-99)
[2017-08-23] MEDS ORDERED: NA PHOS,M-B/NA PHOS,DI-BA 133 ML ENEMA RECTAL ONE (13:13)
--- NOTE | 2017-08-23 13:15 | P.PN ---
Subjective Patient is having problems with constipation today. He was given a stool softener earlier. He said last bowel movement was yesterday. He denies abdominal pain. Objective - Vital Signs Vital signs: Vital Signs Temp 98.6 F 08/23/17 08:00 Pulse 91 08/23/17 08:00 Resp 16 08/23/17 04:00 BP 117/74 08/23/17 08:00 Pulse Ox 98 08/23/17 08:00 Intake & Output 08/22/17 08/23/17 08/23/17 18:59 06:59 18:59 Intake Total 658 20 237 Balance 658 20 237 Weight 87.2 kg 88 kg Intake: IV 10 20 0.9% NS FLUSH 10 20 Oral 648 237 ABP, PAP, CO, CI - Last Documented Arterial Blood Pressure 101/57 Pulmonary Artery Pressure 23/13 Cardiac Output 6.1 Cardiac Index 3.1 - Exam General: The patient is awake and alert, in no distress Eye: there is normal conjunctiva bilaterally. Neck: The neck is supple, there is no JVD. Cardiovascular: Normal S1-S2, no S3-S4, mechanical valve murmur noted in the aortic area Respiratory: Lungs clear to auscultation bilaterally Gastrointestinal: Abdomen is soft, nontender Musculoskeletal: There is no pedal edema. Neurological:. Speech is normal. Skin: Skin is warm and dry - Labs CBC & Chem 7: 08/23/17 06:03 08/23/17 06:03 Labs: Abnormal Lab Results - Last 24 Hours (Table) 08/22/17 08/22/17 08/23/17 Range/Units 16:43 20:46 06:00 RBC (4.30-5.90) m/uL Hgb (13.0-17.5) gm/dL Hct (39.0-53.0) % MCHC (31.0-37.0) g/dL PT (9.0-12.0) sec INR (<1.2) BUN (9-20) mg/dL POC Glucose (mg/dL) 121 H 172 H 100 H (75-99) mg/dL AST (17-59) U/L ALT (21-72) U/L Total Protein (6.3-8.2) g/dL Albumin (3.5-5.0) g/dL 08/23/17 08/23/17 08/23/17 Range/Units 06:03 06:03 06:03 RBC 3.08 L (4.30-5.90) m/uL Hgb 7.9 L (13.0-17.5) gm/dL Hct 26.2 L (39.0-53.0) % MCHC 30.0 L (31.0-37.0) g/dL PT 25.3 H (9.0-12.0) sec INR 2.6 H (<1.2) BUN 32 H (9-20) mg/dL POC Glucose (mg/dL) (75-99) mg/dL AST 14 L (17-59) U/L ALT 19 L (21-72) U/L Total Protein 5.6 L (6.3-8.2) g/dL Albumin 2.8 L (3.5-5.0) g/dL 08/23/17 Range/Units 12:35 RBC (4.30-5.90) m/uL Hgb (13.0-17.5) gm/dL Hct (39.0-53.0) % MCHC (31.0-37.0) g/dL PT (9.0-12.0) sec INR (<1.2) BUN (9-20) mg/dL POC Glucose (mg/dL) 157 H (75-99) mg/dL AST (17-59) U/L ALT (21-72) U/L Total Protein (6.3-8.2) g/dL Albumin (3.5-5.0) g/dL Assessment and Plan Plan: 1. Postoperative day #5 status post aortic valve replacement with mechanical aortic valve and two-vessel bypass surgery 2. History of severe bicuspid aortic valve stenosis 3. Type 2 diabetes mellitus: Well controlled. A1c 6.7 4. Coronary artery disease status post 2 vessel bypass surgery 5. Essential hypertension: Blood pressure well controlled 6. Chronic kidney disease stage III Today, I reviewed his medication list and lab work results. Patient is medically clear for discharge. Please refer to the medication reconciliation note for medication list.
--- NOTE | 2017-08-23 14:34 | P.DS ---
Providers Date of admission: 08/18/17 05:45 Attending physician: Vitaly Olivares Consults: 08/18/17 13:34 Consult Physician Routine Consulting Provider: Melvina Layne Consult Reason/Comments: medical managment Do you want consulting provider notified?: Yes Consult Physician Routine Consulting Provider: Glynn Tomlin Consult Reason/Comments: Lamp Tester And Inspector Consult: post cardiac surgery Do you want consulting provider notified?: Yes Consult Physician Routine Consulting Provider: Isaiah Andrews Consult Reason/Comments: Front Desk Admin Consult: post cardiac surgery Do you want consulting provider notified?: Yes Primary care physician: Stated None - Discharge Diagnosis(es) (1) Aortic insufficiency due to bicuspid aortic valve Current Visit: Yes Status: Acute (2) Chronic systolic heart failure Current Visit: Yes Status: Acute (3) Coronary artery disease Current Visit: Yes Status: Acute (4) Bicuspid aortic valve Current Visit: No Status: Acute (5) HTN (hypertension) Current Visit: No Status: Acute (6) Hyperlipidemia Current Visit: No Status: Acute (7) Uncontrolled type 2 diabetes mellitus Current Visit: No Status: Acute (8) Ischemic cardiomyopathy Current Visit: Yes Status: Acute (9) Obesity (BMI 30.0-34.9) Current Visit: Yes Status: Acute (10) Hepatitis C Current Visit: No Status: Acute Hospital Course: FINAL DIAGNOSIS: 1. Severe aortic valvular insufficiency with bicuspid aortic valve 2. Coronary artery disease 3. Chronic systolic congestive heart failure 4. Ischemic cardiomyopathy, previous ejection fraction 25-30%, postoperative ejection fraction 40% by OLMAN 5. History of hypertension 6. Hyperlipidemia 7. Uncontrolled diabetes mellitus with previous hemoglobin A1c 9.1%, now better controlled with A1c 6.7% 8. History of hepatitis C PRINCIPAL PROCEDURE: 1. Elective aortic valve replacement with a 25 mm On-X valve 2. Coronary artery bypass graft surgery with left internal mammary artery to the left anterior descending artery and greater saphenous vein graft to the posterior descending artery 3. Exclusion of the left atrial appendage with 35mm Atriclip 4. Endovascular vein harvest of the left greater saphenous vein 5. Epi-aortic ultrasonography 6. Intraoperative transesophageal echocardiogram by anesthesia HISTORY OF PRESENT ILLNESS: This 32-year-old gentleman presented to [facility] in June 2017 with severe heart failure, peripheral edema, and bilateral pleural effusions. He had left ventricular dysfunction with an ejection fraction about 30%. He had wide-open aortic insufficiency and mild mitral valve regurgitation. Cardiac catheterization was recommended and was completed on 07/05/2017 which demonstrated moderate coronary artery disease with stenosis up to 70% in the LAD and 50% in the RCA. The aortic valve on echo was noted to be bicuspid or possibly unicuspid. Cardiothoracic surgery was consulted for aortic valve replacement and surgical revascularization. An extensive discussion was had with the patient and his family, risks and benefits were explained, and consent was obtained to proceed with surgery. The patient stayed in the hospital for short time longer to maximize his heart failure treatment. He was to follow-up on discharge with an sensor specialist for better control of his blood sugars. He did obtain dental clearance and followed up in the cardiothoracic surgery office with Dr. Olivares for further discussion related to the type of valve to be used. All questions were answered and mechanical valve was agreed upon. HOSPITAL COURSE: The patient was brought to the hospital on 08/18/2017, taken to the preoperative area, prepared in usual fashion, and subsequently taken to the operating room where Dr. Olivares performed an elective aortic valve replacement with a 25 mm On-X valve, coronary artery bypass graft surgery with left internal mammary artery to the left anterior descending artery and greater saphenous vein graft to the posterior descending artery, exclusion of the left atrial appendage with 35mm Atriclip, endovascular vein harvest of the left greater saphenous vein, epi-aortic ultrasonography, and intraoperative transesophageal echocardiogram performed by anesthesia. Upon completion of surgery the patient was transferred to the cardiovascular intensive care unit where he was recovered, monitored hemodynamically, and where he progressed to cardiac rehabilitation phase 1. He was extubated, all lines, tubes, and drips were discontinued when appropriate, and he was transferred to [address] [place] [address] for further monitoring and rehabilitation. His oxygen was titrated down, he continued to work with physical therapy, his Coumadin level was dosed daily based on his PT/INR, and he was ready to be discharged home on postoperative day #5 with [facility] to follow. He received written and verbal instruction regarding his medications, activity restrictions, signs and symptoms requiring physician notification, and follow-up appointments. Home care was been instructed to draw a PT/INR on his first day home, with results faxed to the cardiology office for daily Coumadin dosing. COMPLICATIONS: The patient experienced no postoperative complications. Plan - Discharge Summary New Discharge Prescriptions: New Aspirin 325 mg PO DAILY #30 tab Atorvastatin [Lipitor] 40 mg PO DAILY #30 tab HYDROcodone/APAP 5-325MG [[place] 5-325] 1 - 2 each PO Q6HR PRN #120 tab PRN Reason: Severe Pain Lisinopril [Zestril] 2.5 mg PO DAILY #30 tab Metoprolol Tartrate [Lopressor] 25 mg PO BID #60 tab Pantoprazole [Protonix] 40 mg PO AC-BRKFST #30 tab Sennosides-Docusate Sodium [Senokot-S] 2 each PO HS tab Warfarin [Coumadin] 2 mg PO ONCE@1800 #30 tab Continue Furosemide [Lasix] 40 mg PO DAILY #30 tablet glipiZIDE [Glucotrol] 10 mg PO AC-BID #60 tablet Discontinued Lisinopril [Prinivil] 20 mg PO DAILY Atorvastatin [Lipitor] 20 mg PO HS hydrALAZINE HCL [Apresoline] 25 mg PO BID #60 tab Metoprolol Tartrate [Lopressor] 50 mg PO BID #60 tab Aspirin [Adult Low Dose Aspirin EC] 324 mg PO ONCE Discharge Medication List Furosemide [Lasix] 40 mg PO DAILY #30 tablet 07/10/17 [Rx] glipiZIDE [Glucotrol] 10 mg PO AC-BID #60 tablet 07/10/17 [Rx] Aspirin 325 mg PO DAILY #30 tab 08/23/17 [Rx] Atorvastatin [Lipitor] 40 mg PO DAILY #30 tab 08/23/17 [Rx] HYDROcodone/APAP 5-325MG [[place] 5-325] 1 - 2 each PO Q6HR PRN #120 tab 08/23/17 [Rx] Lisinopril [Zestril] 2.5 mg PO DAILY #30 tab 08/23/17 [Rx] Metoprolol Tartrate [Lopressor] 25 mg PO BID #60 tab 08/23/17 [Rx] Pantoprazole [Protonix] 40 mg PO AC-BRKFST #30 tab 08/23/17 [Rx] Sennosides-Docusate Sodium [Senokot-S] 2 each PO HS tab 08/23/17 [Rx] Warfarin [Coumadin] 2 mg PO ONCE@1800 #30 tab 08/23/17 [Rx] Follow up Appointment(s)/Referral(s): Zena Cummings NPC [Nurse Practitioner] - 08/25/17 12:00 pm Isaiah Andrews MD [STAFF PHYSICIAN] - 09/04/17 11:15 am Vitaly Olivares MD [STAFF PHYSICIAN] - 09/18/17 1:15 pm [facility], [NON-STAFF] - Melvina Layne MD [STAFF PHYSICIAN] - 09/04/17 1:45 pm Glynn Tomlin MD [STAFF PHYSICIAN] - 09/01/17 2:30 pm Ambulatory/Diagnostic Orders: Complete Blood Count w/diff [LAB.AMB] Time Frame: 3 Days, Location: Determined By Patient Comprehensive Metabolic Panel [LAB.AMB] Time Frame: 3 Days, Location: Determined By Patient Prothrombin Time INR [LAB.AMB] Time Frame: 3 Days, Location: Determined By Patient Prothrombin Time INR [LAB.AMB] Location: Determined By Patient Activity/Diet/Wound Care/Special Instructions: DISCHARGE INSTRUCTIONS: 1. No driving for 4 weeks, or until physician gives their ok. 2. The patient should sleep in their own bed, no medical bed needed. 3. Stairs are not an issue. If the bedroom is upstairs, it is advised that the patient go up at night and down in the morning for the first week. Go slowly, using handrail and take 1 step at a time. 4. LUISANA hose are to be worn for 30 days or until physician discontinues. 5. Heart hugger is to be worn 100% of the time until physician discontinues.( except when showering) 6. No lifting, pushing, or pulling more than 10 pounds for 12 weeks. The physician will advise of any restriction changes. 7. The patient is expected to continue the prescribed walking program. 8. Continue pain control per as needed orders. 9. Continue with incentive spirometry and splinting/heart hugger until otherwise directed by the physician. 10. Must shower daily using liquid antibacterial soap and a separate white washcloth for each individual incision. 11. Routine sternal incision care. No powders, lotions, ointments on incisions. 12. Please call surgeon/METAL PATTERNMAKER APPRENTICE for temp greater than 101 F or purulent drainage from incisions. 13. All prescriptions given by surgeon for 30 days. Refills need to be filled through director of design/primary care physician. HOME HEALTH SERVICES TO PROVIDE: RN SKILLED HOME CARE SERVICES FOR POST-OP SURGICAL PATIENTS WITH THE FOLLOWING: Coronary Artery Bypass Surgery (CABG), Mitral Valve Replacement/ Repair ( MVR), Aortic Valve Replacement/Repair (AVR) RN TO CONTINUE EDUCATION FROM ``ROAD TO A HEALTH HEART PATIENT EDUCATION MANUAL (GIVEN TO PATIENT IN THE HOSPITAL) MEDICATION RECONCILIATION WITH EDUCATION NEEDED ON FIRST HOME VISIT EMPHASIZE IMPORTANCE OF WEARING BREAST SUPPORT/HEART HUGGER ENCOURAGE USE OF INCENTIVE SPIROMETER 10 X EVERY HOUR WHILE AWAKE ENCOURAGE UTILIZATION OF LOWER EXTREMITY COMPRESSION STOCKINGS/LUISANA HOSE and ELEVATE LEGS ABOVE LEVEL OF HEART WHILE AT REST. ENCOURAGE AMBULATION 3-5x/day INCREASING TOLERATES, WHILE AVOID EXTREMES IN TEMPERATURE FREQUENCY: RN TO OPEN THE PATIENT WITHIN 24 HOURS OF DISCHARGE FROM THE HOSPITAL WITH [place]HE[place] [facility] [place]IT 2-3 X A WEEK FOR 4 WEEKS ESTABLISHED BY PATIENT NEEDS. LABORATORY: CBC, CMP TO BE DRAWN ON THE THIRD DAY HOME, Monday08/26/2017 (RAN STAT ) FAX RESULTS TO [phone]. For patients on Coumadin, PT/INR to be drawn on first day home and third day home, ran as STAT, and results faxed to [facility] at [phone] for Coumadin dosing. Recommendation for On-X valve is INR 2.0-2.5 for first 3 months, then 1.4-1.8 thereafter. TELEHEALTH PARAMETERS: WEIGHT: NOTIFY MD OF WEIGHT GAIN OF 2 LBS IN 24 HOURS OR 5 LBS IN ONE WEEK HR: NOTIFY MD OF HR <55 BPM OR HR>100 BPM BP: NOTIFY MD IF BP <90/55 OR BP>140/100 O2 SAT: NOTIFY MD IF PO2<93% ON ROOM AIR SEND TELEHEALTH REPORT TO EQUAL OPPORTUNITY ASSISTANT AND CARDIOVASCULAR SURGEON THE FIRST WEEK OF CARE AND THEN BI-WEEKLY. PLEASE ADDITIONALLY COMMUNICATE ANY ABNORMALS AND NEW FINDINGS TO THE SURGEONS OFFICE. A Red armband has been placed on the patient. It should be worn for 30 days post surgery and will be removed by the cardiac surgeons. If an ER visit is necessary, please make sure the number on the Red armband is called. Discharge Disposition: HOME WITH HOME HEALTH SERVICES
[2017-08-23 14:50] VITALS: PULSE 82
[2017-08-23] MEDS ORDERED: WARFARIN 2 MG TAB PO ONE (18:00)
== END 2017-08-23 16:29 | disposition home health service (06) | DRG 220 ==
LOC: 2ORMAIN 05:45 → 6ICU 12:08 → 6SEL 08-20 16:55
PROVIDERS: ADMIT Thoracic Surgery (Cardiothoracic Vascular Surgery); ATTEND Thoracic Surgery (Cardiothoracic Vascular Surgery)
PROC: B24BZZ4 Ultrasonography of Heart with Aorta, Transesophageal (ICD-10-PCS; principal; 2017-08-18 08:00)
PROC: 02L74CK Occlusion of Left Atrial Appendage with Extraluminal Device, Percutaneous Endoscopic Approach (ICD-10-PCS; principal; 2017-08-18 08:00)
PROC: 02100Z9 Bypass Coronary Artery, One Artery from Left Internal Mammary, Open Approach (ICD-10-PCS; principal; 2017-08-18 08:00)
PROC: 0210093 Bypass Coronary Artery, One Artery from Coronary Artery with Autologous Venous Tissue, Open Approach (ICD-10-PCS; principal; 2017-08-18 08:00)
PROC: 5A1221Z Performance of Cardiac Output, Continuous (ICD-10-PCS; principal; 2017-08-18 08:00)
PROC: 06BQ4ZZ Excision of Left Saphenous Vein, Percutaneous Endoscopic Approach (ICD-10-PCS; principal; 2017-08-18 08:00)
PROC: 02RF0JZ Replacement of Aortic Valve with Synthetic Substitute, Open Approach (ICD-10-PCS; principal; 2017-08-18 08:00)
DX: Q23.1 Congenital insufficiency of aortic valve (principal); I50.22 Chronic systolic (congestive) heart failure; I13.10 Hypertensive heart and chronic kidney disease without heart failure, with stage 1 through stage 4 chronic kidney disease, or unspecified chronic kidney disease; E78.00 Pure hypercholesterolemia, unspecified; I25.10 Atherosclerotic heart disease of native coronary artery without angina pectoris; I34.0 Nonrheumatic mitral (valve) insufficiency; N18.3 Chronic kidney disease, stage 3 (moderate); E78.5 Hyperlipidemia, unspecified; K59.00 Constipation, unspecified; I25.5 Ischemic cardiomyopathy; B18.2 Chronic viral hepatitis C; E66.9 Obesity, unspecified; Z68.35 Body mass index [BMI] 35.0-35.9, adult; Z79.82 Long term (current) use of aspirin; Z79.84 Long term (current) use of oral hypoglycemic drugs; Z79.899 Other long term (current) drug therapy; Z86.59 Personal history of other mental and behavioral disorders; E10.22 Type 1 diabetes mellitus with diabetic chronic kidney disease; E10.65 Type 1 diabetes mellitus with hyperglycemia
CPT/HCPCS: 36620; 71010; 71020; 80048; 80053; 82330; 82805; 83036; 83735; 84100; 84132; 85025; 85027; 85520; 85610; 85730; 86850; 86891; 86900; 86901; 86920; 88305; 94002; 94640; 94760

== ENCOUNTER 2017-08-30 16:24 | Observation (INO) | payer OTHER ==
[2017-08-30] MEDS ORDERED: HYDROcodone/APAP 5-325MG 1 EACH TAB PO PRN ×2 (17:22→17:29)
[2017-08-30] MEDS ORDERED: WARFARIN 3 MG TAB PO ONE (18:00)
[2017-08-30 18:14] VITALS: BMI 28.8
[2017-08-30 18:16] LABS: Basophils # (A) 0.1 k/uL (0-0.2); Basophils % (A) 1 %; CH 25.4; CHCM 30.1; Eosinophils # (A) 0.9 k/uL (0-0.7); Eosinophils % (A) 7 %; HCT 28.9 % (39.0-53.0); HDW 3.28; HGB 8.7 gm/dL (13.0-17.5); Hypochromasia Marked; Luc # (Auto) 0.25; Luc % (Auto) 2; Lymphocytes # (A) 1.3 k/uL (1.0-4.8); Lymphocytes % (A) 11 %; MCH 25.5 pg (25.0-35.0); MCHC 30.2 g/dL (31.0-37.0); MCV 84.4 fL (80.0-100.0); Monocytes # (A) 0.8 k/uL (0-1.0); Monocytes % (A) 7 %; Neutrophils # (A) 9.1 k/uL (1.3-7.7); Neutrophils % (A) 73 %; RBC 3.43 m/uL (4.30-5.90); RDW 15.1 % (11.5-15.5); WBC 12.4 k/uL (3.8-10.6); WBC (Perox) 13.39
[2017-08-30 18:19] LABS: INR 1.9 (<1.2); Prothrombin Time 18.7 sec (9.0-12.0)
[2017-08-30 18:27] LABS: ALT 24 U/L (21-72); AST 15 U/L (17-59); Alkaline Phosphatase 68 U/L (38-126); Anion Gap 11 mmol/L; Blood Urea Nitrogen 20 mg/dL (9-20); Calcium 9.1 mg/dL (8.4-10.2); Carbon Dioxide 24 mmol/L (22-30); Chloride 103 mmol/L (98-107); Glucose 95 mg/dL (74-99); Non-African American GFR(MDRD) >60 (>60 ml/min/1.73 sqM); Potassium 4.5 mmol/L (3.5-5.1); Sodium 138 mmol/L (137-145); Total Bilirubin 0.8 mg/dL (0.2-1.3); Total Protein 6.6 g/dL (6.3-8.2)
[2017-08-30] MEDS ORDERED: WARFARIN 3 MG TAB PO SCH (18:30)
[2017-08-30] MEDS: glipiZIDE 10 MG TAB PO SCH (19:00)
[2017-08-30 20:21] LABS: Glucose,Whole Blood 138 mg/dL (75-99)
[2017-08-30] MEDS: METOPROLOL TARTRATE 25 MG TAB PO SCH (20:59)
[2017-08-31 06:44] LABS: Glucose,Whole Blood 93 mg/dL (75-99)
[2017-08-31] MEDS ORDERED: PANTOPRAZOLE 40 MG TABLET PO SCH (07:30)
--- NOTE | 2017-08-31 08:47 | XR ---
Right knee HISTORY: Pain and swelling 3 views of the right knee Bone mineralization, joint spaces and alignment are maintained. No fracture or dislocation. Suprapate llar joint effusion is suspected. IMPRESSION: Joint effusion. Knee MRI may be of benefit.
[2017-08-31] MEDS ORDERED: LISINOPRIL 2.5 MG TAB PO SCH (09:00)
[2017-08-31] MEDS ORDERED: ASPIRIN 325 MG TAB PO SCH (09:00)
[2017-08-31] MEDS ORDERED: SENNOSIDES-DOCUSATE SODIUM 1 EACH TAB PO SCH (09:00)
[2017-08-31] MEDS ORDERED: FUROSEMIDE 40 MG TAB PO SCH (09:00)
[2017-08-31] MEDS ORDERED: ATORVASTATIN 40 MG TAB PO SCH (09:00)
[2017-08-31] MEDS: METOPROLOL TARTRATE 25 MG TAB PO SCH (10:23)
[2017-08-31] MEDS: glipiZIDE 10 MG TAB PO SCH (10:23)
[2017-08-31 11:53] LABS: Glucose,Whole Blood 131 mg/dL (75-99)
[2017-08-31 12:39] VITALS: BP 132/76; PULSE 76; RESP 18; TEMP 98.2
--- NOTE | 2017-08-31 12:57 | P.CNOR ---
History of Present Illness - [facility] Consult date: 08/31/17 Consult reason: joint pain History of present illness: This is a 32-year-old male who was seen and evaluated today in the observation unit. Patient was recently brought to the hospital with regards to increasing pain and swelling in his right knee. Patient was admitted to the observation unit for further workup. Patient recently was in the hospital for almost 2 weeks in June for workup due to lower extremity edema and shortness of breath. Patient was seen by multiple medical specialties and underwent multiple test. Patient was then scheduled for an aortic valve replacement on . Patient's Julien time in the hospital, and was then discharged home. Since the surgery, he has been rehabbing with no acute events. He noticed a swelling in his knee over the last few days. Patient had noticed difficulty with ambulation and some pain. When examined on the floor today, he is resting in bed, he appears comfortable. He notes pain in the when he tries to flex the knee. He also notes discomfort when ambulating. He denies any recent fever or chills. He denies any recent trauma to the knee.he denies any previous orthopedic surgery involving the right knee. Dr. Grey is present at bedside today to evaluate the patient and discussed treatment with patient and family. Review of Systems Constitutional: Reports as per [facility] Past Medical History Past Medical History: Coronary Artery Disease (CAD), Heart Failure, Diabetes Mellitus, Hyperlipidemia, Hypertension, Liver Disease Additional Past Medical History / Comment(s): Systolic heart failure with ejection fraction of 2530 percent before open heart. Severe aortic insufficiency. Uncontrolled type 2 diabetes, recently started on oral agents. Obesity History of Any Multi-Drug Resistant Organisms: None Reported Past Surgical History: Coronary Bypass/CABG, Ear Surgery, Tonsillectomy Additional Past Surgical History / Comment(s): Myringotomy tubes as a child, CABG 08/18/17 2 vessel and aortic valve replaced. Past Anesthesia/Blood Transfusion Reactions: Postoperative Nausea & Vomiting ( PONV) Additional Past Anesthesia/Blood Transfusion Reaction / Comm: pt never received any blood. Past Psychological History: Depression Smoking Status: Never smoker Past Alcohol Use History: None Reported Past Drug Use History: None Reported - Past Family History Father Family Medical History: Unable to Obtain Additional Family Medical History / Comment(s): PT WAS ADOPTED Mother Family Medical History: Unable to Obtain Additional Family Medical History / Comment(s): PT WAS ADOPTED Medications and Allergies Home Medications Medication Instructions Recorded Confirmed Type Furosemide [Lasix] 40 mg PO DAILY #30 tablet 07/10/17 08/30/17 Rx glipiZIDE [Glucotrol] 10 mg PO AC-BID #60 tablet 07/10/17 08/30/17 Rx Aspirin 325 mg PO DAILY #30 tab 08/23/17 08/30/17 Rx Metoprolol Tartrate [Lopressor] 25 mg PO BID #60 tab 08/23/17 08/30/17 Rx Pantoprazole [Protonix] 40 mg PO AC-BRKFST #30 tab 08/23/17 08/30/17 Rx Atorvastatin [Lipitor] 40 mg PO HS 08/30/17 08/30/17 History HYDROcodone/APAP 5-325MG [Ray 1 - 2 tab PO Q6HR PRN 08/30/17 08/30/17 History 5-325] Lisinopril [Prinivil] 20 mg PO DAILY 08/30/17 08/30/17 History Warfarin Sodium [Jantoven] 2 mg PO HS 08/30/17 08/30/17 History hydrALAZINE HCL [Hydralazine HCl] 25 mg PO BID 08/30/17 08/30/17 History Allergies Allergy/AdvReac Type Severity Reaction Status Date / Time No Known Allergies Allergy Verified 08/30/17 18:44 Physical Examination Right lower extremity: No obvious open lesions or sores present throughout the right lower extremity. Obvious effusion present over the right knee. Nose negative tenderness with palpation along the medial and lateral joint lines. He is able to fully straighten the knee, he can actively flex the knee to about 40 before pain is reproduced. Taking the patient to passive range of motion, there is no tenderness from 0-40. Calf is soft, no tenderness with palpation. Plantar flexion, dorsiflexion, she'll, FHL are intact. Sensory exam to light touch is intact throughout the extremity. Cap refills less than 3 seconds. Results - Labs Labs: Abnormal Lab Results - Last 24 Hours (Table) 08/30/17 08/30/17 08/30/17 Range/Units 17:49 17:49 17:49 WBC 12.4 H (3.8-10.6) k/uL RBC 3.43 L (4.30-5.90) m/uL Hgb 8.7 L (13.0-17.5) gm/dL Hct 28.9 L (39.0-53.0) % MCHC 30.2 L (31.0-37.0) g/dL Plt Count 601 H (150-450) k/uL Neutrophils # 9.1 H (1.3-7.7) k/uL Eosinophils # 0.9 H (0-0.7) k/uL PT 18.7 H (9.0-12.0) sec INR 1.9 H (<1.2) POC Glucose (mg/dL) (75-99) mg/dL AST 15 L (17-59) U/L Albumin 3.3 L (3.5-5.0) g/dL 08/30/17 08/31/17 Range/Units 20:17 11:51 WBC (3.8-10.6) k/uL RBC (4.30-5.90) m/uL Hgb (13.0-17.5) gm/dL Hct (39.0-53.0) % MCHC (31.0-37.0) g/dL Plt Count (150-450) k/uL Neutrophils # (1.3-7.7) k/uL Eosinophils # (0-0.7) k/uL PT (9.0-12.0) sec INR (<1.2) POC Glucose (mg/dL) 138 H 131 H (75-99) mg/dL AST (17-59) U/L Albumin (3.5-5.0) g/dL H & H 08/30/17 Range/Units 17:49 Hgb 8.7 L (13.0-17.5) gm/dL Hct 28.9 L (39.0-53.0) % Coagulation 08/30/17 Range/Units 17:49 INR 1.9 H (<1.2) Result Diagrams: 08/30/17 17:49 08/30/17 17:49 - Diagnostic results Knee x-ray: report reviewed, image reviewed Assessment and Plan Plan: Imaging: AP and lateral views of the knee were obtained and reviewed. Images demonstrate no acute fractures or dislocations. No obvious osseous abnormalities present. Notable effusion is present Assessment: 1. Right knee pain 2. Right knee effusion 3. Right knee internal derangement 4. Other medical comorbidities Plan: 1. Dr. Grey was present to examine the patient and discuss further treatment. At this point, conservative management is what we recommend, This including icing and elevating. We may consider an aspiration with intra- articular cortisone injection later down the line. Due to the patient's recent heart surgery, we would like to avoid this at this time. 2. Ice and elevate the knee 3. Weight-bear as tolerated 4. GI and DVT prophylaxis, continue his current anticoagulant 5. Other medical specialty recommendations 6. Discharge planning: On orthopedic standpoint, patient is stable for discharge to home. We will provide information for follow-up in 1-2 weeks Time with Patient: Less than 30
--- NOTE | 2017-08-31 13:23 | P.HPIM ---
History of Present Illness H&P Date: 08/31/17 Chief Complaint: Right knee swelling This is a 32-year-old patient with a very complex past medical history significant for recent aortic valve replacement, ischemic cardiomyopathy status post 2 vessel bypass surgery, type 2 diabetes mellitus, and essential hypertension who presented to my office yesterday for follow-up and was complaining of right knee swelling and pain. Patient said that he did not have a fall or trauma to the right knee. He said that the swelling started a few days ago and is being getting progressively worse. His knee was painful and he was unable to walk around. On exam he was noted to have a large knee effusion and he was directly admitted to the observation unit for further evaluation and to rule out hemarthrosis as patient is on Coumadin. X-ray of the knee showed no acute fracture but evidence of knee effusion. Patient was seen and evaluated by orthopedic surgery and no intervention recommended immediately. Plan is to follow-up in the office in 2 weeks with orthopedic for possible knee aspiration if recommended at that time. In the meantime patient was counseled about the elevation and icing. Continue conservative management. Continue anticoagulation given recent aortic valve replacement. Patient will be discharged home in a stable condition. Review of Systems Review of system: 14 points review of systems were obtained and were negative except to what were mentioned in the HPI. Past Medical History Past Medical History: Coronary Artery Disease (CAD), Heart Failure, Diabetes Mellitus, Hyperlipidemia, Hypertension, Liver Disease Additional Past Medical History / Comment(s): Systolic heart failure with ejection fraction of 2530 percent before open heart. Severe aortic insufficiency. Uncontrolled type 2 diabetes, recently started on oral agents. Obesity History of Any Multi-Drug Resistant Organisms: None Reported Past Surgical History: Coronary Bypass/CABG, Ear Surgery, Tonsillectomy Additional Past Surgical History / Comment(s): Myringotomy tubes as a child, CABG 08/18/17 2 vessel and aortic valve replaced. Past Anesthesia/Blood Transfusion Reactions: Postoperative Nausea & Vomiting ( PONV) Additional Past Anesthesia/Blood Transfusion Reaction / Comment(s): pt never received any blood. Past Psychological History: Depression Smoking Status: Never smoker Past Alcohol Use History: None Reported Past Drug Use History: None Reported - Past Family History Father Family Medical History: Unable to Obtain Additional Family Medical History / Comment(s): PT WAS ADOPTED Mother Family Medical History: Unable to Obtain Additional Family Medical History / Comment(s): PT WAS ADOPTED Medications and Allergies Home Medications Medication Instructions Recorded Confirmed Type Furosemide [Lasix] 40 mg PO DAILY #30 tablet 07/10/17 08/30/17 Rx glipiZIDE [Glucotrol] 10 mg PO AC-BID #60 tablet 07/10/17 08/30/17 Rx Aspirin 325 mg PO DAILY #30 tab 08/23/17 08/30/17 Rx Metoprolol Tartrate [Lopressor] 25 mg PO BID #60 tab 08/23/17 08/30/17 Rx Pantoprazole [Protonix] 40 mg PO AC-BRKFST #30 tab 08/23/17 08/30/17 Rx Atorvastatin [Lipitor] 40 mg PO HS 08/30/17 08/30/17 History HYDROcodone/APAP 5-325MG [[place] 1 - 2 tab PO Q6HR PRN 08/30/17 08/30/17 History 5-325] Lisinopril [Prinivil] 20 mg PO DAILY 08/30/17 08/30/17 History Warfarin Sodium [Jantoven] 2 mg PO HS 08/30/17 08/30/17 History hydrALAZINE HCL [Hydralazine HCl] 25 mg PO BID 08/30/17 08/30/17 History Allergies Allergy/AdvReac Type Severity Reaction Status Date / Time No Known Allergies Allergy Verified 08/30/17 18:44 Physical Exam Vitals: Vital Signs Temp Pulse Resp BP Pulse Ox 08/31/17 12:00 98.2 F 76 18 132/76 98 08/31/17 08:00 98.1 F 82 16 143/81 97 08/31/17 04:00 16 08/31/17 03:54 98.7 F 80 16 131/73 98 08/31/17 00:00 16 08/30/17 23:55 98.9 F 81 16 122/75 97 08/30/17 20:00 16 08/30/17 19:37 98.6 F 82 16 133/80 98 08/30/17 17:09 98.3 F 77 17 128/83 100 Intake and Output 08/30/17 08/31/17 08/31/17 22:59 06:59 14:59 Intake Total 118 814 Balance 118 814 Intake: Oral 118 814 Other: Voiding Method Toilet Toilet Toilet Weight 83.3 kg General: The patient is awake and alert, in no distress Eye: there is normal conjunctiva bilaterally. Neck: The neck is supple, there is no JVD. Cardiovascular: Normal S1-S2, no S3-S4, no murmurs. Respiratory: Lungs clear to auscultation bilaterally Gastrointestinal: Abdomen is soft, nontender Musculoskeletal: There is no pedal edema. Right knee appear significantly swollen compared to the left. There is evidence of joint effusion. No redness or warmth to touch. Neurological:. Speech is normal. Skin: Skin is warm and dry Results CBC & Chem 7: 08/30/17 17:49 08/30/17 17:49 Labs: Abnormal Lab Results - Last 24 Hours (Table) 08/30/17 08/30/17 08/30/17 Range/Units 17:49 17:49 17:49 WBC 12.4 H (3.8-10.6) k/uL RBC 3.43 L (4.30-5.90) m/uL Hgb 8.7 L (13.0-17.5) gm/dL Hct 28.9 L (39.0-53.0) % MCHC 30.2 L (31.0-37.0) g/dL Plt Count 601 H (150-450) k/uL Neutrophils # 9.1 H (1.3-7.7) k/uL Eosinophils # 0.9 H (0-0.7) k/uL PT 18.7 H (9.0-12.0) sec INR 1.9 H (<1.2) POC Glucose (mg/dL) (75-99) mg/dL AST 15 L (17-59) U/L Albumin 3.3 L (3.5-5.0) g/dL 08/30/17 08/31/17 Range/Units 20:17 11:51 WBC (3.8-10.6) k/uL RBC (4.30-5.90) m/uL Hgb (13.0-17.5) gm/dL Hct (39.0-53.0) % MCHC (31.0-37.0) g/dL Plt Count (150-450) k/uL Neutrophils # (1.3-7.7) k/uL Eosinophils # (0-0.7) k/uL PT (9.0-12.0) sec INR (<1.2) POC Glucose (mg/dL) 138 H 131 H (75-99) mg/dL AST (17-59) U/L Albumin (3.5-5.0) g/dL Thrombosis Risk Factor Assmnt - Choose All That Apply Any of the Below Risk Factors Present?: Yes Each Factor Represents 1 point: Heart failure (<1month), History of prior major surgery (<1month), Obesity (BMI >25) Other congenital or acquired thrombophilia - If yes, enter type in comment: No Thrombosis Risk Factor Assessment Total Risk Factor Score: 3 Thrombosis Risk Factor Assessment Level: Moderate Risk Assessment and Plan Plan: This is a 32-year-old patient with a very complex past medical history significant for recent aortic valve replacement, ischemic cardiomyopathy status post 2 vessel bypass surgery, type 2 diabetes mellitus, and essential hypertension who presented to my office yesterday for follow-up and was complaining of right knee swelling and pain. Patient said that he did not have a fall or trauma to the right knee. He said that the swelling started a few days ago and is being getting progressively worse. His knee was painful and he was unable to walk around. On exam he was noted to have a large knee effusion and he was directly admitted to the observation unit for further evaluation and to rule out hemarthrosis as patient is on Coumadin. X-ray of the knee showed no acute fracture but evidence of knee effusion. Patient was seen and evaluated by orthopedic surgery and no intervention recommended immediately. Plan is to follow-up in the office in 2 weeks with orthopedic for possible knee aspiration if recommended at that time. In the meantime patient was counseled about the elevation and icing. Continue conservative management. Continue anticoagulation given recent aortic valve replacement. Patient will be discharged home in a stable condition.
[2017-08-31] MEDS ORDERED: WARFARIN 2 MG TAB PO SCH (18:00)
== END 2017-08-31 15:18 | disposition home or self-care (01) ==
LOC: 3OBS 16:31
PROVIDERS: ADMIT Internal Medicine; ATTEND Internal Medicine
DX: M25.461 Effusion, right knee (principal); Z95.2 Presence of prosthetic heart valve; Z95.1 Presence of aortocoronary bypass graft; I25.5 Ischemic cardiomyopathy; E11.9 Type 2 diabetes mellitus without complications; Z79.01 Long term (current) use of anticoagulants; E66.9 Obesity, unspecified; Z68.28 Body mass index [BMI] 28.0-28.9, adult; Z79.84 Long term (current) use of oral hypoglycemic drugs; Z79.82 Long term (current) use of aspirin; Z79.899 Other long term (current) drug therapy; F32.9 Major depressive disorder, single episode, unspecified; I50.22 Chronic systolic (congestive) heart failure; I25.10 Atherosclerotic heart disease of native coronary artery without angina pectoris; I11.0 Hypertensive heart disease with heart failure; E78.5 Hyperlipidemia, unspecified; K76.9 Liver disease, unspecified; I35.1 Nonrheumatic aortic (valve) insufficiency; M23.91 Unspecified internal derangement of right knee
CPT/HCPCS: 80053; 85025; 85610; 73562; G0378 ×2; G0379

== ENCOUNTER → 2018-05-17 | Outpatient (CLI) | payer OTHER ==
[2018-05-17 15:31] LABS: Basophils # (A) 0.1 k/uL (0-0.2); Basophils % (A) 1 %; Eosinophils # (A) 0.4 k/uL (0-0.7); Eosinophils % (A) 7 %; HCT 31.9 % (39.0-53.0); HGB 10.6 gm/dL (13.0-17.5); Lymphocytes # (A) 1.3 k/uL (1.0-4.8); Lymphocytes % (A) 21 %; MCH 26.8 pg (25.0-35.0); MCHC 33.4 g/dL (31.0-37.0); MCV 80.2 fL (80.0-100.0); Mean Platelet Volume 6.4; Monocytes # (A) 0.4 k/uL (0-1.0); Monocytes % (A) 7 %; Neutrophils # (A) 3.9 k/uL (1.3-7.7); Neutrophils % (A) 62 %; Platelet Count 330 k/uL (150-450); RBC 3.97 m/uL (4.30-5.90); RDW 14.1 % (11.5-15.5); WBC 6.3 k/uL (3.8-10.6)
[2018-05-17 15:35] LABS: Appearance,Urine Clear (Clear); Bilirubin,Urine Negative (Negative); Blood,Urine Moderate (Negative); Color,Urine Yellow; Glucose,Urine (UA) Negative (Negative); Ketones,Urine Negative (Negative); Leukocyte Esterase,Urine Negative (Negative); Mucus,Urine Rare /hpf; Nitrite,Urine Negative (Negative); PH, Urine 5.5 (5.0-8.0); Protein,Urine 2+ (Negative); RBC,Urine 23 /hpf (0-5); Specific Gravity,Urine 1.012 (1.001-1.035); Urobilinogen,Urine <2.0 mg/dL (<2.0); WBC,Urine 2 /hpf (0-5)
[2018-05-17 15:46] LABS: Albumin 3.5 g/dL (3.5-5.0); Calcium 9.1 mg/dL (8.4-10.2); Magnesium 1.9 mg/dL (1.6-2.3); Phosphorus 4.4 mg/dL (2.5-4.5); Potassium 4.8 mmol/L (3.5-5.1); Uric Acid 12.4 mg/dL (3.5-8.5)
[2018-05-17 19:16] LABS: Parathyroid Hormone Intact 52.3 pg/mL (14.0-72.0)
[2018-05-17 19:32] LABS: Iron Saturation 9.34 (15.00-50.00); Protein, Total 6.4 g/dL (6.2-8.2)
[2018-05-17 19:39] LABS: Vitamin D 25 Hydroxy 16.2 ng/mL (30.0-100.0)
[2018-05-17 19:59] LABS: DNA Double-Stranded NEGATIVE (NEGATIVE)
[2018-05-18 15:57] LABS: C-ANCA <1:20 Titer (<1:20); P-ANCA <1:20 Titer (<1:20)
== END | disposition home or self-care (01) ==
LOC: LABWHC1 14:18
PROVIDERS: ATTEND Internal Medicine Nephrology
DX: N39.0 Urinary tract infection, site not specified (principal); E55.9 Vitamin D deficiency, unspecified; N18.3 Chronic kidney disease, stage 3 (moderate); D63.1 Anemia in chronic kidney disease; M10.9 Gout, unspecified; N25.81 Secondary hyperparathyroidism of renal origin; R80.9 Proteinuria, unspecified
CPT/HCPCS: 36415; 80048; 81001; 81050; 82040; 82306; 82728; 83516; 83540; 83550; 83735; 83970; 84100; 84156; 84165; 84550; 85025; 86038; 86160; 86162; 86225; 86255; 86335

== ENCOUNTER → 2018-11-05 | Outpatient (CLI) | payer OTHER ==
[2018-11-05 11:26] LABS: Basophils # (A) 0.1 k/uL (0-0.2); Basophils % (A) 1 %; Eosinophils # (A) 0.5 k/uL (0-0.7); Eosinophils % (A) 7 %; HCT 38.6 % (39.0-53.0); HGB 12.3 gm/dL (13.0-17.5); Lymphocytes # (A) 1.4 k/uL (1.0-4.8); Lymphocytes % (A) 19 %; MCH 27.6 pg (25.0-35.0); MCHC 31.9 g/dL (31.0-37.0); MCV 86.6 fL (80.0-100.0); Mean Platelet Volume 6.7; Monocytes # (A) 0.4 k/uL (0-1.0); Monocytes % (A) 5 %; Neutrophils # (A) 5.1 k/uL (1.3-7.7); Neutrophils % (A) 67 %; Platelet Count 280 k/uL (150-450); RBC 4.45 m/uL (4.30-5.90); RDW 15.6 % (11.5-15.5); WBC 7.6 k/uL (3.8-10.6)
[2018-11-05 11:33] LABS: Partial Thromboplastin Time 39.8 sec (22.0-30.0); Prothrombin Time 10.5 sec (9.0-12.0)
[2018-11-05 18:26] LABS: Anion Gap 6.4 mmol/L (4.00-12.00); Carbon Dioxide 21.6 mmol/L (21.6-31.8); Potassium 5.2 mmol/L (3.5-5.5)
== END | disposition home or self-care (01) ==
LOC: LABWHC1 10:13
PROVIDERS: ATTEND Internal Medicine Nephrology
DX: R80.9 Proteinuria, unspecified (principal)
CPT/HCPCS: 36415; 80051; 82565; 84520; 85025; 85610; 85730

== ENCOUNTER 2018-11-06 07:51 | Day surgery (SDC) | payer OTHER ==
[2018-11-06 08:14] VITALS: TEMP 97.6
[2018-11-06] MEDS ORDERED: HYDROmorphone 1 MG/ML 1 ML SYRINGE IVP PRN (09:04)
[2018-11-06 09:59] LABS: Glucose,Whole Blood 90 mg/dL (75-99)
--- NOTE | 2018-11-06 11:04 | CT ---
DATE OF EXAM: 11/06/2018 COMPARISON: NONE CT DLP: 1024 mGycm HISTORY: Renal failure PROCEDURE: Maximal barrier technique was utilized. After informed consent, the skin overlying a suit able path to the right kidney was localized using CT guidance, the skin was prepped and draped. Lido cele was used for local anesthesia. A skin brayden made with a scalpel. Using CT guidance, a 17-gauge needle was advanced into in position at the lateral and inferior cortex of the right kidney where co axial placement of an 18-gauge needle was used and core biopsy obtained. 4 passes made in total. He mostasis was achieved. There was no immediate complication and patient remained in stable condition. Specimen submitted to Pathology. IMPRESSION: Status post CT guided core biopsy of right renal cortex, pathology pending. This procedu re performed by the undersigned.
[2018-11-06 12:19] VITALS: PULSE 67
[2018-11-06 14:09] VITALS: RESP 18
[2018-11-06 14:12] VITALS: BP 117/69
== END 2018-11-06 14:00 | disposition home or self-care (01) ==
LOC: RADPROMAIN 07:51
PROVIDERS: ATTEND Nurse Practitioner Family
DX: E11.22 Type 2 diabetes mellitus with diabetic chronic kidney disease (principal); I12.9 Hypertensive chronic kidney disease with stage 1 through stage 4 chronic kidney disease, or unspecified chronic kidney disease; N18.3 Chronic kidney disease, stage 3 (moderate); N17.9 Acute kidney failure, unspecified; E11.21 Type 2 diabetes mellitus with diabetic nephropathy; I25.10 Atherosclerotic heart disease of native coronary artery without angina pectoris; E55.9 Vitamin D deficiency, unspecified; D50.9 Iron deficiency anemia, unspecified; R80.9 Proteinuria, unspecified; E79.0 Hyperuricemia without signs of inflammatory arthritis and tophaceous disease; Z95.2 Presence of prosthetic heart valve; Z79.01 Long term (current) use of anticoagulants; Z79.84 Long term (current) use of oral hypoglycemic drugs; Z79.899 Other long term (current) drug therapy; Z79.82 Long term (current) use of aspirin; Z95.1 Presence of aortocoronary bypass graft
CPT/HCPCS: 77012; 86850; 86900; 86901

== ENCOUNTER → 2021-02-23 | Outpatient (CLI) | payer OTHER ==
--- NOTE | 2021-02-23 09:59 | CT ---
EXAMINATION TYPE: CT chest wo con DATE OF EXAM: 02/23/2021 COMPARISON: 07/04/2017 HISTORY: Thoracic Aortic Aneurysm, without rupture CT DLP: 550.2 mGycm, Automated exposure control for dose reduction was used. CONTRAST: Performed injected with 0 mL of Isovue 300. TECHNIQUE: Axial images were obtained at 5 mm thick sections. Reconstructed images are reviewed on [employer] computer in the coronal plane. FINDINGS: Portion of the thyroid visualized is normal. There is a 0.3 cm stable nodule within the minor fissure on the right could be a tiny lymph node. No enlarged mediastinal or hilar adenopathy is evident. The ascending aorta diameter at the level o f the main pulmonary artery is 3.8 cm. The main pulmonary artery diameter at the bifurcation is 3.2 cm. Coronary artery calcification is present. The aorta at the diaphragm measures 2.3 cm. Transverse dimension of the aortic arch is 2.7 cm. The ao rta at the level of the main pulmonary arteries 3.8 cm. The aorta at the aortic root is 3.[address] sections are obtained through the upper abdomen. Abdomen is essentially unremarkable. IMPRESSIONS: 1. Mild fusiform prominence of the ascending thoracic aorta at the level of main pulmonary artery santiago suring 3.8 cm AP. No aneurysmal dilatation is evident.
== END | disposition home or self-care (01) ==
LOC: RADCTMAIN 07:12
PROVIDERS: ATTEND Internal Medicine Interventional Cardiology
DX: I71.2 Thoracic aortic aneurysm, without rupture (principal)
CPT/HCPCS: 36415; 71250; 82565; 84520

== ENCOUNTER → 2021-10-07 | Outpatient (CLI) | payer OTHER ==
--- NOTE | 2021-10-07 14:29 | XR ---
EXAMINATION TYPE: XR Hip Complete RT DATE OF EXAM: 10/07/2021 COMPARISON: NONE HISTORY: Pain TECHNIQUE: 2 views submitted FINDINGS: There is no evidence of erosive change or acute fracture. Hypertrophic change of the acetabulum. Conrad on artifact limits the exam. IMPRESSION: 1. Correlate for femoral acetabular impingement..
--- NOTE | 2021-10-07 14:30 | XR ---
EXAMINATION TYPE: XR knee complete RT DATE OF EXAM: 10/07/2021 COMPARISON: 08/30/2017 HISTORY: Pain TECHNIQUE: Three views are submitted. FINDINGS: Mild narrowing of the patellofemoral joint and medial compartment of the knee joint. No erosive norman es. Vascular calcifications noted.. Osseous structures are intact. No acute fracture seen. IMPRESSION: 1. No acute fracture or dislocation. 2. Mild arthropathy.
== END | disposition home or self-care (01) ==
LOC: RADXRMAIN 13:54
PROVIDERS: ATTEND Internal Medicine
DX: M25.551 Pain in right hip (principal); M17.11 Unilateral primary osteoarthritis, right knee
CPT/HCPCS: 73502

== ENCOUNTER 2023-08-29 00:41 | Emergency (ER) | payer OTHER ==
[2023-08-29 00:56] VITALS: RESP 18
[2023-08-29] MEDS ORDERED: HYDROmorphone 0.5 MG/0.5 ML SYRINGE IM STA (02:31)
--- NOTE | 2023-08-29 02:38 | ED ---
Lower Extremity Injury HPI - General Chief Complaint: Extremity Injury, Lower Stated Complaint: Left knee swollen and pain Time Seen by Provider: 08/29/23 02:04 Source: patient Mode of arrival: ambulatory Limitations: no limitations - History of Present Illness Initial Comments: Patient is a 38-year-old male who presents the emergency department for left knee injury. Patient fell today landing on his left knee. Pain significantly worsened with ambulation. He has pain and swelling to left knee. He denies numbness and tingling. - Related Data Home Medications Medication Instructions Recorded Confirmed Metoprolol Tartrate [Lopressor] 25 mg PO BID 08/31/17 11/06/18 Warfarin [Coumadin] 6 mg PO SUTUWEFR 08/31/17 11/06/18 Chlorthalidone 25 mg PO DAILY 10/29/18 11/06/18 Cholecalciferol (Vitamin D3) 2,000 unit PO DAILY 10/29/18 11/06/18 [Vitamin D3] Ferrous Sulfate [Feosol] 325 mg PO DAILY 10/29/18 11/06/18 Warfarin [Coumadin] 4 mg PO MOTHSA 10/29/18 11/06/18 allopurinoL [Zyloprim] 100 mg PO DAILY 10/29/18 11/06/18 hydrALAZINE HCL 12.5 mg PO 1400 10/29/18 11/06/18 hydrALAZINE HCL [Apresoline] 25 mg PO BID 10/29/18 11/06/18 lisinopriL [Zestril] 20 mg PO DAILY 10/29/18 11/06/18 Enoxaparin [Lovenox] 1 injection SQ Q12H 10/30/18 11/06/18 Previous Rx's Medication Instructions Recorded glipiZIDE [Glucotrol] 10 mg PO AC-BID #60 tablet 07/10/17 Aspirin 325 mg PO DAILY #30 tab 08/23/17 Atorvastatin [Lipitor] 40 mg PO DAILY tab 08/31/17 Allergies Allergy/AdvReac Type Severity Reaction Status Date / Time NSAIDS (Non-Steroidal Allergy Unknown Verified 08/29/23 00:52 Anti-Inflamma Review of Systems ROS Statement: Those systems with pertinent positive or pertinent negative responses have been documented in the HPI. ROS Other: All systems not noted in ROS Statement are negative. Past Medical History Past Medical History: Coronary Artery Disease (CAD), Heart Failure, Diabetes Mellitus, Hyperlipidemia, Hypertension, Renal Disease Additional Past Medical History / Comment(s): Systolic heart failure with ejection fraction of 2530 percent before open heart. Severe aortic insufficiency. Uncontrolled type 2 diabetes, recently started on oral agents. Obesity History of Any Multi-Drug Resistant Organisms: None Reported Past Surgical History: Coronary Bypass/CABG, Ear Surgery, Tonsillectomy Additional Past Surgical History / Comment(s): Myringotomy tubes as a child, CABG 08/18/17-2 vessel and aortic valve replaced. Past Anesthesia/Blood Transfusion Reactions: Postoperative Nausea & Vomiting (PONV) Additional Past Anesthesia/Blood Transfusion Reaction / Comment(s): pt never received any blood. Past Psychological History: Depression Smoking Status: Never smoker Past Alcohol Use History: None Reported Past Drug Use History: None Reported - Past Family History Father Family Medical History: Unable to Obtain Additional Family Medical History / Comment(s): PT WAS ADOPTED Mother Family Medical History: Unable to Obtain Additional Family Medical History / Comment(s): PT WAS ADOPTED General Exam Limitations: no limitations General appearance: alert Head exam: Present: atraumatic, normocephalic, normal inspection Eye exam: Present: normal appearance, PERRL, EOMI. Absent: scleral icterus, conjunctival injection, periorbital swelling Respiratory exam: Present: normal lung sounds bilaterally. Absent: respiratory distress, wheezes, rales, rhonchi, stridor Cardiovascular Exam: Present: regular rate, normal rhythm, normal heart sounds. Absent: systolic murmur, diastolic murmur, rubs, gallop, clicks Extremities exam: Present: other (Significant swelling of left knee with bruising and tenderness. No obvious deformity. Full range of motion. Neurovascularly intact) Course Vital Signs 08/29/23 08/29/23 00:49 03:07 Temperature 98.5 F 98.4 F Pulse Rate 90 93 Respiratory 18 18 Rate Blood Pressure 183/110 143/101 O2 Sat by Pulse 97 98 Oximetry Procedures - Orthopedic Splinting/Casting Injury #1 Side: left Lower Extremity Immobilizer: Mason wrap Other Orthopedic Equipment: crutches Medical Decision Making - Medical Decision Making Was pt. sent in by a medical professional or institution (, PA, LOAN REVIEW ANALYST, urgent care, hospital, or retirement...) When possible be specific @ -No Did you speak to anyone other than the patient for history (EMS, parent, family, police, friend...)? What history was obtained from this source @ -No Did you review nursing and triage notes (agree or disagree)? Why? @ -I reviewed and agree with nursing and triage notes Were old charts reviewed (outside hosp., previous admission, EMS record, old EKG, old radiological studies, urgent care reports/EKG's, retirement records)? Report findings @ -No old charts were reviewed Differential Diagnosis (chest pain, altered mental status, abdominal pain women, abdominal pain men, vaginal bleeding, weakness, fever, dyspnea, syncope, headache, dizziness, GI bleed, back pain, seizure, CVA, palpatations, mental health)? @ -Fracture, sprain, dislocation EKG interpreted by me (3pts min.). @ -As above X-rays interpreted by me (1pt min.). @ -[None fracture or dislocation CT interpreted by me (1pt min.). @ -None done U/S interpreted by me (1pt. min.). @ -None done What testing was considered but not performed or refused? (CT, X-rays, U/S, labs)? Why? @ -None What meds were considered but not given or refused? Why? @ -None Did you discuss the management of the patient with other professionals (professionals i.e. , PA, LOAN REVIEW ANALYST, lab, RT, psych nurse, school social worker, powdered sugar pulverizer operator, teacher, air defence officer, case maker)? Give summary @ -No Was smoking cessation discussed for >3mins.? @ -No Was critical care preformed (if so, how long)? @ -No Were there social determinants of health that impacted care today? How? (Homelessness, low income, unemployed, alcoholism, drug addiction, transportation, low edu. Level, literacy, decrease access to med. care, senior care, rehab)? @ -No Was there de-escalation of care discussed even if they declined (Discuss DNR or withdrawal of care, Hospice)? DNR status @ -No What co-morbidities impacted this encounter? (DM, HTN, Smoking, COPD, CAD, Cancer, CVA, ARF, Chemo, Hep., AIDS, mental health diagnosis, sleep apnea, morbid obesity)? @ -None Was patient admitted / discharged? Hospital course, mention meds given and route, prescriptions, significant lab abnormalities, going to OR and other pertinent info. @Patient presented for injury. Neurovascularly intact. There is significant swelling of the knee with bruising. X-ray interpreted by myself showing no evidence of fracture or dislocation. Results discussed with patient I recommended knee immobilizer and crutches for knee sprain. Patient declines a knee immobilizer states he does not want any pressure on his knee. He did agree to Mason wrap. Pain is controlled the patient will be discharged with crutches he is referred to orthopedic podiatrist for further evaluation and management. He is discharged with Tylenol 3 starter pack which she will take for any severe pain. Undiagnosed new problem with uncertain prognosis? @ -No Drug Therapy requiring intensive monitoring for toxicity (Heparin, Nitro, Insulin, Cardizem)? @ -No Were any procedures done? @ -Mason wrap Diagnosis/symptom? @ -Left knee sprain Acute, or Chronic, or Acute on Chronic? @Acute Uncomplicated (without systemic symptoms) or Complicated (systemic symptoms)? @ -Uncomplicated Side effects of treatment? @ -No Exacerbation, Progression, or Severe Exacerbation? @ -No Poses a threat to life or bodily function? How? (Chest pain, [place], [place], pneumonia, PE, COPD, DKA, ARF, appy, cholecystitis, CVA, Diverticulitis, Homicidal, Suicidal, threat to staff... and all critical care pts) @ -No is my attending Disposition Clinical Impression: Left knee sprain Disposition: HOME SELF-CARE Condition: Good Instructions (If sedation given, give patient instructions): Knee Sprain (ED) Additional Instructions: Ice the injury. Use crutches and bear weight as pain tolerates. Take Tylenol for pain. Save Tylenol 3 for severe pain. Do not take Tylenol and Tylenol 3 together. Do not drink alcohol or operate machinery while taking Tylenol 3 as it can cause drowsiness. Follow up with orthopedic podiatrist in 1-2 days. Return to emergency department if you experience new, concerning, or worsening symptoms. Is patient prescribed a controlled substance at d/c from ED?: No Referrals: Lacey Frankel MD [Primary Care Provider] - 1-2 days Santosh Chávez MD [STAFF PHYSICIAN] - 1-2 days
[2023-08-29] MEDS ORDERED: ACET/COD 300 MG/30 MG STARTER PACK 6 TAB BTL PO STA (03:07)
[2023-08-29 03:08] VITALS: BP 143/101; PULSE 93; TEMP 98.4
--- NOTE | 2023-08-29 05:19 | XR ---
EXAM: XR Left Knee, 3 Views CLINICAL HISTORY: ITS.REASON XR Reason: pain TECHNIQUE: Three views of the left knee. COMPARISON: No relevant prior studies available. IMPRESSION: 1. No evidence of acutely displaced fracture or dislocation within the left knee. 2. Surgical clips within the medial left knee. 3. Mild degenerative changes within the lateral tibiofemoral compartment and patellofemoral compartment. 4. Extensive prepatellar soft tissue swelling. If there is further concern, consider cross-sectional imaging. 5. Diffuse atherosclerotic disease.
== END 2023-08-29 03:18 | disposition home or self-care (01) ==
LOC: EC 00:41
DX: S83.92XA Sprain of unspecified site of left knee, initial encounter (principal); I25.10 Atherosclerotic heart disease of native coronary artery without angina pectoris; I11.0 Hypertensive heart disease with heart failure; I50.9 Heart failure, unspecified; E11.9 Type 2 diabetes mellitus without complications; E66.9 Obesity, unspecified; Z68.35 Body mass index [BMI] 35.0-35.9, adult; Z79.01 Long term (current) use of anticoagulants; Z79.899 Other long term (current) drug therapy; Z88.6 Allergy status to analgesic agent; Z95.1 Presence of aortocoronary bypass graft; Z86.59 Personal history of other mental and behavioral disorders; W18.30XA Fall on same level, unspecified, initial encounter
CPT/HCPCS: 73562; 99283; 96372; J1170

== ENCOUNTER 2024-03-20 16:08 | Inpatient (IN) | payer OTHER ==
--- NOTE | 2024-03-20 16:32 | ED ---
General Adult HPI - General Source: patient, RN notes reviewed Mode of arrival: ambulatory Limitations: no limitations <Beryl Joyce - Last Filed: 03/20/24 16:31> <Mat Lenz - Last Filed: 03/20/24 18:10> - General Stated complaint: SOB/trouble sleeping Time Seen by Provider: 03/20/24 16:31 - History of Present Illness Initial comments: Quick note: 39-year-old male presenting to the ER with a chief complaint of abnormal labs and edema. Patient sent by Dr. Gutierrez. Patient reports he had lab work drawn today and was told to come to the ER if he has results were concerning. Patient reports he is having lower abdominal and thigh edema. He is also endorsing some shortness of breath. Denies any fevers, chills, nausea, vomiting. (Beryl Joyce) 39-year-old male history of chronic kidney disease, diabetes, hypertension presenting with abnormal lab work. Patient has had some mild dyspnea, lower e xtremity edema. Has had worsening renal failure and had outpatient laboratory testing which showed a significantly elevated BUN and creatinine. He was sent to the emergency department for evaluation. Patient not currently on hemodialysis. He states he does make urine. (Mat Lenz) - Related Data Home Medications Medication Instructions Recorded Confirmed Metoprolol Tartrate [Lopressor] 25 mg PO BID 08/31/17 11/06/18 Warfarin [Coumadin] 6 mg PO SUTUWEFR 08/31/17 11/06/18 Chlorthalidone 25 mg PO DAILY 10/29/18 11/06/18 Cholecalciferol (Vitamin D3) 2,000 unit PO DAILY 10/29/18 11/06/18 [Vitamin D3] Ferrous Sulfate [Feosol] 325 mg PO DAILY 10/29/18 11/06/18 Warfarin [Coumadin] 4 mg PO MOTHSA 10/29/18 11/06/18 allopurinoL [Zyloprim] 100 mg PO DAILY 10/29/18 11/06/18 hydrALAZINE HCL 12.5 mg PO 1400 10/29/18 11/06/18 hydrALAZINE HCL [Apresoline] 25 mg PO BID 10/29/18 11/06/18 lisinopriL [Zestril] 20 mg PO DAILY 10/29/18 11/06/18 Enoxaparin [Lovenox] 1 injection SQ Q12H 10/30/18 11/06/18 Previous Rx's Medication Instructions Recorded glipiZIDE [Glucotrol] 10 mg PO AC-BID #60 tablet 07/10/17 Aspirin 325 mg PO DAILY #30 tab 08/23/17 Atorvastatin [Lipitor] 40 mg PO DAILY tab 08/31/17 Allergies Allergy/AdvReac Type Severity Reaction Status Date / Time NSAIDS (Non-Steroidal Allergy Unknown Verified 08/29/23 00:52 Anti-Inflamma Review of Systems ROS Other: All systems not noted in ROS Statement are negative. <Beryl Joyce - Last Filed: 03/20/24 16:31> ROS Other: All systems not noted in ROS Statement are negative. <Mat Lenz - Last Filed: 03/20/24 18:10> ROS Statement: Those systems with pertinent positive or pertinent negative responses have been documented in the HPI. Past Medical History Past Medical History: Coronary Artery Disease (CAD), Heart Failure, Diabetes Mellitus, Hyperlipidemia, Hypertension, Renal Disease Additional Past Medical History / Comment(s): Systolic heart failure with ejection fraction of 2530 percent before open heart. Severe aortic insufficiency. Uncontrolled type 2 diabetes, recently started on oral agents. Obesity History of Any Multi-Drug Resistant Organisms: None Reported Past Surgical History: Coronary Bypass/CABG, Ear Surgery, Tonsillectomy Additional Past Surgical History / Comment(s): Myringotomy tubes as a child, CABG 08/18/17-2 vessel and aortic valve replaced. Past Anesthesia/Blood Transfusion Reactions: Postoperative Nausea & Vomiting (PONV) Additional Past Anesthesia/Blood Transfusion Reaction / Comment(s): pt never received any blood. Past Psychological History: Depression Smoking Status: Never smoker Past Alcohol Use History: None Reported Past Drug Use History: None Reported - Past Family History Father Family Medical History: Unable to Obtain Additional Family Medical History / Comment(s): PT WAS ADOPTED Mother Family Medical History: Unable to Obtain Additional Family Medical History / Comment(s): PT WAS ADOPTED <Beryl Joyce - Last Filed: 03/20/24 16:31> General Exam <Beryl Joyce - Last Filed: 03/20/24 16:31> General appearance: alert, in no apparent distress Head exam: Present: atraumatic, normocephalic Eye exam: Present: normal appearance, PERRL ENT exam: Present: normal exam Neck exam: Present: normal inspection. Absent: meningismus Respiratory exam: Present: rales. Absent: respiratory distress Cardiovascular Exam: Present: regular rate, normal rhythm, systolic murmur GI/Abdominal exam: Present: soft. Absent: distended, tenderness, guarding Extremities exam: Present: pedal edema Neurological exam: Present: alert, oriented X3 Psychiatric exam: Present: normal affect, normal mood Skin exam: Present: warm, dry, intact. Absent: cyanosis, diaphoretic <Mat Lenz - Last Filed: 03/20/24 18:10> - General Exam Comments Initial Comments: Visual Physical Exam Vital signs reviewed General: Well-appearing, nontoxic, no acute distress. Head: Normocephalic, atraumatic Eyes: PERRLA, EOMI ENT: Airway patent Chest: Nonlabored breathing Skin: No visual rash, normal skin tone Neuro: Alert and oriented 3 Musculoskeletal: No gross abnormalities (Beryl Joyce) Course Vital Signs 03/20/24 03/20/24 16:42 16:44 Temperature 98.2 F Pulse Rate 82 Respiratory 16 16 Rate Blood Pressure 178/95 O2 Sat by Pulse 97 Oximetry Medical Decision Making <Beryl Joyce - Last Filed: 03/20/24 16:31> - Lab Data Result diagrams: 03/20/24 16:58 03/20/24 16:58 <Mat Lenz - Last Filed: 03/20/24 18:10> - Medical Decision Making I performed the quick note portion of this chart. Electronically signed by Beryl Joyce PA-C (Beryl Joyce) Was pt. sent in by a medical professional or institution ([facility], [employer], urgent care, hospital, or custodial...) When possible be specific @ -No Did you speak to anyone other than the patient for history (EMS, parent, family, police, friend...)? What history was obtained from this source @ -No Did you review nursing and triage notes (agree or disagree)? Why? @ -I reviewed and agree with nursing and triage notes Were old charts reviewed (outside hosp., previous admission, EMS record, old EKG, old radiological studies, urgent care reports/EKG's, custodial records)? Report findings @ -No old charts were reviewed Differential Dyspnea: Coronary syndrome, arrhythmia, tamponade, asthma, COPD, pulmonary embolism, pneumonia, pneumothorax, pulmonary effusion, anaphylaxis, diabetic ketoacidosis, flailed chest, pulmonary contusion, diaphragmatic rupture, anemia, neuromuscular, this is not meant to be an all-inclusive list. EKG interpreted by me (3pts min.). @Sinus rhythm rate of 81, OK interval 194, QRS duration 113, QTc [address] segment elevation. X-rays interpreted by me (1pt min.). @Chest x-ray shows cardiomegaly with pulmonary vascular congestion. CT interpreted by me (1pt min.). @ -None done U/S interpreted by me (1pt. min.). @ -None done What testing was considered but not performed or refused? (CT, X-rays, U/S, labs)? Why? @ -None What meds were considered but not given or refused? Why? @ -None Did you discuss the management of the patient with other professionals (professionals i.e. , PA, [employer] HELPER, lab, RT, psych nurse, social research assistant, health associate, teacher, campus safety officer, case packer)? Give summary @ -Dr. Frankel who will admit, Dr. Jiménez covering for nephrology, recomend 4 Amps of sodium bicarb push and a drip of sodium bicarb at 50 cc an hour as well as Lasix 80 mg twice daily. Was smoking cessation discussed for >3mins.? @ -No Was critical care preformed (if so, how long)? @ yes, 35 min Were there social determinants of health that impacted care today? How? (Homelessness, low income, unemployed, alcoholism, drug addiction, transportation, low edu. Level, literacy, decrease access to med. care, skilled nursing, rehab)? @ -No Was there de-escalation of care discussed even if they declined (Discuss DNR or withdrawal of care, Hospice)? DNR status @ -No What co-morbidities impacted this encounter? (DM, HTN, Smoking, COPD, CAD, Cancer, CVA, ARF, Chemo, Hep., AIDS, mental health diagnosis, sleep apnea, morbid obesity)? @ -Hypertension, diabetes, chronic kidney disease Was patient admitted / discharged? Hospital course, mention meds given and route, prescriptions, significant lab abnormalities, going to OR and other pertinent info. @ -Hospital course Patient with acute on chronic renal failure, elevated BUN and creatinine. Normal potassium. CO2 is 11. He is anemic with a hemoglobin of 9 and an elevated INR at 4.5. I did discuss case with nephrology who has given recommendations and will discuss dialysis options with the patient tomorrow. Patient mated to primary care with nephrology and cardiology on consultation. @ -No Were any procedures done? @ -No Diagnosis/symptom? @ -Renal failure Acute, or Chronic, or Acute on Chronic? @Acute on chronic Uncomplicated (without systemic symptoms) or Complicated (systemic symptoms)? @ -Default Side effects of treatment? @ -No Exacerbation, Progression, or Severe Exacerbation? @ -No Poses a threat to life or bodily function? How? (Chest pain, [place], [place], pneumonia, PE, COPD, DKA, ARF, appy, cholecystitis, CVA, Diverticulitis, Homicidal, Suicidal, threat to staff... and all critical care pts) @ -Yes, renal failure (Mat Lenz) - Lab Data Lab Results 03/20/24 03/20/24 03/20/24 Range/Units 16:58 16:58 16:58 WBC 8.9 (3.8-10.6) k/uL RBC 3.20 L (4.30-5.90) m/uL Hgb 9.0 L (13.0-17.5) gm/dL Hct 29.7 L (39.0-53.0) % MCV 92.6 (80.0-100.0) fL MCH 28.2 (25.0-35.0) pg MCHC 30.4 L (31.0-37.0) g/dL RDW 16.3 H (11.5-15.5) % Plt Count 262 (150-450) k/uL MPV 7.7 Neutrophils % 79 % Lymphocytes % 11 % Monocytes % 5 % Eosinophils % 4 % Basophils % 1 % Neutrophils # 7.0 (1.3-7.7) k/uL Lymphocytes # 1.0 (1.0-4.8) k/uL Monocytes # 0.4 (0-1.0) k/uL Eosinophils # 0.4 (0-0.7) k/uL Basophils # 0.1 (0-0.2) k/uL Hypochromasia Slight Anisocytosis Slight PT 44.4 H (10.0-12.5) sec INR 4.5 H (<1.2) APTT 52.7 H (22.0-30.0) sec Sodium 141 (137-145) mmol/L Potassium 4.6 (3.5-5.1) mmol/L Chloride 117 H (98-107) mmol/L Carbon Dioxide 11 L (22-30) mmol/L Anion Gap 13 mmol/L BUN 63 H (9-20) mg/dL Creatinine 8.06 H* (0.66-1.25) mg/dL Est GFR (CKD-EPI)AfAm 9 (>60 ml/min/1.73 sqM) Est GFR (CKD-EPI)NonAf 8 (>60 ml/min/1.73 sqM) Glucose 163 H (74-99) mg/dL Calcium 8.7 (8.4-10.2) mg/dL Magnesium 1.7 (1.6-2.3) mg/dL Total Bilirubin 0.3 (0.2-1.3) mg/dL AST 31 (17-59) U/L ALT 20 (4-49) U/L Alkaline Phosphatase 29 L (38-126) U/L Troponin I (0.000-0.034) ng/mL NT-Pro-B Natriuret Pep 25980 pg/mL Total Protein 5.9 L (6.3-8.2) g/dL Albumin 3.2 L (3.5-5.0) g/dL 03/20/ Range/Units 16:58 WBC (3.8-10.6) k/uL RBC (4.30-5.90) m/uL Hgb (13.0-17.5) gm/dL Hct (39.0-53.0) % MCV (80.0-100.0) fL MCH (25.0-35.0) pg MCHC (31.0-37.0) g/dL RDW (11.5-15.5) % Plt Count (150-450) k/uL MPV Neutrophils % % Lymphocytes % % Monocytes % % Eosinophils % % Basophils % % Neutrophils # (1.3-7.7) k/uL Lymphocytes # (1.0-4.8) k/uL Monocytes # (0-1.0) k/uL Eosinophils # (0-0.7) k/uL Basophils # (0-0.2) k/uL Hypochromasia Anisocytosis PT (10.0-12.5) sec INR (<1.2) APTT (22.0-30.0) sec Sodium (137-145) mmol/L Potassium (3.5-5.1) mmol/L Chloride (98-107) mmol/L Carbon Dioxide (22-30) mmol/L Anion Gap mmol/L BUN (9-20) mg/dL Creatinine (0.66-1.25) mg/dL Est GFR (CKD-EPI)AfAm (>60 ml/min/1.73 sqM) Est GFR (CKD-EPI)NonAf (>60 ml/min/1.73 sqM) Glucose (74-99) mg/dL Calcium (8.4-10.2) mg/dL Magnesium (1.6-2.3) mg/dL Total Bilirubin (0.2-1.3) mg/dL AST (17-59) U/L ALT (4-49) U/L Alkaline Phosphatase (38-126) U/L Troponin I 0.084 H* (0.000-0.034) ng/mL NT-Pro-B Natriuret Pep pg/mL Total Protein (6.3-8.2) g/dL Albumin (3.5-5.0) g/dL Critical Care Time Critical Care Time: Yes Total Critical Care Time: 35 <Mat Lenz - Last Filed: 03/20/24 18:10> Disposition <Beryl Joyce - Last Filed: 03/20/24 16:31> Is patient prescribed a controlled substance at d/c from ED?: No Time of Disposition: 17:57 <Mat Lenz - Last Filed: 03/20/24 18:10> Clinical Impression: Cardiomyopathy, Renal failure, Pulmonary edema Disposition: ADMITTED IP TO THIS HOSP Condition: Stable Referrals: Lacey Frankel MD [Primary Care Provider] - 1-2 days
--- NOTE | 2024-03-20 17:05 | XR ---
EXAMINATION TYPE: XR chest 2V DATE OF EXAM: 03/20/2024 COMPARISON: NONE HISTORY: Chest pain TECHNIQUE: Frontal and lateral views of the chest are obtained. FINDINGS: There is no focal air space opacity. No evidence for pneumothorax. No pleural effusion. There is evidence of cardiomegaly with pulmonary venous congestion. No overt failure. Correlate clini ty. The osseous structures are grossly intact. IMPRESSION: 1. There is evidence of cardiomegaly with pulmonary venous congestion. No overt failure. Correlate c linically.
[2024-03-20 17:11] LABS: Anisocytosis Slight; Basophils # (A) 0.1 k/uL (0-0.2); Basophils % (A) 1 %; Eosinophils # (A) 0.4 k/uL (0-0.7); Eosinophils % (A) 4 %; HCT 29.7 % (39.0-53.0); Hypochromasia Slight; Lymphocytes % (A) 11 %; MCH 28.2 pg (25.0-35.0); MCHC 30.4 g/dL (31.0-37.0); MCV 92.6 fL (80.0-100.0); Mean Platelet Volume 7.7; Monocytes # (A) 0.4 k/uL (0-1.0); Monocytes % (A) 5 %; Neutrophils % (A) 79 %; Platelet Count 262 k/uL (150-450); RDW 16.3 % (11.5-15.5); WBC 8.9 k/uL (3.8-10.6)
[2024-03-20 17:29] LABS: INR 4.5 (<1.2); Prothrombin Time 44.4 sec (10.0-12.5)
[2024-03-20 17:30] LABS: Partial Thromboplastin Time 52.7 sec (22.0-30.0)
[2024-03-20 17:34] LABS: ALT 20 U/L (4-49); AST 31 U/L (17-59); African American GFR (CKD) 9 (>60 ml/min/1.73 sqM); Albumin 3.2 g/dL (3.5-5.0); Alkaline Phosphatase 29 U/L (38-126); Anion Gap 13 mmol/L; Blood Urea Nitrogen 63 mg/dL (9-20); Calcium 8.7 mg/dL (8.4-10.2); Carbon Dioxide 11 mmol/L (22-30); Chloride 117 mmol/L (98-107); Glucose 163 mg/dL (74-99); Magnesium 1.7 mg/dL (1.6-2.3); Non-African American GFR(CKD) 8 (>60 ml/min/1.73 sqM); Potassium 4.6 mmol/L (3.5-5.1); Sodium 141 mmol/L (137-145); Total Bilirubin 0.3 mg/dL (0.2-1.3); Total Protein 5.9 g/dL (6.3-8.2)
[2024-03-20 17:43] LABS: NT-Pro-B-Type Natriuretic Pept 15300 pg/mL
[2024-03-20] MEDS ORDERED: ACETAMINOPHEN TAB 325 MG TAB PO PRN (17:59)
[2024-03-20] MEDS ORDERED: NALOXONE 0.4 MG/ML 1 ML VIAL IV PRN (17:59)
[2024-03-20] MEDS: SODIUM BICARB 8.4% 50 ML SYR (1 MEQ/ML) IV STA (18:43)
[2024-03-20] MEDS: DEXTROSE 5% IN WATER 1,000 ML with SODIUM BICARB (1 MEQ/ML) 150 ML IV SCH (18:44)
[2024-03-20] MEDS: FUROSEMIDE 10 MG/ML 10 ML VIAL IV SCH (19:29)
[2024-03-21 02:56] LABS: Appearance,Urine Clear (Clear); Bilirubin,Urine Negative (Negative); Blood,Urine Moderate (Negative); Color,Urine Colorless; Glucose,Urine (UA) 1+ (Negative); Ketones,Urine Negative (Negative); Leukocyte Esterase,Urine Negative (Negative); Mucus,Urine Rare /hpf; Nitrite,Urine Negative (Negative); Protein,Urine 2+ (Negative); RBC,Urine 18 /hpf (0-5); Specific Gravity,Urine 1.006 (1.001-1.035); Urobilinogen,Urine <2.0 mg/dL (<2.0); WBC,Urine 1 /hpf (0-5)
[2024-03-21 07:56] LABS: Glucose,Whole Blood 103 mg/dL (70-110)
[2024-03-21 09:35] LABS: ALT 22 U/L (4-49); AST 34 U/L (17-59); African American GFR (CKD) 9 (>60 ml/min/1.73 sqM); Albumin 3.4 g/dL (3.5-5.0); Alkaline Phosphatase 27 U/L (38-126); Anion Gap 12 mmol/L; Blood Urea Nitrogen 61 mg/dL (9-20); Calcium 8.7 mg/dL (8.4-10.2); Carbon Dioxide 16 mmol/L (22-30); Chloride 113 mmol/L (98-107); Glucose 107 mg/dL (74-99); Magnesium 1.5 mg/dL (1.6-2.3); Non-African American GFR(CKD) 8 (>60 ml/min/1.73 sqM); Phosphorus 6.6 mg/dL (2.5-4.5); Potassium 3.8 mmol/L (3.5-5.1); Sodium 141 mmol/L (137-145); Total Bilirubin 0.6 mg/dL (0.2-1.3)
--- NOTE | 2024-03-21 10:11 | P.CRDCN ---
History of Present Illness History of present illness: HISTORY OF PRESENTING ILLNESS Patient is a pleasant 39-year-old male with history of CAD, diabetes mellitus type 2, hypertension, bicuspid aortic valve with severe aortic insufficiency and cardiomyopathy as well as CAD status post mechanical aortic valve replacement with Bowdle valve and CABG 2017, chronic kidney disease who presents secondary to abnormal blood tests. He has been followed in nephrology and had outpatient workup with worsening kidney function and was recommended to go to the emergency department. He has been noticing increased lower extremity edema, increased orthopnea and shortness breath over last few weeks. He denies any changes in medications. His blood pressure also has been somewhat higher in the 160s over 100s. Per patient's discussion with the grid molder there is concern regarding patient needing to go on dialysis. He denies any chest pain or pressure. EKG shows sinus rhythm, normal axis, T-wave inversion in lead 3 and aVF and no significant ST depressions. Blood work shows hemoglobin 9.0, INR 4.5, bicarb 11, creatinine 8.0, troponin 0.08, proBNP 15,300. patient previously had cardiomyopathy with ejection fraction in the 25% range however since then has improved to approximately 50%. Echo was from approximately May REVIEW OF SYSTEMS At the time of my exam: CONSTITUTIONAL: Denies fever or chills. CARDIOVASCULAR: Denies chest pain, +shortness of breath, +orthopnea, no PND or palpitations. RESPIRATORY: Denies cough. GASTROINTESTINAL: Denies abdominal pain, diarrhea, constipation, nausea or vomiting. MUSCULOSKELETAL: Denies myalgias. NEUROLOGIC: Denies numbness, tingling or weakness. ENDOCRINE: Denies fatigue, weight change, polydipsia or polyurina. GENITOURINARY: Denies burning, hematuria or urgency with micturation. HEMATOLOGIC: Denies history of anemia or bleeding. PHYSICAL EXAMINATION Vital signs reviewed. CONSTITUTIONAL: No apparent distress. HEENT: Head is normocephalic. Pupils are equal, round. Sclerae anicteric. Mucous membranes of the mouth are moist. No JVD. No carotid bruit. CHEST EXAMINATION: Lungs are clear to auscultation. No chest wall tenderness is noted on palpation or with deep breathing. HEART EXAMINATION: Regular rate and rhythm. S1, S2 heard. No murmurs, gallops or rub. ABDOMEN: Soft, nontender. Positive bowel sounds. EXTREMITIES: 2+ peripheral pulses, Trace lower extremity edema and no calf tenderness. NEUROLOGIC EXAMINATION: Patient is awake, alert and oriented x3. ASSESSMENT Acute on chronic diastolic heart failure, mainly related to worsening kidney function Acute renal failure History of bicuspid aortic valve and aortic insufficiency status post mechanical aortic valve replacement 2016 CAD status post CABG 2016 Diabetes mellitus type 2 Hypertension uncontrolled likely exacerbated by kidney failure Anemia Supratherapeutic INR PLAN patient's main presentation consistent with kidney failure. We will check repeat echo to ensure no cardiac reasons for worsening kidney function however appears to be progressive kidney failure. Concern of patient needing dialysis and we will hold Coumadin and transition to heparin for his mechanical aortic valve once INR < 2.0 if needed for dialysis catheter placement. Hopefully blood pressure should improve after dialysis. Continue current supportive care. Further recommendations to follow. Past Medical History Past Medical History: Coronary Artery Disease (CAD), Heart Failure, Diabetes Mellitus, Hyperlipidemia, Hypertension, Renal Disease Additional Past Medical History / Comment(s): Systolic heart failure with ejection fraction of 2530 percent before open heart. Severe aortic insufficiency. Uncontrolled type 2 diabetes, recently started on oral agents. Obesity History of Any Multi-Drug Resistant Organisms: None Reported Past Surgical History: Coronary Bypass/CABG, Ear Surgery, Tonsillectomy Additional Past Surgical History / Comment(s): Myringotomy tubes as a child, CABG 08/18/17-2 vessel and aortic valve replaced. Past Anesthesia/Blood Transfusion Reactions: Postoperative Nausea & Vomiting (PONV) Additional Past Anesthesia/Blood Transfusion Reaction / Comment(s): pt never received any blood. Past Psychological History: Depression Smoking Status: Never smoker Past Alcohol Use History: None Reported Past Drug Use History: None Reported - Past Family History Father Family Medical History: Unable to Obtain Additional Family Medical History / Comment(s): PT WAS ADOPTED Mother Family Medical History: Unable to Obtain Additional Family Medical History / Comment(s): PT WAS ADOPTED Medications and Allergies Home Medications Medication Instructions Recorded Confirmed Type Warfarin [Coumadin] 2 mg PO DAILY 10/29/18 03/20/24 History allopurinoL [Zyloprim] 100 mg PO DAILY 10/29/18 03/20/24 History hydrALAZINE HCL [Apresoline] 25 mg PO TID 10/29/18 03/20/24 History Doxazosin [Cardura] 2 mg PO DAILY 03/20/24 03/20/24 History Ergocalciferol [Vitamin D2 (1250 1,250 mcg PO SA 03/20/24 03/20/24 History Mcg = 31456 Iu)] Fenofibrate Nanocrystallized 145 mg PO DAILY 03/20/24 03/20/24 History [Fenofibrate] Folic Acid/Vit B Complex and C 0.8 mg PO DAILY 03/20/24 03/20/24 History [Nephro-Gianfranco Tablet] Metoprolol Tartrate [Lopressor] 25 mg PO BID 03/20/24 03/20/24 History Rosuvastatin [Crestor] 20 mg PO DAILY 03/20/24 03/20/24 History Sevelamer [Renvela] 1,600 mg PO AC-TID 03/20/24 03/20/24 History amLODIPine [Norvasc] 5 mg PO DAILY 03/20/24 03/20/24 History calcitrioL 0.5 mcg PO TUSA 03/20/24 03/20/24 History glipiZIDE [Glucotrol] 10 mg PO AC-TID 03/20/24 03/20/24 History Allergies Allergy/AdvReac Type Severity Reaction Status Date / Time NSAIDS (Non-Steroidal Allergy Unknown Verified 03/20/24 18:22 Anti-Inflamma Physical Exam Vitals: Vital Signs Temp Pulse Resp BP Pulse Ox 03/21/24 07:39 97.7 F 83 16 168/106 03/21/24 07:21 84 18 03/21/24 06:50 88 18 165/105 98 03/21/24 05:45 80 18 160/102 97 03/21/24 00:13 93 17 154/98 98 03/20/24 22:12 76 17 169/105 99 03/20/24 20:10 78 18 155/67 98 03/20/24 18:42 16 134/90 98 03/20/24 16:44 16 03/20/24 16:42 98.2 F 82 16 178/95 97 Intake and Output 03/20/24 03/21/24 03/21/24 22:59 06:59 14:59 Intake Total 40 Output Total 500 Balance -460 Intake: Oral 40 Output: Urine 500 Other: # Voids 1 Weight 111.13 kg Results 03/20/24 16:58 03/21/24 08:24 Cardiac Enzymes 03/20/24 03/20/24 03/21/24 Range/Units 16:58 16:58 08:24 AST 31 34 (17-59) U/L Troponin I 0.084 H* (0.000-0.034) ng/mL Coagulation 03/20/24 Range/Units 16:58 PT 44.4 H (10.0-12.5) sec APTT 52.7 H (22.0-30.0) sec CBC 03/20/24 Range/Units 16:58 WBC 8.9 (3.8-10.6) k/uL RBC 3.20 L (4.30-5.90) m/uL Hgb 9.0 L (13.0-17.5) gm/dL Hct 29.7 L (39.0-53.0) % Plt Count 262 (150-450) k/uL Comprehensive Metabolic Panel 03/20/24 03/21/24 Range/Units 16:58 08:24 Sodium 141 141 (137-145) mmol/L Potassium 4.6 3.8 (3.5-5.1) mmol/L Chloride 117 H 113 H (98-107) mmol/L Carbon Dioxide 11 L 16 L (22-30) mmol/L BUN 63 H 61 H (9-20) mg/dL Creatinine 8.06 H* 8.05 H* (0.66-1.25) mg/dL Glucose 163 H 107 H (74-99) mg/dL Calcium 8.7 8.7 (8.4-10.2) mg/dL AST 31 34 (17-59) U/L ALT 20 22 (4-49) U/L Alkaline Phosphatase 29 L 27 L (38-126) U/L Total Protein 5.9 L 6.0 L (6.3-8.2) g/dL Albumin 3.2 L 3.4 L (3.5-5.0) g/dL Current Medications Generic Name Dose Route Start Last Admin Trade Name Freq PRN Reason Stop Dose Admin Acetaminophen 650 mg 03/20/24 17:59 Acetaminophen Tab 325 Mg Tab PO Q6HR PRN Mild Pain or Fever > 100.5 Furosemide 80 mg 03/20/24 21:00 03/21/24 08:28 Furosemide 10 Mg/Ml 10 Ml Vial IV 80 mg Q12HR [place] Administration Sodium Bicarbonate 150 ml/ 1,150 mls @ 50 mls/hr 03/20/24 18:30 03/20/24 18:44 Dextrose/Water IV 50 mls/hr .Q23H [place] Administration Naloxone HCl 0.2 mg 03/20/24 17:59 Naloxone 0.4 Mg/Ml 1 Ml Vial IV Q2M PRN Opioid Reversal Intake and Output 03/20/24 03/21/24 03/21/24 22:59 06:59 14:59 Intake Total 40 Output Total 500 Balance -460 Intake: Oral 40 Output: Urine 500 Other: # Voids 1 Weight 111.13 kg 03/20/24 16:58 03/21/24 08:24
[2024-03-21 10:16] LABS: INR 3.4 (<1.2); Prothrombin Time 33.4 sec (10.0-12.5)
--- NOTE | 2024-03-21 10:49 | P.NPCON ---
History of Present Illness - Reason for Consult chronic renal failure - History of Present Illness Reason for consultation: Chronic kidney disease History of present illness: Patient is a 39-year-old male seen renal consultation for chronic kidney disease. Patient has chronic kidney disease stage V secondary to biopsy-proven diabetic kidney disease. Patient states he has had diabetes for several years but is not sure as to when he was diagnosed. Patient states he has noticed worsening edema in his lower extremities and was sent to the hospital for further management. He is currently receiving IV Lasix. There is no improvement in his renal function. Patient has been noncompliant in terms of f ollowing up with vascular surgery for access placement as well as seeing the transplant team. He denies nausea vomiting or diarrhea. No chest pain. Does admit to paroxysmal nocturnal dyspnea. No gross hematuria or dysuria. Denies use of nonsteroidals. Denies family history of renal disease. Patient does have history of aortic valve replacement. Vital signs are stable. General: No acute distress. HEENT: Head exam is unremarkable. LUNGS: No audible rhonchi or wheezes. HEART: Rate and Rhythm are regular. ABDOMEN: Obese, nontender. EXTREMITITES: 1+ edema. Past Medical History Past Medical History: Coronary Artery Disease (CAD), Heart Failure, Diabetes Mellitus, Hyperlipidemia, Hypertension, Renal Disease Additional Past Medical History / Comment(s): Systolic heart failure with ejection fraction of 2530 percent before open heart. Severe aortic insufficiency. Uncontrolled type 2 diabetes, recently started on oral agents. Obesity History of Any Multi-Drug Resistant Organisms: None Reported Past Surgical History: Coronary Bypass/CABG, Ear Surgery, Tonsillectomy Additional Past Surgical History / Comment(s): Myringotomy tubes as a child, CABG 08/18/17-2 vessel and aortic valve replaced. Past Anesthesia/Blood Transfusion Reactions: Postoperative Nausea & Vomiting (PONV) Additional Past Anesthesia/Blood Transfusion Reaction / Comment(s): pt never received any blood. Past Psychological History: Depression Smoking Status: Never smoker Past Alcohol Use History: None Reported Past Drug Use History: None Reported - Past Family History Father Family Medical History: Unable to Obtain Additional Family Medical History / Comment(s): PT WAS ADOPTED Mother Family Medical History: Unable to Obtain Additional Family Medical History / Comment(s): PT WAS ADOPTED Medications and Allergies Home Medications Medication Instructions Recorded Confirmed Type Warfarin [Coumadin] 2 mg PO DAILY 10/29/18 03/20/24 History allopurinoL [Zyloprim] 100 mg PO DAILY 10/29/18 03/20/24 History hydrALAZINE HCL [Apresoline] 25 mg PO TID 10/29/18 03/20/24 History Doxazosin [Cardura] 2 mg PO DAILY 03/20/24 03/20/24 History Ergocalciferol [Vitamin D2 (1250 1,250 mcg PO SA 03/20/24 03/20/24 History Mcg = 57901 Iu)] Fenofibrate Nanocrystallized 145 mg PO DAILY 03/20/24 03/20/24 History [Fenofibrate] Folic Acid/Vit B Complex and C 0.8 mg PO DAILY 03/20/24 03/20/24 History [Nephro-Gianfranco Tablet] Metoprolol Tartrate [Lopressor] 25 mg PO BID 03/20/24 03/20/24 History Rosuvastatin [Crestor] 20 mg PO DAILY 03/20/24 03/20/24 History Sevelamer [Renvela] 1,600 mg PO AC-TID 03/20/24 03/20/24 History amLODIPine [Norvasc] 5 mg PO DAILY 03/20/24 03/20/24 History calcitrioL 0.5 mcg PO TUSA 03/20/24 03/20/24 History glipiZIDE [Glucotrol] 10 mg PO AC-TID 03/20/24 03/20/24 History Allergies Allergy/AdvReac Type Severity Reaction Status Date / Time NSAIDS (Non-Steroidal Allergy Unknown Verified 03/20/24 18:22 Anti-Inflamma Physical Exam Vitals: Vital Signs Temp Pulse Resp BP Pulse Ox 03/21/24 07:39 97.7 F 83 16 168/106 03/21/24 07:21 84 18 03/21/24 06:50 88 18 165/105 98 03/21/24 05:45 80 18 160/102 97 03/21/24 00:13 93 17 154/98 98 03/20/24 22:12 76 17 169/105 99 03/20/24 20:10 78 18 155/67 98 03/20/24 18:42 16 134/90 98 03/20/24 16:44 16 03/20/24 16:42 98.2 F 82 16 178/95 97 Intake and Output 03/20/24 03/21/24 03/21/24 22:59 06:59 14:59 Intake Total 40 Output Total 500 Balance -460 Intake: Oral 40 Output: Urine 500 Other: # Voids 1 Weight 111.13 kg Results - Lab Results Most recent lab results Calcium 8.7 mg/dL (8.4-10.2) 03/21/24 08:24 Phosphorus 6.6 mg/dL (2.5-4.5) H 03/21/24 08: Magnesium 1.5 mg/dL (1.6-2.3) L 03/21/24 08:24 03/20/24 16:58 03/21/24 08:24 Assessment and Plan Plan: Assessment: 1. Chronic kidney disease stage V secondary to biopsy-proven diabetic kidney disease. 2. Metabolic acidosis secondary to chronic kidney disease. Improving with bicarb drip. 3. Chronic kidney disease mineral bone disease. Phosphorus level 6.6. 4. Hypomagnesemia from diuresis. 5. Diabetes mellitus. 6. Hypertension with chronic kidney disease. 7. Anemia of chronic kidney disease. 8. History of aortic valve replacement. Plan: Maintain bicarb drip. Maintain IV Lasix. Replace magnesium. Add Renvela with meals. Check iron studies. Resume home antihypertensives. With significantly depressed renal function, volume overload, initiate renal replacement therapy. Consult vascular surgery for dialysis catheter placement. Plan for first treatment of hemodialysis today and second treatment tomorrow. Strongly encourage patient to follow-up with surgeon outpatient for PD catheter evaluation. Also encouraged him to follow-up for kidney transplant workup. Thank you for the consultation. I will continue to follow the patient with you during his hospital stay.
[2024-03-21] MEDS: amLODIPine 5 MG TAB PO SCH (11:09)
[2024-03-21] MEDS: hydrALAZINE HCL 25 MG TAB PO SCH (11:09)
[2024-03-21] MEDS: METOPROLOL TARTRATE 25 MG TAB PO SCH (11:09)
[2024-03-21] MEDS: MAGNESIUM SULFATE-D5W PMX 1 GM in DEXTROSE/WATER 1 100ML.BAG IVPB SCH (12:56)
[2024-03-21] MEDS: SEVELAMER 800 MG TAB PO SCH (13:00)
--- NOTE | 2024-03-21 14:55 | P.GSCN ---
History of Present Illness History of present illness: 39-year-old gentleman history of acute chronic renal failure, history of diabetes, patient also has a history of hypertension diabetes coronary artery disease I was consulted for placement of the dialysis catheter for an examination neck is supple chest clear on auscultation few crackles the lung bases Abdomen soft nontender Vascular femorals are 1+ bilateral Plan is placement of dialysis catheter patient is on Coumadin we will hold the Coumadin patient has been arranged for dialysis catheter in the morning keep n.p.o. at midnight Past Medical History Past Medical History: Coronary Artery Disease (CAD), Heart Failure, Diabetes Mellitus, Hyperlipidemia, Hypertension, Renal Disease Additional Past Medical History / Comment(s): Systolic heart failure with ejection fraction of 2530 percent before open heart. Severe aortic insufficiency. Uncontrolled type 2 diabetes, recently started on oral agents. Obesity History of Any Multi-Drug Resistant Organisms: None Reported Past Surgical History: Coronary Bypass/CABG, Ear Surgery, Tonsillectomy Additional Past Surgical History / Comment(s): Myringotomy tubes as a child, CABG 08/18/17-2 vessel and aortic valve replaced. Past Anesthesia/Blood Transfusion Reactions: Postoperative Nausea & Vomiting (PONV) Additional Past Anesthesia/Blood Transfusion Reaction / Comm: pt never received any blood. Past Psychological History: Depression Smoking Status: Never smoker Past Alcohol Use History: None Reported Past Drug Use History: None Reported - Past Family History Father Family Medical History: Unable to Obtain Additional Family Medical History / Comment(s): PT WAS ADOPTED Mother Family Medical History: Unable to Obtain Additional Family Medical History / Comment(s): PT WAS ADOPTED Medications and Allergies Home Medications Medication Instructions Recorded Confirmed Type Warfarin [Coumadin] 2 mg PO DAILY 10/29/18 03/20/24 History allopurinoL [Zyloprim] 100 mg PO DAILY 10/29/18 03/20/24 History hydrALAZINE HCL [Apresoline] 25 mg PO TID 10/29/18 03/20/24 History Doxazosin [Cardura] 2 mg PO DAILY 03/20/24 03/20/24 History Ergocalciferol [Vitamin D2 (1250 1,250 mcg PO SA 03/20/24 03/20/24 History Mcg = 14388 Iu)] Fenofibrate Nanocrystallized 145 mg PO DAILY 03/20/24 03/20/24 History [Fenofibrate] Folic Acid/Vit B Complex and C 0.8 mg PO DAILY 03/20/24 03/20/24 History [Nephro-Gianfranco Tablet] Metoprolol Tartrate [Lopressor] 25 mg PO BID 03/20/24 03/20/24 History Rosuvastatin [Crestor] 20 mg PO DAILY 03/20/24 03/20/24 History Sevelamer [Renvela] 1,600 mg PO AC-TID 03/20/24 03/20/24 History amLODIPine [Norvasc] 5 mg PO DAILY 03/20/24 03/20/24 History calcitrioL 0.5 mcg PO TUSA 03/20/24 03/20/24 History glipiZIDE [Glucotrol] 10 mg PO AC-TID 03/20/24 03/20/24 History Allergies Allergy/AdvReac Type Severity Reaction Status Date / Time NSAIDS (Non-Steroidal Allergy Unknown Verified 03/20/24 18:22 Anti-Inflamma Surgical - Exam Vital Signs Temp Pulse Resp BP Pulse Ox 98.2 F 82 16 178/95 97 03/20/24 16:42 03/20/24 16:42 03/20/24 16:42 03/20/24 16:42 03/20/24 16:42 Results - Labs 03/20/24 16:58 03/21/24 08:24 Abnormal Lab Results - Last 24 Hours (Table) 03/20/24 03/20/24 03/20/24 Range/Units 16:58 16:58 16:58 RBC 3.20 L (4.30-5.90) m/uL Hgb 9.0 L (13.0-17.5) gm/dL Hct 29.7 L (39.0-53.0) % MCHC 30.4 L (31.0-37.0) g/dL RDW 16.3 H (11.5-15.5) % PT 44.4 H (10.0-12.5) sec INR 4.5 H (<1.2) APTT 52.7 H (22.0-30.0) sec Chloride 117 H (98-107) mmol/L Carbon Dioxide 11 L (22-30) mmol/L BUN 63 H (9-20) mg/dL Creatinine 8.06 H* (0.66-1.25) mg/dL Glucose 163 H (74-99) mg/dL Phosphorus (2.5-4.5) mg/dL Magnesium (1.6-2.3) mg/dL Alkaline Phosphatase 29 L (38-126) U/L Troponin I (0.000-0.034) ng/mL Total Protein 5.9 L (6.3-8.2) g/dL Albumin 3.2 L (3.5-5.0) g/dL Urine Protein (Negative) Urine Glucose (UA) (Negative) Urine Blood (Negative) Urine RBC (0-5) /hpf Urine Mucus (None) /hpf 03/20/24 03/21/24 03/21/24 Range/Units 16:58 02:18 08:24 RBC (4.30-5.90) m/uL Hgb (13.0-17.5) gm/dL Hct (39.0-53.0) % MCHC (31.0-37.0) g/dL RDW (11.5-15.5) % PT (10.0-12.5) sec INR (<1.2) APTT (22.0-30.0) sec Chloride 113 H (98-107) mmol/L Carbon Dioxide 16 L (22-30) mmol/L BUN 61 H (9-20) mg/dL Creatinine 8.05 H* (0.66-1.25) mg/dL Glucose 107 H (74-99) mg/dL Phosphorus 6.6 H (2.5-4.5) mg/dL Magnesium 1.5 L (1.6-2.3) mg/dL Alkaline Phosphatase 27 L (38-126) U/L Troponin I 0.084 H* (0.000-0.034) ng/mL Total Protein 6.0 L (6.3-8.2) g/dL Albumin 3.4 L (3.5-5.0) g/dL Urine Protein 2+ H (Negative) Urine Glucose (UA) 1+ H (Negative) Urine Blood Moderate H (Negative) Urine RBC 18 H (0-5) /hpf Urine Mucus Rare H (None) /hpf 03/21/24 Range/Units 09:43 RBC (4.30-5.90) m/uL Hgb (13.0-17.5) gm/dL Hct (39.0-53.0) % MCHC (31.0-37.0) g/dL RDW (11.5-15.5) % PT 33.4 H (10.0-12.5) sec INR 3.4 H (<1.2) APTT (22.0-30.0) sec Chloride (98-107) mmol/L Carbon Dioxide (22-30) mmol/L BUN (9-20) mg/dL Creatinine (0.66-1.25) mg/dL Glucose (74-99) mg/dL Phosphorus (2.5-4.5) mg/dL Magnesium (1.6-2.3) mg/dL Alkaline Phosphatase (38-126) U/L Troponin I (0.000-0.034) ng/mL Total Protein (6.3-8.2) g/dL Albumin (3.5-5.0) g/dL Urine Protein (Negative) Urine Glucose (UA) (Negative) Urine Blood (Negative) Urine RBC (0-5) /hpf Urine Mucus (None) /hpf Diabetes panel 03/20/24 03/21/24 Range/Units 16:58 08:24 Sodium 141 141 (137-145) mmol/L Potassium 4.6 3.8 (3.5-5.1) mmol/L Chloride 117 H 113 H (98-107) mmol/L Carbon Dioxide 11 L 16 L (22-30) mmol/L BUN 63 H 61 H (9-20) mg/dL Creatinine 8.06 H* 8.05 H* (0.66-1.25) mg/dL Glucose 163 H 107 H (74-99) mg/dL Calcium 8.7 8.7 (8.4-10.2) mg/dL AST 31 34 (17-59) U/L ALT 20 22 (4-49) U/L Alkaline Phosphatase 29 L 27 L (38-126) U/L Total Protein 5.9 L 6.0 L (6.3-8.2) g/dL Albumin 3.2 L 3.4 L (3.5-5.0) g/dL Calcium panel 03/20/24 03/21/24 Range/Units 16:58 08:24 Calcium 8.7 8.7 (8.4-10.2) mg/dL Phosphorus 6.6 H (2.5-4.5) mg/dL Albumin 3.2 L 3.4 L (3.5-5.0) g/dL Pituitary panel 03/20/24 03/21/24 Range/Units 16:58 08:24 Sodium 141 141 (137-145) mmol/L Potassium 4.6 3.8 (3.5-5.1) mmol/L Chloride 117 H 113 H (98-107) mmol/L Carbon Dioxide 11 L 16 L (22-30) mmol/L BUN 63 H 61 H (9-20) mg/dL Creatinine 8.06 H* 8.05 H* (0.66-1.25) mg/dL Glucose 163 H 107 H (74-99) mg/dL Calcium 8.7 8.7 (8.4-10.2) mg/dL Adrenal panel 03/20/24 03/21/24 Range/Units 16:58 08:24 Sodium 141 141 (137-145) mmol/L Potassium 4.6 3.8 (3.5-5.1) mmol/L Chloride 117 H 113 H (98-107) mmol/L Carbon Dioxide 11 L 16 L (22-30) mmol/L BUN 63 H 61 H (9-20) mg/dL Creatinine 8.06 H* 8.05 H* (0.66-1.25) mg/dL Glucose 163 H 107 H (74-99) mg/dL Calcium 8.7 8.7 (8.4-10.2) mg/dL Total Bilirubin 0.3 0.6 (0.2-1.3) mg/dL AST 31 34 (17-59) U/L ALT 20 22 (4-49) U/L Alkaline Phosphatase 29 L 27 L (38-126) U/L Total Protein 5.9 L 6.0 L (6.3-8.2) g/dL Albumin 3.2 L 3.4 L (3.5-5.0) g/dL
--- NOTE | 2024-03-21 16:01 | US ---
EXAMINATION TYPE: US kidneys/renal and bladder DATE OF EXAM: 03/21/2024 COMPARISON: NONE CLINICAL INDICATION: Male, 39 years old with history of drew; EXAM MEASUREMENTS: Right Kidney: 11.6 x 4.9 x 5.3 cm Left Kidney: 11.2 x 5.2 x 5.2 cm Right Kidney: no hydronephrosis or masses seen Left Kidney: no hydronephrosis or masses seen Bladder: wnl Bilateral Jets seen: no IMPRESSION: No hydronephrosis.
[2024-03-21 16:17] LABS: % Iron Saturation 7.03 (15.00-50.00); Ferritin 54.1 ng/mL (22.0-322.0)
[2024-03-21 16:46] LABS: Glucose,Whole Blood 150 mg/dL (70-110)
--- NOTE | 2024-03-21 17:36 | P.HPIM ---
History of Present Illness H&P Date: 03/21/24 Mat Khoury, is a 39-year-old male who presented to [facility] emergency room With a chief complaint of Generalized weakness and bilateral lower extremity edema He was evaluated in the emergency room vital examination on presentation revealed A temperature of 97.7 pulse 83 respirations 16 blood pressure 178/95 pulse ox 97% on room air Laboratory data reveals A white blood count of 8.9 hemoglobin 9.0 platelet count 262 INR 4.5 BUN 63 creatinine 8.06 Troponin level 0.084 Testing in the emergency room revealed EKG done in the emergency room revealed sinus rhythm with right axis deviation And intraventricular conduction delay, Chest x-ray revealed evidence of cardiomegaly and pulmonary venous congestion Patient was admitted to medical floor for further evaluation and treatment Past Medical History Past Medical History: Coronary Artery Disease (CAD), Heart Failure, Diabetes Mellitus, Hyperlipidemia, Hypertension, Renal Disease Additional Past Medical History / Comment(s): Systolic heart failure with eje ction fraction of 2530 percent before open heart. Severe aortic insufficiency. Uncontrolled type 2 diabetes, recently started on oral agents. Obesity History of Any Multi-Drug Resistant Organisms: None Reported Past Surgical History: Coronary Bypass/CABG, Ear Surgery, Tonsillectomy Additional Past Surgical History / Comment(s): Myringotomy tubes as a child, CABG 08/18/17-2 vessel and aortic valve replaced. Past Anesthesia/Blood Transfusion Reactions: Postoperative Nausea & Vomiting (PONV) Additional Past Anesthesia/Blood Transfusion Reaction / Comment(s): pt never r eceived any blood. Past Psychological History: Depression Smoking Status: Never smoker Past Alcohol Use History: None Reported Past Drug Use History: None Reported - Past Family History Father Family Medical History: Unable to Obtain Additional Family Medical History / Comment(s): PT WAS ADOPTED Mother Family Medical History: Unable to Obtain Additional Family Medical History / Comment(s): PT WAS ADOPTED Medications and Allergies Home Medications Medication Instructions Recorded Confirmed Type Warfarin [Coumadin] 2 mg PO DAILY 10/29/18 03/20/24 History allopurinoL [Zyloprim] 100 mg PO DAILY 10/29/18 03/20/24 History hydrALAZINE HCL [Apresoline] 25 mg PO TID 10/29/18 03/20/24 History Doxazosin [Cardura] 2 mg PO DAILY 03/20/24 03/20/24 History Ergocalciferol [Vitamin D2 (1250 1,250 mcg PO SA 03/20/24 03/20/24 History Mcg = 29907 Iu)] Fenofibrate Nanocrystallized 145 mg PO DAILY 03/20/24 03/20/24 History [Fenofibrate] Folic Acid/Vit B Complex and C 0.8 mg PO DAILY 03/20/24 03/20/24 History [Nephro-Gianfranco Tablet] Metoprolol Tartrate [Lopressor] 25 mg PO BID 03/20/24 03/20/24 History Rosuvastatin [Crestor] 20 mg PO DAILY 03/20/24 03/20/24 History Sevelamer [Renvela] 1,600 mg PO AC-TID 03/20/24 03/20/24 History amLODIPine [Norvasc] 5 mg PO DAILY 03/20/24 03/20/24 History calcitrioL 0.5 mcg PO TUSA 03/20/24 03/20/24 History glipiZIDE [Glucotrol] 10 mg PO AC-TID 03/20/24 03/20/24 History Allergies Allergy/AdvReac Type Severity Reaction Status Date / Time NSAIDS (Non-Steroidal Allergy Unknown Verified 03/20/24 18:22 Anti-Inflamma Physical Exam Vitals: Vital Signs Temp Pulse Resp BP Pulse Ox 03/21/24 12:27 97.9 F 72 18 143/100 03/21/24 07:39 97.7 F 83 16 168/106 03/21/24 07:21 84 18 03/21/24 06:50 88 18 165/105 98 03/21/24 05:45 80 18 160/102 97 03/21/24 00:13 93 17 154/98 98 03/20/24 22:12 76 17 169/105 99 03/20/24 20:10 78 18 155/67 98 03/20/24 18:42 16 134/90 98 03/20/24 16:44 16 03/20/24 16:42 98.2 F 82 16 178/95 97 Intake and Output 03/20/24 03/21/24 03/21/24 22:59 06:59 14:59 Intake Total 40 Output Total 500 Balance -460 Intake: Oral 40 Output: Urine 500 Other: # Voids 1 Weight 111.13 kg In general patient is alert and oriented x 3 in no distress HEENT head normocephalic and atraumatic Neck is supple no JVD no goiter no lymphadenopathy no carotid bruit Chest examination Reveals a crackles in both lung kerr no wheezing Cardiac exam reveals regular heart sounds S1 and S2 no gallops no murmurs Abdomen is soft nontender no organomegaly with normal bowel sounds Extremity exam reveals 2 + edema no cyanosis or clubbing Neurological examination reveals no gross focal deficits Results CBC & Chem 7: 03/20/24 16:58 03/21/24 08:24 Labs: Abnormal Lab Results - Last 24 Hours (Table) 03/20/24 03/20/24 03/20/24 Range/Units 16:58 16:58 16:58 RBC 3.20 L (4.30-5.90) m/uL Hgb 9.0 L (13.0-17.5) gm/dL Hct 29.7 L (39.0-53.0) % MCHC 30.4 L (31.0-37.0) g/dL RDW 16.3 H (11.5-15.5) % PT 44.4 H (10.0-12.5) sec INR 4.5 H (<1.2) APTT 52.7 H (22.0-30.0) sec Chloride 117 H (98-107) mmol/L Carbon Dioxide 11 L (22-30) mmol/L BUN 63 H (9-20) mg/dL Creatinine 8.06 H* (0.66-1.25) mg/dL Glucose 163 H (74-99) mg/dL Phosphorus (2.5-4.5) mg/dL Magnesium (1.6-2.3) mg/dL Alkaline Phosphatase 29 L (38-126) U/L Troponin I (0.000-0.034) ng/mL Total Protein 5.9 L (6.3-8.2) g/dL Albumin 3.2 L (3.5-5.0) g/dL Urine Protein (Negative) Urine Glucose (UA) (Negative) Urine Blood (Negative) Urine RBC (0-5) /hpf Urine Mucus (None) /hpf 03/20/24 03/21/24 03/21/24 Range/Units 16:58 02:18 08:24 RBC (4.30-5.90) m/uL Hgb (13.0-17.5) gm/dL Hct (39.0-53.0) % MCHC (31.0-37.0) g/dL RDW (11.5-15.5) % PT (10.0-12.5) sec INR (<1.2) APTT (22.0-30.0) sec Chloride 113 H (98-107) mmol/L Carbon Dioxide 16 L (22-30) mmol/L BUN 61 H (9-20) mg/dL Creatinine 8.05 H* (0.66-1.25) mg/dL Glucose 107 H (74-99) mg/dL Phosphorus 6.6 H (2.5-4.5) mg/dL Magnesium 1.5 L (1.6-2.3) mg/dL Alkaline Phosphatase 27 L (38-126) U/L Troponin I 0.084 H* (0.000-0.034) ng/mL Total Protein 6.0 L (6.3-8.2) g/dL Albumin 3.4 L (3.5-5.0) g/dL Urine Protein 2+ H (Negative) Urine Glucose (UA) 1+ H (Negative) Urine Blood Moderate H (Negative) Urine RBC 18 H (0-5) /hpf Urine Mucus Rare H (None) /hpf 03/21/24 Range/Units 09:43 RBC (4.30-5.90) m/uL Hgb (13.0-17.5) gm/dL Hct (39.0-53.0) % MCHC (31.0-37.0) g/dL RDW (11.5-15.5) % PT 33.4 H (10.0-12.5) sec INR 3.4 H (<1.2) APTT (22.0-30.0) sec Chloride (98-107) mmol/L Carbon Dioxide (22-30) mmol/L BUN (9-20) mg/dL Creatinine (0.66-1.25) mg/dL Glucose (74-99) mg/dL Phosphorus (2.5-4.5) mg/dL Magnesium (1.6-2.3) mg/dL Alkaline Phosphatase (38-126) U/L Troponin I (0.000-0.034) ng/mL Total Protein (6.3-8.2) g/dL Albumin (3.5-5.0) g/dL Urine Protein (Negative) Urine Glucose (UA) (Negative) Urine Blood (Negative) Urine RBC (0-5) /hpf Urine Mucus (None) /hpf Thrombosis Risk Factor Assmnt - Choose All That Apply Any of the Below Risk Factors Present?: Yes Each Factor Represents 1 point: Swollen legs (current) Thrombosis Risk Factor Assessment Total Risk Factor Score: 1 Thrombosis Risk Factor Assessment Level: Low Risk Assessment and Plan Plan: Chronic kidney disease Acute volume overload Insulin-dependent diabetes mellitus Underlying history of hypertension Underlying history of hyperlipidemia Chronic anemia related to chronic kidney disease History of aortic valve replacement At this time patient is admitted to medical floor Consultation for nephrology and cardiology were initiated in the emergency room Patient likely will need hemodialysis during this admission Will follow closely
[2024-03-21 20:36] LABS: Glucose,Whole Blood 176 mg/dL (70-110)
[2024-03-22 03:40] LABS: Hepatitis B Surface Antigen Nonreactive (Nonreactive)
[2024-03-22 06:18] LABS: Glucose,Whole Blood 116 mg/dL (70-110)
[2024-03-22] MEDS: MIDAZOLAM 2 MG/2 ML VIAL IVP ONE (07:25)
[2024-03-22] MEDS: LIDOCAINE 1% INJ 10MG/ML (30 ML VIAL-PF) SQ ONE (07:26)
[2024-03-22] MEDS: IV FLUID CONTINUATION 1,000 ML IV ONE (07:29)
[2024-03-22] MEDS: HEPARIN SODIUM 1,000 UN/ML (10ML VL) IV ONE (07:50)
--- NOTE | 2024-03-22 07:56 | P.PN ---
Progress Note - Text Pre-op diagnosis acute chronic renal failure postop same Procedure ultrasound-guided 19 cm dialysis catheter placed right jugular approach Patient brought to the Department Operations Manager right side of the neck and chest was prepped duplex manner 1% lidocaine were infiltrated neck area. Ultrasound-guided micropuncture introduced right jugular vein 4 Bahamian dilator on top of guidewire. Then advanced a regular guidewire which was part of the inferior vena cava. A tunnel was created through the tunnel we brought 23 cm dialysis catheter. Dilator was advanced on the top of the guidewire under fluoroscopy controlled sheath was advanced out of the guidewire through the sheath we did use dialysis catheter tip catheter superior vena cava atrial junction flushed with heparin saline hep-locked secured with 3-0 nylon plan is x-ray of the chest patient will go for dialysis today
--- NOTE | 2024-03-22 09:02 | XR ---
EXAMINATION TYPE: XR chest 1V confirm line [facility] DATE OF EXAM: 03/22/2024 COMPARISON: 03/20/2024 HISTORY: 39-year-old male for line placement, dialysis catheter TECHNIQUE: Single frontal view of the chest is obtained. FINDINGS: Right anterior chest wall double-lumen hemodialysis catheter with tips at the lower SVC. M edian sternotomy wires and post-CABG clips. Heart mildly enlarged. Diffuse interstitial density. Patc hy bibasilar opacity slightly increased. No appreciable pneumothorax. IMPRESSION: New right-sided double-lumen hemodialysis catheter with tips at the lower SVC. There may be slight worsening in pulmonary vascular congestion with early patchy interstitial edema in the low er lungs.
--- NOTE | 2024-03-22 10:04 | P.PN ---
Subjective Progress Note Date: 03/22/24 Mat Khoury, is a 39-year-old male who presented to [facility] emergency room With a chief complaint of Generalized weakness and bilateral lower extremity edema He was evaluated in the emergency room vital examination on presentation revealed A temperature of 97.7 pulse 83 respirations 16 blood pressure 178/95 pulse ox 97% on room air Laboratory data reveals A white blood count of 8.9 hemoglobin 9.0 platelet count 262 INR 4.5 BUN 63 creatinine 8.06 Troponin level 0.084 Testing in the emergency room revealed EKG done in the emergency room revealed sinus rhythm with right axis deviation And intraventricular conduction delay, Chest x-ray revealed evidence of cardiomegaly and pulmonary venous congestion Patient was admitted to medical floor for further evaluation and treatment On 03/22/2024 patient's alert and oriented 3.Hemodialysis access has been obtained plans for hemodialysis per nephrology services. Cardiology and nephrology services are following. Current vital signs temp 98.1, heart rate 80, respiratory rate 18, blood pressure 165/93 with a pulse ox 99% on room air Objective - Vital Signs Vital signs: Vital Signs Temp 97.8 F 03/22/24 04:00 Pulse 71 03/22/24 04:00 Resp 18 03/22/24 04:00 BP 165/93 03/22/24 04:00 Pulse Ox 98 03/22/24 04:00 FiO2 Intake & Output 03/21/24 03/22/24 03/22/24 18:59 06:59 18:59 Intake Total 222 1040 25 Output Total 1300 Balance 222 -260 25 Weight 111.1 kg Intake: IV 25 Intake, IV Titration 500 Amount Dextrose 5% in Water 1, 500 000 ml @ 50 mls/hr IV . Q23H [place] with Sodium Bicarb (1 Meq/ml) 150 ml Rx#:[id number] Oral 222 540 Output: Urine 1300 Other: # Voids 1 2 - Exam Head normocephalic Neck supple Lungs clear to auscultation bilaterally no wheezing or crackles Heart regular rate and rhythm S1-S2, no rub or gallop Abdomen is soft nontender nondistended positive bowel sounds no hepat osplenomegaly Extremities no edema Neuro alert and orientated to 3 - Labs CBC & Chem 7: 03/20/24 16:58 03/21/24 08:24 Labs: Abnormal Lab Results - Last 24 Hours (Table) 03/21/24 03/21/24 03/21/24 Range/Units 08:24 08:24 09:43 PT 33.4 H (10.0-12.5) sec INR 3.4 H (<1.2) POC Glucose (mg/dL) (70-110) mg/dL Iron 32 L (65-175) UG/DL % Saturation 7.03 L (15.00-50.00) Hep Bs Antibody A (Negative) 03/21/24 03/21/24 03/22/24 Range/Units 16:45 20:34 06:16 PT (10.0-12.5) sec INR (<1.2) POC Glucose (mg/dL) 150 H 176 H 116 H (70-110) mg/dL Iron (65-175) UG/DL % Saturation (15.00-50.00) Hep Bs Antibody (Negative) Assessment and Plan Plan: Chronic kidney disease Acute volume overload Insulin-dependent diabetes mellitus Underlying history of hypertension Underlying history of hyperlipidemia Chronic anemia related to chronic kidney disease History of aortic valve replacement At this time patient is admitted to medical floor Consultation for nephrology and cardiology were initiated in the emergency room Patient likely will need hemodialysis during this admission Will follow closely
--- NOTE | 2024-03-22 10:38 | P.PN ---
Subjective Patient is seen in follow-up for chronic kidney disease. Permacath placed this morning. Scheduled to undergo first treatment of hemodialysis today. On IV Lasix. Has been voiding. Denies chest pain or shortness of breath. Vital signs are stable. General: No acute distress. HEENT: Head exam is unremarkable. LUNGS: No audible rhonchi or wheezes. HEART: Rate and Rhythm are regular. ABDOMEN: Nontender. EXTREMITITES: Trace edema. Objective - Vital Signs Vital signs: Vital Signs Temp 98.1 F 03/22/24 08:00 Pulse 80 03/22/24 08:00 Resp 18 03/22/24 08:00 BP 171/100 03/22/24 08:00 Pulse Ox 99 03/22/24 08:00 FiO2 Intake & Output 03/21/24 03/22/24 03/22/24 18:59 06:59 18:59 Intake Total 222 1040 25 Output Total 1300 Balance 222 -260 25 Weight 111.1 kg Intake: IV 25 Intake, IV Titration 500 Amount Dextrose 5% in Water 1, 500 000 ml @ 50 mls/hr IV . Q23H [place] with Sodium Bicarb (1 Meq/ml) 150 ml Rx#:[id number] Oral 222 540 Output: Urine 1300 Other: # Voids 1 2 - Labs CBC & Chem 7: 03/20/24 16:58 03/21/24 08:24 Labs: Abnormal Lab Results - Last 24 Hours (Table) 03/21/24 03/21/24 03/21/24 Range/Units 08:24 08:24 16:45 POC Glucose (mg/dL) 150 H (70-110) mg/dL Iron 32 L (65-175) UG/DL % Saturation 7.03 L (15.00-50.00) Hep Bs Antibody A (Negative) 03/21/24 03/22/24 Range/Units 20:34 06:16 POC Glucose (mg/dL) 176 H 116 H (70-110) mg/dL Iron (65-175) UG/DL % Saturation (15.00-50.00) Hep Bs Antibody (Negative) Assessment and Plan Plan: Assessment: 1. Chronic kidney disease stage V secondary to biopsy-proven diabetic kidney disease. Permacath placed this morning. 2. Metabolic acidosis secondary to chronic kidney disease. On bicarb drip. 3. Chronic kidney disease mineral bone disease. Phosphorus level 6.6. On Renvela. 4. Hypomagnesemia from diuresis. Replaced. 5. Diabetes mellitus. 6. Hypertension with chronic kidney disease. 7. Anemia of chronic kidney disease. Iron deficiency noted. 8. History of aortic valve replacement. Plan: First treatment of hemodialysis today and second treatment tomorrow. certified orthotist practice manager to set up outpatient hemodialysis. Hep-Lock IV fluids. Stop IV Lasix. Add torsemide 40 mg once daily. Add IV iron. Increase dose of amlodipine to 10 mg daily. Strongly encourage patient to follow-up with surgeon outpatient for PD catheter evaluation. Also encouraged him to follow-up for kidney transplant workup.
[2024-03-22 11:41] LABS: Glucose,Whole Blood 184 mg/dL (70-110)
--- NOTE | 2024-03-22 12:41 | CDI ---
Documentation Clarification Form Date: 03/22/2024 12:12:37 PM From: Alisa Miranda RN CCDS Phone: [phone] Admit Date: 03/20/2024 05:59:00 PM Patient Name: Mat Khoury Visit Number: [id number] Discharge Date: ATTENTION: The Clinical Documentation Specialists (CDI) and [facility] Coding Staff appreciate your assistance in clarifying documentation. Please respond to the clarification below the line at the bottom and electronically sign. The CDI & [facility] Coding staff will review the response and follow-up if needed. Please note: Queries are made part of the Legal Health Record. If you have any questions, please contact the author of this message via ITS. Dr. Lacey Frankel The patients principal diagnosis the diagnosis that was chiefly responsible for the admission - has not been clearly identified and clarification is requested. The patient presented with the following generalized weakness and bilateral lower extremity edema. 03/21, H&P. History/Risk factors: 39 year old male with a history of: Stage 5 CKD, Diastolic Heart Failure, CAD, DM, HLD and HTN. 03/21, H&P. Clinical Indicators: Lab findings, 03/20: BUN 63, Cr 8.06; GFR 8; Trop 0.084; BNP 36226 CXR, 03/20: There is evidence of cardiomegaly with pulmonary venous congestion. No overt failure. Vital Signs, 03/20: B/P 178/95, HR 82, Temp 98.2F Oral, RR 16, SpO2 97% room air Cardiology consult, 03/21: Acute on chronic diastolic heart failure, mainly related to worsening kidney function. Acute renal failure. Hypertension uncontrolled likely exacerbated by kidney failure. Nephrology consult, 03/21: With significantly depressed renal function, volume overload, initiate renal replacement therapy. Consult vascular surgery for dialysis catheter placement. Treatment: 03/20 Sodium Bicarbonate 200ml IV x 1; 03/20 03/21 Dextrose/Water with Sodium Bicarbonate 150mls @ 50mls/hr IV; 03/20 03/22 Lasix 80mg IV Q12H; 03/21 Norvasc 5mg po x1; 03/21 Apresoline 25mg po TID; 03/21 Lopressor 25mg po BID; 03/21 Renvela 800mg po TID; 03/22 Dialysis catheter insertion; 03/22 Demadex 40mg po Daily, 03/22 Norvasc 5mg po daily. Consults: See above Cardiology Nephrology Vascular Surgery In your professional opinion, can you please clarify which diagnosis, after study, was the reason chiefly responsible for the admission? [ x] Acute on chronic renal failure [ ] Acute on chronic diastolic heart failure [ ] Other, please specify [ ] Unable to determine (Template Last Revised: January 2021) MTDD
[2024-03-22] MEDS: TORSEMIDE 20 MG TAB PO SCH (12:57)
[2024-03-22] MEDS: SODIUM FERRIC GLUCONAT-SUCROSE 125 MG in SODIUM CHLORIDE 0.9% 100 ML IVPB SCH (12:58)
[2024-03-22 16:27] LABS: Glucose,Whole Blood 221 mg/dL (70-110)
--- NOTE | 2024-03-22 19:06 | CA ---
Transthoracic Echo Report Name: Mat Khoury Age: 39 Gender: M : 1985 Exam Date: 03/22/2024 15:02 Exam Location: [place] [facility] Ht (in): 67 Wt (lb): 244 Ordering Physician: Anthony Cui MD ([id number]) Attending/Referring Phys: See [facility] Staff Auditor Mitra Jones RDCS Procedure CPT: Indications: chf Cardiac Hx: Technical Quality: Fair Contrast 1: Definity Total Dose (mL): 2 Contrast 2: Total Dose (mL): MEASUREMENTS (Male / Female) Normal Values 2D ECHO LV Diastolic Diameter PLAX 5.9 cm 4.2 - 5.9 / 3.9 - 5.3 cm LV Systolic Diameter PLAX 4.2 cm IVS Diastolic Thickness 1.2 cm 0.6 - 1.0 / 0.6 - 0.9 cm LVPW Diastolic Thickness 1.5 cm 0.6 - 1.0 / 0.6 - 0.9 cm LV Relative Wall Thickness 0.5 RV Internal Dim ED PLAX 3.2 cm LVOT Diameter 2.2 cm LA Systolic Diameter LX 4.9 cm 3.0 - 4.0 / 2.7 - 3.8 cm LA Volume 89.2 cm??? 18 - 58 / 22 - 52 cm??? LA Volume Index 38.2 cm???/m??? 16 - 28 cm???/m??? M-MODE Aortic Root Diameter MM 3.0 cm LA Systolic Diameter MM 4.4 cm LA Ao Ratio MM 1.4 DOPPLER AV Peak Velocity 239.2 cm/s AV Peak Gradient 22.9 mmHg AV Mean Velocity 169.6 cm/s AV Mean Gradient 13.0 mmHg AV Velocity Time Integral 48.5 cm LVOT Peak Velocity 73.7 cm/s LVOT Peak Gradient 2.2 mmHg LVOT Velocity Time Integral 15.2 cm LVOT Stroke Volume 55.4 cm??? LVOT Stroke Volume Index 25.2 ml/m??? AV Area Cont Eq vti 1.1 cm??? AV Area Cont Eq pk 1.1 cm??? MV Area PHT 3.5 cm??? Mitral E Point Velocity 106.2 cm/s Mitral A Point Velocity 49.9 cm/s Mitral E to A Ratio 2.1 MV Deceleration Time 215.1 ms TR Peak Velocity 245.6 cm/s TR Peak Gradient 24.1 mmHg Right Ventricular Systolic Press 28.7 mmHg FINDINGS Left Ventricle Left ventricular ejection fraction is estimated at 40-45 %. Mildly increased septal wall thickness. Reduced global left ventricular systolic function. Mild left ventricular dilatation. Right Ventricle Mild right ventricular dilatation. Right ventricular systolic pressure within normal limits. Right Atrium Normal right atrial size. Left Atrium Moderately increased left atrial diameter. Moderately increased left atrial volume. Mildly increased left atrial area. Mitral Valve Structurally normal mitral valve. Mitral valve thickened. Mild mitral regurgitation. Aortic Valve Pantera mechanical AV replacement.mild prosthetic aortic valve regurgitation. Traca paravalvular aortic regurgitation. Tricuspid Valve Structurally normal tricuspid valve.trace tricuspid regurgitation. Pulmonic Valve Structurally normal pulmonic valve. No pulmonic stenosis. No pulmonic regurgitation. Pericardium No pericardial or pleural effusion. Aorta Normal size aortic root and proximal ascending aorta. CONCLUSIONS Increased LV mass with reduced LV systolic function ejection fraction of about 40% Previewed by: Dr. Kirill Garrido MD (Electronically Signed) Final Date: 22 March 2024 19:05
--- NOTE | 2024-03-22 19:27 | IR ---
EXAMINATION TYPE: IR cvc insert central tunneled DATE OF EXAM: 03/22/2024 FLUOROSCOPY Fluoroscopy time of 1.5 minutes was used during right-sided double-lumen hemodialysis catheter placem ent. 65 image/s document/s the procedure. 736.36 uGym2.
[2024-03-22 19:59] LABS: Glucose,Whole Blood 190 mg/dL (70-110)
[2024-03-22] MEDS: amLODIPine 5 MG TAB PO SCH (22:19)
--- NOTE | 2024-03-22 23:31 | PN ---
PROGRESS NOTE Mat is a 39-year-old gentleman with history of mechanical aortic valve replacement, hypertension, dyslipidemia, [id number] diabetes, and chronic renal insufficiency. He is admitted to hospital with acute worsening of the chronic renal failure. Currently, he had just been started on dialysis. PHYSICAL EXAMINATION: GENERAL: He is afebrile. VITAL SIGNS: Heart rate is 70 beats per minute. Blood pressure is 160/90, respiratory rate 18. CHEST: Reveals diminished air entry at the bases. HEART: Reveals first and second heart sounds. Mechanical valve heard. ABDOMEN: Soft. EXTREMITIES: Did not reveal any edema. Peripheral pulses are felt. LABORATORIES: Show that the INR is 3.4. Pharmacy to dose the Coumadin. ASSESSMENT AND PLAN: 1. History of mechanical aortic valve replacement. 2. Acute worsening of the chronic renal failure. Hemodialysis had just been started. 3. Uncontrolled hypertension. PLAN: We will obtain a 2D echo to assess the prosthetic valve. Increase the dose of hydralazine for better blood pressure control. MMODL / IJN: [id number] /
[2024-03-23 06:10] LABS: Glucose,Whole Blood 123 mg/dL (70-110)
[2024-03-23 07:51] LABS: Anisocytosis Slight; Basophils # (A) 0.1 k/uL (0-0.2); Basophils % (A) 1 %; Eosinophils # (A) 0.4 k/uL (0-0.7); Eosinophils % (A) 5 %; HCT 28.7 % (39.0-53.0); HGB 8.9 gm/dL (13.0-17.5); Hypochromasia Slight; Lymphocytes # (A) 1.1 k/uL (1.0-4.8); Lymphocytes % (A) 13 %; MCH 28.6 pg (25.0-35.0); MCHC 31.1 g/dL (31.0-37.0); MCV 91.9 fL (80.0-100.0); Mean Platelet Volume 7.6; Monocytes # (A) 0.5 k/uL (0-1.0); Monocytes % (A) 6 %; Neutrophils # (A) 6.2 k/uL (1.3-7.7); Neutrophils % (A) 74 %; Platelet Count 291 k/uL (150-450); RBC 3.13 m/uL (4.30-5.90); RDW 16.1 % (11.5-15.5); WBC 8.4 k/uL (3.8-10.6)
[2024-03-23 08:01] LABS: ALT 21 U/L (4-49); AST 28 U/L (17-59); African American GFR (CKD) 10 (>60 ml/min/1.73 sqM); Albumin 3.2 g/dL (3.5-5.0); Alkaline Phosphatase 28 U/L (38-126); Anion Gap 10 mmol/L; Blood Urea Nitrogen 56 mg/dL (9-20); Calcium 8.6 mg/dL (8.4-10.2); Carbon Dioxide 23 mmol/L (22-30); Chloride 105 mmol/L (98-107); Glucose 112 mg/dL (74-99); Magnesium 1.8 mg/dL (1.6-2.3); Non-African American GFR(CKD) 8 (>60 ml/min/1.73 sqM); Sodium 138 mmol/L (137-145); Total Bilirubin 0.5 mg/dL (0.2-1.3); Total Protein 5.9 g/dL (6.3-8.2)
--- NOTE | 2024-03-23 10:24 | P.PN ---
Subjective Progress Note Date: 03/23/24 HISTORY OF PRESENTING ILLNESS Patient is a pleasant 39-year-old male with history of CAD, diabetes mellitus type 2, hypertension, bicuspid aortic valve with severe aortic insufficiency and cardiomyopathy as well as CAD status post mechanical aortic valve replacement with Pantera valve and CABG 2017, chronic kidney disease who presents secondary to abnormal blood tests. He has been followed in nephrology and had outpatient workup with worsening kidney function and was recommended to go to the emergency department. He has been noticing increased lower extremity edema, increased orthopnea and shortness breath over last few weeks. He denies any changes in medications. His blood pressure also has been somewhat higher in the 160s over 100s. Per patient's discussion with the tailings worker there is concern regarding patient needing to go on dialysis. He denies any chest pain or pressure. EKG shows sinus rhythm, normal axis, T-wave inversion in lead 3 and aVF and no significant ST depressions. Blood work shows hemoglobin 9.0, INR 4.5, bicarb 11, creatinine 8.0, troponin 0.08, proBNP 15,300. patient previously had cardiomyopathy with ejection fraction in the 25% range however since then has improved to approximately 50%. Echo was from approximately May 30 Echocardiogram reveals increased LV mass with reduced EF of 40%. Patient updated regarding results of echocardiogram. Patient is undergoing hemodialysis today, second treatment. Blood pressure 139/89 heart rate in the 70s and 80s. Repeat blood work reveals hemoglobin of 8.9. Potassium 4, BUN 56 creatinine 7.52. PHYSICAL EXAMINATION Vital signs reviewed. CONSTITUTIONAL: No apparent distress. HEENT: Head is normocephalic. Pupils are equal, round. Sclerae anicteric. CHEST EXAMINATION: Lungs are clear to auscultation. No chest wall tenderness is noted on palpation or with deep breathing. HEART EXAMINATION: Regular rate and rhythm. S1, S2 heard. No murmurs, gallops or rub. ABDOMEN: Soft, nontender. Positive bowel sounds. EXTREMITIES: 2+ peripheral pulses, Trace lower extremity edema and no calf tenderness. NEUROLOGIC EXAMINATION: Patient is awake, alert and oriented x3. ASSESSMENT Acute on chronic diastolic heart failure, mainly related to worsening kidney function Acute renal failure, started on hemodialysis History of bicuspid aortic valve and aortic insufficiency status post mechanical aortic valve replacement 2016 CAD status post CABG 2017 Diabetes mellitus type 2 Hypertension uncontrolled likely exacerbated by kidney failure Anemia Supratherapeutic INR PLAN Continue current cardiac medications Consult to pharmacy to dose Coumadin and stat INR ordered Increase hydralazine to 50 mg 3 times daily Continue hemodialysis per nephrology Further recommendations pending patient's progress. Nurse practitioner note has been reviewed, I agree with documented findings and plan of care. Patient was seen and examined. Objective - Vital Signs Vital signs: Vital Signs Temp 97.5 F L 03/23/24 04:00 Pulse 82 03/23/24 08:00 Resp 16 03/23/24 08:00 BP 139/89 03/23/24 08:00 Pulse Ox 99 03/22/24 08:00 FiO2 Intake & Output 03/22/24 03/23/24 03/23/24 18:59 06:59 18:59 Intake Total 1475 Output Total 4500 Balance -3025 Weight 110.3 kg Intake: IV 25 Intake, IV Titration 600 Amount Dextrose 5% in Water 1, 500 000 ml @ 50 mls/hr IV . Q23H [place] with Sodium Bicarb (1 Meq/ml) 150 ml Rx#:[id number] Sodium Ferric Gluconat- 100 Sucrose 125 mg In Sodium Chloride 0.9% 100 ml @ 100 mls/hr IVPB DAILY [place] Rx#:[id number] Oral 350 Hemodialysis 500 Output: Hemodialysis 2500 Other 2000 Other: # Voids 3 - Labs CBC & Chem 7: 03/23/24 06:22 03/23/24 06:22 Labs: Abnormal Lab Results - Last 24 Hours (Table) 03/20/24 03/22/24 03/22/24 Range/Units 08:24 11:39 16:24 RBC (4.30-5.90) m/uL Hgb (13.0-17.5) gm/dL Hct (39.0-53.0) % RDW (11.5-15.5) % BUN (9-20) mg/dL Creatinine (0.66-1.25) mg/dL Glucose (74-99) mg/dL POC Glucose (mg/dL) 184 H 221 H (70-110) mg/dL Alkaline Phosphatase (38-126) U/L Total Protein (6.3-8.2) g/dL Albumin (3.5-5.0) g/dL Hep B Core Total Ab Reactive A (Nonreactive) 03/22/24 03/23/24 03/23/24 Range/Units 19:58 06:09 06:22 RBC (4.30-5.90) m/uL Hgb (13.0-17.5) gm/dL Hct (39.0-53.0) % RDW (11.5-15.5) % BUN 56 H (9-20) mg/dL Creatinine 7.52 H* (0.66-1.25) mg/dL Glucose 112 H (74-99) mg/dL POC Glucose (mg/dL) 190 H 123 H (70-110) mg/dL Alkaline Phosphatase 28 L (38-126) U/L Total Protein 5.9 L (6.3-8.2) g/dL Albumin 3.2 L (3.5-5.0) g/dL Hep B Core Total Ab (Nonreactive) 03/23/24 Range/Units 06:22 RBC 3.13 L (4.30-5.90) m/uL Hgb 8.9 L (13.0-17.5) gm/dL Hct 28.7 L (39.0-53.0) % RDW 16.1 H (11.5-15.5) % BUN (9-20) mg/dL Creatinine (0.66-1.25) mg/dL Glucose (74-99) mg/dL POC Glucose (mg/dL) (70-110) mg/dL Alkaline Phosphatase (38-126) U/L Total Protein (6.3-8.2) g/dL Albumin (3.5-5.0) g/dL Hep B Core Total Ab (Nonreactive)
[2024-03-23 11:37] LABS: Glucose,Whole Blood 191 mg/dL (70-110)
[2024-03-23] MEDS: hydrALAZINE HCL 25 MG TAB PO SCH (12:11)
[2024-03-23 12:16] LABS: INR 1.3 (<1.2); Prothrombin Time 14.1 sec (10.0-12.5)
--- NOTE | 2024-03-23 13:27 | P.PN ---
Subjective Progress Note Date: 03/23/24 Mat Khoury, is a 39-year-old male who presented to [facility] emergency room With a chief complaint of Generalized weakness and bilateral lower extremity edema He was evaluated in the emergency room vital examination on presentation revealed A temperature of 97.7 pulse 83 respirations 16 blood pressure 178/95 pulse ox 97% on room air Laboratory data reveals A white blood count of 8.9 hemoglobin 9.0 platelet count 262 INR 4.5 BUN 63 creatinine 8.06 Troponin level 0.084 Testing in the emergency room revealed EKG done in the emergency room revealed sinus rhythm with right axis deviation And intraventricular conduction delay, Chest x-ray revealed evidence of cardiomegaly and pulmonary venous congestion Patient was admitted to medical floor for further evaluation and treatment On 03/22/2024 patient's alert and oriented 3.Hemodialysis access has been obtained plans for hemodialysis per nephrology services. Cardiology and nephrology services are following. Current vital signs temp 98.1, heart rate 80, respiratory rate 18, blood pressure 165/93 with a pulse ox 99% on room air on 03/23/2024 patient was seen and examined on the medical floor, he is alert and oriented 3 in no apparent distress, generalized weakness otherwise he denies any complaints, there is no fever or chills no headache or dizziness no chest pain no shortness of breath no cough no nausea or vomiting no abdominal pain no diarrhea and no urinary symptoms. vital exam reveals a temperature of 97.5 pulse 72 2 respiration 16 pressure 124/72 current pulse ox 96% on room air 9 platelet count 291 BUN 56 creatinine 7.52 Objective - Vital Signs Vital signs: Vital Signs Temp 97.5 F L 03/23/24 04:00 Pulse 79 03/23/24 12:00 Resp 16 03/23/24 12:00 BP 147/92 03/23/24 12:00 Pulse Ox 99 03/22/24 08:00 FiO2 Intake & Output 03/22/24 03/23/24 03/23/24 18:59 06:59 18:59 Intake Total 1475 240 Output Total 4500 Balance -3025 240 Weight 110.3 kg Intake: IV 25 Intake, IV Titration 600 Amount Dextrose 5% in Water 1, 500 000 ml @ 50 mls/hr IV . Q23H [place] with Sodium Bicarb (1 Meq/ml) 150 ml Rx#:[id number] Sodium Ferric Gluconat- 100 Sucrose 125 mg In Sodium Chloride 0.9% 100 ml @ 100 mls/hr IVPB DAILY [facility] Rx#:[id number] Oral 350 240 Hemodialysis 500 Output: Hemodialysis 2500 Other 2000 Other: # Voids 3 - Exam Head normocephalic Neck supple Lungs clear to auscultation bilaterally no wheezing or crackles Heart regular rate and rhythm S1-S2, no rub or gallop Abdomen is soft nontender nondistended positive bowel sounds no hepatosplenomegaly Extremities no edema Neuro alert and orientated to 3 - Labs CBC & Chem 7: 03/23/24 06:22 03/23/24 06:22 Labs: Abnormal Lab Results - Last 24 Hours (Table) 03/20/24 03/22/24 03/22/24 Range/Units 08:24 16:24 19:58 RBC (4.30-5.90) m/uL Hgb (13.0-17.5) gm/dL Hct (39.0-53.0) % RDW (11.5-15.5) % PT (10.0-12.5) sec INR (<1.2) BUN (9-20) mg/dL Creatinine (0.66-1.25) mg/dL Glucose (74-99) mg/dL POC Glucose (mg/dL) 221 H 190 H (70-110) mg/dL Alkaline Phosphatase (38-126) U/L Total Protein (6.3-8.2) g/dL Albumin (3.5-5.0) g/dL Hep B Core Total Ab Reactive A (Nonreactive) 03/23/24 03/23/24 03/23/24 Range/Units 06:09 06:22 06:22 RBC 3.13 L (4.30-5.90) m/uL Hgb 8.9 L (13.0-17.5) gm/dL Hct 28.7 L (39.0-53.0) % RDW 16.1 H (11.5-15.5) % PT (10.0-12.5) sec INR (<1.2) BUN 56 H (9-20) mg/dL Creatinine 7.52 H* (0.66-1.25) mg/dL Glucose 112 H (74-99) mg/dL POC Glucose (mg/dL) 123 H (70-110) mg/dL Alkaline Phosphatase 28 L (38-126) U/L Total Protein 5.9 L (6.3-8.2) g/dL Albumin 3.2 L (3.5-5.0) g/dL Hep B Core Total Ab (Nonreactive) 03/23/24 03/23/24 Range/Units 11:12 11:34 RBC (4.30-5.90) m/uL Hgb (13.0-17.5) gm/dL Hct (39.0-53.0) % RDW (11.5-15.5) % PT 14.1 H (10.0-12.5) sec INR 1.3 H (<1.2) BUN (9-20) mg/dL Creatinine (0.66-1.25) mg/dL Glucose (74-99) mg/dL POC Glucose (mg/dL) 191 H (70-110) mg/dL Alkaline Phosphatase (38-126) U/L Total Protein (6.3-8.2) g/dL Albumin (3.5-5.0) g/dL Hep B Core Total Ab (Nonreactive) Assessment and Plan Plan: Chronic kidney disease Acute volume overload Insulin-dependent diabetes mellitus Underlying history of hypertension Underlying history of hyperlipidemia Chronic anemia related to chronic kidney disease History of aortic valve replacement At this time patient is admitted to medical floor Consultation for nephrology and cardiology were initiated in the emergency room Patient likely will need hemodialysis during this admission Will follow closely
--- NOTE | 2024-03-23 13:55 | P.PN ---
Subjective Progress Note Date: 03/23/24 Patient is seen in follow-up for chronic kidney disease. Permacath placed this yesterday. Underwent second treatment of hemodialysis today without issues. On IV Lasix. Has been voiding. Denies chest pain or shortness of breath. Vital signs are stable. General: No acute distress. HEENT: Head exam is unremarkable. LUNGS: No audible rhonchi or wheezes. HEART: Rate and Rhythm are regular. ABDOMEN: Nontender. EXTREMITITES: Trace edema Objective - Vital Signs Vital signs: Vital Signs Temp 97.5 F L 03/23/24 04:00 Pulse 82 03/23/24 08:00 Resp 16 03/23/24 08:00 BP 139/89 03/23/24 08:00 Pulse Ox 99 03/22/24 08:00 FiO2 Intake & Output 03/22/24 03/23/24 03/23/24 18:59 06:59 18:59 Intake Total 1475 240 Output Total 4500 Balance -3025 240 Weight 110.3 kg Intake: IV 25 Intake, IV Titration 600 Amount Dextrose 5% in Water 1, 500 000 ml @ 50 mls/hr IV . Q23H [place] with Sodium Bicarb (1 Meq/ml) 150 ml Rx#:[id number] Sodium Ferric Gluconat- 100 Sucrose 125 mg In Sodium Chloride 0.9% 100 ml @ 100 mls/hr IVPB DAILY [place] Rx#:[id number] Oral 350 240 Hemodialysis 500 Output: Hemodialysis 2500 Other 2000 Other: # Voids 3 - Labs CBC & Chem 7: 03/23/24 06:22 03/23/24 06:22 Labs: Abnormal Lab Results - Last 24 Hours (Table) 03/20/24 03/22/24 03/22/24 Range/Units 08:24 11:39 16:24 RBC (4.30-5.90) m/uL Hgb (13.0-17.5) gm/dL Hct (39.0-53.0) % RDW (11.5-15.5) % BUN (9-20) mg/dL Creatinine (0.66-1.25) mg/dL Glucose (74-99) mg/dL POC Glucose (mg/dL) 184 H 221 H (70-110) mg/dL Alkaline Phosphatase (38-126) U/L Total Protein (6.3-8.2) g/dL Albumin (3.5-5.0) g/dL Hep B Core Total Ab Reactive A (Nonreactive) 03/22/24 03/23/24 03/23/24 Range/Units 19:58 06:09 06:22 RBC (4.30-5.90) m/uL Hgb (13.0-17.5) gm/dL Hct (39.0-53.0) % RDW (11.5-15.5) % BUN 56 H (9-20) mg/dL Creatinine 7.52 H* (0.66-1.25) mg/dL Glucose 112 H (74-99) mg/dL POC Glucose (mg/dL) 190 H 123 H (70-110) mg/dL Alkaline Phosphatase 28 L (38-126) U/L Total Protein 5.9 L (6.3-8.2) g/dL Albumin 3.2 L (3.5-5.0) g/dL Hep B Core Total Ab (Nonreactive) 03/23/24 Range/Units 06:22 RBC 3.13 L (4.30-5.90) m/uL Hgb 8.9 L (13.0-17.5) gm/dL Hct 28.7 L (39.0-53.0) % RDW 16.1 H (11.5-15.5) % BUN (9-20) mg/dL Creatinine (0.66-1.25) mg/dL Glucose (74-99) mg/dL POC Glucose (mg/dL) (70-110) mg/dL Alkaline Phosphatase (38-126) U/L Total Protein (6.3-8.2) g/dL Albumin (3.5-5.0) g/dL Hep B Core Total Ab (Nonreactive) Assessment and Plan Plan: Assessment: 1. Chronic kidney disease stage V secondary to biopsy-proven diabetic kidney disease. Permacath placed this 03/22. 2. Metabolic acidosis secondary to chronic kidney disease. On bicarb drip. 3. Chronic kidney disease mineral bone disease. Phosphorus level 6.6. On Renvela. 4. Hypomagnesemia from diuresis. Replaced. 5. Diabetes mellitus. 6. Hypertension with chronic kidney disease. 7. Anemia of chronic kidney disease. Iron deficiency noted. 8. History of aortic valve replacement. Plan: Second treatment of hemodialysis today. sales effectiveness manager to set up outpatient hemodialysis. Hep-Lock IV fluids. Stop IV Lasix. Add torsemide 40 mg once daily. Add IV iron. Increase dose of amlodipine to 10 mg daily. Strongly encourage patient to follow-up with surgeon outpatient for PD catheter evaluation. Also encouraged him to follow-up for kidney transplant workup.
[2024-03-23 16:33] LABS: Glucose,Whole Blood 177 mg/dL (70-110)
[2024-03-23] MEDS: WARFARIN 2 MG TAB PO ONE (16:46)
[2024-03-23 20:28] LABS: Glucose,Whole Blood 207 mg/dL (70-110)
[2024-03-24 06:14] LABS: Glucose,Whole Blood 128 mg/dL (70-110)
[2024-03-24 06:37] LABS: Anisocytosis Slight; Basophils # (A) 0.1 k/uL (0-0.2); Basophils % (A) 1 %; Eosinophils # (A) 0.5 k/uL (0-0.7); Eosinophils % (A) 6 %; HCT 29.5 % (39.0-53.0); HGB 9.3 gm/dL (13.0-17.5); Hypochromasia Slight; Lymphocytes # (A) 1.1 k/uL (1.0-4.8); Lymphocytes % (A) 12 %; MCH 28.8 pg (25.0-35.0); MCHC 31.6 g/dL (31.0-37.0); MCV 91.1 fL (80.0-100.0); Mean Platelet Volume 8.3; Monocytes # (A) 0.4 k/uL (0-1.0); Monocytes % (A) 5 %; Neutrophils # (A) 6.4 k/uL (1.3-7.7); Neutrophils % (A) 74 %; Platelet Count 279 k/uL (150-450); RBC 3.24 m/uL (4.30-5.90); RDW 16.1 % (11.5-15.5); WBC 8.6 k/uL (3.8-10.6)
[2024-03-24 06:54] LABS: ALT 20 U/L (4-49); AST 29 U/L (17-59); African American GFR (CKD) 11 (>60 ml/min/1.73 sqM); Albumin 3.3 g/dL (3.5-5.0); Alkaline Phosphatase 27 U/L (38-126); Anion Gap 10 mmol/L; Blood Urea Nitrogen 43 mg/dL (9-20); Calcium 8.7 mg/dL (8.4-10.2); Carbon Dioxide 24 mmol/L (22-30); Chloride 103 mmol/L (98-107); Glucose 116 mg/dL (74-99); Non-African American GFR(CKD) 10 (>60 ml/min/1.73 sqM); Potassium 4.1 mmol/L (3.5-5.1); Sodium 137 mmol/L (137-145); Total Bilirubin 0.5 mg/dL (0.2-1.3); Total Protein 5.9 g/dL (6.3-8.2)
[2024-03-24 06:59] LABS: INR 1.2 (<1.2)
[2024-03-24] MEDS ORDERED: HEPARIN SODIUM 1,000 UN/ML (10ML VL) IV PRN (08:08)
[2024-03-24] MEDS: HEPARIN SODIUM 1,000 UN/ML (10ML VL) IV ONE (09:51)
[2024-03-24] MEDS: HEPARIN SOD,PORK IN 0.45% NACL 25,000 UNIT in 0.45% NACL 1 250ML.BAG IV SCH (09:51)
--- NOTE | 2024-03-24 09:52 | P.PN ---
Subjective Progress Note Date: 03/24/24 HISTORY OF PRESENTING ILLNESS Patient is a pleasant 39-year-old male with history of CAD, diabetes mellitus type 2, hypertension, bicuspid aortic valve with severe aortic insufficiency and cardiomyopathy as well as CAD status post mechanical aortic valve replacement with Pantera valve and CABG 2017, chronic kidney disease who presents secondary to abnormal blood tests. He has been followed in nephrology and had outpatient workup with worsening kidney function and was recommended to go to the emergency department. He has been noticing increased lower extremity edema, increased orthopnea and shortness breath over last few weeks. He denies any changes in medications. His blood pressure also has been somewhat higher in the 160s over 100s. Per patient's discussion with the manager story there is concern regarding patient needing to go on dialysis. He denies any chest pain or pressure. EKG shows sinus rhythm, normal axis, T-wave inversion in lead 3 and aVF and no significant ST depressions. Blood work shows hemoglobin 9.0, INR 4.5, bicarb 11, creatinine 8.0, troponin 0.08, proBNP 15,300. patient previously had cardiomyopathy with ejection fraction in the 25% range however since then has improved to approximately 50%. Echo was from approximately May 30 Echocardiogram reveals increased LV mass with reduced EF of 40%. Patient updated regarding results of echocardiogram. Patient is undergoing hemodialysis today, second treatment. Blood pressure 139/89 heart rate in the 70s and 80s. Repeat blood work reveals hemoglobin of 8.9. Potassium 4, BUN 56 creatinine 7.52. 03/24 Patient denies any new concerns today. Yesterday we added INR and pharmacy to dose Coumadin. INR came back today at 1.2 and heparin drip will be started. Patient states that he was taking 4 mg on Monday and 2 mg on the other days. Patient received 4 mg of Coumadin last evening. Blood pressure 136/86, heart rate in the 70s, pulse ox 96% on room air. Other blood work reveals hemoglobin of 9.3, BUN 43 creatinine 6.47. Patient underwent hemodialysis yesterday. Nephrology has started him on torsemide and iron. We increased hydralazine to 50 mg 3 times daily yesterday. PHYSICAL EXAMINATION Vital signs reviewed. CONSTITUTIONAL: No apparent distress. HEENT: Head is normocephalic. Pupils are equal, round. Sclerae anicteric. CHEST EXAMINATION: Lungs are clear to auscultation. No chest wall tenderness is noted on palpation or with deep breathing. HEART EXAMINATION: Regular rate and rhythm. S1, S2 heard. No murmurs, gallops or rub. ABDOMEN: Soft, nontender. Positive bowel sounds. EXTREMITIES: 2+ peripheral pulses, Trace lower extremity edema and no calf tenderness. NEUROLOGIC EXAMINATION: Patient is awake, alert and oriented x3. ASSESSMENT Acute on chronic diastolic heart failure, mainly related to worsening kidney function Acute renal failure, started on hemodialysis History of bicuspid aortic valve and aortic insufficiency status post mechanical aortic valve replacement 2016 CAD status post CABG 2016 Diabetes mellitus type 2 Hypertension uncontrolled likely exacerbated by kidney failure Anemia Supratherapeutic INR on presentation PLAN Continue current cardiac medications Pharmacy to dose Coumadin Continue hemodialysis per nephrology Further recommendations pending patient's progress. Nurse practitioner note has been reviewed, I agree with documented findings and plan of care. Patient was seen and examined. Objective - Vital Signs Vital signs: Vital Signs Temp 98.0 F 03/24/24 03:32 Pulse 62 03/24/24 03:32 Resp 18 03/24/24 03:32 BP 136/86 03/24/24 03:32 Pulse Ox 96 03/24/24 03:32 FiO2 Intake & Output 03/23/24 03/24/24 03/24/24 18:59 06:59 18:59 Intake Total 958 240 Output Total 2500 250 Balance -1542 -10 Weight 106.1 kg Intake: Intake, IV Titration 100 Amount Sodium Ferric Gluconat- 100 Sucrose 125 mg In Sodium Chloride 0.9% 100 ml @ 100 mls/hr IVPB DAILY [facility] Rx#:[id number] Oral 358 240 Hemodialysis 500 Output: Urine 250 Hemodialysis 2500 - Labs CBC & Chem 7: 03/24/24 05:53 03/24/24 05:53 Labs: Abnormal Lab Results - Last 24 Hours (Table) 03/23/24 03/23/24 03/23/24 Range/Units 11:12 11:34 16:28 RBC (4.30-5.90) m/uL Hgb (13.0-17.5) gm/dL Hct (39.0-53.0) % RDW (11.5-15.5) % PT 14.1 H (10.0-12.5) sec INR 1.3 H (<1.2) BUN (9-20) mg/dL Creatinine (0.66-1.25) mg/dL Glucose (74-99) mg/dL POC Glucose (mg/dL) 191 H 177 H (70-110) mg/dL Alkaline Phosphatase (38-126) U/L Total Protein (6.3-8.2) g/dL Albumin (3.5-5.0) g/dL 03/23/24 03/24/24 03/24/24 Range/Units 20:26 05:53 05:53 RBC 3.24 L (4.30-5.90) m/uL Hgb 9.3 L (13.0-17.5) gm/dL Hct 29.5 L (39.0-53.0) % RDW 16.1 H (11.5-15.5) % PT 13.0 H (10.0-12.5) sec INR 1.2 H (<1.2) BUN (9-20) mg/dL Creatinine (0.66-1.25) mg/dL Glucose (74-99) mg/dL POC Glucose (mg/dL) 207 H (70-110) mg/dL Alkaline Phosphatase (38-126) U/L Total Protein (6.3-8.2) g/dL Albumin (3.5-5.0) g/dL 03/24/24 03/24/24 Range/Units 05:53 06:11 RBC (4.30-5.90) m/uL Hgb (13.0-17.5) gm/dL Hct (39.0-53.0) % RDW (11.5-15.5) % PT (10.0-12.5) sec INR (<1.2) BUN 43 H (9-20) mg/dL Creatinine 6.47 H (0.66-1.25) mg/dL Glucose 116 H (74-99) mg/dL POC Glucose (mg/dL) 128 H (70-110) mg/dL Alkaline Phosphatase 27 L (38-126) U/L Total Protein 5.9 L (6.3-8.2) g/dL Albumin 3.3 L (3.5-5.0) g/dL
[2024-03-24 10:04] LABS: Anisocytosis Slight; Basophils % (A) 1 %; Eosinophils # (A) 0.5 k/uL (0-0.7); Eosinophils % (A) 6 %; HCT 28.7 % (39.0-53.0); HGB 8.8 gm/dL (13.0-17.5); Hypochromasia Slight; Lymphocytes % (A) 12 %; MCH 28.4 pg (25.0-35.0); MCHC 30.6 g/dL (31.0-37.0); MCV 92.6 fL (80.0-100.0); Mean Platelet Volume 8.1; Monocytes # (A) 0.4 k/uL (0-1.0); Monocytes % (A) 5 %; Neutrophils % (A) 75 %; Platelet Count 262 k/uL (150-450); RDW 16.1 % (11.5-15.5); WBC 8.1 k/uL (3.8-10.6)
--- NOTE | 2024-03-24 10:05 | P.PN ---
Subjective Progress Note Date: 03/24/24 Mat Khoury, is a 39-year-old male who presented to [facility] emergency room With a chief complaint of Generalized weakness and bilateral lower extremity edema He was evaluated in the emergency room vital examination on presentation revealed A temperature of 97.7 pulse 83 respirations 16 blood pressure 178/95 pulse ox 97% on room air Laboratory data reveals A white blood count of 8.9 hemoglobin 9.0 platelet count 262 INR 4.5 BUN 63 creatinine 8.06 Troponin level 0.084 Testing in the emergency room revealed EKG done in the emergency room revealed sinus rhythm with right axis deviation And intraventricular conduction delay, Chest x-ray revealed evidence of cardiomegaly and pulmonary venous congestion Patient was admitted to medical floor for further evaluation and treatment On 03/22/2024 patient's alert and oriented 3.Hemodialysis access has been obtained plans for hemodialysis per nephrology services. Cardiology and nephrology services are following. Current vital signs temp 98.1, heart rate 80, respiratory rate 18, blood pressure 165/93 with a pulse ox 99% on room air on 03/23/2024 patient was seen and examined on the medical floor, he is alert and oriented 3 in no apparent distress, generalized weakness otherwise he denies any complaints, there is no fever or chills no headache or dizziness no chest pain no shortness of breath no cough no nausea or vomiting no abdominal pain no diarrhea and no urinary symptoms. vital exam reveals a temperature of 97.5 pulse 72 2 respiration 16 pressure 124/72 current pulse ox 96% on room air 9 platelet count 291 BUN 56 creatinine 7.52 on 03/24/2024 patient's alert and oriented 3. Patient reports improvement overall generalized weakness. patient denies chest pain or shortness of breath. Patient denies nausea vomiting or diarrhea. Patient denies any urinary burning or frequency. Creatinine today 6.47 and bun 43. Current vital signs 98.0, heart rate 72, respiratory rate 18, blood pressure 136/86 with pulse ox 96% on room air. Cardiology following. Pharmacy to dose Coumadin. Objective - Vital Signs Vital signs: Vital Signs Temp 98.0 F 03/24/24 03:32 Pulse 62 03/24/24 03:32 Resp 18 03/24/24 03:32 BP 136/86 03/24/24 03:32 Pulse Ox 96 03/24/24 03:32 FiO2 Intake & Output 04/27/24 04/28/24 04/28/24 18:59 06:59 18:59 Intake Total 958 240 236 Output Total 2500 250 Balance -1542 -10 236 Weight 106.1 kg Intake: Intake, IV Titration 100 Amount Sodium Ferric Gluconat- 100 Sucrose 125 mg In Sodium Chloride 0.9% 100 ml @ 100 mls/hr IVPB DAILY [facility] Rx#:[id number] Oral 358 240 236 Hemodialysis 500 Output: Urine 250 Hemodialysis 2500 - Exam In general patient is alert and oriented x 3 in no distress HEENT head normocephalic and atraumatic Neck is supple no JVD no goiter no lymphadenopathy no carotid bruit Chest examination is clear to auscultation no crackles no wheezing Cardiac exam reveals regular heart sounds S1 and S2 no gallops no murmurs Abdomen is soft nontender no organomegaly with normal bowel sounds Extremity exam reveals no edema no cyanosis or clubbing Neurological examination reveals no gross focal deficits - Labs CBC & Chem 7: 03/24/24 05:53 03/24/24 05:53 Labs: Abnormal Lab Results - Last 24 Hours (Table) 03/23/24 03/23/24 03/23/24 Range/Units 11:12 11:34 16:28 RBC (4.30-5.90) m/uL Hgb (13.0-17.5) gm/dL Hct (39.0-53.0) % RDW (11.5-15.5) % PT 14.1 H (10.0-12.5) sec INR 1.3 H (<1.2) BUN (9-20) mg/dL Creatinine (0.66-1.25) mg/dL Glucose (74-99) mg/dL POC Glucose (mg/dL) 191 H 177 H (70-110) mg/dL Alkaline Phosphatase (38-126) U/L Total Protein (6.3-8.2) g/dL Albumin (3.5-5.0) g/dL 03/23/24 03/24/24 03/24/24 Range/Units 20:26 05:53 05:53 RBC 3.24 L (4.30-5.90) m/uL Hgb 9.3 L (13.0-17.5) gm/dL Hct 29.5 L (39.0-53.0) % RDW 16.1 H (11.5-15.5) % PT 13.0 H (10.0-12.5) sec INR 1.2 H (<1.2) BUN (9-20) mg/dL Creatinine (0.66-1.25) mg/dL Glucose (74-99) mg/dL POC Glucose (mg/dL) 207 H (70-110) mg/dL Alkaline Phosphatase (38-126) U/L Total Protein (6.3-8.2) g/dL Albumin (3.5-5.0) g/dL 03/24/24 03/24/24 Range/Units 05:53 06:11 RBC (4.30-5.90) m/uL Hgb (13.0-17.5) gm/dL Hct (39.0-53.0) % RDW (11.5-15.5) % PT (10.0-12.5) sec INR (<1.2) BUN 43 H (9-20) mg/dL Creatinine 6.47 H (0.66-1.25) mg/dL Glucose 116 H (74-99) mg/dL POC Glucose (mg/dL) 128 H (70-110) mg/dL Alkaline Phosphatase 27 L (38-126) U/L Total Protein 5.9 L (6.3-8.2) g/dL Albumin 3.3 L (3.5-5.0) g/dL Assessment and Plan Assessment: Chronic kidney disease patient started on hemodialysis Acute volume overload Insulin-dependent diabetes mellitus Underlying history of hypertension Underlying history of hyperlipidemia Chronic anemia related to chronic kidney disease History of aortic valve replacement At this time patient is admitted to medical floor Consultation for nephrology and cardiology were initiated in the emergency room Patient likely will need hemodialysis during this admission Will follow closely
[2024-03-24 10:11] LABS: INR 1.3 (<1.2); Partial Thromboplastin Time 37.8 sec (22.0-30.0); Prothrombin Time 13.4 sec (10.0-12.5)
--- NOTE | 2024-03-24 10:50 | P.PN ---
Subjective Progress Note Date: 03/24/24 Patient is seen in follow-up for chronic kidney disease. Permacath placed. Underwent second treatment of hemodialysis yesterday without issues. Has been voiding. Denies chest pain or shortness of breath. Vital signs are stable. General: No acute distress. HEENT: Head exam is unremarkable. LUNGS: No audible rhonchi or wheezes. HEART: Rate and Rhythm are regular. ABDOMEN: Nontender. EXTREMITITES: Trace edema Objective - Vital Signs Vital signs: Vital Signs Temp 98.0 F 03/24/24 03:32 Pulse 62 03/24/24 03:32 Resp 18 03/24/24 03:32 BP 136/86 03/24/24 03:32 Pulse Ox 96 03/24/24 03:32 FiO2 Intake & Output 03/23/24 03/24/24 03/24/24 18:59 06:59 18:59 Intake Total 958 240 236 Output Total 2500 250 Balance -1542 -10 236 Weight 106.1 kg Intake: Intake, IV Titration 100 Amount Sodium Ferric Gluconat- 100 Sucrose 125 mg In Sodium Chloride 0.9% 100 ml @ 100 mls/hr IVPB DAILY [facility] Rx#:[id number] Oral 358 240 236 Hemodialysis 500 Output: Urine 250 Hemodialysis 2500 - Labs CBC & Chem 7: 03/24/24 09:00 03/24/24 05:53 Labs: Abnormal Lab Results - Last 24 Hours (Table) 03/23/24 03/23/24 03/23/24 Range/Units 11:12 11:34 16:28 RBC (4.30-5.90) m/uL Hgb (13.0-17.5) gm/dL Hct (39.0-53.0) % RDW (11.5-15.5) % PT 14.1 H (10.0-12.5) sec INR 1.3 H (<1.2) BUN (9-20) mg/dL Creatinine (0.66-1.25) mg/dL Glucose (74-99) mg/dL POC Glucose (mg/dL) 191 H 177 H (70-110) mg/dL Alkaline Phosphatase (38-126) U/L Total Protein (6.3-8.2) g/dL Albumin (3.5-5.0) g/dL 0403/24/24 03/24/24 Range/Units 20:26 05:53 05:53 RBC 3.24 L (4.30-5.90) m/uL Hgb 9.3 L (13.0-17.5) gm/dL Hct 29.5 L (39.0-53.0) % RDW 16.1 H (11.5-15.5) % PT 13.0 H (10.0-12.5) sec INR 1.2 H (<1.2) BUN (9-20) mg/dL Creatinine (0.66-1.25) mg/dL Glucose (74-99) mg/dL POC Glucose (mg/dL) 207 H (70-110) mg/dL Alkaline Phosphatase (38-126) U/L Total Protein (6.3-8.2) g/dL Albumin (3.5-5.0) g/dL 03/24/24 03/24/24 Range/Units 05:53 06:11 RBC (4.30-5.90) m/uL Hgb (13.0-17.5) gm/dL Hct (39.0-53.0) % RDW (11.5-15.5) % PT (10.0-12.5) sec INR (<1.2) BUN 43 H (9-20) mg/dL Creatinine 6.47 H (0.66-1.25) mg/dL Glucose 116 H (74-99) mg/dL POC Glucose (mg/dL) 128 H (70-110) mg/dL Alkaline Phosphatase 27 L (38-126) U/L Total Protein 5.9 L (6.3-8.2) g/dL Albumin 3.3 L (3.5-5.0) g/dL Assessment and Plan Plan: Assessment: 1. Chronic kidney disease stage V secondary to biopsy-proven diabetic kidney disease. Permacath placed this 03/22. 2. Metabolic acidosis secondary to chronic kidney disease. On bicarb drip. 3. Chronic kidney disease mineral bone disease. Phosphorus level 6.6. On Renvela. 4. Hypomagnesemia from diuresis. Replaced. 5. Diabetes mellitus. 6. Hypertension with chronic kidney disease. 7. Anemia of chronic kidney disease. Iron deficiency noted. 8. History of aortic valve replacement. Plan: Next hemodialysis tomorrow. facility service manager to set up outpatient hemodialysis. Hep-Lock IV fluids. Off Lasix, torsemide 40 mg once daily. Add IV iron. Amlodipine to 10 mg daily. Strongly encourage patient to follow-up with surgeon outpatient for PD catheter evaluation. Also encouraged him to follow-up for kidney transplant workup.
[2024-03-24 11:33] LABS: Glucose,Whole Blood 157 mg/dL (70-110)
[2024-03-24 16:43] LABS: Glucose,Whole Blood 150 mg/dL (70-110)
[2024-03-24] MEDS: WARFARIN 2 MG TAB PO ONE (17:35)
[2024-03-24 20:45] LABS: Glucose,Whole Blood 160 mg/dL (70-110)
[2024-03-25 06:20] LABS: Glucose,Whole Blood 103 mg/dL (70-110)
[2024-03-25 09:22] LABS: Anisocytosis Slight; Basophils # (A) 0.1 k/uL (0-0.2); Basophils % (A) 1 %; Eosinophils # (A) 0.4 k/uL (0-0.7); Eosinophils % (A) 6 %; HCT 29.8 % (39.0-53.0); Hypochromasia Moderate; Lymphocytes # (A) 0.9 k/uL (1.0-4.8); Lymphocytes % (A) 13 %; MCH 28.4 pg (25.0-35.0); MCHC 30.3 g/dL (31.0-37.0); MCV 93.6 fL (80.0-100.0); Mean Platelet Volume 8.3; Monocytes # (A) 0.3 k/uL (0-1.0); Monocytes % (A) 5 %; Neutrophils # (A) 5.3 k/uL (1.3-7.7); Neutrophils % (A) 75 %; Platelet Count 264 k/uL (150-450); RBC 3.19 m/uL (4.30-5.90); RDW 16.1 % (11.5-15.5); WBC 7.1 k/uL (3.8-10.6)
[2024-03-25 09:33] LABS: INR 1.5 (<1.2); Prothrombin Time 15.1 sec (10.0-12.5)
[2024-03-25 10:04] LABS: ALT 22 U/L (4-49); AST 27 U/L (17-59); African American GFR (CKD) 9 (>60 ml/min/1.73 sqM); Albumin 3.2 g/dL (3.5-5.0); Alkaline Phosphatase 29 U/L (38-126); Anion Gap 12 mmol/L; Blood Urea Nitrogen 48 mg/dL (9-20); Calcium 8.5 mg/dL (8.4-10.2); Carbon Dioxide 21 mmol/L (22-30); Chloride 103 mmol/L (98-107); Glucose 255 mg/dL (74-99); Non-African American GFR(CKD) 8 (>60 ml/min/1.73 sqM); Potassium 4.1 mmol/L (3.5-5.1); Sodium 136 mmol/L (137-145); Total Bilirubin 0.4 mg/dL (0.2-1.3); Total Protein 5.8 g/dL (6.3-8.2)
--- NOTE | 2024-03-25 11:15 | P.PN ---
Subjective patient is seen for follow-up for chronic kidney disease and subsequent end- stage renal disease. Started hemodialysis on 03/22/2024 for progressive renal failure and volume overload. Patient is scheduled on a Monday schedule as outpatient. No significant complaints today. overall feeling better. Objective - Vital Signs Vital signs: Vital Signs Temp 98.3 F 03/25/24 08:04 Pulse 79 03/25/24 08:04 Resp 16 03/25/24 08:04 BP 141/86 03/25/24 08:04 Pulse Ox 97 03/25/24 08:04 FiO2 Intake & Output 03/24/24 03/25/24 03/25/24 18:59 06:59 18:59 Intake Total 994 240 412.833 Balance 994 240 412.833 Weight 106.5 kg Intake: IV 10 Invasive Line 4 10 Intake, IV Titration 222.833 Amount Heparin Sod,Pork in 0.45% 222.833 NaCl 25,000 unit In 0.45 % NaCl 1 250ml.bag @ 9. 425 UNITS/KG/HR 10 mls/hr IV .Q24H [place] Rx#: [id number] Oral 994 240 180 Other: # Voids 2 1 - Exam patient is awake, comfortable, no acute distress Alert oriented 3 Examination of the heart S1 and S2 Examination of the lungs bilateral breath sounds are heard Abdomen is soft nontender Examination of lower extremities shows no significant edema ETCHER ENAMELING exam grossly intact - Labs CBC & Chem 7: 03/25/24 08:15 03/25/24 08:15 Labs: Abnormal Lab Results - Last 24 Hours (Table) 03/24/24 03/24/24 03/24/24 Range/Units 11:31 16:21 16:38 RBC (4.30-5.90) m/uL Hgb (13.0-17.5) gm/dL Hct (39.0-53.0) % MCHC (31.0-37.0) g/dL RDW (11.5-15.5) % Lymphocytes # (1.0-4.8) k/uL PT (10.0-12.5) sec INR (<1.2) APTT 50.0 H (22.0-30.0) sec Sodium (137-145) mmol/L Carbon Dioxide (22-30) mmol/L BUN (9-20) mg/dL Creatinine (0.66-1.25) mg/dL Glucose (74-99) mg/dL POC Glucose (mg/dL) 157 H 150 H (70-110) mg/dL Alkaline Phosphatase (38-126) U/L Total Protein (6.3-8.2) g/dL Albumin (3.5-5.0) g/dL 03/24/24 03/25/24 03/25/24 Range/Units 20:26 08:15 08:15 RBC 3.19 L (4.30-5.90) m/uL Hgb 9.0 L (13.0-17.5) gm/dL Hct 29.8 L (39.0-53.0) % MCHC 30.3 L (31.0-37.0) g/dL RDW 16.1 H (11.5-15.5) % Lymphocytes # 0.9 L (1.0-4.8) k/uL PT 15.1 H (10.0-12.5) sec INR 1.5 H (<1.2) APTT (22.0-30.0) sec Sodium (137-145) mmol/L Carbon Dioxide (22-30) mmol/L BUN (9-20) mg/dL Creatinine (0.66-1.25) mg/dL Glucose (74-99) mg/dL POC Glucose (mg/dL) 160 H (70-110) mg/dL Alkaline Phosphatase (38-126) U/L Total Protein (6.3-8.2) g/dL Albumin (3.5-5.0) g/dL 03/25/24 03/25/24 Range/Units 08:15 08:15 RBC (4.30-5.90) m/uL Hgb (13.0-17.5) gm/dL Hct (39.0-53.0) % MCHC (31.0-37.0) g/dL RDW (11.5-15.5) % Lymphocytes # (1.0-4.8) k/uL PT (10.0-12.5) sec INR (<1.2) APTT 45.8 H (22.0-30.0) sec Sodium 136 L (137-145) mmol/L Carbon Dioxide 21 L (22-30) mmol/L BUN 48 H (9-20) mg/dL Creatinine 7.60 H* (0.66-1.25) mg/dL Glucose 255 H (74-99) mg/dL POC Glucose (mg/dL) (70-110) mg/dL Alkaline Phosphatase 29 L (38-126) U/L Total Protein 5.8 L (6.3-8.2) g/dL Albumin 3.2 L (3.5-5.0) g/dL Assessment and Plan Assessment: 1. Chronic kidney disease stage V secondary to biopsy-proven diabetic kidney disease. started hemodialysis on 03/22. 2. Metabolic acidosis secondary to chronic kidney disease. improved 3. Chronic kidney disease mineral bone disease. Phosphorus level 6.6. On Renvela. 4. Hypomagnesemia from diuresis. Replaced. 5. Diabetes mellitus. 6. Hypertension with chronic kidney disease. 7. Anemia of chronic kidney disease. Iron deficiency noted. 8. History of mechanical aortic valve replacement. Plan: hemodialysis in a.m. Discussed regarding keeping appointment with Dr. Paredes as outpatient. Continue with torsemide
[2024-03-25 11:20] LABS: Glucose,Whole Blood 213 mg/dL (70-110)
--- NOTE | 2024-03-25 12:36 | P.PN ---
Subjective HISTORY OF PRESENT ILLNESS: Patient is a pleasant 39-year-old male with history of CAD, diabetes mellitus type 2, hypertension, bicuspid aortic valve with severe aortic insufficiency and cardiomyopathy as well as CAD status post mechanical aortic valve replacement with [place] valve and CABG 2017, chronic kidney disease who presents secondary to abnormal blood tests. He has been followed in nephrology and had outpatient workup with worsening kidney function and was recommended to go to the emergency department. He has been noticing increased lower extremity edema, increased orthopnea and shortness breath over last few weeks. He denies any changes in medications. His blood pressure also has been somewhat higher in the 160s over 100s. Per patient's discussion with the chute feeder there is concern regarding patient needing to go on dialysis. He denies any chest pain or pressure. EKG shows sinus rhythm, normal axis, T-wave inversion in lead 3 and aVF and no significant ST depressions. Blood work shows hemoglobin 9.0, INR 4.5, bicarb 11, creatinine 8.0, troponin 0.08, proBNP 15,300. patient previously had cardiomyopathy with ejection fraction in the 25% range however since then has improved to approximately 50%. Echo was from approximately May 30 Echocardiogram reveals increased LV mass with reduced EF of 40%. Patient updated regarding results of echocardiogram. Patient is undergoing hemodialysis today, second treatment. Blood pressure 139/89 heart rate in the 70s and 80s. Repeat blood work reveals hemoglobin of 8.9. Potassium 4, BUN 56 creatinine 7.52. 03/24 Patient denies any new concerns today. Yesterday we added INR and pharmacy to dose Coumadin. INR came back today at 1.2 and heparin drip will be started. Patient states that he was taking 4 mg on Monday and 2 mg on the other days. Patient received 4 mg of Coumadin last evening. Blood pressure 136/86, heart rate in the 70s, pulse ox 96% on room air. Other blood work reveals hemoglobin of 9.3, BUN 43 creatinine 6.47. Patient underwent hemodialysis yesterday. Nephrology has started him on torsemide and iron. We increased hydralazine to 50 mg 3 times daily yesterday. 03/25/2024 Patient examined this morning at the bedside. Patient currently denies chest pain or pressure. He reports improvement in his shortness of breath. Patient's INR today is 1.5. Patient is currently receiving Coumadin. Patient is also on IV heparin until INR is therapeutic. Patient is receiving hemodialysis on a Monday schedule. Vital signs are stable. PHYSICAL EXAM: VITAL SIGNS: Reviewed. GENERAL: Well-developed in no acute distress. NECK: Supple. No JVD or thyromegaly LUNGS: Respirations even and unlabored. Lungs essentially clear to auscultation bilaterally. HEART: Regular rate and rhythm. S1 and S2 heard. Mechanical click noted. EXTREMITIES: Normal range of motion. No clubbing or cyanosis. Peripheral pulses intact. Trace bilateral lower extremity edema ASSESSMENT: Acute on chronic diastolic heart failure, mainly related to worsening kidney function Acute on chronic kidney disease, started on hemodialysis History of bicuspid aortic valve and aortic insufficiency status post mechanical aortic valve replacement 2016 CAD status post CABG 2017 Diabetes mellitus type 2 Hypertension uncontrolled likely exacerbated by kidney failure Anemia Supratherapeutic INR on presentation PLAN: Continue current cardiac medications Continue Coumadin with pharmacy to dose Continue IV heparin until INR is therapeutic. Repeat INR in AM. Hemodialysis per nephrology. Currently on a Monday schedule. Maintain oral diuretics per nephrology Further recommendations pending patient course Nurse practitioner note has been reviewed by physician. Signing provider agrees with the documented findings, assessment, and plan of care documented by SEO ANALYST as a scribe. Objective - Vital Signs Vital signs: Vital Signs Temp 98.9 F 03/25/24 11:45 Pulse 76 03/25/24 11:45 Resp 15 03/25/24 11:45 BP 154/94 03/25/24 11:45 Pulse Ox 99 03/25/24 11:45 FiO2 Intake & Output 03/24/24 03/25/24 03/25/24 18:59 06:59 18:59 Intake Total 994 240 412.833 Balance 994 240 412.833 Weight 106.5 kg Intake: IV 10 Invasive Line 4 10 Intake, IV Titration 222.833 Amount Heparin Sod,Pork in 0.45% 222.833 NaCl 25,000 unit In 0.45 % NaCl 1 250ml.bag @ 9. 425 UNITS/KG/HR 10 mls/hr IV .Q24H [place] Rx#: [id number] Oral 994 240 180 Other: # Voids 2 1 - Labs CBC & Chem 7: 03/25/24 08:15 03/25/24 08:15 Labs: Abnormal Lab Results - Last 24 Hours (Table) 03/24/24 03/24/24 03/24/24 Range/Units 16:21 16:38 20:26 RBC (4.30-5.90) m/uL Hgb (13.0-17.5) gm/dL Hct (39.0-53.0) % MCHC (31.0-37.0) g/dL RDW (11.5-15.5) % Lymphocytes # (1.0-4.8) k/uL PT (10.0-12.5) sec INR (<1.2) APTT 50.0 H (22.0-30.0) sec Sodium (137-145) mmol/L Carbon Dioxide (22-30) mmol/L BUN (9-20) mg/dL Creatinine (0.66-1.25) mg/dL Glucose (74-99) mg/dL POC Glucose (mg/dL) 150 H 160 H (70-110) mg/dL Alkaline Phosphatase (38-126) U/L Total Protein (6.3-8.2) g/dL Albumin (3.5-5.0) g/dL 03/25/24 03/25/24 03/25/24 Range/Units 08:15 08:15 08:15 RBC 3.19 L (4.30-5.90) m/uL Hgb 9.0 L (13.0-17.5) gm/dL Hct 29.8 L (39.0-53.0) % MCHC 30.3 L (31.0-37.0) g/dL RDW 16.1 H (11.5-15.5) % Lymphocytes # 0.9 L (1.0-4.8) k/uL PT 15.1 H (10.0-12.5) sec INR 1.5 H (<1.2) APTT (22.0-30.0) sec Sodium 136 L (137-145) mmol/L Carbon Dioxide 21 L (22-30) mmol/L BUN 48 H (9-20) mg/dL Creatinine 7.60 H* (0.66-1.25) mg/dL Glucose 255 H (74-99) mg/dL POC Glucose (mg/dL) (70-110) mg/dL Alkaline Phosphatase 29 L (38-126) U/L Total Protein 5.8 L (6.3-8.2) g/dL Albumin 3.2 L (3.5-5.0) g/dL 03/25/24 03/25/24 Range/Units 08:15 11:18 RBC (4.30-5.90) m/uL Hgb (13.0-17.5) gm/dL Hct (39.0-53.0) % MCHC (31.0-37.0) g/dL RDW (11.5-15.5) % Lymphocytes # (1.0-4.8) k/uL PT (10.0-12.5) sec INR (<1.2) APTT 45.8 H (22.0-30.0) sec Sodium (137-145) mmol/L Carbon Dioxide (22-30) mmol/L BUN (9-20) mg/dL Creatinine (0.66-1.25) mg/dL Glucose (74-99) mg/dL POC Glucose (mg/dL) 213 H (70-110) mg/dL Alkaline Phosphatase (38-126) U/L Total Protein (6.3-8.2) g/dL Albumin (3.5-5.0) g/dL
[2024-03-25 16:35] LABS: Glucose,Whole Blood 199 mg/dL (70-110)
--- NOTE | 2024-03-25 17:26 | P.PN ---
Subjective Progress Note Date: 03/25/24 Mat Khoury, is a 39-year-old male who presented to [facility] emergency room With a chief complaint of Generalized weakness and bilateral lower extremity edema He was evaluated in the emergency room vital examination on presentation revealed A temperature of 97.7 pulse 83 respirations 16 blood pressure 178/95 pulse ox 97% on room air Laboratory data reveals A white blood count of 8.9 hemoglobin 9.0 platelet count 262 INR 4.5 BUN 63 creatinine 8.06 Troponin level 0.084 Testing in the emergency room revealed EKG done in the emergency room revealed sinus rhythm with right axis deviation And intraventricular conduction delay, Chest x-ray revealed evidence of cardiomegaly and pulmonary venous congestion Patient was admitted to medical floor for further evaluation and treatment On 03/22/2024 patient's alert and oriented 3.Hemodialysis access has been obtained plans for hemodialysis per nephrology services. Cardiology and nephrology services are following. Current vital signs temp 98.1, heart rate 80, respiratory rate 18, blood pressure 165/93 with a pulse ox 99% on room air on 03/23/2024 patient was seen and examined on the medical floor, he is alert and oriented 3 in no apparent distress, generalized weakness otherwise he denies any complaints, there is no fever or chills no headache or dizziness no chest pain no shortness of breath no cough no nausea or vomiting no abdominal pain no diarrhea and no urinary symptoms. vital exam reveals a temperature of 97.5 pulse 72 2 respiration 16 pressure 124/72 current pulse ox 96% on room air 9 platelet count 291 BUN 56 creatinine 7.52 on 03/24/2024 patient's alert and oriented 3. Patient reports improvement overa ll generalized weakness. patient denies chest pain or shortness of breath. Patient denies nausea vomiting or diarrhea. Patient denies any urinary burning or frequency. Creatinine today 6.47 and bun 43. Current vital signs 98.0, heart rate 72, respiratory rate 18, blood pressure 136/86 with pulse ox 96% on room air. Cardiology following. Pharmacy to dose Coumadin. on 03/25/2024 patient was seen and examined on the medical floor he is alert and oriented 3 in no apparent distress he reports improvement in his shortness of breath, he denies any other complaints, there is no fever or chills no headache or dizziness no chest pain no shortness of breath at rest no cough no nausea or vomiting no abdominal pain no diarrhea and no urinary symptoms. Patient is scheduled for another session of hemodialysis today. Objective - Vital Signs Vital signs: Vital Signs Temp 98.3 F 03/25/24 08:04 Pulse 79 03/25/24 08:04 Resp 16 03/25/24 08:04 BP 141/86 03/25/24 08:04 Pulse Ox 97 03/25/24 08:04 FiO2 Intake & Output 03/24/24 03/25/24 03/25/24 18:59 06:59 18:59 Intake Total 994 240 222.833 Balance 994 240 222.833 Weight 106.5 kg Intake: Intake, IV Titration 222.833 Amount Heparin Sod,Pork in 0.45% 222.833 NaCl 25,000 unit In 0.45 % NaCl 1 250ml.bag @ 9. 425 UNITS/KG/HR 10 mls/hr IV .Q24H [place] Rx#: [id number] Oral 994 240 Other: # Voids 2 - Exam Head normocephalic Neck supple Lungs clear to auscultation bilaterally no wheezing or crackles Heart regular rate and rhythm S1-S2, no rub or gallop Abdomen is soft nontender nondistended positive bowel sounds no hepatos plenomegaly Extremities no edema Neuro alert and orientated to 3 - Labs CBC & Chem 7: 03/25/24 08:15 03/25/24 08:15 Labs: Abnormal Lab Results - Last 24 Hours (Table) 03/24/24 03/24/24 03/24/24 Range/Units 08:09 09:00 11:31 RBC 3.10 L (4.30-5.90) m/uL Hgb 8.8 L (13.0-17.5) gm/dL Hct 28.7 L (39.0-53.0) % MCHC 30.6 L (31.0-37.0) g/dL RDW 16.1 H (11.5-15.5) % PT 13.4 H (10.0-12.5) sec INR 1.3 H (<1.2) APTT 37.8 H (22.0-30.0) sec POC Glucose (mg/dL) 157 H (70-110) mg/dL 03/24/24 03/24/2403/24/24 Range/Units 16:21 16:38 20:26 RBC (4.30-5.90) m/uL Hgb (13.0-17.5) gm/dL Hct (39.0-53.0) % MCHC (31.0-37.0) g/dL RDW (11.5-15.5) % PT (10.0-12.5) sec INR (<1.2) APTT 50.0 H (22.0-30.0) sec POC Glucose (mg/dL) 150 H 160 H (70-110) mg/dL Assessment and Plan Plan: Chronic kidney disease Acute volume overload Insulin-dependent diabetes mellitus Underlying history of hypertension Underlying history of hyperlipidemia Chronic anemia related to chronic kidney disease History of aortic valve replacement At this time patient is admitted to medical floor Consultation for nephrology and cardiology were initiated in the emergency room Patient likely will need hemodialysis during this admission Will follow closely
[2024-03-25] MEDS: WARFARIN 5 MG TAB PO ONE (17:47)
[2024-03-25 20:19] LABS: Glucose,Whole Blood 270 mg/dL (70-110)
[2024-03-26 05:55] LABS: Glucose,Whole Blood 128 mg/dL (70-110)
--- NOTE | 2024-03-26 09:08 | P.PN ---
Subjective Progress Note Date: 03/26/24 Mat Khoury, is a 39-year-old male who presented to [facility] emergency room With a chief complaint of Generalized weakness and bilateral lower extremity edema He was evaluated in the emergency room vital examination on presentation revealed A temperature of 97.7 pulse 83 respirations 16 blood pressure 178/95 pulse ox 97% on room air Laboratory data reveals A white blood count of 8.9 hemoglobin 9.0 platelet count 262 INR 4.5 BUN 63 creatinine 8.06 Troponin level 0.084 Testing in the emergency room revealed EKG done in the emergency room revealed sinus rhythm with right axis deviation And intraventricular conduction delay, Chest x-ray revealed evidence of cardiomegaly and pulmonary venous congestion Patient was admitted to medical floor for further evaluation and treatment On 03/22/2024 patient's alert and oriented 3.Hemodialysis access has been obtained plans for hemodialysis per nephrology services. Cardiology and nephrology services are following. Current vital signs temp 98.1, heart rate 80, respiratory rate 18, blood pressure 165/93 with a pulse ox 99% on room air on 03/23/2024 patient was seen and examined on the medical floor, he is alert and oriented 3 in no apparent distress, generalized weakness otherwise he denies any complaints, there is no fever or chills no headache or dizziness no chest pain no shortness of breath no cough no nausea or vomiting no abdominal pain no diarrhea and no urinary symptoms. vital exam reveals a temperature of 97.5 pulse 72 2 respiration 16 pressure 124/72 current pulse ox 96% on room air 9 platelet count 291 BUN 56 creatinine 7.52 on 03/24/2024 patient's alert and oriented 3. Patient reports improvement overa ll generalized weakness. patient denies chest pain or shortness of breath. Patient denies nausea vomiting or diarrhea. Patient denies any urinary burning or frequency. Creatinine today 6.47 and bun 43. Current vital signs 98.0, heart rate 72, respiratory rate 18, blood pressure 136/86 with pulse ox 96% on room air. Cardiology following. Pharmacy to dose Coumadin. on 03/25/2024 patient was seen and examined on the medical floor he is alert and oriented 3 in no apparent distress he reports improvement in his shortness of breath, he denies any other complaints, there is no fever or chills no headache or dizziness no chest pain no shortness of breath at rest no cough no nausea or vomiting no abdominal pain no diarrhea and no urinary symptoms. Patient is scheduled for another session of hemodialysis today. On 03/26/2023 for patient's alert and oriented 3. Patient remains on hemodi alysis. Patient also remains on IV heparin while awaiting INR to be therapeutic. Patient denies chest pain or shortness breath. Patient denies nausea vomiting and diarrhea. Patient denies any urinary burning or frequency. Current vital signs temp 98.2, 82, respiratory rate 16, blood pressure 130/80 with a pulse ox 97% on room air. Objective - Vital Signs Vital signs: Vital Signs Temp 98.2 F 03/25/24 20:49 Pulse 75 03/26/24 03:50 Resp 18 03/26/24 03:50 BP 150/92 03/26/24 03:50 Pulse Ox 99 03/26/24 03:50 FiO2 Intake & Output 03/25/24 03/26/24 03/26/24 18:59 06:59 18:59 Intake Total 1092.833 247 Output Total 2500 400 Balance -1407.167 -400 247 Weight 104.6 kg Intake: IV 10 Invasive Line 4 10 Intake, IV Titration 222.833 247 Amount Heparin Sod,Pork in 0.45% 222.833 247 NaCl 25,000 unit In 0.45 % NaCl 1 250ml.bag @ 9. 425 UNITS/KG/HR 10 mls/hr IV .Q24H [facility] Rx#: [id number] Oral 360 Hemodialysis 500 Output: Urine 400 Hemodialysis 2500 Other: # Voids 1 1 - Exam In general patient is alert and oriented x 3 in no distress HEENT head normocephalic and atraumatic Neck is supple no JVD no goiter no lymphadenopathy no carotid bruit Chest examination is clear to auscultation no crackles no wheezing Cardiac exam reveals regular heart sounds S1 and S2 no gallops no murmurs Abdomen is soft nontender no organomegaly with normal bowel sounds Extremity exam reveals no edema no cyanosis or clubbing Neurological examination reveals no gross focal deficits - Labs CBC & Chem 7: 03/25/24 08:15 03/25/24 08:15 Labs: Abnormal Lab Results - Last 24 Hours (Table) 03/25/24 03/25/24 03/25/24 Range/Units 08:15 08:15 08:15 RBC 3.19 L (4.30-5.90) m/uL Hgb 9.0 L (13.0-17.5) gm/dL Hct 29.8 L (39.0-53.0) % MCHC 30.3 L (31.0-37.0) g/dL RDW 16.1 H (11.5-15.5) % Lymphocytes # 0.9 L (1.0-4.8) k/uL PT 15.1 H (10.0-12.5) sec INR 1.5 H (<1.2) APTT (22.0-30.0) sec Sodium 136 L (137-145) mmol/L Carbon Dioxide 21 L (22-30) mmol/L BUN 48 H (9-20) mg/dL Creatinine 7.60 H* (0.66-1.25) mg/dL Glucose 255 H (74-99) mg/dL POC Glucose (mg/dL) (70-110) mg/dL Alkaline Phosphatase 29 L (38-126) U/L Total Protein 5.8 L (6.3-8.2) g/dL Albumin 3.2 L (3.5-5.0) g/dL 03/25/24 03/25/24 03/25/24 Range/Units 08:15 11:18 16:33 RBC (4.30-5.90) m/uL Hgb (13.0-17.5) gm/dL Hct (39.0-53.0) % MCHC (31.0-37.0) g/dL RDW (11.5-15.5) % Lymphocytes # (1.0-4.8) k/uL PT (10.0-12.5) sec INR (<1.2) APTT 45.8 H (22.0-30.0) sec Sodium (137-145) mmol/L Carbon Dioxide (22-30) mmol/L BUN (9-20) mg/dL Creatinine (0.66-1.25) mg/dL Glucose (74-99) mg/dL POC Glucose (mg/dL) 213 H 199 H (70-110) mg/dL Alkaline Phosphatase (38-126) U/L Total Protein (6.3-8.2) g/dL Albumin (3.5-5.0) g/dL 03/25/24 03/26/24 Range/Units 19:49 05:40 RBC (4.30-5.90) m/uL Hgb (13.0-17.5) gm/dL Hct (39.0-53.0) % MCHC (31.0-37.0) g/dL RDW (11.5-15.5) % Lymphocytes # (1.0-4.8) k/uL PT (10.0-12.5) sec INR (<1.2) APTT (22.0-30.0) sec Sodium (137-145) mmol/L Carbon Dioxide (22-30) mmol/L BUN (9-20) mg/dL Creatinine (0.66-1.25) mg/dL Glucose (74-99) mg/dL POC Glucose (mg/dL) 270 H 128 H (70-110) mg/dL Alkaline Phosphatase (38-126) U/L Total Protein (6.3-8.2) g/dL Albumin (3.5-5.0) g/dL Assessment and Plan Assessment: Chronic kidney disease patient started on hemodialysis Acute volume overload Insulin-dependent diabetes mellitus Underlying history of hypertension Underlying history of hyperlipidemia Chronic anemia related to chronic kidney disease History of aortic valve replacement At this time patient is admitted to medical floor Consultation for nephrology and cardiology were initiated in the emergency room Patient likely will need hemodialysis during this admission Will follow closely
[2024-03-26 09:32] LABS: Partial Thromboplastin Time 54.8 sec (22.0-30.0); Prothrombin Time 19.8 sec (10.0-12.5)
[2024-03-26 09:33] LABS: Basophils # (A) 0.1 k/uL (0-0.2); Basophils % (A) 1 %; Eosinophils # (A) 0.5 k/uL (0-0.7); Eosinophils % (A) 6 %; HCT 28.9 % (39.0-53.0); HGB 8.7 gm/dL (13.0-17.5); Hypochromasia Moderate; Lymphocytes # (A) 0.9 k/uL (1.0-4.8); Lymphocytes % (A) 11 %; MCV 93.2 fL (80.0-100.0); Mean Platelet Volume 8.3; Monocytes # (A) 0.4 k/uL (0-1.0); Monocytes % (A) 6 %; Neutrophils # (A) 5.7 k/uL (1.3-7.7); Neutrophils % (A) 75 %; Platelet Count 242 k/uL (150-450); WBC 7.6 k/uL (3.8-10.6)
--- NOTE | 2024-03-26 10:34 | P.PN ---
Subjective HISTORY OF PRESENT ILLNESS: Patient is a pleasant 39-year-old male with history of CAD, diabetes mellitus type 2, hypertension, bicuspid aortic valve with severe aortic insufficiency and cardiomyopathy as well as CAD status post mechanical aortic valve replacement with [place] valve and CABG 2017, chronic kidney disease who presents secondary to abnormal blood tests. He has been followed in nephrology and had outpatient workup with worsening kidney function and was recommended to go to the emergency department. He has been noticing increased lower extremity edema, increased orthopnea and shortness breath over last few weeks. He denies any changes in medications. His blood pressure also has been somewhat higher in the 160s over 100s. Per patient's discussion with the inside wireman there is concern regarding patient needing to go on dialysis. He denies any chest pain or pressure. EKG shows sinus rhythm, normal axis, T-wave inversion in lead 3 and aVF and no significant ST depressions. Blood work shows hemoglobin 9.0, INR 4.5, bicarb 11, creatinine 8.0, troponin 0.08, proBNP 15,300. patient previously had cardiomyopathy with ejection fraction in the 25% range however since then has improved to approximately 50%. Echo was from approximately May 30 Echocardiogram reveals increased LV mass with reduced EF of 40%. Patient updated regarding results of echocardiogram. Patient is undergoing hemodialysis today, second treatment. Blood pressure 139/89 heart rate in the 70s and 80s. Repeat blood work reveals hemoglobin of 8.9. Potassium 4, BUN 56 creatinine 7.52. 03/24 Patient denies any new concerns today. Yesterday we added INR and pharmacy to dose Coumadin. INR came back today at 1.2 and heparin drip will be started. Patient states that he was taking 4 mg on Monday and 2 mg on the other days. Patient received 4 mg of Coumadin last evening. Blood pressure 136/86, heart rate in the 70s, pulse ox 96% on room air. Other blood work reveals hemoglobin of 9.3, BUN 43 creatinine 6.47. Patient underwent hemodialysis yesterday. Nephrology has started him on torsemide and iron. We increased hydralazine to 50 mg 3 times daily yesterday. 03/25/2024 Patient examined this morning at the bedside. Patient currently denies chest pain or pressure. He reports improvement in his shortness of breath. Patient's INR today is 1.5. Patient is currently receiving Coumadin. Patient is also on IV heparin until INR is therapeutic. Patient is receiving hemodialysis on a Monday schedule. Vital signs are stable. 03/26/2024 Patient examined this morning at the bedside. Patient denies chest pain or pressure. He denies shortness of breath. Patient remains on IV heparin. INR today is 2.0. Patient states he is supposed to receive dialysis today. Patient states usually at home he keeps his INR 2.5-3. Dr. Cristobal is okay with INR 2.0- 2.5 as patient on OnX valve. PHYSICAL EXAM: VITAL SIGNS: Reviewed. GENERAL: Well-developed in no acute distress. NECK: Supple. No JVD or thyromegaly LUNGS: Respirations even and unlabored. Lungs essentially clear to auscultation bilaterally. HEART: Regular rate and rhythm. S1 and S2 heard. Mechanical click noted. EXTREMITIES: Normal range of motion. No clubbing or cyanosis. Peripheral pulses intact. Trace bilateral lower extremity edema ASSESSMENT: Acute on chronic diastolic heart failure, mainly related to worsening kidney function Acute on chronic kidney disease, started on hemodialysis History of bicuspid aortic valve and aortic insufficiency status post mechanical aortic valve replacement 2017 CAD status post CABG 2017 Diabetes mellitus type 2 Hypertension uncontrolled likely exacerbated by kidney failure Anemia Supratherapeutic INR on presentation PLAN: Continue current cardiac medications Continue Coumadin. Monitor INR. Dr. Cristobal is okay with INR 2.0-2.5 as patient on OnX valve. Hemodialysis per nephrology. Currently on a Monday schedule. Patient is stable for discharge home today from a cardiac standpoint Nurse practitioner note has been reviewed by physician. Signing provider agrees with the documented findings, assessment, and plan of care documented by LINING SEWER as a scribe. Objective - Vital Signs Vital signs: Vital Signs Temp 98.7 F 03/26/24 08:10 Pulse 78 03/26/24 08:10 Resp 18 03/26/24 08:10 BP 127/86 03/26/24 08:10 Pulse Ox 99 03/26/24 08:10 FiO2 Intake & Output 03/25/24 03/26/24 03/26/24 18:59 06:59 18:59 Intake Total 1092.833 487 Output Total 2500 400 Balance -1407.167 -400 487 Weight 104.6 kg Intake: IV 10 Invasive Line 4 10 Intake, IV Titration 222.833 247 Amount Heparin Sod,Pork in 0.45% 222.833 247 NaCl 25,000 unit In 0.45 % NaCl 1 250ml.bag @ 9. 425 UNITS/KG/HR 10 mls/hr IV .Q24H [place] Rx#: [id number] Oral 360 240 Hemodialysis 500 Output: Urine 400 Hemodialysis 2500 Other: # Voids 1 1 # Bowel Movements 1 - Labs CBC & Chem 7: 03/26/24 08:23 03/25/24 08:15 Labs: Abnormal Lab Results - Last 24 Hours (Table) 03/25/24 03/25/24 03/25/24 Range/Units 11:18 16:33 19:49 RBC (4.30-5.90) m/uL Hgb (13.0-17.5) gm/dL Hct (39.0-53.0) % MCHC (31.0-37.0) g/dL RDW (11.5-15.5) % Lymphocytes # (1.0-4.8) k/uL PT (10.0-12.5) sec INR (<1.2) APTT (22.0-30.0) sec POC Glucose (mg/dL) 213 H 199 H 270 H (70-110) mg/dL 03/26/24 03/26/24 03/26/24 Range/Units 05:40 08:23 08:23 RBC 3.10 L (4.30-5.90) m/uL Hgb 8.7 L (13.0-17.5) gm/dL Hct 28.9 L (39.0-53.0) % MCHC 30.0 L (31.0-37.0) g/dL RDW 16.0 H (11.5-15.5) % Lymphocytes # 0.9 L (1.0-4.8) k/uL PT 19.8 H (10.0-12.5) sec INR 2.0 H (<1.2) APTT 54.8 H (22.0-30.0) sec POC Glucose (mg/dL) 128 H (70-110) mg/dL
[2024-03-26 10:36] LABS: ALT 24 U/L (4-49); AST 39 U/L (17-59); African American GFR (CKD) 16 (>60 ml/min/1.73 sqM); Albumin 3.1 g/dL (3.5-5.0); Alkaline Phosphatase 32 U/L (38-126); Anion Gap 7 mmol/L; Blood Urea Nitrogen 27 mg/dL (9-20); Calcium 8.2 mg/dL (8.4-10.2); Carbon Dioxide 26 mmol/L (22-30); Chloride 102 mmol/L (98-107); Glucose 237 mg/dL (74-99); Non-African American GFR(CKD) 14 (>60 ml/min/1.73 sqM); Potassium 4.1 mmol/L (3.5-5.1); Sodium 135 mmol/L (137-145); Total Bilirubin 0.5 mg/dL (0.2-1.3); Total Protein 5.7 g/dL (6.3-8.2)
--- NOTE | 2024-03-26 11:05 | P.PN ---
Subjective patient is seen for follow-up for chronic kidney disease and subsequent end- stage renal disease. Started hemodialysis on 03/22/2024 for progressive renal failure and volume overload. Patient is scheduled on a Monday schedule as outpatient. No significant complaints today. overall feeling better. seen on hemodialysis. Tolerating treatment well. Objective - Vital Signs Vital signs: Vital Signs Temp 98.7 F 03/26/24 08:10 Pulse 78 03/26/24 08:10 Resp 18 03/26/24 08:10 BP 127/86 03/26/24 08:10 Pulse Ox 99 03/26/24 08:10 FiO2 Intake & Output 03/25/24 03/26/24 03/26/24 18:59 06:59 18:59 Intake Total 1092.833 487 Output Total 2500 400 Balance -1407.167 -400 487 Weight 104.6 kg Intake: IV 10 Invasive Line 4 10 Intake, IV Titration 222.833 247 Amount Heparin Sod,Pork in 0.45% 222.833 247 NaCl 25,000 unit In 0.45 % NaCl 1 250ml.bag @ 9. 425 UNITS/KG/HR 10 mls/hr IV .Q24H [place] Rx#: [id number] Oral 360 240 Hemodialysis 500 Output: Urine 400 Hemodialysis 2500 Other: # Voids 1 1 # Bowel Movements 1 - Exam patient is awake, comfortable, no acute distress Alert oriented 3 Examination of the heart S1 and S2 Examination of the lungs bilateral breath sounds are heard Abdomen is soft nontender Examination of lower extremities shows no significant edema POULTRY BREEDER exam grossly intact - Labs CBC & Chem 7: 03/26/24 08:23 03/26/24 08:23 Labs: Abnormal Lab Results - Last 24 Hours (Table) 03/25/24 03/25/24 03/25/24 Range/Units 11:18 16:33 19:49 RBC (4.30-5.90) m/uL Hgb (13.0-17.5) gm/dL Hct (39.0-53.0) % MCHC (31.0-37.0) g/dL RDW (11.5-15.5) % Lymphocytes # (1.0-4.8) k/uL PT (10.0-12.5) sec INR (<1.2) APTT (22.0-30.0) sec Sodium (137-145) mmol/L BUN (9-20) mg/dL Creatinine (0.66-1.25) mg/dL Glucose (74-99) mg/dL POC Glucose (mg/dL) 213 H 199 H 270 H (70-110) mg/dL Calcium (8.4-10.2) mg/dL Alkaline Phosphatase (38-126) U/L Total Protein (6.3-8.2) g/dL Albumin (3.5-5.0) g/dL 03/26/24 03/26/24 03/26/24 Range/Units 05:40 08:23 08:23 RBC 3.10 L (4.30-5.90) m/uL Hgb 8.7 L (13.0-17.5) gm/dL Hct 28.9 L (39.0-53.0) % MCHC 30.0 L (31.0-37.0) g/dL RDW 16.0 H (11.5-15.5) % Lymphocytes # 0.9 L (1.0-4.8) k/uL PT 19.8 H (10.0-12.5) sec INR 2.0 H (<1.2) APTT 54.8 H (22.0-30.0) sec Sodium (137-145) mmol/L BUN (9-20) mg/dL Creatinine (0.66-1.25) mg/dL Glucose (74-99) mg/dL POC Glucose (mg/dL) 128 H (70-110) mg/dL Calcium (8.4-10.2) mg/dL Alkaline Phosphatase (38-126) U/L Total Protein (6.3-8.2) g/dL Albumin (3.5-5.0) g/dL 03/26/24 Range/Units 08:23 RBC (4.30-5.90) m/uL Hgb (13.0-17.5) gm/dL Hct (39.0-53.0) % MCHC (31.0-37.0) g/dL RDW (11.5-15.5) % Lymphocytes # (1.0-4.8) k/uL PT (10.0-12.5) sec INR (<1.2) APTT (22.0-30.0) sec Sodium 135 L (137-145) mmol/L BUN 27 H (9-20) mg/dL Creatinine 4.78 H (0.66-1.25) mg/dL Glucose 237 H (74-99) mg/dL POC Glucose (mg/dL) (70-110) mg/dL Calcium 8.2 L (8.4-10.2) mg/dL Alkaline Phosphatase 32 L (38-126) U/L Total Protein 5.7 L (6.3-8.2) g/dL Albumin 3.1 L (3.5-5.0) g/dL Assessment and Plan Assessment: 1. Chronic kidney disease stage V secondary to biopsy-proven diabetic kidney disease. started hemodialysis on 03/22. 2. Metabolic acidosis secondary to chronic kidney disease. improved 3. Chronic kidney disease mineral bone disease. Phosphorus level 6.6. On Renvela. 4. Hypomagnesemia from diuresis. Replaced. 5. Diabetes mellitus. 6. Hypertension with chronic kidney disease. 7. Anemia of chronic kidney disease. Iron deficiency noted. 8. History of mechanical aortic valve replacement. awaiting therapeutic INR Plan: hemodialysis on Monday schedule Discussed regarding keeping appointment with Dr. Paredes as outpatient for PD evaluation. Continue with torsemide
[2024-03-26 11:11] LABS: Glucose,Whole Blood 157 mg/dL (70-110)
[2024-03-26 14:03] VITALS: BP 117/72; PULSE 70; RESP 17; TEMP 98.2
[2024-03-26] MEDS ORDERED: WARFARIN 2 MG TAB PO ONE (18:00)
== END 2024-03-26 15:22 | disposition home or self-care (01) | DRG 469 ==
LOC: EC 16:08 → 3SCARD 17:59
PROVIDERS: ADMIT Internal Medicine; ATTEND Internal Medicine
PROC: 02HV33Z Insertion of Infusion Device into Superior Vena Cava, Percutaneous Approach (ICD-10-PCS; principal; 2024-03-22 07:30)
PROC: 5A1D70Z Performance of Urinary Filtration, Intermittent, Less than 6 Hours Per Day (ICD-10-PCS; 2024-03-22 07:30)
DX: N17.9 Acute kidney failure, unspecified (principal); N18.6 End stage renal disease; E83.9 Disorder of mineral metabolism, unspecified; R79.1 Abnormal coagulation profile; I50.43 Acute on chronic combined systolic (congestive) and diastolic (congestive) heart failure; Q23.1 Congenital insufficiency of aortic valve; D63.1 Anemia in chronic kidney disease; E11.22 Type 2 diabetes mellitus with diabetic chronic kidney disease; D50.9 Iron deficiency anemia, unspecified; E78.5 Hyperlipidemia, unspecified; E83.42 Hypomagnesemia; T50.2X5A Adverse effect of carbonic-anhydrase inhibitors, benzothiadiazides and other diuretics, initial encounter; F32.A Depression, unspecified; E66.9 Obesity, unspecified; I13.2 Hypertensive heart and chronic kidney disease with heart failure and with stage 5 chronic kidney disease, or end stage renal disease; I25.10 Atherosclerotic heart disease of native coronary artery without angina pectoris; I42.9 Cardiomyopathy, unspecified; E87.20 Acidosis, unspecified; Z95.2 Presence of prosthetic heart valve; Z68.36 Body mass index [BMI] 36.0-36.9, adult; I45.9 Conduction disorder, unspecified; Z79.01 Long term (current) use of anticoagulants; Z79.82 Long term (current) use of aspirin; Z79.84 Long term (current) use of oral hypoglycemic drugs; Z79.899 Other long term (current) drug therapy; Z91.199 Patient's noncompliance with other medical treatment and regimen due to unspecified reason; Z95.1 Presence of aortocoronary bypass graft; Z88.6 Allergy status to analgesic agent
CPT/HCPCS: 36415; 36558; 71046; 76770; 76937; 77001; 80053; 81001; 82728; 83540; 83550; 83735; 83880; 84100; 84484; 85025; 85610; 85730; 86704; 86706; 87340; 90935; 93005; 93306; 96365; 96366; 96367; 96375; 96376; 99291

== ENCOUNTER 2024-12-12 12:48 | Inpatient (IN) | payer OTHER ==
--- NOTE | 2024-12-12 13:45 | ED ---
Recheck HPI - General Chief Complaint: Recheck/Abnormal Lab/Rx Stated Complaint: inf in cath port Time Seen by Provider: 12/12/24 13:01 Source: patient, RN notes reviewed Mode of arrival: ambulatory Limitations: no limitations - History of Present Illness Initial Comments: this is a 39-year-old male with history of end-stage renal disease on hemodialysis Monday, , Monday presenting to the emergency department concern for infection of his temporary dialysis port in his neck. Patient states that on Monday there is concern for infection of PD catheter site with erythema, purulence, edema where blood cultures were obtained. Patient went t [facility] for hemodialysis session was not completed due to concern for worsening infection. Additionally, patient's blood cultures have resulted positive for gram-positive cocci with growth of Staphylococcus aureus. He denies fevers, chills, nausea, vomiting, pain at the catheter site. Still produces urine. patient was advised by branch manager trainee, Dr. Gutierrez, to report to the ER. - Related Data Home Medications Medication Instructions Recorded Confirmed allopurinoL [Zyloprim] 200 mg PO DAILY 10/29/18 12/12/24 Metoprolol Tartrate [Lopressor] 25 mg PO BID 03/20/24 12/12/24 Rosuvastatin [Crestor] 20 mg PO HS 03/20/24 12/12/24 Sevelamer [Renvela] 1,600 mg PO TID-W/MEALS 03/20/24 12/12/24 calcitrioL 0.5 mcg PO TUTHSA 03/20/24 12/12/24 glipiZIDE [Glucotrol] 10 mg PO AC-TID 03/20/24 12/12/24 Warfarin [Coumadin] 4 mg PO HS 05/22/24 12/12/24 Ferric Citrate [Auryxia] 210 mg PO DIRECTED 12/12/24 12/12/24 Folic Acid/Vit B Complex and C 0.8 mg PO DAILY 12/12/24 12/12/24 [Shruti-Gianfranco Tablet] Previous Rx's Medication Instructions Recorded Torsemide [Demadex] 40 mg PO DAILY 30 Days #60 tab 03/26/24 amLODIPine [Norvasc] 5 mg PO BID 30 Days #60 tab 03/26/24 hydrALAZINE HCL [Apresoline] 50 mg PO TID 30 Days #90 tab 03/26/24 Allergies Allergy/AdvReac Type Severity Reaction Status Date / Time NSAIDS (Non-Steroidal Allergy Unknown Verified 12/12/24 15:50 Anti-Inflamma Review of Systems ROS Statement: Those systems with pertinent positive or pertinent negative responses have been documented in the HPI. ROS Other: All systems not noted in ROS Statement are negative. Past Medical History Past Medical History: Coronary Artery Disease (CAD), Heart Failure, Diabetes Mellitus, Hyperlipidemia, Hypertension, Renal Disease Additional Past Medical History / Comment(s): Hx systolic heart failure. Severe aortic insufficiency. Hemodialysis TUTHSA. Problems with left leg, uses cane. History of Any Multi-Drug Resistant Organisms: None Reported Past Surgical History: Coronary Bypass/CABG, Ear Surgery, Tonsillectomy Additional Past Surgical History / Comment(s): Myringotomy tubes as a child, CABG 08/18/17-2 vessel, aortic valve replacement. Past Anesthesia/Blood Transfusion Reactions: Postoperative Nausea & Vomiting (PONV) Additional Past Anesthesia/Blood Transfusion Reaction / Comment(s): Never received a blood transfusion. Past Psychological History: Depression Smoking Status: Never smoker Past Alcohol Use History: None Reported Past Drug Use History: None Reported - Past Family History Father Family Medical History: Unable to Obtain Additional Family Medical History / Comment(s): PT WAS ADOPTED Mother Family Medical History: Unable to Obtain Additional Family Medical History / Comment(s): PT WAS ADOPTED General Exam - General Exam Comments Initial Comments: Visual Physical Exam Vital signs reviewed General: Well-appearing, nontoxic, no acute distress. Head: Normocephalic, atraumatic Eyes: PERRLA, EOMI ENT: Airway patent Chest: Nonlabored breathing Skin: No visual rash, normal skin tone Neuro: Alert and oriented 3 Musculoskeletal: No gross abnormalities Limitations: no limitations ENT exam: Present: normal exam, mucous membranes moist Neck exam: Present: normal inspection. Absent: tenderness, meningismus, lymphadenopathy Respiratory exam: Present: normal lung sounds bilaterally. Absent: respiratory distress, wheezes, rales, rhonchi, stridor Cardiovascular Exam: Present: regular rate, normal rhythm, normal heart sounds. Absent: systolic murmur, diastolic murmur, rubs, gallop, clicks GI/Abdominal exam: Present: soft, normal bowel sounds. Absent: distended, tenderness, guarding, rebound, rigid Extremities exam: Present: normal inspection, full ROM, normal capillary refill. Absent: tenderness, pedal edema, joint swelling, calf tenderness Back exam: Present: normal inspection Skin exam: Present: other (right sided chest port cath with overlying erythema) Course Vital Signs 12/12/24 12/12/24 12/12/24 13:02 15:57 18:56 Temperature 98.3 F 98.7 F 98.1 F Pulse Rate 75 72 72 Respiratory 18 18 18 Rate Blood Pressure 125/85 136/80 128/72 O2 Sat by Pulse 100 97 97 Oximetry 12/13/24 00:44 Temperature 98.7 F Pulse Rate 86 Respiratory 19 Rate Blood Pressure 174/85 O2 Sat by Pulse 99 Oximetry Medical Decision Making - Medical Decision Making Was pt. sent in by a medical professional or institution (LETICIA Torres, CMM INSPECTOR, urgent care, hospital, or long term...) When possible be specific @ -Patient was advised by branch manager trainee respiratory department for further evaluation Did you speak to anyone other than the patient for history (EMS, parent, family, police, friend...)? What history was obtained from this source @ -No Did you review nursing and triage notes (agree or disagree)? Why? @ -I reviewed and agree with nursing and triage notes Were old charts reviewed (outside hosp., previous admission, EMS record, old EKG, old radiological studies, urgent care reports/EKG's, long term records)? Report findings @ -No old charts were reviewed Differential Diagnosis (chest pain, altered mental status, abdominal pain women, abdominal pain men, vaginal bleeding, weakness, fever, dyspnea, syncope, headache, dizziness, GI bleed, back pain, seizure, CVA, palpatations, mental health, musculoskeletal)? @ -Cellulitis, bacteremia, sepsis, this list is not all inclusive EKG interpreted by me (3pts min.). @ -None X-rays interpreted by me (1pt min.). @ -None done CT interpreted by me (1pt min.). @ -None done U/S interpreted by me (1pt. min.). @ -None done What testing was considered but not performed or refused? (CT, X-rays, U/S, labs)? Why? @ -None What meds were considered but not given or refused? Why? @ -None Did you discuss the management of the patient with other professionals (dieter rebolledo i.e. , PA, CMM INSPECTOR, lab, RT, psych nurse, social work job titles, paper twister tender, teacher, correctional officer, family service caseworker)? Give summary @ -i spoke with patient's PCP, dr. Frankel, who has agreed to admission and ini tiating broad spectrum antibiotics Was smoking cessation discussed for >3mins.? @ -No Was critical care preformed (if so, how long)? @ -No Were there social determinants of health that impacted care today? How? (Homelessness, low income, unemployed, alcoholism, drug addiction, transportation, low edu. Level, literacy, decrease access to med. care, alf, rehab)? @ -No Was there de-escalation of care discussed even if they declined (Discuss DNR or withdrawal of care, Hospice)? DNR status @ -No What co-morbidities impacted this encounter? (DM, HTN, Smoking, COPD, CAD, Cancer, CVA, ARF, Chemo, Hep., AIDS, mental health diagnosis, sleep apnea, morbid obesity)? @ -None Was patient admitted / discharged? Hospital course, mention meds given and route, prescriptions, significant lab abnormalities, going to OR and other pertinent info. @ -Admitted. 39-year-old male presenting with positive blood cultures with concern for hemodialysis access site infection. There is noted erythema and edema around patient's port catheter. Vitals are stable. And is noted to have an elevated creatinine of 8.21 and BUN of 44 which appears baseline secondary to patient's end-stage renal disease. Patient started on IV vancomycin after blood cultures have been obtained. Discussed with Dr. Richard Undiagnosed new problem with uncertain prognosis? @ -No Drug Therapy requiring intensive monitoring for toxicity (Heparin, Nitro, Insulin, Cardizem)? @ -No Were any procedures done? @ -No Diagnosis/symptom? @ -Hemodialysis catheter infection Acute, or Chronic, or Acute on Chronic? @ -Acute Uncomplicated (without systemic symptoms) or Complicated (systemic symptoms)? @ -Complicated Side effects of treatment? @ -No Exacerbation, Progression, or Severe Exacerbation? @ -No Poses a threat to life or bodily function? How? (Chest pain, [place], [place], pneumonia, PE, COPD, DKA, ARF, appy, cholecystitis, CVA, Diverticulitis, Homicidal, Suicidal, threat to staff... and all critical care pts) @ -Yes - Lab Data Result diagrams: 12/13/24 02:50 12/13/24 02:50 Lab Results 12/12/24 12/12/24 12/12/24 Range/Units 14:04 14:04 14:04 WBC 9.2 (3.8-10.6) k/uL RBC 3.64 L (4.30-5.90) m/uL Hgb 10.6 L (13.0-17.5) gm/dL Hct 31.2 L (39.0-53.0) % MCV 85.8 (80.0-100.0) fL MCH 29.2 (25.0-35.0) pg MCHC 34.0 (31.0-37.0) g/dL RDW 15.0 (11.5-15.5) % Plt Count 268 (150-450) k/uL MPV 7.4 Neutrophils % 60 % Lymphocytes % 15 % Monocytes % 4 % Eosinophils % 19 % Basophils % 1 % Neutrophils # 5.5 (1.3-7.7) k/uL Lymphocytes # 1.4 (1.0-4.8) k/uL Monocytes # 0.4 (0-1.0) k/uL Eosinophils # 1.7 H (0-0.7) k/uL Basophils # 0.1 (0-0.2) k/uL Sodium 135 L (137-145) mmol/L Potassium 4.2 (3.5-5.1) mmol/L Chloride 101 (98-107) mmol/L Carbon Dioxide 26 (22-30) mmol/L Anion Gap 8 mmol/L BUN 44 H (9-20) mg/dL Creatinine 8.21 H* (0.66-1.25) mg/dL Est GFR (CKD-EPI)AfAm 9 (>60 ml/min/1.73 sqM) Est GFR (CKD-EPI)NonAf 7 (>60 ml/min/1.73 sqM) Glucose 184 H (74-99) mg/dL Plasma Lactic Acid Pablo 0.7 (0.7-2.0) mmol/L Calcium 9.3 (8.4-10.2) mg/dL Phosphorus 5.9 H (2.5-4.5) mg/dL Magnesium 2.6 H (1.6-2.3) mg/dL Total Bilirubin 0.6 (0.2-1.3) mg/dL AST 22 (17-59) U/L ALT 16 (4-49) U/L Alkaline Phosphatase 42 (38-126) U/L C-Reactive Protein 0.5 (<1.0) mg/dL Total Protein 6.4 (6.3-8.2) g/dL Albumin 3.6 (3.5-5.0) g/dL Disposition Clinical Impression: Bacteremia, Infection of exit site of hemodialysis catheter Disposition: ADMITTED IP TO THIS [facility] Condition: Serious Decision to Admit Reason: Admit from EC Decision Date: 12/12/24 Decision Time: 15:43
[2024-12-12 14:14] LABS: Basophils # (A) 0.1 k/uL (0-0.2); Basophils % (A) 1 %; Eosinophils # (A) 1.7 k/uL (0-0.7); Eosinophils % (A) 19 %; HCT 31.2 % (39.0-53.0); HGB 10.6 gm/dL (13.0-17.5); Lymphocytes # (A) 1.4 k/uL (1.0-4.8); Lymphocytes % (A) 15 %; MCH 29.2 pg (25.0-35.0); MCV 85.8 fL (80.0-100.0); Mean Platelet Volume 7.4; Monocytes # (A) 0.4 k/uL (0-1.0); Monocytes % (A) 4 %; Neutrophils # (A) 5.5 k/uL (1.3-7.7); Neutrophils % (A) 60 %; Platelet Count 268 k/uL (150-450); RBC 3.64 m/uL (4.30-5.90); WBC 9.2 k/uL (3.8-10.6)
[2024-12-12] MEDS ORDERED: VANCOMYCIN IV PER PHARMACY 1 EACH MISC MISCELLANE PRN (14:46)
[2024-12-12 15:08] LABS: ALT 16 U/L (4-49); AST 22 U/L (17-59); African American GFR (CKD) 9 (>60 ml/min/1.73 sqM); Albumin 3.6 g/dL (3.5-5.0); Alkaline Phosphatase 42 U/L (38-126); Anion Gap 8 mmol/L; Blood Urea Nitrogen 44 mg/dL (9-20); C Reactive Protein 0.5 mg/dL (<1.0); Calcium 9.3 mg/dL (8.4-10.2); Carbon Dioxide 26 mmol/L (22-30); Chloride 101 mmol/L (98-107); Glucose 184 mg/dL (74-99); Magnesium 2.6 mg/dL (1.6-2.3); Non-African American GFR(CKD) 7 (>60 ml/min/1.73 sqM); Phosphorus 5.9 mg/dL (2.5-4.5); Potassium 4.2 mmol/L (3.5-5.1); Sodium 135 mmol/L (137-145); Total Bilirubin 0.6 mg/dL (0.2-1.3); Total Protein 6.4 g/dL (6.3-8.2)
[2024-12-12] MEDS ORDERED: NALOXONE 0.4 MG/ML 1 ML VIAL IV PRN (15:44)
[2024-12-12] MEDS ORDERED: ACETAMINOPHEN TAB 325 MG TAB PO PRN (15:44)
[2024-12-12] MEDS: VANCOMYCIN 1,500 MG in SODIUM CHLORIDE 0.9% 500 ML 500 ML IVPB STA (15:49)
[2024-12-13 01:09] LABS: Glucose,Whole Blood 272 mg/dL (70-110)
[2024-12-13] MEDS: glipiZIDE 10 MG TAB PO SCH (02:07)
[2024-12-13] MEDS: hydrALAZINE HCL 25 MG TAB PO SCH (02:07)
[2024-12-13] MEDS: METOPROLOL TARTRATE 25 MG TAB PO SCH (02:07)
[2024-12-13] MEDS: FERRIC CITRATE 210 MG PO SCH (04:41)
[2024-12-13 06:20] LABS: Glucose,Whole Blood 110 mg/dL (70-110)
[2024-12-13] MEDS: SEVELAMER 800 MG TAB PO SCH (06:58)
[2024-12-13] MEDS: allopurinoL 100 MG TAB PO SCH (07:53)
[2024-12-13] MEDS: amLODIPine 5 MG TAB PO SCH (07:53)
[2024-12-13] MEDS: TORSEMIDE 20 MG TAB PO SCH (07:53)
--- NOTE | 2024-12-13 08:57 | P.CONS ---
History of Present Illness - Reason for Consult Consult date: 12/12/24 Catheter infection Requesting physician: Lacey Frankel - Chief Complaint Drainage around the dialysis catheter x 1 day - History of Present Illness Patient is a 39-year-old male with a past medical history significant for coronary artery disease heart failure diabetes mellitus hypertension hyperlipidemia end-stage renal disease and the patient has been on dialysis through the right subclavian permacatheter since February 2024 patient has been sent from the dialysis center with the patient was noted to have some purulent drainage around his dialysis catheter which has been cultured did not receive any hemodialysis and the patient did have a started June on his bacteremia with a blood culture taken apparently for the patient has been sent to the hospital patient denies having any fever or any chills he is breathing comfortably patient denies having any chest pain or shortness of the cough no nausea vomiting no abdominal pain or any diarrhea on presentation to the hospital patient was afebrile no fever have been called subsequently patient was not tachycardic hypotensive or hypoxic he did have white count of 9.2 creatinine 0.21 liver isms are normal blood culture have returned which are currently pending Review of Systems Positive point and negatives has been mentioned in the HPI, complete review of systems was performed and all other systems are negative Past Medical History Past Medical History: Coronary Artery Disease (CAD), Heart Failure, Diabetes Mellitus, Hyperlipidemia, Hypertension, Renal Disease Additional Past Medical History / Comment(s): Hx systolic heart failure. Severe aortic insufficiency. Hemodialysis TUTHSA. Problems with left leg, uses cane. History of Any Multi-Drug Resistant Organisms: None Reported Past Surgical History: Coronary Bypass/CABG, Ear Surgery, Tonsillectomy Additional Past Surgical History / Comment(s): Myringotomy tubes as a child, CABG 08/18/17-2 vessel, aortic valve replacement. Past Anesthesia/Blood Transfusion Reactions: Postoperative Nausea & Vomiting (PONV) Additional Past Anesthesia/Blood Transfusion Reaction / Comm: Never received a blood transfusion. Past Psychological History: Depression Smoking Status: Never smoker Past Alcohol Use History: None Reported Past Drug Use History: None Reported - Past Family History Father Family Medical History: Unable to Obtain Additional Family Medical History / Comment(s): PT WAS ADOPTED Mother Family Medical History: Unable to Obtain Additional Family Medical History / Comment(s): PT WAS ADOPTED Medications and Allergies Home Medications Medication Instructions Recorded Confirmed Type allopurinoL [Zyloprim] 200 mg PO DAILY 10/29/18 12/12/24 History Metoprolol Tartrate [Lopressor] 25 mg PO BID 03/20/24 12/12/24 History Rosuvastatin [Crestor] 20 mg PO HS 03/20/24 12/12/24 History Sevelamer [Renvela] 1,600 mg PO TID-W/MEALS 03/20/24 12/12/24 History calcitrioL 0.5 mcg PO TUTHSA 03/20/24 12/12/24 History glipiZIDE [Glucotrol] 10 mg PO AC-TID 03/20/24 12/12/24 History Torsemide [Demadex] 40 mg PO DAILY 30 Days #60 tab 03/26/24 12/12/24 Rx amLODIPine [Norvasc] 5 mg PO BID 30 Days #60 tab 03/26/24 12/12/24 Rx hydrALAZINE HCL [Apresoline] 50 mg PO TID 30 Days #90 tab 03/26/24 12/12/24 Rx Warfarin [Coumadin] 4 mg PO HS 05/22/24 12/12/24 History Ferric Citrate [Auryxia] 210 mg PO DIRECTED 12/12/24 12/12/24 History Folic Acid/Vit B Complex and C 0.8 mg PO DAILY 12/12/24 12/12/24 History [Shruti-Gianfranco Tablet] Allergies Allergy/AdvReac Type Severity Reaction Status Date / Time NSAIDS (Non-Steroidal Allergy Unknown Verified 12/12/24 15:50 Anti-Inflamma Physical Exam Vitals: Vital Signs Temp Pulse Resp BP Pulse Ox 12/12/24 15:57 98.7 F 72 18 136/80 97 12/12/24 13:02 98.3 F 75 18 125/85 100 Intake and Output 12/12/24 12/12/24 12/12/24 06:59 14:59 22:59 Other: Weight 98.883 kg GENERAL DESCRIPTION: Middle-aged male lying in bed, no distress. No tachypnea or accessory muscle of respiration use. HEENT: Shows Pallor , no scleral icterus. Oral mucous membrane is dry. No pharyngeal erythema or thrush NECK: Trachea central, no thyromegaly. LUNGS: Unlabored breathing. Clear to auscultation anteriorly. No wheeze or crackle. HEART: S1, S2, regular rate and rhythm. No loud murmur ABDOMEN: Soft, no tenderness , guarding or rigidity, no organomegaly EXTREMITIES: No edema of feet. SKIN: Minimal swelling redness noticed around the dialysis catheter no drainage NEUROLOGICAL: The patient is awake, alert, oriented x3, mood and affect normal. Results CBC & Chem 7: 12/12/24 14:04 12/12/24 14:04 Labs: Abnormal Lab Results - Last 24 Hours (Table) 12/12/24 12/12/24 Range/Units 14:04 14:04 RBC 3.64 L (4.30-5.90) m/uL Hgb 10.6 L (13.0-17.5) gm/dL Hct 31.2 L (39.0-53.0) % Eosinophils # 1.7 H (0-0.7) k/uL Sodium 135 L (137-145) mmol/L BUN 44 H (9-20) mg/dL Creatinine 8.21 H* (0.66-1.25) mg/dL Glucose 184 H (74-99) mg/dL Phosphorus 5.9 H (2.5-4.5) mg/dL Magnesium 2.6 H (1.6-2.3) mg/dL Assessment and Plan (1) Bacteremia Current Visit: Yes Status: Acute Code(s): R78.81 - BACTEREMIA SNOMED Code(s): 1869115 (2) Infection of exit site of hemodialysis catheter Current Visit: Yes Status: Acute Code(s): T82.7XXA - INFECT/INFLM REACT D/T OTH CARDI/VASC DEV/IMPLNT/GRFT, INIT SNOMED Code(s): 416491493 Plan: 1patient presented to hospital with purulent drainage from his dialysis catheter site and apparently the patient also have a positive blood culture with Staph aureus however those culture were done in the outpatient setting and we do not have an access to it concerning for dialysis catheter infection 2-await vascular surgery valuation for removal of the dialysis catheter and send the tip for the culture 3-blood culture have been obtained to document clearance of his bacteremia before placement of a new catheter 4-vancomycin pharmacy to dose target trough of 15 while watching kidney function and Vanco trough closely We will follow on clinical condition and cultures to further adjust medication if needed Thank you for this consultation we will follow the patient along with you Dictation was produced using [employer] dictation software. please excuse any grammatical, word or spelling errors. Time with Patient: Greater than 30
[2024-12-13 09:02] LABS: ALT 14 U/L (10-49); AST 18 U/L (14-35); Albumin 3.7 g/dL (3.8-4.9); Albumin/Globulin Ratio 1.61 Ratio (1.60-3.17); Alkaline Phosphatase 44 U/L (41-126); BUN/Creat Ratio 5.56 Ratio (12.00-20.00); Blood Urea Nitrogen 46.7 mg/dL (9.0-27.0); Carbon Dioxide 21.7 mmol/L (21.6-31.8); Chloride 104 mmol/L (96-109); Globulin 2.3 g/dL (1.6-3.3); Glucose 205 mg/dL (70-110); Potassium 4.1 mmol/L (3.5-5.5); Sodium 139 mmol/L (135-145); Total Bilirubin 0.5 mg/dL (0.3-1.2)
[2024-12-13 09:44] LABS: INR 2.04 sec (0.93-1.11); Prothrombin Time 22.1 sec (9.9-11.9)
[2024-12-13] MEDS: FOLIC ACID-VIT B COMPLEX-VIT C 1 CAP PO SCH (10:11)
[2024-12-13 10:19] LABS: Basophils # (A) 0.13 X 10*3/uL (0.00-0.10); Basophils % (A) 1.5 %; Eosinophils # (A) 1.63 X 10*3/uL (0.04-0.35); Eosinophils % (A) 18.6 %; HCT 31.6 % (39.6-50.0); HGB 10.5 g/dL (13.0-17.0); Lymphocytes # (A) 1.35 X 10*3/uL (0.90-5.00); Lymphocytes % (A) 15.4 %; MCH 28.9 pg (27.0-32.0); MCHC 33.2 g/dL (32.0-37.0); MCV 87.1 FL (80.0-97.0); Mean Platelet Volume 9.2 FL (9.5-12.2); Monocytes # (A) 0.51 X 10*3/uL (0.20-1.00); Monocytes % (A) 5.8 %; NRBC Per 100 WBC 0 X 10*3/uL (0.00-0.01); Neutrophils # (A) 5.12 X 10*3/uL (1.80-7.70); Neutrophils % (A) 58.4 %; Platelet Count 254 X 10*3/uL (140-440); RBC 3.63 X 10*6/uL (4.40-5.60); WBC 8.77 X 10*3/uL (4.50-10.00)
--- NOTE | 2024-12-13 10:42 | P.NPCON ---
History of Present Illness - Reason for Consult end stage renal disease - History of Present Illness Reason for consultation: End-stage renal disease History of present illness: Patient is a 39-year-old male seen in renal consultation for end-stage renal disease. He is maintained on hemodialysis on Monday schedule. Last dialysis was on Monday. Patient states he was noted to have p urulent drainage from his dialysis access for which she received antibiotics and cultures were drawn. when he went to dialysis the site looked worse and he was sent to the hospital. Patient's blood cultures were also positive for gram-positive which were done at another facility. Patient has history of diabetes. Also has history of aortic valve replacement from 2017. He does make urine. Denies chest pain or shortness of breath. No fever or chills. Vital signs are stable. General: No acute distress. HEENT: Head exam is unremarkable. LUNGS: No audible rhonchi or wheezes. HEART: Rate and Rhythm are regular. ABDOMEN: Nontender. EXTREMITITES: No edema. No drainage noted from permacath. Past Medical History Past Medical History: Coronary Artery Disease (CAD), Heart Failure, Diabetes Mellitus, Hyperlipidemia, Hypertension, Renal Disease Additional Past Medical History / Comment(s): Hx systolic heart failure. Severe aortic insufficiency. Hemodialysis [facility]. Problems with left leg, uses cane. History of Any Multi-Drug Resistant Organisms: None Reported Past Surgical History: Coronary Bypass/CABG, Ear Surgery, Tonsillectomy Additional Past Surgical History / Comment(s): Myringotomy tubes as a child, CABG 08/18/17-2 vessel, aortic valve replacement. Past Anesthesia/Blood Transfusion Reactions: Postoperative Nausea & Vomiting (PONV) Additional Past Anesthesia/Blood Transfusion Reaction / Comment(s): Never received a blood transfusion. Past Psychological History: Depression Smoking Status: Never smoker Past Alcohol Use History: None Reported Past Drug Use History: None Reported - Past Family History Father Family Medical History: Unable to Obtain Additional Family Medical History / Comment(s): PT WAS ADOPTED Mother Family Medical History: Unable to Obtain Additional Family Medical History / Comment(s): PT WAS ADOPTED Medications and Allergies Home Medications Medication Instructions Recorded Confirmed Type allopurinoL [Zyloprim] 200 mg PO DAILY 10/29/18 12/12/24 History Metoprolol Tartrate [Lopressor] 25 mg PO BID 03/20/24 12/12/24 History Rosuvastatin [Crestor] 20 mg PO HS 03/20/24 12/12/24 History Sevelamer [Renvela] 1,600 mg PO TID-W/MEALS 03/20/24 12/12/24 History calcitrioL 0.5 mcg PO TUTHSA 03/20/24 12/12/24 History glipiZIDE [Glucotrol] 10 mg PO AC-TID 03/20/24 12/12/24 History Torsemide [Demadex] 40 mg PO DAILY 30 Days #60 tab 03/26/24 12/12/24 Rx amLODIPine [Norvasc] 5 mg PO BID 30 Days #60 tab 03/26/24 12/12/24 Rx hydrALAZINE HCL [Apresoline] 50 mg PO TID 30 Days #90 tab 03/26/24 12/12/24 Rx Warfarin [Coumadin] 4 mg PO HS 05/22/24 12/12/24 History Ferric Citrate [Auryxia] 210 mg PO DIRECTED 12/12/24 12/12/24 History Folic Acid/Vit B Complex and C 0.8 mg PO DAILY 12/12/24 12/12/24 History [Shruti-Gianfranco Tablet] Allergies Allergy/AdvReac Type Severity Reaction Status Date / Time NSAIDS (Non-Steroidal Allergy Unknown Verified 12/12/24 15:50 Anti-Inflamma Physical Exam Vitals: Vital Signs Temp Pulse Pulse Resp BP BP Pulse Ox 12/13/24 07:05 97.7 F 74 16 146/90 99 12/13/24 01:08 98.2 F 87 18 165/100 95 12/13/24 00:44 98.7 F 86 19 174/85 99 12/12/24 18:56 98.1 F 72 18 128/72 97 12/12/24 15:57 98.7 F 72 18 136/80 97 12/12/24 13:02 98.3 F 75 18 125/85 100 Intake and Output 12/12/24 12/13/24 12/13/24 22:59 06:59 14:59 Intake Total 1080 Balance 1080 Intake: Oral 1080 Other: # Voids 4 Weight 98.883 kg Results - Lab Results Most recent lab results Calcium 9.0 mg/dL (8.7-10.3) 12/13/24 02:50 Phosphorus 5.9 mg/dL (2.5-4.5) H 12/12/24 14:04 Magnesium 2.6 mg/dL (1.6-2.3) H 12/12/24 14:04 12/13/24 02:50 12/13/24 02:50 Assessment and Plan Plan: Assessment: 1. End-stage renal disease maintained on hemodialysis on Monday schedule via permacath. 2. Infected permacath with positive blood cultures. Infectious disease following. On IV antibiotics. 3. Hypertension with chronic kidney disease. 4. Chronic kidney disease mineral bone disease maintained on calcitriol and Renvela. 5. History of aortic valve replacement. 6. Diabetes mellitus. Plan: Hemodialysis today. Discontinue permacath and send tip for culture after dialysis today. Monitor blood cultures. Maintain torsemide. Thank you for the consultation. I will continue to follow the patient with you during his hospital stay.
--- NOTE | 2024-12-13 10:54 | P.HPIM ---
History of Present Illness H&P Date: 12/12/24 Mat Khoury, is a 39-year-old male who presented to [facility] emergency room with a chief complaint of concerns for infection in his dialysis port. Patient has a history of end-stage renal disease and receives dialysis Monday patient apparently went for hemodialysis and was noted to have significant edema and erythema to catheter site. Patient was sent to ER for further evaluation. Patient apparently had outpatient blood culture positive for gram-positive cocci with growth of Staph aureus He was evaluated in the emergency room vital examination on presentation revealed temp 98.3, heart rate 75, respiratory rate 18, blood pressure 125/85 with a pulse ox of 100% on room air Laboratory data reveals white blood cell 9.2, creatinine 8.21 bun 44 lactic acid 0.7 Patient was admitted to medical floor for further evaluation and treatment. At this time patient was started on IV antibiotic vancomycin. Vascular and infectious disease and nephrology services consulted Past medical history is significant for coronary artery disease, heart failure, diabetes mellitus, hyperlipidemia, hypertension, systolic congestive heart failure and previous coronary artery bypass graft surgery On review of systems patient is alert and oriented x 3. Patient denies any chest pain or shortness of breath. Patient denies nausea vomiting or diarrhea. Patient denies any urinary burning or frequency Review of Systems Please refer to HPI otherwise unremarkable Past Medical History Past Medical History: Coronary Artery Disease (CAD), Heart Failure, Diabetes Mellitus, Hyperlipidemia, Hypertension, Renal Disease Additional Past Medical History / Comment(s): Hx systolic heart failure. Severe aortic insufficiency. Hemodialysis [facility]. Problems with left leg, uses cane. History of Any Multi-Drug Resistant Organisms: None Reported Past Surgical History: Coronary Bypass/CABG, Ear Surgery, Tonsillectomy Additional Past Surgical History / Comment(s): Myringotomy tubes as a child, CABG 08/18/17-2 vessel, aortic valve replacement. Past Anesthesia/Blood Transfusion Reactions: Postoperative Nausea & Vomiting (PONV) Additional Past Anesthesia/Blood Transfusion Reaction / Comment(s): Never received a blood transfusion. Past Psychological History: Depression Smoking Status: Never smoker Past Alcohol Use History: None Reported Past Drug Use History: None Reported - Past Family History Father Family Medical History: Unable to Obtain Additional Family Medical History / Comment(s): PT WAS ADOPTED Mother Family Medical History: Unable to Obtain Additional Family Medical History / Comment(s): PT WAS ADOPTED Medications and Allergies Home Medications Medication Instructions Recorded Confirmed Type allopurinoL [Zyloprim] 200 mg PO DAILY 10/29/18 12/12/24 History Metoprolol Tartrate [Lopressor] 25 mg PO BID 03/20/24 12/12/24 History Rosuvastatin [Crestor] 20 mg PO HS 03/20/24 12/12/24 History Sevelamer [Renvela] 1,600 mg PO TID-W/MEALS 03/20/24 12/12/24 History calcitrioL 0.5 mcg PO TUTHSA 03/20/24 12/12/24 History glipiZIDE [Glucotrol] 10 mg PO AC-TID 03/20/24 12/12/24 History Torsemide [Demadex] 40 mg PO DAILY 30 Days #60 tab 03/26/24 12/12/24 Rx amLODIPine [Norvasc] 5 mg PO BID 30 Days #60 tab 03/26/24 12/12/24 Rx hydrALAZINE HCL [Apresoline] 50 mg PO TID 30 Days #90 tab 03/26/24 12/12/24 Rx Warfarin [Coumadin] 4 mg PO HS 05/22/24 12/12/24 History Ferric Citrate [Auryxia] 210 mg PO DIRECTED 12/12/24 12/12/24 History Folic Acid/Vit B Complex and C 0.8 mg PO DAILY 12/12/24 12/12/24 History [Shruti-Gianfranco Tablet] Allergies Allergy/AdvReac Type Severity Reaction Status Date / Time NSAIDS (Non-Steroidal Allergy Unknown Verified 12/12/24 15:50 Anti-Inflamma Physical Exam Vitals: Vital Signs Temp Pulse Resp BP Pulse Ox 12/12/24 13:02 98.3 F 75 18 125/85 100 Intake and Output 12/12/24 12/12/24 12/12/24 06:59 14:59 22:59 Other: Weight 98.883 kg In general patient is alert and oriented -3 in no distress HEENT head normocephalic and atraumatic Neck is supple no JVD no goiter no lymphadenopathy no carotid bruit Chest examination is clear to auscultation no crackles no wheezing Cardiac exam reveals regular heart sounds S1 and S2 no gallops no murmurs Abdomen is soft nontender no organomegaly with normal bowel sounds Extremity exam reveals no edema no cyanosis or clubbing Neurological examination reveals no gross focal deficits Results CBC & Chem 7: 12/13/24 02:50 12/13/24 02:50 Labs: Abnormal Lab Results - Last 24 Hours (Table) 12/12/24 12/12/24 Range/Units 14:04 14:04 RBC 3.64 L (4.30-5.90) m/uL Hgb 10.6 L (13.0-17.5) gm/dL Hct 31.2 L (39.0-53.0) % Eosinophils # 1.7 H (0-0.7) k/uL Sodium 135 L (137-145) mmol/L BUN 44 H (9-20) mg/dL Creatinine 8.21 H* (0.66-1.25) mg/dL Glucose 184 H (74-99) mg/dL Phosphorus 5.9 H (2.5-4.5) mg/dL Magnesium 2.6 H (1.6-2.3) mg/dL Assessment and Plan Assessment: 1. Concerns of possible infected permacath with positive blood cultures 2. History of end-stage renal disease maintained on hemodialysis Monday 3. History of chronic kidney disease 4. History of aortic valve replacement 5. History of diabetes mellitus DVT prophylaxis Coumadin. GI prophylaxis Pepcid Patient started on IV vancomycin. Repeat blood cultures ordered Vascular, nephrology and infectious disease services consulted Repeat labs ordered Time with Patient: Greater than 30 (Greater than 60% of the total time spent in counseling and coordination of care)
--- NOTE | 2024-12-13 10:55 | P.PN ---
Subjective Progress Note Date: 12/13/24 Mat Khoury, is a 39-year-old male who presented to [facility] emergency room with a chief complaint of concerns for infection in his dialysis port. Patient has a history of end-stage renal disease and receives dialysis Monday patient apparently went for hemodialysis and was noted to have significant edema and erythema to catheter site. Patient was sent to ER for further evaluation. Patient apparently had outpatient blood culture positive for gram-positive cocci with growth of Staph aureus He was evaluated in the emergency room vital examination on presentation revealed temp 98.3, heart rate 75, respiratory rate 18, blood pressure 125/85 with a pulse ox of 100% on room air Laboratory data reveals white blood cell 9.2, creatinine 8.21 bun 44 lactic acid 0.7 Patient was admitted to medical floor for further evaluation and treatment. At this time patient was started on IV antibiotic vancomycin. Vascular and infectious disease and nephrology services consulted Past medical history is significant for coronary artery disease, heart failure, diabetes mellitus, hyperlipidemia, hypertension, systolic congestive heart failure and previous coronary artery bypass graft surgery On review of systems patient is alert and oriented x 3. Patient denies any chest pain or shortness of breath. Patient denies nausea vomiting or diarrhea. Patient denies any urinary burning or frequency On 12/13/2024 patient is alert and oriented x 3. Patient denies any chest pain or shortness of breath. Patient denies nausea vomiting or diarrhea. Patient denies any urinary burning or frequency. Plans today for patient to get dialysis and then catheter removed and cultured. Patient remains on IV vancomycin. Current vital signs temp 98.2, heart rate 86, respiratory rate 18, blood pressure 128/72 with a pulse ox of 97% on room air Objective - Vital Signs Vital signs: Vital Signs Temp 97.7 F 12/13/24 07:05 Pulse 74 12/13/24 07:05 Resp 16 12/13/24 07:05 BP 146/90 12/13/24 07:05 Pulse Ox 99 12/13/24 07:05 FiO2 Intake & Output 12/12/24 12/13/24 12/13/24 18:59 06:59 18:59 Intake Total 1080 Balance 1080 Weight 98.883 kg 98.883 kg Intake: Oral 1080 Other: # Voids 4 - Exam In general patient is alert and oriented -3 in no distress HEENT head normocephalic and atraumatic Neck is supple no JVD no goiter no lymphadenopathy no carotid bruit Chest examination is clear to auscultation no crackles no wheezing Cardiac exam reveals regular heart sounds S1 and S2 no gallops no murmurs Abdomen is soft nontender no organomegaly with normal bowel sounds Extremity exam reveals no edema no cyanosis or clubbing Neurological examination reveals no gross focal deficits - Labs CBC & Chem 7: 12/13/24 02:50 12/13/24 02:50 Labs: Abnormal Lab Results - Last 24 Hours (Table) 12/12/24 12/12/24 12/13/24 Range/Units 14:04 14:04 01:08 RBC 3.64 L (4.30-5.90) m/uL Hgb 10.6 L (13.0-17.5) gm/dL Hct 31.2 L (39.0-53.0) % MPV (9.5-12.2) FL Eosinophils # 1.7 H (0-0.7) k/uL Basophils # (0.00-0.10) X 10*3/uL PT (9.9-11.9) sec INR (0.93-1.11) sec Sodium 135 L (137-145) mmol/L Anion Gap (4.00-12.00) mmol/L BUN 44 H (9-20) mg/dL Creatinine 8.21 H* (0.66-1.25) mg/dL Est GFR (CKD-EPI) (>=60) BUN/Creatinine Ratio (12.00-20.00) Ratio Glucose 184 H (74-99) mg/dL POC Glucose (mg/dL) 272 H (70-110) mg/dL Phosphorus 5.9 H (2.5-4.5) mg/dL Magnesium 2.6 H (1.6-2.3) mg/dL Total Protein (6.2-8.2) g/dL Albumin (3.8-4.9) g/dL 12/13/24 12/13/24 12/13/24 Range/Units 02:50 02:50 02:50 RBC 3.63 L (4.30-5.90) m/uL Hgb 10.5 L (13.0-17.5) gm/dL Hct 31.6 L (39.0-53.0) % MPV 9.2 L (9.5-12.2) FL Eosinophils # 1.63 H (0-0.7) k/uL Basophils # 0.13 H (0.00-0.10) X 10*3/uL PT 22.1 H (9.9-11.9) sec INR 2.04 H (0.93-1.11) sec Sodium (137-145) mmol/L Anion Gap 13.30 H (4.00-12.00) mmol/L BUN 46.7 H (9-20) mg/dL Creatinine 8.4 H (0.66-1.25) mg/dL Est GFR (CKD-EPI) 8 L (>=60) BUN/Creatinine Ratio 5.56 L (12.00-20.00) Ratio Glucose 205 H (74-99) mg/dL POC Glucose (mg/dL) (70-110) mg/dL Phosphorus (2.5-4.5) mg/dL Magnesium (1.6-2.3) mg/dL Total Protein 6.0 L (6.2-8.2) g/dL Albumin 3.7 L (3.8-4.9) g/dL Assessment and Plan Assessment: 1. Concerns of possible infected permacath with positive blood cultures 2. History of end-stage renal disease maintained on hemodialysis Monday 3. History of chronic kidney disease 4. History of aortic valve replacement 5. History of diabetes mellitus DVT prophylaxis Coumadin. GI prophylaxis Pepcid Patient started on IV vancomycin. Repeat blood cultures ordered Vascular, nephrology and infectious disease services consulted Repeat labs ordered
[2024-12-13 11:33] LABS: Glucose,Whole Blood 192 mg/dL (70-110)
[2024-12-13] MEDS: VANCOMYCIN 1,500 MG in SODIUM CHLORIDE 0.9% 500 ML 500 ML IVPB ONE (13:26)
[2024-12-13 16:41] LABS: Glucose,Whole Blood 219 mg/dL (70-110)
[2024-12-13] MEDS: WARFARIN 5 MG TAB PO ONE (17:51)
--- NOTE | 2024-12-13 20:29 | CONS ---
DATE OF CONSULTATION: 12/13/2024 HISTORY OF PRESENT ILLNESS: The patient came to the [facility]. The patient had a dialysis catheter placed in February. The patient was having dialysis since then. The patient noted some purulent drainage from the catheter site, was sent to the hospital. Blood culture was positive for gram-positive, and the patient on IV antibiotic under the care of Infectious Disease, consulted for removal of the dialysis catheter. The patient has history of aortic valve replacement in the past. The patient also has history of diabetes, chronic renal failure. PHYSICAL EXAMINATION: NECK: Supple. No bruit appreciated. The patient has a right IJ catheter. CHEST: Clear. HEART: First and second sounds present. ABDOMEN: Soft, nontender. VASCULAR: Femorals are 1+ bilaterally. PLAN: Removal of the dialysis catheter. Risks and complications discussed. MMODL / IJN: [id number] / MTDD
[2024-12-13 20:47] LABS: Glucose,Whole Blood 170 mg/dL (70-110)
--- NOTE | 2024-12-13 21:23 | PCN ---
PROCEDURE NOTE PREOPERATIVE DIAGNOSIS: Acute on chronic renal failure, infected dialysis catheter, right side. This patient has a right IJ catheter placed in the past. Blood culture positive. The patient was seen in his room. Right side of the chest and neck was prepped and drapes applied in a sterile manner. 1% lidocaine was infiltrated in the exit site of the catheter. Incision was made at the exit site of the catheter, went circumferentially around the cuff of the catheter. Catheter was removed. The tip of the catheter was sent for deep culture. Incision was closed with 3-0 nylon. Dressing applied. The patient tolerated the procedure well. MMODL / IJN: [id number] /
[2024-12-13] MEDS: ATORVASTATIN 40 MG TAB PO SCH (21:41)
[2024-12-14 00:18] LABS: Hepatitis B Surface Antigen Nonreactive (Nonreactive)
[2024-12-14 06:27] LABS: Glucose,Whole Blood 101 mg/dL (70-110)
[2024-12-14 06:37] LABS: INR 1.3 (<1.2); Prothrombin Time 14.1 sec (10.0-12.5)
[2024-12-14] MEDS: FAMOTIDINE 20 MG TAB PO SCH (08:26)
[2024-12-14 09:33] LABS: BUN/Creat Ratio 4.79 Ratio (12.00-20.00); Blood Urea Nitrogen 29.2 mg/dL (9.0-27.0); Chloride 102 mmol/L (96-109); Glucose 116 mg/dL (70-110); Potassium 3.7 mmol/L (3.5-5.5); Sodium 137 mmol/L (135-145)
[2024-12-14 09:34] LABS: ALT 14 U/L (10-49); AST 21 U/L (14-35); Albumin 3.6 g/dL (3.8-4.9); Alkaline Phosphatase 47 U/L (41-126); Calcium 8.7 mg/dL (8.7-10.3); Carbon Dioxide 22.3 mmol/L (21.6-31.8); Globulin 2.4 g/dL (1.6-3.3); Total Bilirubin 0.4 mg/dL (0.3-1.2)
[2024-12-14 09:52] LABS: HCT 30.8 % (39.6-50.0); HGB 10.4 g/dL (13.0-17.0); MCHC 33.8 g/dL (32.0-37.0); MCV 85.8 FL (80.0-97.0); NRBC Per 100 WBC 0 X 10*3/uL (0.00-0.01); Platelet Count 258 X 10*3/uL (140-440); RBC 3.59 X 10*6/uL (4.40-5.60); RDW 13.9 % (11.5-14.5)
[2024-12-14 09:53] LABS: Basophils # (A) 0.13 X 10*3/uL (0.00-0.10); Basophils % (A) 1.1 %; Eosinophils # (A) 1.85 X 10*3/uL (0.04-0.35); Eosinophils % (A) 16.2 %; Lymphocytes # (A) 1.77 X 10*3/uL (0.90-5.00); Lymphocytes % (A) 15.5 %; Monocytes # (A) 0.66 X 10*3/uL (0.20-1.00); Monocytes % (A) 5.8 %; Neutrophils # (A) 6.96 X 10*3/uL (1.80-7.70); Neutrophils % (A) 61.1 %
--- NOTE | 2024-12-14 10:32 | P.PN ---
Subjective Patient is seen in follow-up for end-stage renal disease. Maintained on hemodialysis on Monday schedule. Tolerated 2 L ultrafil tration yesterday. Dialysis catheter removed December 13, 2024. Vital signs are stable. General: No acute distress. HEENT: Head exam is unremarkable. LUNGS: No audible rhonchi or wheezes. HEART: Rate and Rhythm are regular. ABDOMEN: Nontender. EXTREMITITES: No edema. Objective - Vital Signs Vital signs: Vital Signs Temp 98.3 F 12/14/24 06:54 Pulse 70 12/14/24 06:54 Resp 16 12/14/24 06:54 BP 140/89 12/14/24 06:54 Pulse Ox 99 12/14/24 06:54 FiO2 Intake & Output 12/13/24 12/14/24 12/14/24 18:59 06:59 18:59 Intake Total 2400 Output Total 2400 Balance 0 Intake: Hemodialysis 2400 Output: Hemodialysis 400 Hemodialysis Net Amount 2000 Other: # Voids 2 1 - Labs CBC & Chem 7: 12/14/24 05:53 12/14/24 05:53 Labs: Abnormal Lab Results - Last 24 Hours (Table) 12/13/24 12/13/24 12/13/24 Range/Units 11:32 12:45 16:40 WBC (4.50-10.00) X 10*3/uL RBC (4.40-5.60) X 10*6/uL Hgb (13.0-17.0) g/dL Hct (39.6-50.0) % MPV (9.5-12.2) FL Eosinophils # (0.04-0.35) X 10*3/uL Basophils # (0.00-0.10) X 10*3/uL PT (10.0-12.5) sec INR (<1.2) Anion Gap (4.00-12.00) mmol/L BUN (9.0-27.0) mg/dL Creatinine (0.6-1.5) mg/dL Est GFR (CKD-EPI) (>=60) BUN/Creatinine Ratio (12.00-20.00) Ratio Glucose (70-110) mg/dL POC Glucose (mg/dL) 192 H 219 H (70-110) mg/dL Total Protein (6.2-8.2) g/dL Albumin (3.8-4.9) g/dL Albumin/Globulin Ratio (1.60-3.17) Ratio Hep Bs Antibody A (Negative) 12/13/24 12/14/24 12/14/24 Range/Units 20:46 05:53 05:53 WBC 11.40 H (4.50-10.00) X 10*3/uL RBC 3.59 L (4.40-5.60) X 10*6/uL Hgb 10.4 L (13.0-17.0) g/dL Hct 30.8 L (39.6-50.0) % MPV 9.0 L (9.5-12.2) FL Eosinophils # 1.85 H (0.04-0.35) X 10*3/uL Basophils # 0.13 H (0.00-0.10) X 10*3/uL PT (10.0-12.5) sec INR (<1.2) Anion Gap 12.70 H (4.00-12.00) mmol/L BUN 29.2 H (9.0-27.0) mg/dL Creatinine 6.1 H (0.6-1.5) mg/dL Est GFR (CKD-EPI) 11 L (>=60) BUN/Creatinine Ratio 4.79 L (12.00-20.00) Ratio Glucose 116 H (70-110) mg/dL POC Glucose (mg/dL) 170 H (70-110) mg/dL Total Protein 6.0 L (6.2-8.2) g/dL Albumin 3.6 L (3.8-4.9) g/dL Albumin/Globulin Ratio 1.50 L (1.60-3.17) Ratio Hep Bs Antibody (Negative) 12/14/24 Range/Units 05:53 WBC (4.50-10.00) X 10*3/uL RBC (4.40-5.60) X 10*6/uL Hgb (13.0-17.0) g/dL Hct (39.6-50.0) % MPV (9.5-12.2) FL Eosinophils # (0.04-0.35) X 10*3/uL Basophils # (0.00-0.10) X 10*3/uL PT 14.1 H (10.0-12.5) sec INR 1.3 H (<1.2) Anion Gap (4.00-12.00) mmol/L BUN (9.0-27.0) mg/dL Creatinine (0.6-1.5) mg/dL Est GFR (CKD-EPI) (>=60) BUN/Creatinine Ratio (12.00-20.00) Ratio Glucose (70-110) mg/dL POC Glucose (mg/dL) (70-110) mg/dL Total Protein (6.2-8.2) g/dL Albumin (3.8-4.9) g/dL Albumin/Globulin Ratio (1.60-3.17) Ratio Hep Bs Antibody (Negative) Microbiology - Last 24 Hours (Table) 12/12/24 13:22 Blood Culture - Preliminary Blood 12/12/24 14:58 Blood Culture - Preliminary Blood Assessment and Plan Plan: Assessment: 1. End-stage renal disease maintained on hemodialysis on Monday schedule via permacath. 2. Infected permacath with positive blood cultures. Infectious disease following. On IV antibiotics. 3. Hypertension with chronic kidney disease. 4. Chronic kidney disease mineral bone disease maintained on calcitriol and Renvela. 5. History of aortic valve replacement. 6. Diabetes mellitus. Plan: Permacath removed December 13, 2024. Await ID clearance for new catheter placement. Monitor blood cultures. Maintain torsemide. Continue to assess daily for need for renal replacement therapy. Monitor vancomycin levels. Dose to be adjusted for renal function.
[2024-12-14 11:28] LABS: Glucose,Whole Blood 221 mg/dL (70-110)
[2024-12-14] MEDS: LIDOCAINE 1% INJ 10MG/ML (20 ML MDV) SQ ONE (12:00)
--- NOTE | 2024-12-14 13:17 | P.PN ---
Subjective Progress Note Date: 12/14/24 Mat Khoury, is a 39-year-old male who presented to [facility] emergency room with a chief complaint of concerns for infection in his dialysis port. Patient has a history of end-stage renal disease and receives dialysis Monday patient apparently went for hemodialysis and was noted to have significant edema and erythema to catheter site. Patient was sent to ER for further evaluation. Patient apparently had outpatient blood culture positive for gram-positive cocci with growth of Staph aureus He was evaluated in the emergency room vital examination on presentation revealed temp 98.3, heart rate 75, respiratory rate 18, blood pressure 125/85 with a pulse ox of 100% on room air Laboratory data reveals white blood cell 9.2, creatinine 8.21 bun 44 lactic acid 0.7 Patient was admitted to medical floor for further evaluation and treatment. At this time patient was started on IV antibiotic vancomycin. Vascular and infectious disease and nephrology services consulted Past medical history is significant for coronary artery disease, heart failure, diabetes mellitus, hyperlipidemia, hypertension, systolic congestive heart failure and previous coronary artery bypass graft surgery On review of systems patient is alert and oriented x 3. Patient denies any chest pain or shortness of breath. Patient denies nausea vomiting or diarrhea. Patient denies any urinary burning or frequency On 12/13/2024 patient is alert and oriented x 3. Patient denies any chest pain or shortness of breath. Patient denies nausea vomiting or diarrhea. Patient denies any urinary burning or frequency. Plans today for patient to get dialysis and then catheter removed and cultured. Patient remains on IV vancomycin. Current vital signs temp 98.2, heart rate 86, respiratory rate 18, blood pressure 128/72 with a pulse ox of 97% on room air On 12/14/2024 patient was seen and examined on the medical floor he is alert and oriented x 3 in no apparent distress there is no fever or chills no headache or dizziness no chest pain no shortness of breath no cough no nausea or vomiting no abdominal pain no diarrhea no urinary symptoms. His dialysis catheter has been removed, awaiting further culture results Objective - Vital Signs Vital signs: Vital Signs Temp 98.3 F 12/14/24 06:54 Pulse 70 12/14/24 06:54 Resp 16 12/14/24 06:54 BP 140/89 01/18/25 06:54 Pulse Ox 99 12/14/24 06:54 FiO2 Intake & Output 12/13/24 12/14/24 12/14/24 18:59 06:59 18:59 Intake Total 2400 Output Total 2400 Balance 0 Intake: Hemodialysis 2400 Output: Hemodialysis 400 Hemodialysis Net Amount 2000 Other: # Voids 2 1 1 - Exam In general patient is alert and oriented -3 in no distress HEENT head normocephalic and atraumatic Neck is supple no JVD no goiter no lymphadenopathy no carotid bruit Chest examination is clear to auscultation no crackles no wheezing Cardiac exam reveals regular heart sounds S1 and S2 no gallops no murmurs Abdomen is soft nontender no organomegaly with normal bowel sounds Extremity exam reveals no edema no cyanosis or clubbing Neurological examination reveals no gross focal deficits - Labs CBC & Chem 7: 12/14/24 05:53 12/14/24 05:53 Labs: Abnormal Lab Results - Last 24 Hours (Table) 12/13/24 12/13/24 12/13/24 Range/Units 12:45 16:40 20:46 WBC (4.50-10.00) X 10*3/uL RBC (4.40-5.60) X 10*6/uL Hgb (13.0-17.0) g/dL Hct (39.6-50.0) % MPV (9.5-12.2) FL Eosinophils # (0.04-0.35) X 10*3/uL Basophils # (0.00-0.10) X 10*3/uL PT (10.0-12.5) sec INR (<1.2) Anion Gap (4.00-12.00) mmol/L BUN (9.0-27.0) mg/dL Creatinine (0.6-1.5) mg/dL Est GFR (CKD-EPI) (>=60) BUN/Creatinine Ratio (12.00-20.00) Ratio Glucose (70-110) mg/dL POC Glucose (mg/dL) 219 H 170 H (70-110) mg/dL Total Protein (6.2-8.2) g/dL Albumin (3.8-4.9) g/dL Albumin/Globulin Ratio (1.60-3.17) Ratio Hep Bs Antibody A (Negative) 12/14/24 12/14/24 12/14/24 Range/Units 05:53 05:53 05:53 WBC 11.40 H (4.50-10.00) X 10*3/uL RBC 3.59 L (4.40-5.60) X 10*6/uL Hgb 10.4 L (13.0-17.0) g/dL Hct 30.8 L (39.6-50.0) % MPV 9.0 L (9.5-12.2) FL Eosinophils # 1.85 H (0.04-0.35) X 10*3/uL Basophils # 0.13 H (0.00-0.10) X 10*3/uL PT 14.1 H (10.0-12.5) sec INR 1.3 H (<1.2) Anion Gap 12.70 H (4.00-12.00) mmol/L BUN 29.2 H (9.0-27.0) mg/dL Creatinine 6.1 H (0.6-1.5) mg/dL Est GFR (CKD-EPI) 11 L (>=60) BUN/Creatinine Ratio 4.79 L (12.00-20.00) Ratio Glucose 116 H (70-110) mg/dL POC Glucose (mg/dL) (70-110) mg/dL Total Protein 6.0 L (6.2-8.2) g/dL Albumin 3.6 L (3.8-4.9) g/dL Albumin/Globulin Ratio 1.50 L (1.60-3.17) Ratio Hep Bs Antibody (Negative) 12/14/24 Range/Units 11:27 WBC (4.50-10.00) X 10*3/uL RBC (4.40-5.60) X 10*6/uL Hgb (13.0-17.0) g/dL Hct (39.6-50.0) % MPV (9.5-12.2) FL Eosinophils # (0.04-0.35) X 10*3/uL Basophils # (0.00-0.10) X 10*3/uL PT (10.0-12.5) sec INR (<1.2) Anion Gap (4.00-12.00) mmol/L BUN (9.0-27.0) mg/dL Creatinine (0.6-1.5) mg/dL Est GFR (CKD-EPI) (>=60) BUN/Creatinine Ratio (12.00-20.00) Ratio Glucose (70-110) mg/dL POC Glucose (mg/dL) 221 H (70-110) mg/dL Total Protein (6.2-8.2) g/dL Albumin (3.8-4.9) g/dL Albumin/Globulin Ratio (1.60-3.17) Ratio Hep Bs Antibody (Negative) Microbiology - Last 24 Hours (Table) 12/12/24 13:22 Blood Culture - Preliminary Blood 12/12/24 14:58 Blood Culture - Preliminary Blood Assessment and Plan Assessment: 1. Concerns of possible infected permacath with positive blood cultures 2. History of end-stage renal disease maintained on hemodialysis Monday 3. History of chronic kidney disease 4. History of aortic valve replacement 5. History of diabetes mellitus DVT prophylaxis Coumadin. GI prophylaxis Pepcid Patient started on IV vancomycin. Repeat blood cultures ordered Vascular, nephrology and infectious disease services consulted Repeat labs ordered
--- NOTE | 2024-12-14 14:29 | P.PN ---
Subjective Progress Note Date: 12/13/24 Principal diagnosis: Reason for follow-up is dialysis catheter infection Patient is a 39-year-old male with a past medical history significant for coronary artery disease heart failure diabetes mellitus hypertension hyperlipidemia end-stage renal disease and the patient has been on dialysis through the right subclavian permacatheter since February 2024 presented to hospital with drainage from his dialysis catheter site and outpatient culture positive for Staph aureus. On today's evaluation that is 12/13/2024 patient has been afebrile patient is currently breathing comfortably denies any worsening pain or drainage to the right chest dialysis catheter site no nausea vomiting abdominal pain or any diarrhea Objective - Vital Signs Vital signs: Vital Signs Temp 97.7 F 12/13/24 12:45 Pulse 73 12/13/24 12:45 Resp 15 12/13/24 12:45 BP 153/94 12/13/24 12:45 Pulse Ox 99 12/13/24 12:45 FiO2 Intake & Output 12/12/24 12/13/24 12/13/24 18:59 06:59 18:59 Intake Total 1080 Balance 1080 Weight 98.883 kg 98.883 kg Intake: Oral 1080 Other: # Voids 4 - Exam GENERAL DESCRIPTION: Middle-age male lying in bed in no distress RESPIRATORY SYSTEM: Unlabored breathing , decreased breath sounds at bases HEART: S1 S2 regular rate and rhythm , ABDOMEN: Soft , no tenderness EXTREMITIES: No edema feet - Labs CBC & Chem 7: 12/14/24 05:53 12/14/24 05:53 Labs: Abnormal Lab Results - Last 24 Hours (Table) 12/13/24 12/13/24 12/13/24 Range/Units 01:08 02:50 02:50 RBC 3.63 L (4.40-5.60) X 10*6/uL Hgb 10.5 L (13.0-17.0) g/dL Hct 31.6 L (39.6-50.0) % MPV 9.2 L (9.5-12.2) FL Eosinophils # 1.63 H (0.04-0.35) X 10*3/uL Basophils # 0.13 H (0.00-0.10) X 10*3/uL PT (9.9-11.9) sec INR (0.93-1.11) sec Anion Gap 13.30 H (4.00-12.00) mmol/L BUN 46.7 H (9.0-27.0) mg/dL Creatinine 8.4 H (0.6-1.5) mg/dL Est GFR (CKD-EPI) 8 L (>=60) BUN/Creatinine Ratio 5.56 L (12.00-20.00) Ratio Glucose 205 H (70-110) mg/dL POC Glucose (mg/dL) 272 H (70-110) mg/dL Total Protein 6.0 L (6.2-8.2) g/dL Albumin 3.7 L (3.8-4.9) g/dL 12/13/24 12/13/24 Range/Units 02:50 11:32 RBC (4.40-5.60) X 10*6/uL Hgb (13.0-17.0) g/dL Hct (39.6-50.0) % MPV (9.5-12.2) FL Eosinophils # (0.04-0.35) X 10*3/uL Basophils # (0.00-0.10) X 10*3/uL PT 22.1 H (9.9-11.9) sec INR 2.04 H (0.93-1.11) sec Anion Gap (4.00-12.00) mmol/L BUN (9.0-27.0) mg/dL Creatinine (0.6-1.5) mg/dL Est GFR (CKD-EPI) (>=60) BUN/Creatinine Ratio (12.00-20.00) Ratio Glucose (70-110) mg/dL POC Glucose (mg/dL) 192 H (70-110) mg/dL Total Protein (6.2-8.2) g/dL Albumin (3.8-4.9) g/dL Assessment and Plan (1) Bacteremia Current Visit: Yes Status: Acute Code(s): R78.81 - BACTEREMIA SNOMED Code(s): 3294791 (2) Infection of exit site of hemodialysis catheter Current Visit: Yes Status: Acute Code(s): T82.7XXA - INFECT/INFLM REACT D/T OTH CARDI/VASC DEV/IMPLNT/GRFT, INIT SNOMED Code(s): 450991484 Plan: 1patient presented to hospital with purulent drainage from his dialysis catheter site and apparently the patient also have a positive blood culture with Staph aureus however those culture were done in the outpatient setting and we do not have an access to it concerning for dialysis catheter infection 2-await vascular surgery valuation for removal of the dialysis catheter and send the tip for the culture 3-blood culture have been repeated to document clearance of his bacteremia before placement of a new catheter 4-patient will be treated with vancomycin pharmacy to dose target trough of 15 and monitor clinical course closely Dictation was produced using [employer] dictation software. please excuse any grammatical, word or spelling errors. Time with Patient: Less than 30
--- NOTE | 2024-12-14 14:30 | P.PN ---
Subjective Progress Note Date: 12/14/24 Principal diagnosis: Reason for follow-up is dialysis catheter infection Patient is a 39-year-old male with a past medical history significant for coronary artery disease heart failure diabetes mellitus hypertension hyperlipidemia end-stage renal disease and the patient has been on dialysis through the right subclavian permacatheter since February 2024 presented to hospital with drainage from his dialysis catheter site and outpatient culture positive for Staph aureus. Patient is status post removal of the right chest wall dialysis catheter by vascular surgery on 12/13/2024. On today's evaluation that is 12/14/2024, patient did not have any fever and denies any chills, patient is breathing comfortably on room air, patient complaining of mild right sided chest pain after removal of the catheter but no cough patient did not have any abdominal pain nausea vomiting or any loose stools Patient white count is 11.40, creatinine 6.1 outpatient culture positive for Staph aureus sensitivities pending Objective - Vital Signs Vital signs: Vital Signs Temp 98.3 F 12/14/24 13:30 Pulse 71 12/14/24 13:30 Resp 16 12/14/24 13:30 BP 132/85 12/14/24 13:30 Pulse Ox 98 12/14/24 13:30 FiO2 Intake & Output 12/13/24 12/14/24 12/14/24 18:59 06:59 18:59 Intake Total 2400 Output Total 2400 Balance 0 Intake: Hemodialysis 2400 Output: Hemodialysis 400 Hemodialysis Net Amount 2000 Other: # Voids 2 1 1 # Bowel Movements 1 - Exam GENERAL DESCRIPTION: Middle-age male lying in bed in no distress RESPIRATORY SYSTEM: Unlabored breathing , decreased breath sounds at bases HEART: S1 S2 regular rate and rhythm , ABDOMEN: Soft , no tenderness EXTREMITIES: No edema feet - Labs CBC & Chem 7: 12/14/24 05:53 12/14/24 05:53 Labs: Abnormal Lab Results - Last 24 Hours (Table) 12/13/24 12/13/24 12/13/24 Range/Units 12:45 16:40 20:46 WBC (4.50-10.00) X 10*3/uL RBC (4.40-5.60) X 10*6/uL Hgb (13.0-17.0) g/dL Hct (39.6-50.0) % MPV (9.5-12.2) FL Eosinophils # (0.04-0.35) X 10*3/uL Basophils # (0.00-0.10) X 10*3/uL PT (10.0-12.5) sec INR (<1.2) Anion Gap (4.00-12.00) mmol/L BUN (9.0-27.0) mg/dL Creatinine (0.6-1.5) mg/dL Est GFR (CKD-EPI) (>=60) BUN/Creatinine Ratio (12.00-20.00) Ratio Glucose (70-110) mg/dL POC Glucose (mg/dL) 219 H 170 H (70-110) mg/dL Total Protein (6.2-8.2) g/dL Albumin (3.8-4.9) g/dL Albumin/Globulin Ratio (1.60-3.17) Ratio Hep Bs Antibody A (Negative) 12/14/24 12/14/24 12/14/24 Range/Units 05:53 05:53 05:53 WBC 11.40 H (4.50-10.00) X 10*3/uL RBC 3.59 L (4.40-5.60) X 10*6/uL Hgb 10.4 L (13.0-17.0) g/dL Hct 30.8 L (39.6-50.0) % MPV 9.0 L (9.5-12.2) FL Eosinophils # 1.85 H (0.04-0.35) X 10*3/uL Basophils # 0.13 H (0.00-0.10) X 10*3/uL PT 14.1 H (10.0-12.5) sec INR 1.3 H (<1.2) Anion Gap 12.70 H (4.00-12.00) mmol/L BUN 29.2 H (9.0-27.0) mg/dL Creatinine 6.1 H (0.6-1.5) mg/dL Est GFR (CKD-EPI) 11 L (>=60) BUN/Creatinine Ratio 4.79 L (12.00-20.00) Ratio Glucose 116 H (70-110) mg/dL POC Glucose (mg/dL) (70-110) mg/dL Total Protein 6.0 L (6.2-8.2) g/dL Albumin 3.6 L (3.8-4.9) g/dL Albumin/Globulin Ratio 1.50 L (1.60-3.17) Ratio Hep Bs Antibody (Negative) 12/14/24 Range/Units 11:27 WBC (4.50-10.00) X 10*3/uL RBC (4.40-5.60) X 10*6/uL Hgb (13.0-17.0) g/dL Hct (39.6-50.0) % MPV (9.5-12.2) FL Eosinophils # (0.04-0.35) X 10*3/uL Basophils # (0.00-0.10) X 10*3/uL PT (10.0-12.5) sec INR (<1.2) Anion Gap (4.00-12.00) mmol/L BUN (9.0-27.0) mg/dL Creatinine (0.6-1.5) mg/dL Est GFR (CKD-EPI) (>=60) BUN/Creatinine Ratio (12.00-20.00) Ratio Glucose (70-110) mg/dL POC Glucose (mg/dL) 221 H (70-110) mg/dL Total Protein (6.2-8.2) g/dL Albumin (3.8-4.9) g/dL Albumin/Globulin Ratio (1.60-3.17) Ratio Hep Bs Antibody (Negative) Microbiology - Last 24 Hours (Table) 12/12/24 13:22 Blood Culture - Preliminary Blood 12/12/24 14:58 Blood Culture - Preliminary Blood Assessment and Plan (1) Bacteremia Current Visit: Yes Status: Acute Code(s): R78.81 - BACTEREMIA SNOMED Code(s): 0363599 (2) Infection of exit site of hemodialysis catheter Current Visit: Yes Status: Acute Code(s): T82.7XXA - INFECT/INFLM REACT D/T OTH CARDI/VASC DEV/IMPLNT/GRFT, INIT SNOMED Code(s): 943472753 Plan: 1patient presented to hospital with purulent drainage from his dialysis catheter site and apparently the patient also have a positive blood culture with Staph aureus however those culture were done in the outpatient setting which did grow Staph aureus though final sensitivities pending 2-patient's status post removal of the dialysis catheter and send the tip for the culture results will be followed 3-blood culture have been repeated to document clearance of his bacteremia before placement of a new catheter 4-patient RN has been advised to call the outpatient micro lab to get the final on the blood culture for now continue with vancomycin pharmacy to dose target trough of 15 while waiting for the culture to finalize Dictation was produced using [employer] dictation software. please excuse any grammatical, word or spelling errors. Time with Patient: Less than 30
[2024-12-14 16:21] LABS: Glucose,Whole Blood 193 mg/dL (70-110)
[2024-12-14] MEDS: WARFARIN 3 MG TAB PO ONE (20:34)
[2024-12-14 21:18] LABS: Glucose,Whole Blood 144 mg/dL (70-110)
[2024-12-15 06:17] LABS: Glucose,Whole Blood 108 mg/dL (70-110)
[2024-12-15 06:25] LABS: African American GFR (CKD) 9 (>60 ml/min/1.73 sqM); Anion Gap 10 mmol/L; Blood Urea Nitrogen 45 mg/dL (9-20); Calcium 9.3 mg/dL (8.4-10.2); Carbon Dioxide 24 mmol/L (22-30); Chloride 103 mmol/L (98-107); Glucose 108 mg/dL (74-99); Magnesium 2.3 mg/dL (1.6-2.3); Non-African American GFR(CKD) 8 (>60 ml/min/1.73 sqM); Potassium 4.1 mmol/L (3.5-5.1); Sodium 137 mmol/L (137-145)
[2024-12-15 06:29] LABS: INR 1.1 (<1.2); Prothrombin Time 12.3 sec (10.0-12.5)
[2024-12-15 06:30] LABS: Vancomycin,Random 19.4 ug/mL
--- NOTE | 2024-12-15 11:18 | P.PN ---
Subjective Patient is seen in follow-up for end-stage renal disease. Maintained on hemodialysis on Monday schedule. Dialysis catheter removed December 13, 2024. Culture positive for Staph aureus. Resting in bed. No active complaints. Vital signs are stable. General: No acute distress. HEENT: Head exam is unremarkable. LUNGS: No audible rhonchi or wheezes. HEART: Rate and Rhythm are regular. ABDOMEN: Nontender. EXTREMITITES: No edema. Objective - Vital Signs Vital signs: Vital Signs Temp 97.7 F 12/15/24 06:52 Pulse 73 12/15/24 06:52 Resp 16 12/15/24 06:52 BP 150/91 12/15/24 06:52 Pulse Ox 99 12/15/24 06:52 FiO2 Intake & Output 12/14/24 12/15/24 12/15/24 18:59 06:59 18:59 Other: # Voids 5 1 # Bowel Movements 1 - Labs CBC & Chem 7: 12/14/24 05:53 12/15/24 05:45 Labs: Abnormal Lab Results - Last 24 Hours (Table) 12/14/24 12/14/24 12/14/24 Range/Units 11:27 16:20 21:05 BUN (9-20) mg/dL Creatinine (0.66-1.25) mg/dL Glucose (74-99) mg/dL POC Glucose (mg/dL) 221 H 193 H 144 H (70-110) mg/dL 12/15/24 Range/Units 05:45 BUN 45 H (9-20) mg/dL Creatinine 8.05 H* (0.66-1.25) mg/dL Glucose 108 H (74-99) mg/dL POC Glucose (mg/dL) (70-110) mg/dL Microbiology - Last 24 Hours (Table) 12/12/24 13:22 Blood Culture - Preliminary Blood 12/12/24 14:58 Blood Culture - Preliminary Blood 12/13/24 20:00 Catheter Tip Culture - Preliminary Catheter Tip Presumptive Staph aureus Assessment and Plan Plan: Assessment: 1. End-stage renal disease maintained on hemodialysis on Monday schedule via permacath. 2. Infected permacath with positive blood cultures. Infectious disease following. On IV antibiotics. Catheter tip culture positive for Staph aureus. 3. Hypertension with chronic kidney disease. 4. Chronic kidney disease mineral bone disease maintained on calcitriol and Renvela. 5. History of aortic valve replacement. 6. Diabetes mellitus. Plan: Permacath removed December 13, 2024. Await ID clearance for new catheter placement. Monitor blood cultures. Maintain torsemide. Continue to assess daily for need for renal replacement therapy. Monitor vancomycin levels. Dose to be adjusted for renal function.
[2024-12-15 11:24] LABS: Glucose,Whole Blood 183 mg/dL (70-110)
[2024-12-15] MEDS: VANCOMYCIN 1,500 MG in SODIUM CHLORIDE 0.9% 500 ML 500 ML IVPB ONE (13:49)
--- NOTE | 2024-12-15 15:12 | P.PN ---
Subjective Progress Note Date: 12/15/24 Principal diagnosis: Reason for follow-up is dialysis catheter infection Patient is a 39-year-old male with a past medical history significant for coronary artery disease heart failure diabetes mellitus hypertension hyperlipidemia end-stage renal disease and the patient has been on dialysis through the right subclavian permacatheter since February 2024 presented to hospital with drainage from his dialysis catheter site and outpatient culture positive for Staph aureus. Patient is status post removal of the right chest wall dialysis catheter by vascular surgery on 12/13/2024. On today's evaluation that is 12/15/2024, Patient is afebrile patient is currently on room air and denies having any shortness of breath, the patient denies any chest pain or cough, the patient denies any nausea vomiting did not have any abdominal pain and no diarrhea. Patient did have a creatinine of 8.05 no CBC was done today blood culture currently pending catheter with Staph aureus as for text Objective - Vital Signs Vital signs: Vital Signs Temp 97.7 F 12/15/24 06:52 Pulse 73 12/15/24 06:52 Resp 16 12/15/24 06:52 BP 150/91 12/15/24 06:52 Pulse Ox 99 12/15/24 06:52 FiO2 Intake & Output 12/14/24 12/15/24 12/15/24 18:59 06:59 18:59 Other: # Voids 5 1 # Bowel Movements 1 - Exam GENERAL DESCRIPTION: Middle-age male lying in bed in no distress RESPIRATORY SYSTEM: Unlabored breathing , decreased breath sounds at bases HEART: S1 S2 regular rate and rhythm , ABDOMEN: Soft , no tenderness EXTREMITIES: No edema feet - Labs CBC & Chem 7: 12/14/24 05:53 12/15/24 05:45 Labs: Abnormal Lab Results - Last 24 Hours (Table) 12/14/24 12/14/24 12/15/24 Range/Units 16:20 21:05 05:45 BUN 45 H (9-20) mg/dL Creatinine 8.05 H* (0.66-1.25) mg/dL Glucose 108 H (74-99) mg/dL POC Glucose (mg/dL) 193 H 144 H (70-110) mg/dL 12/15/24 Range/Units 11:22 BUN (9-20) mg/dL Creatinine (0.66-1.25) mg/dL Glucose (74-99) mg/dL POC Glucose (mg/dL) 183 H (70-110) mg/dL Microbiology - Last 24 Hours (Table) 12/12/24 13:22 Blood Culture - Preliminary Blood 12/12/24 14:58 Blood Culture - Preliminary Blood 12/13/24 20:00 Catheter Tip Culture - Preliminary Catheter Tip Presumptive Staph aureus Assessment and Plan (1) Bacteremia Current Visit: Yes Status: Acute Code(s): R78.81 - BACTEREMIA SNOMED Code(s): 0881960 (2) Infection of exit site of hemodialysis catheter Current Visit: Yes Status: Acute Code(s): T82.7XXA - INFECT/INFLM REACT D/T OTH CARDI/VASC DEV/IMPLNT/GRFT, INIT SNOMED Code(s): 530583556 Plan: 1patient presented to hospital with purulent drainage from his dialysis catheter site and apparently the patient also have a positive blood culture with Staph aureus however those culture were done in the outpatient setting which did grow Staph aureus though final sensitivities pending 2-patient's status post removal of the dialysis catheter and send the tip for the culture results will be followed 3-blood culture have been repeated to document clearance of his bacteremia before placement of a new catheter 4-patient catheter culture currently growing Staph aureus sensitivities pending outpatient blood culture sensitivity pending as well continue with vancomycin pharmacy to dose Dictation was produced using [employer] software. please excuse any grammatical, word or spelling errors. Time with Patient: Less than 30
[2024-12-15 16:36] LABS: Glucose,Whole Blood 156 mg/dL (70-110)
--- NOTE | 2024-12-15 18:06 | P.PN ---
Subjective Progress Note Date: 12/15/24 Mat Khoury, is a 39-year-old male who presented to [facility] emergency room with a chief complaint of concerns for infection in his dialysis port. Patient has a history of end-stage renal disease and receives dialysis Monday patient apparently went for hemodialysis and was noted to have significant edema and erythema to catheter site. Patient was sent to ER for further evaluation. Patient apparently had outpatient blood culture positive for gram-positive cocci with growth of Staph aureus He was evaluated in the emergency room vital examination on presentation revealed temp 98.3, heart rate 75, respiratory rate 18, blood pressure 125/85 with a pulse ox of 100% on room air Laboratory data reveals white blood cell 9.2, creatinine 8.21 bun 44 lactic acid 0.7 Patient was admitted to medical floor for further evaluation and treatment. At this time patient was started on IV antibiotic vancomycin. Vascular and infectious disease and nephrology services consulted Past medical history is significant for coronary artery disease, heart failure, diabetes mellitus, hyperlipidemia, hypertension, systolic congestive heart failure and previous coronary artery bypass graft surgery On review of systems patient is alert and oriented x 3. Patient denies any chest pain or shortness of breath. Patient denies nausea vomiting or diarrhea. Patient denies any urinary burning or frequency On 12/13/2024 patient is alert and oriented x 3. Patient denies any chest pain or shortness of breath. Patient denies nausea vomiting or diarrhea. Patient denies any urinary burning or frequency. Plans today for patient to get dialysis and then catheter removed and cultured. Patient remains on IV vancomycin. Current vital signs temp 98.2, heart rate 86, respiratory rate 18, blood pressure 128/72 with a pulse ox of 97% on room air On 12/14/2024 patient was seen and examined on the medical floor he is alert and oriented x 3 in no apparent distress there is no fever or chills no headache or dizziness no chest pain no shortness of breath no cough no nausea or vomiting no abdominal pain no diarrhea no urinary symptoms. His dialysis catheter has been removed, awaiting further culture results. On 12/15/2024 patient was seen and examined on the medical floor he is alert and oriented in no apparent distress, there is no fever or chills no headache or dizziness no chest pain no shortness of breath no cough no nausea or vomiting no abdominal pain no diarrhea and no urinary symptoms temperature is 97.7 pulse 73 respiration 16 blood pressure 150/91 pulse ox 99% on room air. Patient is receiving IV vancomycin, awaiting culture results Objective - Vital Signs Vital signs: Vital Signs Temp 97.7 F 12/15/24 06:52 Pulse 73 12/15/24 06:52 Resp 16 12/15/24 06:52 BP 150/91 12/15/24 06:52 Pulse Ox 99 12/15/24 06:52 FiO2 Intake & Output 12/14/24 12/15/24 12/15/24 18:59 06:59 18:59 Other: # Voids 5 1 # Bowel Movements 1 - Exam In general patient is alert and oriented -3 in no distress HEENT head normocephalic and atraumatic Neck is supple no JVD no goiter no lymphadenopathy no carotid bruit Chest examination is clear to auscultation no crackles no wheezing Cardiac exam reveals regular heart sounds S1 and S2 no gallops no murmurs Abdomen is soft nontender no organomegaly with normal bowel sounds Extremity exam reveals no edema no cyanosis or clubbing Neurological examination reveals no gross focal deficits - Labs CBC & Chem 7: 12/14/24 05:53 12/15/24 05:45 Labs: Abnormal Lab Results - Last 24 Hours (Table) 12/14/24 12/14/24 12/14/24 Range/Units 05:53 05:53 11:27 WBC 11.40 H (4.50-10.00) X 10*3/uL RBC 3.59 L (4.40-5.60) X 10*6/uL Hgb 10.4 L (13.0-17.0) g/dL Hct 30.8 L (39.6-50.0) % MPV 9.0 L (9.5-12.2) FL Eosinophils # 1.85 H (0.04-0.35) X 10*3/uL Basophils # 0.13 H (0.00-0.10) X 10*3/uL Anion Gap 12.70 H (4.00-12.00) mmol/L BUN 29.2 H (9.0-27.0) mg/dL Creatinine 6.1 H (0.6-1.5) mg/dL Est GFR (CKD-EPI) 11 L (>=60) BUN/Creatinine Ratio 4.79 L (12.00-20.00) Ratio Glucose 116 H (70-110) mg/dL POC Glucose (mg/dL) 221 H (70-110) mg/dL Total Protein 6.0 L (6.2-8.2) g/dL Albumin 3.6 L (3.8-4.9) g/dL Albumin/Globulin Ratio 1.50 L (1.60-3.17) Ratio 12/14/24 12/14/24 12/15/24 Range/Units 16:20 21:05 05:45 WBC (4.50-10.00) X 10*3/uL RBC (4.40-5.60) X 10*6/uL Hgb (13.0-17.0) g/dL Hct (39.6-50.0) % MPV (9.5-12.2) FL Eosinophils # (0.04-0.35) X 10*3/uL Basophils # (0.00-0.10) X 10*3/uL Anion Gap (4.00-12.00) mmol/L BUN 45 H (9.0-27.0) mg/dL Creatinine 8.05 H* (0.6-1.5) mg/dL Est GFR (CKD-EPI) (>=60) BUN/Creatinine Ratio (12.00-20.00) Ratio Glucose 108 H (70-110) mg/dL POC Glucose (mg/dL) 193 H 144 H (70-110) mg/dL Total Protein (6.2-8.2) g/dL Albumin (3.8-4.9) g/dL Albumin/Globulin Ratio (1.60-3.17) Ratio Microbiology - Last 24 Hours (Table) 12/12/24 13:22 Blood Culture - Preliminary Blood 12/12/24 14:58 Blood Culture - Preliminary Blood 12/13/24 20:00 Catheter Tip Culture - Preliminary Catheter Tip Presumptive Staph aureus Assessment and Plan Assessment: 1. Concerns of possible infected permacath with positive blood cultures 2. History of end-stage renal disease maintained on hemodialysis Monday 3. History of chronic kidney disease 4. History of aortic valve replacement 5. History of diabetes mellitus DVT prophylaxis Coumadin. GI prophylaxis Pepcid Patient started on IV vancomycin. Repeat blood cultures ordered Vascular, nephrology and infectious disease services consulted Repeat labs ordered
[2024-12-15 20:12] LABS: Glucose,Whole Blood 156 mg/dL (70-110)
[2024-12-15] MEDS: WARFARIN 3 MG TAB PO ONE (20:29)
[2024-12-15] MEDS: WARFARIN 2 MG TAB PO SCH (21:51)
[2024-12-16 05:58] LABS: Glucose,Whole Blood 129 mg/dL (70-110)
[2024-12-16 08:38] LABS: Basophils # (A) 0.11 X 10*3/uL (0.00-0.10); Basophils % (A) 1.3 %; Eosinophils # (A) 1.47 X 10*3/uL (0.04-0.35); Eosinophils % (A) 17.5 %; HCT 29.1 % (39.6-50.0); HGB 9.7 g/dL (13.0-17.0); Lymphocytes # (A) 1.37 X 10*3/uL (0.90-5.00); Lymphocytes % (A) 16.3 %; MCH 29.2 pg (27.0-32.0); MCHC 33.3 g/dL (32.0-37.0); MCV 87.7 FL (80.0-97.0); Monocytes # (A) 0.48 X 10*3/uL (0.20-1.00); Monocytes % (A) 5.7 %; NRBC Per 100 WBC 0 X 10*3/uL (0.00-0.01); Neutrophils # (A) 4.95 X 10*3/uL (1.80-7.70); Platelet Count 249 X 10*3/uL (140-440); RBC 3.32 X 10*6/uL (4.40-5.60)
[2024-12-16 09:56] LABS: ALT 14 U/L (10-49); AST 18 U/L (14-35); Albumin 3.6 g/dL (3.8-4.9); Albumin/Globulin Ratio 1.64 Ratio (1.60-3.17); Alkaline Phosphatase 45 U/L (41-126); BUN/Creat Ratio 6.06 Ratio (12.00-20.00); Blood Urea Nitrogen 52.1 mg/dL (9.0-27.0); Calcium 8.8 mg/dL (8.7-10.3); Carbon Dioxide 20.8 mmol/L (21.6-31.8); Chloride 104 mmol/L (96-109); Globulin 2.2 g/dL (1.6-3.3); Glucose 205 mg/dL (70-110); Potassium 4.6 mmol/L (3.5-5.5); Sodium 138 mmol/L (135-145); Total Bilirubin 0.4 mg/dL (0.3-1.2); Total Protein 5.8 g/dL (6.2-8.2)
[2024-12-16 11:19] LABS: INR 1.13 sec (0.93-1.11); Prothrombin Time 12.8 sec (9.9-11.9)
[2024-12-16 11:46] LABS: Glucose,Whole Blood 168 mg/dL (70-110)
--- NOTE | 2024-12-16 12:22 | P.PN ---
Subjective Progress Note Date: 12/16/24 Principal diagnosis: Reason for follow-up is dialysis catheter infection Patient is a 39-year-old male with a past medical history significant for coronary artery disease heart failure diabetes mellitus hypertension hyperlipidemia end-stage renal disease and the patient has been on dialysis through the right subclavian permacatheter since February 2024 presented to hospital with drainage from his dialysis catheter site and outpatient culture positive for Staph aureus. Patient is status post removal of the right chest wall dialysis catheter by vascular surgery on 12/13/2024. On today's evaluation that is 12/16/2023, patient has been afebrile, patient is breathing comfortably and is currently on room air, patient denies having any significant cough no chest pain, patient denies nausea vomiting or diarrhea and no abdominal pain. Patient white count is 8.40, creatinine is 8.6 BUN/creatinine is 33 catheter culture with MSSA blood culture from 12/12/2024 so far negative Objective - Vital Signs Vital signs: Vital Signs Temp 97.5 F L 12/16/24 07:31 Pulse 77 12/16/24 07:31 Resp 16 12/16/24 07:31 BP 151/89 12/16/24 07:31 Pulse Ox 96 12/16/24 07:31 FiO2 Intake & Output 12/15/24 12/16/24 12/16/24 18:59 06:59 18:59 Other: Voiding Method Toilet # Voids 4 3 # Bowel Movements 1 - Exam GENERAL DESCRIPTION: Middle-age male lying in bed in no distress RESPIRATORY SYSTEM: Unlabored breathing , decreased breath sounds at bases HEART: S1 S2 regular rate and rhythm , ABDOMEN: Soft , no tenderness EXTREMITIES: No edema feet - Labs CBC & Chem 7: 12/16/24 03:30 12/16/24 03:30 Labs: Abnormal Lab Results - Last 24 Hours (Table) 12/15/24 12/15/24 12/15/24 Range/Units 11:22 16:35 20:07 RBC (4.40-5.60) X 10*6/uL Hgb (13.0-17.0) g/dL Hct (39.6-50.0) % MPV (9.5-12.2) FL Eosinophils # (0.04-0.35) X 10*3/uL Basophils # (0.00-0.10) X 10*3/uL Carbon Dioxide (21.6-31.8) mmol/L Anion Gap (4.00-12.00) mmol/L BUN (9.0-27.0) mg/dL Creatinine (0.6-1.5) mg/dL Est GFR (CKD-EPI) (>=60) BUN/Creatinine Ratio (12.00-20.00) Ratio Glucose (70-110) mg/dL POC Glucose (mg/dL) 183 H 156 H 156 H (70-110) mg/dL Total Protein (6.2-8.2) g/dL Albumin (3.8-4.9) g/dL 12/16/24 12/16/24 12/16/24 Range/Units 03:30 03:30 05:55 RBC 3.32 L (4.40-5.60) X 10*6/uL Hgb 9.7 L (13.0-17.0) g/dL Hct 29.1 L (39.6-50.0) % MPV 9.0 L (9.5-12.2) FL Eosinophils # 1.47 H (0.04-0.35) X 10*3/uL Basophils # 0.11 H (0.00-0.10) X 10*3/uL Carbon Dioxide 20.8 L (21.6-31.8) mmol/L Anion Gap 13.20 H (4.00-12.00) mmol/L BUN 52.1 H (9.0-27.0) mg/dL Creatinine 8.6 H (0.6-1.5) mg/dL Est GFR (CKD-EPI) 7 L (>=60) BUN/Creatinine Ratio 6.06 L (12.00-20.00) Ratio Glucose 205 H (70-110) mg/dL POC Glucose (mg/dL) 129 H (70-110) mg/dL Total Protein 5.8 L (6.2-8.2) g/dL Albumin 3.6 L (3.8-4.9) g/dL Microbiology - Last 24 Hours (Table) 12/13/24 20:00 Catheter Tip Culture - Final Catheter Tip Staphylococcus aureus 12/12/24 13:22 Blood Culture - Preliminary Blood 12/12/24 14:58 Blood Culture - Preliminary Blood Assessment and Plan (1) Bacteremia Current Visit: Yes Status: Acute Code(s): R78.81 - BACTEREMIA SNOMED Code(s): 3258352 (2) Infection of exit site of hemodialysis catheter Current Visit: Yes Status: Acute Code(s): T82.7XXA - INFECT/INFLM REACT D/T OTH CARDI/VASC DEV/IMPLNT/GRFT, INIT SNOMED Code(s): 338059878 Plan: 1patient presented to hospital with purulent drainage from his dialysis catheter site and apparently the patient also have a positive blood culture with Staph aureus however those culture were done in the outpatient setting which did grow Staph aureus though final sensitivities pending 2-patient's status post removal of the dialysis catheter and send the tip for the culture which is currently growing MSSA 3-blood culture done on admission 12/12/2024 has been negative 4-patient antibiotic will be switched over to cefazolin vancomycin discontinued patient may be able to get his dialysis catheter as blood culture have been negative infected catheter has been out Dictation was produced using [employer] dictation software. please excuse any grammatical, word or spelling errors. Time with Patient: Less than 30
--- NOTE | 2024-12-16 16:02 | P.PN ---
Subjective Patient is seen in follow-up for end-stage renal disease. Maintained on hemodialysis on Monday schedule. Dialysis catheter removed December 13, 2024. Culture positive for Staph aureus. No active complaints. Vital signs are stable. General: No acute distress. HEENT: Head exam is unremarkable. LUNGS: No audible rhonchi or wheezes. HEART: Rate and Rhythm are regular. ABDOMEN: Nontender. EXTREMITITES: No edema. Objective - Vital Signs Vital signs: Vital Signs Temp 98.0 F 12/16/24 13:27 Pulse 68 12/16/24 13:27 Resp 16 12/16/24 13:27 BP 128/70 12/16/24 13:27 Pulse Ox 99 12/16/24 13:27 FiO2 Intake & Output 12/15/24 12/16/24 12/16/24 18:59 06:59 18:59 Other: Voiding Method Toilet # Voids 4 3 # Bowel Movements 1 - Labs CBC & Chem 7: 12/16/24 03:30 12/16/24 03:30 Labs: Abnormal Lab Results - Last 24 Hours (Table) 12/15/24 12/15/24 12/16/24 Range/Units 16:35 20:07 03:30 RBC 3.32 L (4.40-5.60) X 10*6/uL Hgb 9.7 L (13.0-17.0) g/dL Hct 29.1 L (39.6-50.0) % MPV 9.0 L (9.5-12.2) FL Eosinophils # 1.47 H (0.04-0.35) X 10*3/uL Basophils # 0.11 H (0.00-0.10) X 10*3/uL PT (9.9-11.9) sec INR (0.93-1.11) sec Carbon Dioxide (21.6-31.8) mmol/L Anion Gap (4.00-12.00) mmol/L BUN (9.0-27.0) mg/dL Creatinine (0.6-1.5) mg/dL Est GFR (CKD-EPI) (>=60) BUN/Creatinine Ratio (12.00-20.00) Ratio Glucose (70-110) mg/dL POC Glucose (mg/dL) 156 H 156 H (70-110) mg/dL Total Protein (6.2-8.2) g/dL Albumin (3.8-4.9) g/dL 12/16/24 12/16/24 12/16/24 Range/Units 03:30 03:30 05:55 RBC (4.40-5.60) X 10*6/uL Hgb (13.0-17.0) g/dL Hct (39.6-50.0) % MPV (9.5-12.2) FL Eosinophils # (0.04-0.35) X 10*3/uL Basophils # (0.00-0.10) X 10*3/uL PT 12.8 H (9.9-11.9) sec INR 1.13 H (0.93-1.11) sec Carbon Dioxide 20.8 L (21.6-31.8) mmol/L Anion Gap 13.20 H (4.00-12.00) mmol/L BUN 52.1 H (9.0-27.0) mg/dL Creatinine 8.6 H (0.6-1.5) mg/dL Est GFR (CKD-EPI) 7 L (>=60) BUN/Creatinine Ratio 6.06 L (12.00-20.00) Ratio Glucose 205 H (70-110) mg/dL POC Glucose (mg/dL) 129 H (70-110) mg/dL Total Protein 5.8 L (6.2-8.2) g/dL Albumin 3.6 L (3.8-4.9) g/dL 12/16/24 Range/Units 11:44 RBC (4.40-5.60) X 10*6/uL Hgb (13.0-17.0) g/dL Hct (39.6-50.0) % MPV (9.5-12.2) FL Eosinophils # (0.04-0.35) X 10*3/uL Basophils # (0.00-0.10) X 10*3/uL PT (9.9-11.9) sec INR (0.93-1.11) sec Carbon Dioxide (21.6-31.8) mmol/L Anion Gap (4.00-12.00) mmol/L BUN (9.0-27.0) mg/dL Creatinine (0.6-1.5) mg/dL Est GFR (CKD-EPI) (>=60) BUN/Creatinine Ratio (12.00-20.00) Ratio Glucose (70-110) mg/dL POC Glucose (mg/dL) 168 H (70-110) mg/dL Total Protein (6.2-8.2) g/dL Albumin (3.8-4.9) g/dL Microbiology - Last 24 Hours (Table) 12/13/24 20:00 Catheter Tip Culture - Final Catheter Tip Staphylococcus aureus 12/12/24 13:22 Blood Culture - Preliminary Blood 12/12/24 14:58 Blood Culture - Preliminary Blood Assessment and Plan Plan: Assessment: 1. End-stage renal disease maintained on hemodialysis on Monday schedule via permacath. 2. Infected permacath with positive blood cultures. Infectious disease following. On IV antibiotics. Catheter tip culture positive for Staph aureus. 3. Hypertension with chronic kidney disease. Controlled. 4. Chronic kidney disease mineral bone disease maintained on calcitriol and Renvela. 5. History of aortic valve replacement. 6. Diabetes mellitus. Plan: Permacath removed December 13, 2024. Await ID clearance for new catheter placement. Monitor blood cultures. Maintain torsemide. Continue to assess daily for need for renal replacement therapy. Monitor vancomycin levels. Dose to be adjusted for renal function.
--- NOTE | 2024-12-16 16:26 | P.PN ---
Subjective Progress Note Date: 12/16/24 Mat Khoury, is a 39-year-old male who presented to [facility] emergency room with a chief complaint of concerns for infection in his dialysis port. Patient has a history of end-stage renal disease and receives dialysis Monday patient apparently went for hemodialysis and was noted to have significant edema and erythema to catheter site. Patient was sent to ER for further evaluation. Patient apparently had outpatient blood culture positive for gram-positive cocci with growth of Staph aureus He was evaluated in the emergency room vital examination on presentation revealed temp 98.3, heart rate 75, respiratory rate 18, blood pressure 125/85 with a pulse ox of 100% on room air Laboratory data reveals white blood cell 9.2, creatinine 8.21 bun 44 lactic acid 0.7 Patient was admitted to medical floor for further evaluation and treatment. At this time patient was started on IV antibiotic vancomycin. Vascular and infectious disease and nephrology services consulted Past medical history is significant for coronary artery disease, heart failure, diabetes mellitus, hyperlipidemia, hypertension, systolic congestive heart failure and previous coronary artery bypass graft surgery On review of systems patient is alert and oriented x 3. Patient denies any chest pain or shortness of breath. Patient denies nausea vomiting or diarrhea. Patient denies any urinary burning or frequency On 12/13/2024 patient is alert and oriented x 3. Patient denies any chest pain or shortness of breath. Patient denies nausea vomiting or diarrhea. Patient denies any urinary burning or frequency. Plans today for patient to get dialysis and then catheter removed and cultured. Patient remains on IV vancomycin. Current vital signs temp 98.2, heart rate 86, respiratory rate 18, blood pressure 128/72 with a pulse ox of 97% on room air On 12/14/2024 patient was seen and examined on the medical floor he is alert and oriented x 3 in no apparent distress there is no fever or chills no headache or dizziness no chest pain no shortness of breath no cough no nausea or vomiting no abdominal pain no diarrhea no urinary symptoms. His dialysis catheter has been removed, awaiting further culture results. On 12/15/2024 patient was seen and examined on the medical floor he is alert and oriented in no apparent distress, there is no fever or chills no headache or dizziness no chest pain no shortness of breath no cough no nausea or vomiting no abdominal pain no diarrhea and no urinary symptoms temperature is 97.7 pulse 73 respiration 16 blood pressure 150/91 pulse ox 99% on room air. Patient is receiving IV vancomycin, awaiting culture results On 12/16/2024 patient was seen and examined on the medical floor he is alert and oriented x 3 in no apparent distress he is feeling well there is no fever or chills no headache or dizziness no chest pain no shortness of breath no cough no nausea or vomiting no abdominal pain no diarrhea and no urinary symptoms. Plan is to replace dialysis catheter tomorrow and proceed with hemodialysis tomorrow possible discharge to home after dialysis tomorrow. Catheter tip culture was positive for methicillin sensitive Staphylococcus aureus. Objective - Vital Signs Vital signs: Vital Signs Temp 97.5 F L 12/16/24 07:31 Pulse 77 12/16/24 07:31 Resp 16 12/16/24 07:31 BP 151/89 12/16/24 07:31 Pulse Ox 96 12/16/24 07:31 FiO2 Intake & Output 12/15/24 12/16/24 12/16/24 18:59 06:59 18:59 Other: # Voids 4 3 # Bowel Movements 1 - Exam In general patient is alert and oriented -3 in no distress HEENT head normocephalic and atraumatic Neck is supple no JVD no goiter no lymphadenopathy no carotid bruit Chest examination is clear to auscultation no crackles no wheezing Cardiac exam reveals regular heart sounds S1 and S2 no gallops no murmurs Abdomen is soft nontender no organomegaly with normal bowel sounds Extremity exam reveals no edema no cyanosis or clubbing Neurological examination reveals no gross focal deficits - Labs CBC & Chem 7: 12/16/24 03:30 12/16/24 03:30 Labs: Abnormal Lab Results - Last 24 Hours (Table) 12/15/24 12/15/24 12/15/24 Range/Units 11:22 16:35 20:07 RBC (4.40-5.60) X 10*6/uL Hgb (13.0-17.0) g/dL Hct (39.6-50.0) % MPV (9.5-12.2) FL Eosinophils # (0.04-0.35) X 10*3/uL Basophils # (0.00-0.10) X 10*3/uL POC Glucose (mg/dL) 183 H 156 H 156 H (70-110) mg/dL 12/16/24 12/16/24 Range/Units 03:30 05:55 RBC 3.32 L (4.40-5.60) X 10*6/uL Hgb 9.7 L (13.0-17.0) g/dL Hct 29.1 L (39.6-50.0) % MPV 9.0 L (9.5-12.2) FL Eosinophils # 1.47 H (0.04-0.35) X 10*3/uL Basophils # 0.11 H (0.00-0.10) X 10*3/uL POC Glucose (mg/dL) 129 H (70-110) mg/dL Microbiology - Last 24 Hours (Table) 12/13/24 20:00 Catheter Tip Culture - Final Catheter Tip Staphylococcus aureus 12/12/24 13:22 Blood Culture - Preliminary Blood 12/12/24 14:58 Blood Culture - Preliminary Blood Assessment and Plan Assessment: 1. Concerns of possible infected permacath with positive blood cultures 2. History of end-stage renal disease maintained on hemodialysis Monday 3. History of chronic kidney disease 4. History of aortic valve replacement 5. History of diabetes mellitus DVT prophylaxis Coumadin. GI prophylaxis Pepcid Patient started on IV vancomycin. Repeat blood cultures ordered Vascular, nephrology and infectious disease services consulted Repeat labs ordered
[2024-12-16 16:52] LABS: Glucose,Whole Blood 204 mg/dL (70-110)
[2024-12-16 21:18] LABS: Glucose,Whole Blood 247 mg/dL (70-110)
[2024-12-16] MEDS: WARFARIN 2 MG TAB PO ONE (22:46)
[2024-12-17 04:35] LABS: INR 1.9 (<1.2); Prothrombin Time 19.4 sec (10.0-12.5)
[2024-12-17 06:37] LABS: Glucose,Whole Blood 83 mg/dL (70-110)
[2024-12-17 09:09] LABS: BUN/Creat Ratio 6.38 Ratio (12.00-20.00); Blood Urea Nitrogen 61.9 mg/dL (9.0-27.0); Calcium 8.9 mg/dL (8.7-10.3); Carbon Dioxide 19.5 mmol/L (21.6-31.8); Chloride 104 mmol/L (96-109); Glucose 128 mg/dL (70-110); Potassium 4.5 mmol/L (3.5-5.5); Sodium 140 mmol/L (135-145)
[2024-12-17] MEDS: LIDOCAINE 1% INJ 10MG/ML (20 ML MDV) SQ ONE (09:12)
[2024-12-17] MEDS: SODIUM CHLORIDE 0.9% 500 ML 500 ML IV ONE (09:28)
[2024-12-17] MEDS: HEPARIN SODIUM 1,000 UN/ML (10ML VL) IV ONE (09:48)
--- NOTE | 2024-12-17 09:57 | P.PCN ---
Description of Procedure: Preop diagnosis acute chronic failure Postop the same Procedure superior venacavogram, ultrasound-guided 23 cm dialysis catheter right jugular approach Procedure this patient was brought to the [employer] [facility] this patient had a dialysis catheter placed in the past which was removed because of infection right to the chest and neck was prepped draped in Prestel manner 1% liocaine infiltrated neck and chest area. Ultrasound-guided micropuncture 20 right jugular vein micropuncture guide was passed and 4 dilator was stopped the guidewire and then with hand-injection lidocaine was performed jugular vein was identified superior cava was identified there was no stenosis noted we created a tunnel through the tunnel we brought 23 cm dialysis catheter neck incision site. We passed a regular guidewire which was marked at the inferior vena cava. Dilator was advanced over the guidewire. Then we placed 23 cm sheath on the top of the gu idewire under fluoroscopy control guide catheter was parked in superior vena cava atrial junction flushed with heparin saline hep-locked secured with 3-0 nylon dressing applied patient tarted the procedure well patient will have x-ray of the chest patient transferred to his room in satisfactory condition
--- NOTE | 2024-12-17 10:15 | IR ---
EXAMINATION TYPE: IR cvc insert central tunneled DATE OF EXAM: 12/17/2024 COMPARISON: NONE CLINICAL INDICATION: Male, 39 years old with history of RT IJ Hemodialysis Catheter, 1.9min 619.83 D ap; Fluoroscopy was provided to the referring clinician. [facility], , 12/17/2024 10:13 AM
--- NOTE | 2024-12-17 11:35 | P.DS ---
Providers Date of admission: 12/12/24 14:46 Expected date of discharge: 12/17/24 Attending physician: Lacey Frankel Consults: 12/12/24 15:44 Consult Physician Routine Consulting Provider: Sohan Jiménez Consult Reason/Comments: ESRD on hemodialysis, elevated creatinine Do you want consulting provider notified?: Yes, Notify in am Consult Physician Routine Consulting Provider: Dez Gupta Consult Reason/Comments: bacteremia, dialysis exit site infection Do you want consulting provider notified?: Yes, Notify in am 12/12/24 15:52 Consult Physician Routine Consulting Provider: Debbie Garcia Consult Reason/Comments: catheter infection Do you want consulting provider notified?: Yes 12/13/24 08:02 Consult Physician Urgent Consulting Provider: Dez Gupta Consult Reason/Comments: infected tunneled HD cath, bacteremia Do you want consulting provider notified?: Yes Primary care physician: Lacey Frankel [facility] Course: Discharge diagnosis 1. Concerns of possible infected permacath with positive blood cultures 2. History of end-stage renal disease maintained on hemodialysis Monday 3. History of chronic kidney disease 4. History of aortic valve replacement 5. History of diabetes mellitus Hospital course Mat Khoury, is a 39-year-old male who presented to [facility] emergency room with a chief complaint of concerns for infection in his dialysis port. Patient has a history of end-stage renal disease and receives dialysis Monday patient apparently went for hemodialysis and was noted to have significant edema and erythema to catheter site. Patient was sent to ER for further evaluation. Patient apparently had outpatient blood cul ture positive for gram-positive cocci with growth of Staph aureus He was evaluated in the emergency room vital examination on presentation revealed temp 98.3, heart rate 75, respiratory rate 18, blood pressure 125/85 with a pulse ox of 100% on room air Laboratory data reveals white blood cell 9.2, creatinine 8.21 bun 44 lactic acid 0.7 Patient was admitted to medical floor for further evaluation and treatment. At this time patient was started on IV antibiotic vancomycin. Vascular and infectious disease and nephrology services consulted Past medical history is significant for coronary artery disease, heart failure, diabetes mellitus, hyperlipidemia, hypertension, systolic congestive heart failure and previous coronary artery bypass graft surgery On review of systems patient is alert and oriented x 3. Patient denies any chest pain or shortness of breath. Patient denies nausea vomiting or diarrhea. Patient denies any urinary burning or frequency On 12/13/2024 patient is alert and oriented x 3. Patient denies any chest pain or shortness of breath. Patient denies nausea vomiting or diarrhea. Patient denies any urinary burning or frequency. Plans today for patient to get dial ysis and then catheter removed and cultured. Patient remains on IV vancomycin. Current vital signs temp 98.2, heart rate 86, respiratory rate 18, blood pressure 128/72 with a pulse ox of 97% on room air On 12/14/2024 patient was seen and examined on the medical floor he is alert and oriented x 3 in no apparent distress there is no fever or chills no headache or dizziness no chest pain no shortness of breath no cough no nausea or vomiting no abdominal pain no diarrhea no urinary symptoms. His dialysis catheter has been removed, awaiting further culture results. On 12/15/2024 patient was seen and examined on the medical floor he is alert and oriented in no apparent distress, there is no fever or chills no headache or dizziness no chest pain no shortness of breath no cough no nausea or vomiting no abdominal pain no diarrhea and no urinary symptoms temperature is 97.7 pulse 73 respiration 16 blood pressure 150/91 pulse ox 99% on room air. Patient is receiving IV vancomycin, awaiting culture results On 12/16/2024 patient was seen and examined on the medical floor he is alert and oriented x 3 in no apparent distress he is feeling well there is no fever or chills no headache or dizziness no chest pain no shortness of breath no cough no nausea or vomiting no abdominal pain no diarrhea and no urinary symptoms. Plan is to replace dialysis catheter tomorrow and proceed with hemodialysis tomorrow possible discharge to home after dialysis tomorrow. Catheter tip culture was positive for methicillin sensitive Staphylococcus aureus. On 12/17/2024 patient is alert and oriented x 3 patient feels well ready to be DC'd home. Patient did have new dialysis catheter placed today. Patient to receive hemodialysis prior to discharge. IV antibiotics per infectious disease. Patient to follow-up with PCP and consulting providers for further management. Patient denies chest pain or shortness of breath. Patient denies nausea vomiting or diarrhea. Patient denies any urinary burning or frequency Patient Condition at Discharge: Stable Plan - Discharge Summary Discharge Rx Participant: No New Discharge Prescriptions: Continue allopurinoL [Zyloprim] 200 mg PO DAILY Sevelamer [Renvela] 1,600 mg PO TID-W/MEALS glipiZIDE [Glucotrol] 10 mg PO AC-TID Metoprolol Tartrate [Lopressor] 25 mg PO BID Rosuvastatin [Crestor] 20 mg PO HS hydrALAZINE HCL [Apresoline] 50 mg PO TID 30 Days #90 tab Torsemide [Demadex] 40 mg PO DAILY 30 Days #60 tab amLODIPine [Norvasc] 5 mg PO BID 30 Days #60 tab Folic Acid/Vit B Complex and C [Shruti-Gianfranco Tablet] 0.8 mg PO DAILY Ferric Citrate [Auryxia] 210 mg PO DIRECTED calcitrioL 0.5 mcg PO TUTHSA Warfarin [Coumadin] 4 mg PO HS Discharge Medication List allopurinoL [Zyloprim] 200 mg PO DAILY 10/29/18 [History] Metoprolol Tartrate [Lopressor] 25 mg PO BID 03/20/24 [History] Rosuvastatin [Crestor] 20 mg PO HS 03/20/24 [History] Sevelamer [Renvela] 1,600 mg PO TID-W/MEALS 03/20/24 [History] calcitrioL 0.5 mcg PO TUTHSA 03/20/24 [History] glipiZIDE [Glucotrol] 10 mg PO AC-TID 03/20/24 [History] Torsemide [Demadex] 40 mg PO DAILY 30 Days #60 tab 03/26/24 [Rx] amLODIPine [Norvasc] 5 mg PO BID 30 Days #60 tab 03/26/24 [Rx] hydrALAZINE HCL [Apresoline] 50 mg PO TID 30 Days #90 tab 03/26/24 [Rx] Warfarin [Coumadin] 4 mg PO HS 05/22/24 [History] Ferric Citrate [Auryxia] 210 mg PO DIRECTED 12/12/24 [History] Folic Acid/Vit B Complex and C [Shruti-Gianfranco Tablet] 0.8 mg PO DAILY 12/12/24 [History] Follow up Appointment(s)/Referral(s): Lacey Frankel MD [Primary Care Provider] - 1-2 days
[2024-12-17 12:24] LABS: Glucose,Whole Blood 201 mg/dL (70-110)
--- NOTE | 2024-12-17 12:36 | XR ---
EXAMINATION TYPE: XR chest 1V confirm line plcde DATE OF EXAM: 12/17/2024 COMPARISON: NONE CLINICAL INDICATION: Male, 39 years old with history of RT IJ Hemodialysis Catheter; , TECHNIQUE: XR chest 1V confirm line plcde views of the chest. FINDINGS: The lungs are clear and there is no pneumothorax, pleural effusion, or focal pneumonia. Heart size normal and no overt failure. Osseous structures intact. Median sternotomy changes. Atrial appendage c lip. Right-sided dialysis catheter with the tip overlying the SVC. IMPRESSION: 1. Right-sided dialysis catheter tip overlying SVC. No pneumothorax. [facility] Priscilla Ospina, , 12/17/2024 12:34 PM
--- NOTE | 2024-12-17 15:40 | P.PN ---
Subjective Progress Note Date: 12/17/24 Principal diagnosis: Reason for follow-up is dialysis catheter infection Patient is a 39-year-old male with a past medical history significant for coronary artery disease heart failure diabetes mellitus hypertension hyperlipidemia end-stage renal disease and the patient has been on dialysis through the right subclavian permacatheter since February 2024 presented to hospital with drainage from his dialysis catheter site and outpatient culture positive for Staph aureus. Patient is status post removal of the right chest wall dialysis catheter by vascular surgery on 12/13/2024. On today's evaluation that is 12/17/2024, Patient is afebrile this morning patient denies having any chest pain shortness of breath or cough, the patient is currently on room air, patient denies any abdominal pain no diarrhea no nausea no vomiting patient did have a dialysis catheter placement this morning. The patient INR is 1.9 creatinine is 9.7 blood culture repeat has been negative Objective - Vital Signs Vital signs: Vital Signs Temp 97.9 F 12/17/24 10:11 Pulse 78 12/17/24 10:11 Resp 17 12/17/24 10:11 BP 162/93 12/17/24 10:11 Pulse Ox 96 12/17/24 10:11 FiO2 Intake & Output 12/16/24 12/17/24 12/17/24 18:59 06:59 18:59 Intake Total 1262 100 Balance 1262 100 Intake: IV 100 Oral 1262 Other: Voiding Method Toilet Toilet Toilet # Voids 3 5 - Exam GENERAL DESCRIPTION: Middle-age male lying in bed in no distress RESPIRATORY SYSTEM: Unlabored breathing , decreased breath sounds at bases HEART: S1 S2 regular rate and rhythm , ABDOMEN: Soft , no tenderness EXTREMITIES: No edema feet - Labs CBC & Chem 7: 12/16/24 03:30 12/17/24 03:54 Labs: Abnormal Lab Results - Last 24 Hours (Table) 12/16/24 12/16/24 12/16/24 Range/Units 03:30 11:44 16:50 PT 12.8 H (9.9-11.9) sec INR 1.13 H (0.93-1.11) sec Carbon Dioxide (21.6-31.8) mmol/L Anion Gap (4.00-12.00) mmol/L BUN (9.0-27.0) mg/dL Creatinine (0.6-1.5) mg/dL Est GFR (CKD-EPI) (>=60) BUN/Creatinine Ratio (12.00-20.00) Ratio Glucose (70-110) mg/dL POC Glucose (mg/dL) 168 H 204 H (70-110) mg/dL 12/16/24 12/17/24 12/17/24 Range/Units 21:16 03:54 03:54 PT 19.4 H (9.9-11.9) sec INR 1.9 H (0.93-1.11) sec Carbon Dioxide 19.5 L (21.6-31.8) mmol/L Anion Gap 16.50 H (4.00-12.00) mmol/L BUN 61.9 H (9.0-27.0) mg/dL Creatinine 9.7 H (0.6-1.5) mg/dL Est GFR (CKD-EPI) 6 L (>=60) BUN/Creatinine Ratio 6.38 L (12.00-20.00) Ratio Glucose 128 H (70-110) mg/dL POC Glucose (mg/dL) 247 H (70-110) mg/dL Microbiology - Last 24 Hours (Table) 12/15/24 13:20 Blood Culture - Preliminary Blood Assessment and Plan (1) Bacteremia Current Visit: Yes Status: Acute Code(s): R78.81 - BACTEREMIA SNOMED Code(s): 3861787 (2) Infection of exit site of hemodialysis catheter Current Visit: Yes Status: Acute Code(s): T82.7XXA - INFECT/INFLM REACT D/T OTH CARDI/VASC DEV/IMPLNT/GRFT, INIT SNOMED Code(s): 988807390 Plan: 1patient presented to hospital with purulent drainage from his dialysis catheter site and apparently the patient also have a positive blood culture with Staph aureus however those culture were done in the outpatient setting which did grow Staph aureus though final sensitivities pending 2-patient's status post removal of the dialysis catheter and send the tip for the culture which is currently growing MSSA 3-blood culture done on admission 12/12/2024 has been negative 4-patient did have a dialysis catheter placement he will received a dose of cefazolin before discharge and plan is for 2 g of cefazolin postdialysis on Monday and 3 g postdialysis on Monday x 2 weeks, prescription provided to the shelter case manager working on discharge Dictation was produced using [employer] software. please excuse any grammatical, word or spelling errors.
[2024-12-17 16:46] LABS: Glucose,Whole Blood 225 mg/dL (70-110)
[2024-12-17 20:31] LABS: Glucose,Whole Blood 170 mg/dL (70-110)
[2024-12-17] MEDS: WARFARIN 2 MG TAB PO ONE (21:26)
--- NOTE | 2024-12-17 21:58 | P.PN ---
Subjective Patient is seen for follow-up for end-stage renal disease. Status post new IJ permacath placement. Scheduled for hemodialysis today. No significant complaints. Objective - Vital Signs Vital signs: Vital Signs Temp 98.1 F 12/17/24 19:58 Pulse 84 12/17/24 19:58 Resp 17 12/17/24 19:58 BP 151/97 12/17/24 19:58 Pulse Ox 95 12/17/24 19:58 FiO2 Intake & Output 12/17/24 12/17/24 12/18/24 06:59 18:59 06:59 Intake Total 1262 500 Balance 1262 500 Intake: IV 100 Oral 1262 400 Other: Voiding Method Toilet Toilet # Voids 5 1 - Exam Patient is awake, comfortable, no acute distress. Alert oriented x 3 Examination of the heart S1 and S2 Examination of the lungs bilateral breath sounds are heard Abdomen is soft nontender Examination lower extremity shows no significant edema. UTILITY SPECIALIST exam grossly intact - Labs CBC & Chem 7: 12/16/24 03:30 12/17/24 03:54 Labs: Abnormal Lab Results - Last 24 Hours (Table) 12/17/24 12/17/24 12/17/24 Range/Units 03:54 03:54 12:23 PT 19.4 H (10.0-12.5) sec INR 1.9 H (<1.2) Carbon Dioxide 19.5 L (21.6-31.8) mmol/L Anion Gap 16.50 H (4.00-12.00) mmol/L BUN 61.9 H (9.0-27.0) mg/dL Creatinine 9.7 H (0.6-1.5) mg/dL Est GFR (CKD-EPI) 6 L (>=60) BUN/Creatinine Ratio 6.38 L (12.00-20.00) Ratio Glucose 128 H (70-110) mg/dL POC Glucose (mg/dL) 201 H (70-110) mg/dL 12/17/24 12/17/24 Range/Units 16:45 20:29 PT (10.0-12.5) sec INR (<1.2) Carbon Dioxide (21.6-31.8) mmol/L Anion Gap (4.00-12.00) mmol/L BUN (9.0-27.0) mg/dL Creatinine (0.6-1.5) mg/dL Est GFR (CKD-EPI) (>=60) BUN/Creatinine Ratio (12.00-20.00) Ratio Glucose (70-110) mg/dL POC Glucose (mg/dL) 225 H 170 H (70-110) mg/dL Microbiology - Last 24 Hours (Table) 12/12/24 13:22 Blood Culture - Final Blood 12/12/24 14:58 Blood Culture - Final Blood 12/15/24 13:20 Blood Culture - Preliminary Blood Assessment and Plan Assessment: 1. End-stage renal disease maintained on hemodialysis on Monday schedule via permacath. 2. Infected permacath with positive blood cultures. Infectious disease following. On IV antibiotics. Catheter tip culture positive for Staph aureus. Status post removal of catheter and placement of new permacath on 12/17/2024 3. Hypertension with chronic kidney disease. Controlled. 4. Chronic kidney disease mineral bone disease maintained on calcitriol and Renvela. 5. History of aortic valve replacement. 6. Diabetes mellitus. Plan: Hemodialysis today. Continue antibiotics post to discharge.
[2024-12-18 03:58] LABS: INR 2.4 (<1.2); Prothrombin Time 23.7 sec (10.0-12.5)
[2024-12-18 06:56] LABS: Glucose,Whole Blood 93 mg/dL (70-110)
[2024-12-18 11:30] LABS: Glucose,Whole Blood 266 mg/dL (70-110)
--- NOTE | 2024-12-18 12:15 | P.PN ---
Subjective Progress Note Date: 12/18/24 Principal diagnosis: Reason for follow-up is dialysis catheter infection Patient is a 39-year-old male with a past medical history significant for coronary artery disease heart failure diabetes mellitus hypertension hyperlipidemia end-stage renal disease and the patient has been on dialysis through the right subclavian permacatheter since February 2024 presented to hospital with drainage from his dialysis catheter site and outpatient culture positive for Staph aureus. Patient is status post removal of the right chest wall dialysis catheter by vascular surgery on 12/13/2024. On today's evaluation that is 12/18/2024,the patient denies any fever or any chills, patient is breathing comfortably on room air, the patient denies chest pain shortness of breath and no significant cough, patient denies abdominal pain, no nausea vomiting or diarrhea. No new symptoms. Patient did have a INR of 2.4 blood culture repeat has been negative Objective - Vital Signs Vital signs: Vital Signs Temp 98.3 F 12/18/24 07:20 Pulse 79 12/18/24 07:20 Resp 17 12/18/24 07:20 BP 127/77 12/18/24 07:20 Pulse Ox 98 12/18/24 07:20 FiO2 Intake & Output 12/17/24 12/18/24 12/18/24 18:59 06:59 18:59 Intake Total 500 400 Output Total 6400 Balance 500 -6000 Intake: IV 100 Oral 400 Hemodialysis 400 Output: Hemodialysis 3400 Hemodialysis Net Amount 3000 Other: Voiding Method Toilet Toilet # Voids 1 0 - Exam GENERAL DESCRIPTION: Middle-age male lying in bed in no distress RESPIRATORY SYSTEM: Unlabored breathing , decreased breath sounds at bases HEART: S1 S2 regular rate and rhythm , ABDOMEN: Soft , no tenderness EXTREMITIES: No edema feet - Labs CBC & Chem 7: 12/16/24 03:30 12/17/24 03:54 Labs: Abnormal Lab Results - Last 24 Hours (Table) 12/17/24 12/17/24 12/17/24 Range/Units 12:23 16:45 20:29 PT (10.0-12.5) sec INR (<1.2) POC Glucose (mg/dL) 201 H 225 H 170 H (70-110) mg/dL 12/18/24 Range/Units 03:16 PT 23.7 H (10.0-12.5) sec INR 2.4 H (<1.2) POC Glucose (mg/dL) (70-110) mg/dL Microbiology - Last 24 Hours (Table) 12/15/24 13:20 Blood Culture - Preliminary Blood 12/12/24 13:22 Blood Culture - Final Blood 12/12/24 14:58 Blood Culture - Final Blood Assessment and Plan (1) Bacteremia Current Visit: Yes Status: Acute Code(s): R78.81 - BACTEREMIA SNOMED Code(s): 0744497 (2) Infection of exit site of hemodialysis catheter Current Visit: Yes Status: Acute Code(s): T82.7XXA - INFECT/INFLM REACT D/T OTH CARDI/VASC DEV/IMPLNT/GRFT, INIT SNOMED Code(s): 360583238 Plan: 1patient presented to hospital with purulent drainage from his dialysis catheter site and apparently the patient also have a positive blood culture with Staph aureus however those culture were done in the outpatient setting which did grow Staph aureus though final sensitivities pending 2-patient's status post removal of the dialysis catheter and send the tip for the culture which is currently growing MSSA 3-blood culture done on admission 12/12/2024 has been negative 4-patient did have a dialysis catheter placement, plan is for 2 g of cefazolin postdialysis on Monday and 3 g postdialysis on Monday x 2 weeks, prescription provided to the caseworker yesterday and the goal pressure follow-up Dictation was produced using [employer] dictation software. please excuse any grammatical, word or spelling errors. Time with Patient: Less than 30
[2024-12-18 14:02] VITALS: BP 122/79; PULSE 76; RESP 15; TEMP 98.5
[2024-12-18] MEDS ORDERED: WARFARIN 3 MG TAB PO ONE (21:00)
--- NOTE | 2024-12-18 21:44 | P.PN ---
Subjective Patient is seen for follow-up for end-stage renal disease. Status post new IJ permacath placement. Status post hemodialysis yesterday. No significant complaints. Objective - Vital Signs Vital signs: Vital Signs Temp 98.5 F 12/18/24 13:35 Pulse 76 12/18/24 13:35 Resp 15 12/18/24 13:35 BP 122/79 12/18/24 13:35 Pulse Ox 98 12/18/24 13:35 FiO2 Intake & Output 12/18/24 12/18/24 12/19/24 06:59 18:59 06:59 Intake Total 400 Output Total 6400 Balance -6000 Intake: Hemodialysis 400 Output: Hemodialysis 3400 Hemodialysis Net Amount 3000 Other: Voiding Method Toilet Toilet # Voids 0 - Exam Patient is awake, comfortable, no acute distress. Alert oriented x 3 Examination of the heart S1 and S2 Examination of the lungs bilateral breath sounds are heard Abdomen is soft nontender Examination lower extremity shows no significant edema. PEDIATRICIAN ACTIVE PRACTICE exam grossly intact - Labs CBC & Chem 7: 12/16/24 03:30 12/17/24 03:54 Labs: Abnormal Lab Results - Last 24 Hours (Table) 12/18/24 12/18/24 Range/Units 03:16 11:29 PT 23.7 H (10.0-12.5) sec INR 2.4 H (<1.2) POC Glucose (mg/dL) 266 H (70-110) mg/dL Microbiology - Last 24 Hours (Table) 12/15/24 13:20 Blood Culture - Preliminary Blood 12/12/24 13:22 Blood Culture - Final Blood 12/12/24 14:58 Blood Culture - Final Blood Assessment and Plan Assessment: 1. End-stage renal disease maintained on hemodialysis on Monday schedule via permacath. 2. Infected permacath with positive blood cultures. Infectious disease following. On IV antibiotics. Catheter tip culture positive for Staph aureus. Status post removal of catheter and placement of new permacath on 12/17/2024 3. Hypertension with chronic kidney disease. Controlled. 4. Chronic kidney disease mineral bone disease maintained on calcitriol and R envela. 5. History of aortic valve replacement. 6. Diabetes mellitus. Plan: Hemodialysis in a.m. Continue antibiotics post to discharge.
== END 2024-12-18 15:36 | disposition home or self-care (01) | DRG 711 ==
LOC: EC 12:48 → 4SSUR 14:46
PROVIDERS: ADMIT Internal Medicine; ATTEND Internal Medicine
PROC: 05PY03Z Removal of Infusion Device from Upper Vein, Open Approach (ICD-10-PCS; 2024-12-12)
PROC: 02HV33Z Insertion of Infusion Device into Superior Vena Cava, Percutaneous Approach (ICD-10-PCS; principal; 2024-12-17 13:25)
PROC: 5A1D70Z Performance of Urinary Filtration, Intermittent, Less than 6 Hours Per Day (ICD-10-PCS; 2024-12-17 13:25)
DX: T80.211A Bloodstream infection due to central venous catheter, initial encounter (principal); Y84.8 Other medical procedures as the cause of abnormal reaction of the patient, or of later complication, without mention of misadventure at the time of the procedure; N18.6 End stage renal disease; N17.9 Acute kidney failure, unspecified; E83.9 Disorder of mineral metabolism, unspecified; R78.81 Bacteremia; E11.22 Type 2 diabetes mellitus with diabetic chronic kidney disease; E78.5 Hyperlipidemia, unspecified; F32.A Depression, unspecified; I13.2 Hypertensive heart and chronic kidney disease with heart failure and with stage 5 chronic kidney disease, or end stage renal disease; I25.10 Atherosclerotic heart disease of native coronary artery without angina pectoris; I35.1 Nonrheumatic aortic (valve) insufficiency; I50.22 Chronic systolic (congestive) heart failure; Z99.2 Dependence on renal dialysis; Z95.2 Presence of prosthetic heart valve; B95.61 Methicillin susceptible Staphylococcus aureus infection as the cause of diseases classified elsewhere; Z79.01 Long term (current) use of anticoagulants; Z79.84 Long term (current) use of oral hypoglycemic drugs; Z79.899 Other long term (current) drug therapy; Z95.1 Presence of aortocoronary bypass graft; Z88.6 Allergy status to analgesic agent
CPT/HCPCS: 36415; 36558; 76937; 77001; 80048; 80053; 80202; 83605; 83735; 84100; 85025; 85610; 86140; 86706; 87040; 87070; 87077; 87186; 87340; 90935; 96365; 96366; 99285

== ENCOUNTER 2025-02-14 06:17 | Day surgery (SDC) | payer OTHER ==
--- NOTE | 2025-02-13 14:44 | P.GSHP ---
History of Present Illness H&P Date: 02/13/25 Chief Complaint: Renal failure 4-year-old male last seen in September. Patient on hemodialysis Monday. Patient travels quite a bit. Was having issues getting the procedure scheduled. When he was last seen he still has his permacath in place from last January. Patient was interested however in peritoneal catheter placement. Past Medical History Past Medical History: Coronary Artery Disease (CAD), Heart Failure, Diabetes Mellitus, Hyperlipidemia, Hypertension, Renal Disease Additional Past Medical History / Comment(s): Hx systolic heart failure. Severe aortic insufficiency. Hemodialysis TUTHSA. , uses cane. for security History of Any Multi-Drug Resistant Organisms: None Reported Past Surgical History: Cardiac Valve Replacement, Coronary Bypass/CABG, Ear Surgery, Tonsillectomy Additional Past Surgical History / Comment(s): Myringotomy tubes as a child, CABG 08/18/17-2 vessel, aortic valve replacement. temporaty dailysis port Past Anesthesia/Blood Transfusion Reactions: Postoperative Nausea & Vomiting (PONV) Additional Past Anesthesia/Blood Transfusion Reaction / Comment(s): Never received a blood transfusion. Smoking Status: Never smoker - Past Family History Father Family Medical History: Unable to Obtain Mother Family Medical History: Unable to Obtain Medications and Allergies Home Medications Medication Instructions Recorded Confirmed Type allopurinoL [Zyloprim] 200 mg PO DAILY 10/29/18 02/13/25 History Metoprolol Tartrate [Lopressor] 25 mg PO BID 03/20/24 02/13/25 History Rosuvastatin [Crestor] 20 mg PO HS 03/20/24 02/13/25 History Sevelamer [Renvela] 800 mg PO TID-W/MEALS 03/20/24 02/13/25 History glipiZIDE [Glucotrol] 10 mg PO AC-TID 03/20/24 02/13/25 History Torsemide [Demadex] 40 mg PO DAILY 30 Days #60 tab 03/26/24 02/13/25 Rx amLODIPine [Norvasc] 5 mg PO BID 30 Days #60 tab 03/26/24 02/13/25 Rx hydrALAZINE HCL [Apresoline] 50 mg PO TID 30 Days #90 tab 03/26/24 02/13/25 Rx Warfarin [Coumadin] 4 mg PO HS 05/22/24 02/13/25 History Ferric Citrate [Auryxia] 420 mg PO TID 12/12/24 02/13/25 History Folic Acid/Vit B Complex and C 0.8 mg PO DAILY 12/12/24 02/13/25 History [Shruti-Gianfranco Tablet] Aspirin [Adult Low Dose Aspirin EC] 81 mg PO DAILY 02/13/25 02/13/25 History Enoxaparin [Lovenox] 100 mg SQ DIRECTED 02/13/25 02/13/25 History Allergies Allergy/AdvReac Type Severity Reaction Status Date / Time NSAIDS (Non-Steroidal Allergy Unknown Verified 02/13/25 09:26 Anti-Inflamma Surgical - Exam Physical exam: General: Well-developed, well-nourished HEENT: Normocephalic, sclerae nonicteric Abdomen: Nontender, nondistended Extremities: No edema Neuro: Alert and oriented Assessment and Plan (1) Renal failure Narrative/Plan: 40-year-old male with renal failure. Will proceed with peritoneal dialysis catheter insertion tomorrow. Risks of bleeding, infection, poor function, bladder and bowel injury, fluid leak, hernia, clotting issues all discussed. Patient understands and wishes to proceed. Status: Acute Code(s): N19 - UNSPECIFIED KIDNEY FAILURE SNOMED Code(s): 83754558
[~2025-02-14 06:17] MED LIST changes: -ALBUMIN HUMAN 25% 50 ML IV ONE; -ALBUMIN HUMAN 5% 500 ML IVPB ONE; -ASPIRIN 325 MG TAB PO ONE; -ATORVASTATIN 10 MG TAB PO ONE; -CALCIUM CHLORIDE 100 MG/ML 10 ML SYRINGE IV ONE; -CARDIOPLEGIC SOLN (K+ 16 MEQ/L 1,000 ML with SODIUM BICARB (1 MEQ/ML) 20 ML, LIDOCAINE ... PERFUSION ONE; -CHLORHEXIDINE GLUCONATE 15 ML CUP MUCOUS MEM ONE; -CLEVIDIPINE BUTYRATE 25 MG in EMPTY BAG 1 BAG IV ONE; -HEPARIN SODIUM 1,000 UN/ML (10ML VL) IV ONE; -HEPARIN SODIUM,PORCINE 5,000 UNIT in SODIUM CHLORIDE 0.9% 500 ML IV ONE; +HEPARIN SODIUM,PORCINE 5,000 UNIT/ML 1 ML VIAL SQ PRN; +HYDROmorphone 0.5 MG/0.5 ML SYRINGE IVP PRN; -INSULIN REGULAR 100 UNIT in SODIUM CHLORIDE 0.9% 100 ML IV ONE; -LACTATED RINGERS 1,000 ML IV ONE; +LIDOCAINE 1% (10MG/ML) FOR IV START INTRADERMA PRN; -MAGNESIUM SULFATE MG 500 MG/ML VIAL IV ONE; -MANNITOL 25% 12.5 GM/50 ML VIAL IV ONE; -METOPROLOL TARTRATE 12.5 MG TAB PO ONE; +MIDAZOLAM 2 MG/2 ML VIAL IV PRN; -MUPIROCIN 2% OINT 22 GM TUBE NASAL ONE; -NITROGLYCERIN SL TABS 0.4 MG TAB SUBLINGUAL ONE; -NITROGLYCERIN-D5W PMX 25 MG/250 ML BTL IV ONE; -NITROGLYCERIN-D5W PMX 50 MG in DEXTROSE/WATER 1 250ML.BAG IV ONE; -NOREPINEPHRIN 4 MG-0.9% NS PMX 4 MG/250 ML ML IV ONE; -PHENYLEPHRINE 40 MG in SODIUM CHLORIDE 0.9% 250 ML IV ONE; -PHENYLEPHRINE-0.9% NACL SYG 1 MG/10 ML SYRINGE IV ONE; -PROPOFOL 1,000 MG/100 ML VIAL IV ONE; -PROTAMINE SULFATE 10 MG/ML 25 ML VIAL IV ONE; -PROTAMINE SULFATE 250 MG in EMPTY BAG 1 BAG IV ONE; -SODIUM BICARB 8.4% 50 ML SYR (1 MEQ/ML) IV ONE; -SODIUM CHLORIDE 0.9% 1,000 ML IV ONE; -TRANEXAMIC ACID 2,000 MG in SODIUM CHLORIDE 0.9% 180 ML IV ONE; -ceFAZolin 1,000 MG in SODIUM CHLORIDE 0.9% IRRIGATIO 1,000 ML IRRIGATION ONE; -ceFAZolin 2,000 MG in SODIUM CHLORIDE 0.9% 30 ML IVPB ONE; +fentaNYL (PF) 50 MCG/ML 2 ML AMP IVP PRN
[2025-02-14 07:19] LABS: Glucose,Whole Blood 170 mg/dL (70-110)
[2025-02-14] MEDS: ONDANSETRON 4 MG/2 ML VIAL IVP ONE (07:21)
[2025-02-14] MEDS: ACETAMINOPHEN TAB 500 MG TAB PO PRN (07:22)
[2025-02-14] MEDS: DEXAMETHASONE SOD PHOSPHATE 4 MG/ML 1 ML VIAL IV ONE (07:24)
[2025-02-14] MEDS: LACTATED RINGERS 1,000 ML IV SCH (07:25)
[2025-02-14 07:26] LABS: HCT 37.9 % (39.0-53.0); MCH 30.6 pg (25.0-35.0); MCHC 34.2 g/dL (31.0-37.0); MCV 89.4 fL (80.0-100.0); Mean Platelet Volume 6.6; Platelet Count 333 k/uL (150-450); RBC 4.24 m/uL (4.30-5.90); RDW 13.5 % (11.5-15.5); WBC 12.4 k/uL (3.8-10.6)
[2025-02-14] MEDS: SODIUM CHLORIDE 0.9% 500 ML 500 ML IV ONE (07:29)
[2025-02-14 07:31] LABS: INR 1.1 (<1.2); Prothrombin Time 11.7 sec (10.0-12.5)
[2025-02-14] MEDS: BUPIVACAINE (PF) 0.25% 30 ML VIAL SQ ONE ×3 (07:32→07:53)
[2025-02-14] MEDS ORDERED: LIDOCAINE 1% INJ 10MG/ML (20 ML MDV) ONE (07:35)
[2025-02-14] MEDS ORDERED: fentaNYL (PF) 50 MCG/ML 2 ML AMP ONE (07:35)
[2025-02-14] MEDS ORDERED: SUGAMMADEX SODIUM 100 MG/ML SYR IV ONE (07:35)
[2025-02-14] MEDS ORDERED: MIDAZOLAM 2 MG/2 ML VIAL ONE (07:35)
[2025-02-14] MEDS ORDERED: ROCURONIUM 10 MG/ML (5 ML VIAL) IV ONE (07:35)
[2025-02-14] MEDS ORDERED: PROPOFOL 10 MG/ML 20 ML VIAL IV ONE (07:35)
[2025-02-14 07:49] LABS: ALT 24 U/L (4-49); AST 35 U/L (17-59); African American GFR (CKD) 9 (>60 ml/min/1.73 sqM); Albumin 4.5 g/dL (3.5-5.0); Alkaline Phosphatase 54 U/L (38-126); Anion Gap 11 mmol/L; Blood Urea Nitrogen 31 mg/dL (9-20); Calcium 9.1 mg/dL (8.4-10.2); Carbon Dioxide 30 mmol/L (22-30); Chloride 96 mmol/L (98-107); Glucose 162 mg/dL (74-99); Non-African American GFR(CKD) 8 (>60 ml/min/1.73 sqM); Potassium 3.8 mmol/L (3.5-5.1); Sodium 137 mmol/L (137-145); Total Protein 7.3 g/dL (6.3-8.2)
[2025-02-14] MEDS: SODIUM CHLORIDE 0.9% 250 ML IV ONE (08:01)
[2025-02-14] MEDS ORDERED: HYDROcodone/APAP 5-325MG 1 EACH TAB PO PRN (08:28)
[2025-02-14] MEDS ORDERED: NALOXONE 0.4 MG/ML 1 ML VIAL IV PRN (08:28)
--- NOTE | 2025-02-14 08:33 | P.OP ---
Date of Procedure: 02/14/25 Procedure(s) Performed: PREOPERATIVE DIAGNOSIS: Renal failure POSTOPERATIVE DIAGNOSIS: Same PROCEDURE: Peritoneal dialysis catheter insertion SURGEON: Reggie EBL: Minimal ANESTHESIA: General COMPLICATIONS: None OPERATIVE PROCEDURE: The patient was placed in the operative table in the supine position. The abdomen was prepped and draped in usual sterile fashion. A small vertical incision was made in the left periumbilical location. Dissection down through the subcutaneous tissues took place using electrocautery. The anterior rectus was divided vertically using the scalpel. The rectus was bluntly. The posterior rectus was visualized. An 0 Vicryl pursestring was placed. A small opening in the posterior rectus fascia and peritoneum took place using a Metzenbaum scissors. There were no adhesions to the suture that was placed. The pigtail catheter was advanced into the pelvis over a stylette. No resistance was met. The inner cuff was secured to the fascia using the 0 Vicryl pursestring that was placed. The catheter was tunneled to an exit site in the left lateral lower quadrant. The catheter was connected to the 1 L bag of saline and approximated 800 mL of saline was easily introduced into the peritoneal cavity. The fluid was then allowed to evacuate. The majority of the fluid was returned. The anterior rectus fascia was then reapproximated using a running 0 Vicryl stitch. The subcutaneous tissues reprepped using 3-0 Vicryl sutures and the skin using 4-0 Monocryl sutures. The outpatient dialysis adapter was applied to the end of the catheter. Sterile dressings were then applied after skin glue was placed over the incision. DISPOSITION: Stable to recovery room
[2025-02-14 08:41] VITALS: TEMP 96.8
[2025-02-14 09:43] VITALS: RESP 20
[2025-02-14 09:57] VITALS: BP 108/78; PULSE 78
== END 2025-02-14 10:30 | disposition home or self-care (01) ==
LOC: OR 06:17
PROVIDERS: ATTEND Surgery
DX: E11.22 Type 2 diabetes mellitus with diabetic chronic kidney disease (principal); I13.0 Hypertensive heart and chronic kidney disease with heart failure and stage 1 through stage 4 chronic kidney disease, or unspecified chronic kidney disease; N18.9 Chronic kidney disease, unspecified; I50.20 Unspecified systolic (congestive) heart failure; Z99.2 Dependence on renal dialysis; I25.10 Atherosclerotic heart disease of native coronary artery without angina pectoris; Z95.1 Presence of aortocoronary bypass graft; E78.5 Hyperlipidemia, unspecified; I35.1 Nonrheumatic aortic (valve) insufficiency; Z91.89 Other specified personal risk factors, not elsewhere classified; Z79.84 Long term (current) use of oral hypoglycemic drugs; Z79.01 Long term (current) use of anticoagulants; Z79.82 Long term (current) use of aspirin; Z79.899 Other long term (current) drug therapy; Z95.2 Presence of prosthetic heart valve; Z88.6 Allergy status to analgesic agent
CPT/HCPCS: 49421; 80053; 85027; 85610; C1752; J2250; J1100; J0690; J2405; J2003; J3010; J2704; J0665